=== PATIENT | female | born 1960 | race African-American/Black ===

== ENCOUNTER 2017-12-22 15:30 | Inpatient (IN) | payer BC ==
[~2017-12-22] VITALS: Ht 165.1 cm; Wt 87.1 kg
[2017-12-22] VITALS (8 sets, daily range): BP systolic 104–117; BP diastolic 41–66
--- NOTE | 2017-12-22 16:30 | Emergency Room Report ---
History of Present Illness General Chief Complaint: Generalized Weakness Source: Patient, EMS Present Illness HPI 57-year-old female presents ED for evaluation. Patient was found down in bathroom today. 911 called. Patient appeared lethargic. Accu-Chek critically high. History of diabetes. Patient is unable to provide any additional history at this time. No reported chest pain or shortness of breath. No fevers or chills. No other aggravating relieving factors. Denies any other associated symptoms Allergies: Coded Allergies: UNABLE TO ASSESS (Unverified , 12/22/17) Patient History Past Medical History: DM Past Surgical History: none Pertinent Family History: none Social History: Denies: smoking, alcohol use, drug use Now: No Immunizations: UTD Reviewed Nursing Documentation: PMH: Agreed; PSxH: Agreed Nursing Documentation-PMH Past Medical History: No History, Except For Hx Diabetes: Yes Review of Systems All Other Systems: limited Physical Exam Vital Signs Date Time Temp Pulse Resp B/P (MAP) Pulse Ox O2 Delivery O2 Flow Rate FiO2 12/22/17 15:27 105 16 119/69 95 Room Air Sp02 EP Interpretation: reviewed, normal General Appearance: lethargic Head: normocephalic Eyes: bilateral eye normal inspection, bilateral eye PERRL ENT: normal ENT inspection Neck: normal inspection Respiratory: chest non-tender, lungs clear, normal breath sounds, speaking full sentences Cardiovascular #1: regular rate, rhythm, no edema Gastrointestinal: normal bowel sounds, non tender, soft, non-distended, no guarding, no rebound Rectal: deferred Genitourinary: no CVA tenderness Musculoskeletal: normal inspection Neurologic: other - lethargic Psychiatric: other - lethargic Skin: other - area of induration/erythema/fluctuance to R buttock Lymphatic: normal inspection Procedures Critical Care Time Critical Care Time i. I feel this is a highly complex case requiring extensive working including EKG/Rhythm strip, Xray/CT/US, Blood/urine lab work, repeat exams while in ED, and administration of strong opiates/narcotics for pain control, admission to hospital or close patient follow up. Total time: 30 min bedside evaluation and treatment excludes procedures (EKG). Reason for critical care: AMS, sepsis, DKA, abscess Possible complications: hypotension, hypertension, VT, shock, arrhythmias, metabolic acidosis, end organ damage, respiratory failure. Interventions: labs, ekg, CT, IVFs. ABG. insulin drip/bolus. consultation with surgery Course: Patient presenting found down in bathroom at home. Accu-Chek critically high. CT negative. Glucose > 1000 with DKA. ABG shows acidosis. There is a large abscess to the right buttock. Drained by Dr. Osorio at bedside. insulin bolus and insulin drip started Consultations: nursing staff, EMS, family Performed by: Dr Deras Tolerated well condition = critical j. because of unstable vital signs this patient had a condition that could potentially threaten life or limb. I feel this is a critical patient who required my full attention while patient was considered critical. Total Critical Care Time excluding procedures was greater than 35 minutes Medical Decision Making Diagnostic Impression: Primary Impression: DKA (diabetic ketoacidoses) Qualified Codes: E13.11 - Other specified diabetes mellitus with ketoacidosis with coma Additional Impressions: Abscess of buttock Renal insufficiency ER Course Hospital Course 57-year-old female presenting to ED with altered mental status, glucometer critically high. found down Differential diagnoses include: ETOH/drug ingestion, sepsis, DKA Clinical course Patient placed on stretcher. On fraud examiner. After initial history and physical I ordered labs, 2 L of IV fluids, urine and CT Head Labs-glucose greater than 1000, anion gap elevated, bicarbonate 5, BUN/ creatinine elevated. WBC > 30 CT head unremarkable There is a fairly large abscess to the right buttock IV hydration continued. Started on insulin bolus and insulin drip Patient is more awake Dr. Osorio at bedside to evaluate the patient; he was able to drain the abscess. IV Antibiotics given. Case discussed with Dr. Mckay and he agreed to accept the patient to his service for further care and support i. I feel this is a highly complex case requiring extensive working including EKG/Rhythm strip, Xray/CT/US, Blood/urine lab work, repeat exams while in ED, and administration of strong opiates/narcotics for pain control, admission to hospital or close patient follow up. j. because of unstable vital signs this patient had a condition that could potentially threaten life or limb. I feel this is a critical patient who required my full attention while patient was considered critical. Total Critical Care Time excluding procedures was greater than 35 minutes diagnosis - DKA, abscess of buttock, renal insufficiency admitted to ICU in critical condition Labs Test 12/22/17 15:55 12/22/17 16:12 12/22/17 16:58 White Blood Count 33.0 K/UL (4.8-10.8) Red Blood Count 3.71 M/UL (4.20-5.40) Hemoglobin 10.9 G/DL (12.0-16.0) Hematocrit 34.3 % (37.0-47.0) Mean Corpuscular Volume 92 FL (80-99) Mean Corpuscular Hemoglobin 29.3 PG (27.0-31.0) Mean Corpuscular Hemoglobin Concent 31.7 G/DL (32.0-36.0) Red Cell Distribution Width 12.3 % (11.6-14.8) Platelet Count 425 K/UL (150-450) Mean Platelet Volume 7.6 FL (6.5-10.1) Neutrophils (%) (Auto) % (45.0-75.0) Lymphocytes (%) (Auto) % (20.0-45.0) Monocytes (%) (Auto) % (1.0-10.0) Eosinophils (%) (Auto) % (0.0-3.0) Basophils (%) (Auto) % (0.0-2.0) Differential Total Cells Counted 100 Neutrophils % (Manual) 84 % (45-75) Lymphocytes % (Manual) 6 % (20-45) Monocytes % (Manual) 9 % (1-10) Eosinophils % (Manual) 0 % (0-3) Basophils % (Manual) 0 % (0-2) Band Neutrophils 1 % (0-8) Nucleated Red Blood Cells 1 /100 WBC Platelet Estimate Adequate Platelet Morphology Normal Red Blood Cell Morphology Normal Prothrombin Time 10.8 SEC (9.30-11.50) Prothromb Time International Ratio 1.0 (0.9-1.1) Activated Partial Thromboplast Time 27 SEC (23-33) Sodium Level 126 MMOL/L (136-145) Potassium Level 5.1 MMOL/L (3.5-5.1) Chloride Level 88 MMOL/L (98-107) Carbon Dioxide Level < 5 MMOL/L (21-32) Blood Urea Nitrogen 97 mg/dL (7-18) Creatinine 2.9 MG/DL (0.55-1.30) Estimat Glomerular Filtration Rate 20.2 mL/min (>60) Glucose Level 1064 MG/DL (74-106) Lactic Acid Level 1.30 mmol/L (0.4-2.0) Calcium Level 8.9 MG/DL (8.5-10.1) Magnesium Level 2.7 MG/DL (1.8-2.4) Total Bilirubin 0.8 MG/DL (0.2-1.0) Aspartate Amino Transf (AST/SGOT) 12 U/L (15-37) Alanine Aminotransferase (ALT/SGPT) 15 U/L (12-78) Alkaline Phosphatase 201 U/L (46-116) Creatine Kinase MB 1.8 NG/ML (0.0-3.6) Total Protein 7.3 G/DL (6.4-8.2) Albumin 1.9 G/DL (3.4-5.0) Globulin 5.4 g/dL Albumin/Globulin Ratio 0.4 (1.0-2.7) Acetone Level Positive-moderate (NEGATIVE) Urine Color Pale yellow Urine Appearance Clear Urine pH 5 (4.5-8.0) Urine Specific [place] 1.015 (1.005-1.035) Urine Protein 3+ (NEGATIVE) Urine Glucose (UA) 4+ (NEGATIVE) Urine Ketones 4+ (NEGATIVE) Urine Occult Blood 4+ (NEGATIVE) Urine Nitrite Negative (NEGATIVE) Urine Bilirubin Negative (NEGATIVE) Urine Urobilinogen Normal MG/DL (0.0-1.0) Urine Leukocyte Esterase Negative (NEGATIVE) Urine RBC 2-4 /HPF (0 - 2) Urine WBC 0-2 /HPF (0 - 2) Urine Squamous Epithelial Cells Few /LPF (NONE/OCC) Urine Bacteria Few /HPF (NONE) Arterial Blood pH 7.140 (7.350-7.450) Arterial Blood Partial Pressure CO2 12.0 mmHg (35.0-45.0) Arterial Blood Partial Pressure O2 116.6 mmHg (75.0-100.0) Arterial Blood HCO3 4.0 mmol/L (22.0-26.0) Arterial Blood Oxygen Saturation 97.1 % (92.0-98.0) Arterial Blood Base Excess -22.7 Connor Test Positive EKG Diagnostic Results Rate: tachycardiac Rhythm: NSR ST Segments: no acute changes ASA given to the pt in ED: No Rhythm Strip Diag. Results EP Interpretation: yes Rhythm: NSR, no PVC's, no ectopy CT/MRI/US Diagnostic Results CT/MRI/US Diagnostic Results : Imaging Test Ordered: CT Head Impression no acute process Last Vital Signs Date Time Temp Pulse Resp B/P (MAP) Pulse Ox O2 Delivery O2 Flow Rate FiO2 12/22/17 15:27 105 16 119/69 95 Room Air Status: improved Disposition: ADMITTED INPATIENT Condition: Critical Referrals: NOT CHOSEN IPA/,REFERRING (PCP) Yared Deras MD Dec 22, 2017 16:30
[2017-12-22 16:36] LABS: HEMATOCRIT 34.3 % (37.0-47.0); HEMOGLOBIN 10.9 G/DL (12.0-16.0); MEAN CORPUSCULAR VOLUME 92 FL (80-99); PLATELET COUNT 425 K/UL (150-450); RED BLOOD COUNT 3.71 M/UL (4.20-5.40); RED CELL DISTRIBUTION WIDTH 12.3 % (11.6-14.8)
[2017-12-22 16:41] LABS: APPEARANCE,URINE CLEAR; BILIRUBIN, URINE NEGATIVE (NEGATIVE); COLOR,URINE PALE YELLOW; GLUCOSE, URINE (UA) 4+ (NEGATIVE); KETONES,URINE 4+ (NEGATIVE); LEUKOCYTE ESTERASE ,URINE NEGATIVE (NEGATIVE); NITRITE,URINE NEGATIVE (NEGATIVE); PH,URINE 5 (4.5-8.0); PROTEIN,URINE 3+ (NEGATIVE); UROBILINOGEN,URINE NORMAL MG/DL (0.0-1.0)
[2017-12-22 16:54] LABS: ALANINE AMINOTRANSFERASE 15 U/L (12-78); ALBUMIN 1.9 G/DL (3.4-5.0); ALBUMIN/GLOBULIN RATIO 0.4 (1.0-2.7); ALKALINE PHOSPHATASE 201 U/L (46-116); ASPARTATE AMINO TRANSFERASE 12 U/L (15-37); BILIRUBIN,TOTAL 0.8 MG/DL (0.2-1.0); BLOOD UREA NITROGEN 97 mg/dL (7-18); CALCIUM 8.9 MG/DL (8.5-10.1); CHLORIDE 88 MMOL/L (98-107); CREATININE 2.9 MG/DL (0.55-1.30); POTASSIUM 5.1 MMOL/L (3.5-5.1); SODIUM 126 MMOL/L (136-145)
[2017-12-22 16:56] LABS: CARBON DIOXIDE < 5 MMOL/L (21-32)
[2017-12-22] MEDS ORDERED: Insulin Human Regular 100units/ml 3ml IV ONE (17:00)
[2017-12-22] MEDS ORDERED: Piperacillin/Tazobactam 3.375 GM in NS 110 ML IVPB ONE (17:00)
[2017-12-22] MEDS ORDERED: UNOBMED (17:00)
--- NOTE | 2017-12-22 17:01 | Diagnostic Imaging Report ---
Indications: Altered mental status Technique: Spiral acquisitions obtained through the brain. Angled axial and coronal 5 x 5 mm slices were reconstructed. Total dose length product 1413.89 mGycm. CTDI vol(s) 70.38 mGy. Dose reduction achieved using automated exposure control Comparison: None. Findings: No acute intracranial hemorrhage or edema, mass effect, nor midline shift. Normal size ventricles and extra-axial CSF spaces. Normal sanabria-white differentiation. Incidental finding of empty sella. The mastoids are clear. The visualized orbits and sinuses are unremarkable. The calvarium is intact Impression: Negative. No evidence of acute intracranial bleed or mass effect The CT scanner at [facility] is accredited by the [employer] and the scans are performed using protocols designed to limit radiation exposure to as low as reasonably achievable to attain images of sufficient resolution adequate for diagnostic evaluation.
--- NOTE | 2017-12-22 17:50 | Consultation ---
History of Present Illness General Date patient seen: Dec 22, 2017 Chief Complaint: Generalized Weakness Reason for Consultation: right buttock abscess / sepsis Present Illness HPI 57 year old female was found down at home by her twin brother earlier today. Family was trying to get in contact with her earlier today and when no response her twin brother went to her house and climbed in through the window to find her down on the floor. Unsure of etiology and called 911. EMS noted lethargic female with blood sugar >1000. She was transported to [facility] [place]. she was noted to have leukocytosis 33k, severe hyperglycemia, significant acidosis, and large right buttock abscess with area of gangrene at skin level. surgery called to evaluate patient. patient seen, chart reviewed, patient examined. on exam patient can follow simple commands but is not responsive verbally yet. her daughter is at bedside and states she does not know of any past medical history. she states her mother is "holistic" and does not take pharmaceutical medications as far as she knows. she was unaware that mother was a diabetic. Allergies: Coded Allergies: UNABLE TO ASSESS (Unverified , 12/22/17) Medication History Miscellaneous Medications Unable to Obtain Medications (Unable To Obtain Meds), (Reported) Patient History Limited by: medical condition History Provided By: Family Member, Medical Record, PMD Healthcare decision maker Resuscitation status Advanced Directive on File Past Medical/Surgical History Past Medical/Surgical History: (1) Abscess of buttock (2) Sepsis (3) Hyperglycemia (4) Diabetes (5) Diabetic acidosis without coma (6) Renal insufficiency (7) Severe sepsis Review of Systems ROS Narrative cannot obtain given medical condition Physical Exam General Appearance: lethargic, confused, mild distress Lines, tubes and drains: peripheral HEENT: normocephalic, anicteric Neck: normal inspection Respiratory/Chest: lungs clear, normal breath sounds Cardiovascular/Chest: normal peripheral pulses, regular rhythm Abdomen: normal bowel sounds, non tender, soft, no organomegaly, no mass Extremities: normal inspection Skin Exam: normal pigmentation Neurologic: alert, disoriented Last 24 Hour Vital Signs Date Time Temp Pulse Resp B/P (MAP) Pulse Ox O2 Delivery O2 Flow Rate FiO2 12/22/17 15:30 95.4 104 28 117/56 100 Room Air 95.4 12/22/17 15:27 105 16 119/69 95 Room Air Laboratory Tests Test 12/22/17 15:55 12/22/17 16:12 12/22/17 16:58 White Blood Count 33.0 K/UL (4.8-10.8) *H Red Blood Count 3.71 M/UL (4.20-5.40) L Hemoglobin 10.9 G/DL (12.0-16.0) L Hematocrit 34.3 % (37.0-47.0) L Mean Corpuscular Volume 92 FL (80-99) Mean Corpuscular Hemoglobin 29.3 PG (27.0-31.0) Mean Corpuscular Hemoglobin Concent 31.7 G/DL (32.0-36.0) L Red Cell Distribution Width 12.3 % (11.6-14.8) Platelet Count 425 K/UL (150-450) Mean Platelet Volume 7.6 FL (6.5-10.1) Neutrophils (%) (Auto) % (45.0-75.0) Lymphocytes (%) (Auto) % (20.0-45.0) Monocytes (%) (Auto) % (1.0-10.0) Eosinophils (%) (Auto) % (0.0-3.0) Basophils (%) (Auto) % (0.0-2.0) Neutrophils % (Manual) Pending Lymphocytes % (Manual) Pending Platelet Estimate Pending Platelet Morphology Pending Prothrombin Time 10.8 SEC (9.30-11.50) Prothromb Time International Ratio 1.0 (0.9-1.1) Activated Partial Thromboplast Time 27 SEC (23-33) Sodium Level 126 MMOL/L (136-145) L Potassium Level 5.1 MMOL/L (3.5-5.1) Chloride Level 88 MMOL/L (98-107) L Carbon Dioxide Level < 5 MMOL/L (21-32) *L Blood Urea Nitrogen 97 mg/dL (7-18) H Creatinine 2.9 MG/DL (0.55-1.30) H Estimat Glomerular Filtration Rate 20.2 mL/min (>60) Glucose Level 1064 MG/DL (74-106) *H Lactic Acid Level 1.30 mmol/L (0.4-2.0) Calcium Level 8.9 MG/DL (8.5-10.1) Magnesium Level 2.7 MG/DL (1.8-2.4) H Total Bilirubin 0.8 MG/DL (0.2-1.0) Aspartate Amino Transf (AST/SGOT) 12 U/L (15-37) L Alanine Aminotransferase (ALT/SGPT) 15 U/L (12-78) Alkaline Phosphatase 201 U/L (46-116) H Creatine Kinase MB 1.8 NG/ML (0.0-3.6) Total Protein 7.3 G/DL (6.4-8.2) Albumin 1.9 G/DL (3.4-5.0) L Globulin 5.4 g/dL Albumin/Globulin Ratio 0.4 (1.0-2.7) L Acetone Level Positive-moderate (NEGATIVE) Urine Color Pale yellow Urine Appearance Clear Urine pH 5 (4.5-8.0) Urine Specific [place] 1.015 (1.005-1.035) Urine Protein 3+ (NEGATIVE) H Urine Glucose (UA) 4+ (NEGATIVE) H Urine Ketones 4+ (NEGATIVE) H Urine Occult Blood 4+ (NEGATIVE) H Urine Nitrite Negative (NEGATIVE) Urine Bilirubin Negative (NEGATIVE) Urine Urobilinogen Normal MG/DL (0.0-1.0) Urine Leukocyte Esterase Negative (NEGATIVE) Urine RBC 2-4 /HPF (0 - 2) H Urine WBC 0-2 /HPF (0 - 2) Urine Squamous Epithelial Cells Few /LPF (NONE/OCC) Urine Bacteria Few /HPF (NONE) Arterial Blood pH 7.140 (7.350-7.450) Arterial Blood Partial Pressure CO2 12.0 mmHg (35.0-45.0) *L Arterial Blood Partial Pressure O2 116.6 mmHg (75.0-100.0) H Arterial Blood HCO3 4.0 mmol/L (22.0-26.0) L Arterial Blood Oxygen Saturation 97.1 % (92.0-98.0) Arterial Blood Base Excess -22.7 Connor Test Positive Height (Feet): 5 Height (Inches): 7.00 Weight (Pounds): 245 Medications Current Medications Medications (Trade) Dose Ordered Sig/Eyad Route PRN Reason Start Time Stop Time Status Last Admin Dose Admin Insulin Human Regular 100 units/ Sodium Chloride 101 ml @ 15.15 mls/ hr ONCE ONCE IV 12/22/17 17:00 12/22/17 23:39 Sodium Chloride 1,000 ml @ 999 mls/hr Q1H1M ONCE IV 12/22/17 17:00 12/22/17 18:00 12/22/17 17:12 Assessment/Plan Problem List: (1) Diabetic acidosis without coma ICD Codes: E13.10 - Other specified diabetes mellitus with ketoacidosis without coma SNOMED: 08056308, 994846407 (2) Hyperglycemia ICD Codes: R73.9 - Hyperglycemia, unspecified SNOMED: 24171868 (3) Severe sepsis ICD Codes: A41.9 - Sepsis, unspecified organism; R65.20 - Severe sepsis without septic shock SNOMED: 11056993 (4) Abscess of buttock Assessment & Plan: large right buttock abscess with gangrene at skin level. given condition urgent I&D warranted as possible etiology of sepsis. see procedure report. -cultures -NPO -IV fluids -Resuscitation -Insulin gtt -ICU admission -packing and dressings to buttock TID. thank you will follow with recommendations ICD Codes: L02.31 - Cutaneous abscess of buttock SNOMED: 37254624 (5) DKA (diabetic ketoacidoses) ICD Codes: E13.10 - Other specified diabetes mellitus with ketoacidosis without coma SNOMED: 76935193, 499590473 Qualifiers: Qualified Codes: E13.11 - Other specified diabetes mellitus with ketoacidosis with coma Baljeet Osorio Dec 22, 2017 17:50
--- NOTE | 2017-12-22 17:54 | Operative Note - PDOC ---
Operative Note Operative Note Date of Operation/Procedure: Dec 22, 2017 Pre-op Diagnosis: right buttock abscess, sepsis Procedure: incision and drainage of right perirectal abscess Post-op Diagnosis: same as pre-op Surgeon: mariana Anesthesia: local Specimen: yes Complications: none Condition: stable Estimated Blood Loss: minimal Drains: none Implant(s) used?: No Indications for Procedure 57F septic, diabetic ketoacidosis, found down, large right buttock abscess with erythema, cellulitis, and necrotic skin level area 3cm x2cm. given medical condition urgent I&D indicated and recommended. daughter at bedside during procedure. Description of Procedure patient made comfortable in left lateral decubitus position. area cleaned, prepped, and draped in standard surgical fashion. #11 scalpel used to make crutiate incision in area of necrosis. immediately brown purulent fluid evacuated. no bleeding from area of necrosis. fluid evacuated, cavity explored and deep towards rectum. contents somewhat stool like in appearance. washout performed. packing and dressings applied. patient tolerated well. Baljeet Osorio Dec 22, 2017 17:54
[2017-12-22] MEDS ORDERED: Insulin Human Regular 100units/ml 3ml IV PRN ×2 (18:00)
[2017-12-22] MEDS ORDERED: Mylanta II UD 30ml ORAL PRN (18:00)
[2017-12-22] MEDS ORDERED: Acetaminophen 650 MG SUPP RECTAL PRN (18:00)
[2017-12-22] MEDS ORDERED: HYDROmorphone 1mg/ml Carpuject IVP PRN (18:00)
[2017-12-22] MEDS ORDERED: Nitroglycerin Subl 0.4mg tab SL PRN (18:00)
[2017-12-22] MEDS ORDERED: Hydromorphone 0.5mg/0.5ml inj IVP PRN (18:00)
[2017-12-22] MEDS ORDERED: Artificial Tears 1.4% Op Soln BOTH EYES SCH (18:00)
--- NOTE | 2017-12-22 18:21 | Pulmonolgy Critical Care Note ---
Critical Care - Asmt/Plan Problems: (1) Diabetic acidosis without coma (2) Diabetes (3) Hyperglycemia (4) Sepsis (5) Severe sepsis (6) Abscess of buttock (7) Renal insufficiency (8) DKA (diabetic ketoacidoses) Respiratory: monitor respiratory rate, CXR, ABG Cardiac: continue to monitor HR/BP, other - TTE Renal: F/U I&O, keep IV fluid, check electrolytes Infectious Disease: check cultures, continue antibiotics - Vanco, Zosyn, other - S/P I&D, F/U surgery recs, ? CT A/P Gastrointestinal: other - NPO until MS better Endocrine: monitor blood sugar - q1hour Accucheck, check HgA1C, start insulin drip, other - NS@200/hr, insulin gtt, when BS < 250 will add dextrose to IVF, endo eval Hematologic: monitor H/H Neurologic: other - Monitor MS, F/U final CT, F/U SAPE Prophylaxis: Protonix, Heparin Disposition: keep in ICU Time Spent (Minutes): 60 Notes Reviewed: other - Surgery, ERMD Discussed with: nurses, consultants Critical Care - Objective Last 24 Hour Vital Signs Date Time Temp Pulse Resp B/P (MAP) Pulse Ox O2 Delivery O2 Flow Rate FiO2 12/22/17 17:30 98 25 112/47 100 Room Air 12/22/17 16:30 98 25 104/41 100 Room Air 12/22/17 15:30 95.4 104 28 117/56 100 Room Air 95.4 12/22/17 15:27 105 16 119/69 95 Room Air Status: obtunded Condition: critical HEENT: atraumatic, normocephalic Neck: full ROM Lungs: clear Heart: HR/BP stable Abdomen: soft, non-tender, active bowel sounds Extremities: no C/C/E, other - buttock abscess S/P I&D, packed Critical Care - Subjective ROS Limited/Unobtainable: Yes ICU Day: 1 Interval Events: 57 F H/o IDDM FD, BIB EMS, altered in ED, HCO3 < , pCO2 12, WCt 33, BS > 1000 S/P I&D of buttock abscess by surgery in ED MS better but still lethargic On insulin gtt, IVF, Abx Condition: critical IV Access: peripheral EKG Rhythm: Sinus Rhythm Subjective: lethargic, wakes up to questions, denies specific complaints Labs: Laboratory Tests Test 12/22/17 15:55 12/22/17 16:12 12/22/17 16:58 White Blood Count 33.0 K/UL (4.8-10.8) *H Red Blood Count 3.71 M/UL (4.20-5.40) L Hemoglobin 10.9 G/DL (12.0-16.0) L Hematocrit 34.3 % (37.0-47.0) L Mean Corpuscular Volume 92 FL (80-99) Mean Corpuscular Hemoglobin 29.3 PG (27.0-31.0) Mean Corpuscular Hemoglobin Concent 31.7 G/DL (32.0-36.0) L Red Cell Distribution Width 12.3 % (11.6-14.8) Platelet Count 425 K/UL (150-450) Mean Platelet Volume 7.6 FL (6.5-10.1) Neutrophils (%) (Auto) % (45.0-75.0) Lymphocytes (%) (Auto) % (20.0-45.0) Monocytes (%) (Auto) % (1.0-10.0) Eosinophils (%) (Auto) % (0.0-3.0) Basophils (%) (Auto) % (0.0-2.0) Differential Total Cells Counted 100 Neutrophils % (Manual) 84 % (45-75) H Lymphocytes % (Manual) 6 % (20-45) L Monocytes % (Manual) 9 % (1-10) Eosinophils % (Manual) 0 % (0-3) Basophils % (Manual) 0 % (0-2) Band Neutrophils 1 % (0-8) Nucleated Red Blood Cells 1 /100 WBC Platelet Estimate Adequate Platelet Morphology Normal Red Blood Cell Morphology Normal Prothrombin Time 10.8 SEC (9.30-11.50) Prothromb Time International Ratio 1.0 (0.9-1.1) Activated Partial Thromboplast Time 27 SEC (23-33) Sodium Level 126 MMOL/L (136-145) L Potassium Level 5.1 MMOL/L (3.5-5.1) Chloride Level 88 MMOL/L (98-107) L Carbon Dioxide Level < 5 MMOL/L (21-32) *L Blood Urea Nitrogen 97 mg/dL (7-18) H Creatinine 2.9 MG/DL (0.55-1.30) H Estimat Glomerular Filtration Rate 20.2 mL/min (>60) Glucose Level 1064 MG/DL (74-106) *H Lactic Acid Level 1.30 mmol/L (0.4-2.0) Calcium Level 8.9 MG/DL (8.5-10.1) Magnesium Level 2.7 MG/DL (1.8-2.4) H Total Bilirubin 0.8 MG/DL (0.2-1.0) Aspartate Amino Transf (AST/SGOT) 12 U/L (15-37) L Alanine Aminotransferase (ALT/SGPT) 15 U/L (12-78) Alkaline Phosphatase 201 U/L (46-116) H Creatine Kinase MB 1.8 NG/ML (0.0-3.6) Total Protein 7.3 G/DL (6.4-8.2) Albumin 1.9 G/DL (3.4-5.0) L Globulin 5.4 g/dL Albumin/Globulin Ratio 0.4 (1.0-2.7) L Acetone Level Positive-moderate (NEGATIVE) Urine Color Pale yellow Urine Appearance Clear Urine pH 5 (4.5-8.0) Urine Specific [place] 1.015 (1.005-1.035) Urine Protein 3+ (NEGATIVE) H Urine Glucose (UA) 4+ (NEGATIVE) H Urine Ketones 4+ (NEGATIVE) H Urine Occult Blood 4+ (NEGATIVE) H Urine Nitrite Negative (NEGATIVE) Urine Bilirubin Negative (NEGATIVE) Urine Urobilinogen Normal MG/DL (0.0-1.0) Urine Leukocyte Esterase Negative (NEGATIVE) Urine RBC 2-4 /HPF (0 - 2) H Urine WBC 0-2 /HPF (0 - 2) Urine Squamous Epithelial Cells Few /LPF (NONE/OCC) Urine Bacteria Few /HPF (NONE) Arterial Blood pH 7.140 (7.350-7.450) Arterial Blood Partial Pressure CO2 12.0 mmHg (35.0-45.0) *L Arterial Blood Partial Pressure O2 116.6 mmHg (75.0-100.0) H Arterial Blood HCO3 4.0 mmol/L (22.0-26.0) L Arterial Blood Oxygen Saturation 97.1 % (92.0-98.0) Arterial Blood Base Excess -22.7 Connor Test Positive Omega Nance MD Dec 22, 2017 18:21
[2017-12-22] MEDS ORDERED: Heparin 5000 units/ml inj SUBQ SCH (21:00)
[2017-12-22] MEDS ORDERED: Vitamin A&D Oint 2oz Tube TOPIC SCH (21:00)
--- NOTE | 2017-12-22 21:00 | Cardiology Progress Note ---
Assessment/Plan Assessment/Plan The patient is seen and examined, full consult note will be dictated. Objective Last 24 Hour Vital Signs Date Time Temp Pulse Resp B/P (MAP) Pulse Ox O2 Delivery O2 Flow Rate FiO2 12/22/17 18:30 95 25 106/45 100 Room Air 12/22/17 17:30 98 25 112/47 100 Room Air 12/22/17 16:30 98 25 104/41 100 Room Air 12/22/17 15:30 95.4 104 28 117/56 100 Room Air 95.4 12/22/17 15:27 105 16 119/69 95 Room Air Laboratory Tests Test 12/22/17 15:55 12/22/17 16:12 12/22/17 16:58 White Blood Count 33.0 K/UL (4.8-10.8) *H Red Blood Count 3.71 M/UL (4.20-5.40) L Hemoglobin 10.9 G/DL (12.0-16.0) L Hematocrit 34.3 % (37.0-47.0) L Mean Corpuscular Volume 92 FL (80-99) Mean Corpuscular Hemoglobin 29.3 PG (27.0-31.0) Mean Corpuscular Hemoglobin Concent 31.7 G/DL (32.0-36.0) L Red Cell Distribution Width 12.3 % (11.6-14.8) Platelet Count 425 K/UL (150-450) Mean Platelet Volume 7.6 FL (6.5-10.1) Neutrophils (%) (Auto) % (45.0-75.0) Lymphocytes (%) (Auto) % (20.0-45.0) Monocytes (%) (Auto) % (1.0-10.0) Eosinophils (%) (Auto) % (0.0-3.0) Basophils (%) (Auto) % (0.0-2.0) Differential Total Cells Counted 100 Neutrophils % (Manual) 84 % (45-75) H Lymphocytes % (Manual) 6 % (20-45) L Monocytes % (Manual) 9 % (1-10) Eosinophils % (Manual) 0 % (0-3) Basophils % (Manual) 0 % (0-2) Band Neutrophils 1 % (0-8) Nucleated Red Blood Cells 1 /100 WBC Platelet Estimate Adequate Platelet Morphology Normal Red Blood Cell Morphology Normal Prothrombin Time 10.8 SEC (9.30-11.50) Prothromb Time International Ratio 1.0 (0.9-1.1) Activated Partial Thromboplast Time 27 SEC (23-33) Sodium Level 126 MMOL/L (136-145) L Potassium Level 5.1 MMOL/L (3.5-5.1) Chloride Level 88 MMOL/L (98-107) L Carbon Dioxide Level < 5 MMOL/L (21-32) *L Blood Urea Nitrogen 97 mg/dL (7-18) H Creatinine 2.9 MG/DL (0.55-1.30) H Estimat Glomerular Filtration Rate 20.2 mL/min (>60) Glucose Level 1064 MG/DL (74-106) *H Lactic Acid Level 1.30 mmol/L (0.4-2.0) Calcium Level 8.9 MG/DL (8.5-10.1) Magnesium Level 2.7 MG/DL (1.8-2.4) H Total Bilirubin 0.8 MG/DL (0.2-1.0) Aspartate Amino Transf (AST/SGOT) 12 U/L (15-37) L Alanine Aminotransferase (ALT/SGPT) 15 U/L (12-78) Alkaline Phosphatase 201 U/L (46-116) H Creatine Kinase MB 1.8 NG/ML (0.0-3.6) Total Protein 7.3 G/DL (6.4-8.2) Albumin 1.9 G/DL (3.4-5.0) L Globulin 5.4 g/dL Albumin/Globulin Ratio 0.4 (1.0-2.7) L Acetone Level Positive-moderate (NEGATIVE) Urine Color Pale yellow Urine Appearance Clear Urine pH 5 (4.5-8.0) Urine Specific [place] 1.015 (1.005-1.035) Urine Protein 3+ (NEGATIVE) H Urine Glucose (UA) 4+ (NEGATIVE) H Urine Ketones 4+ (NEGATIVE) H Urine Occult Blood 4+ (NEGATIVE) H Urine Nitrite Negative (NEGATIVE) Urine Bilirubin Negative (NEGATIVE) Urine Urobilinogen Normal MG/DL (0.0-1.0) Urine Leukocyte Esterase Negative (NEGATIVE) Urine RBC 2-4 /HPF (0 - 2) H Urine WBC 0-2 /HPF (0 - 2) Urine Squamous Epithelial Cells Few /LPF (NONE/OCC) Urine Bacteria Few /HPF (NONE) Urine Opiates Screen Pending Urine Barbiturates Screen Pending Phencyclidine (PCP) Screen Pending Urine Amphetamines Screen Pending Urine Benzodiazepines Screen Pending Urine Cocaine Screen Pending Urine Marijuana (THC) Screen Pending Arterial Blood pH 7.140 (7.350-7.450) Arterial Blood Partial Pressure CO2 12.0 mmHg (35.0-45.0) *L Arterial Blood Partial Pressure O2 116.6 mmHg (75.0-100.0) H Arterial Blood HCO3 4.0 mmol/L (22.0-26.0) L Arterial Blood Oxygen Saturation 97.1 % (92.0-98.0) Arterial Blood Base Excess -22.7 Connor Test Positive Javi Anthony MD Dec 22, 2017 21:00
[2017-12-23] VITALS (24 sets, daily range): BP systolic 114–162; BP diastolic 47–89
[2017-12-23 05:53] LABS: HEMATOCRIT 33.7 % (37.0-47.0); MEAN CORPUSCULAR VOLUME 86 FL (80-99); PLATELET COUNT 415 K/UL (150-450); RED BLOOD COUNT 3.93 M/UL (4.20-5.40); RED CELL DISTRIBUTION WIDTH 11.3 % (11.6-14.8)
[2017-12-23 06:02] LABS: ALANINE AMINOTRANSFERASE 12 U/L (12-78); ALBUMIN 1.8 G/DL (3.4-5.0); ALKALINE PHOSPHATASE 166 U/L (46-116); ANION GAP 14 mmol/L (5-15); ASPARTATE AMINO TRANSFERASE 17 U/L (15-37); BILIRUBIN,DIRECT 0.1 MG/DL (0.0-0.3); BILIRUBIN,TOTAL 0.3 MG/DL (0.2-1.0); BLOOD UREA NITROGEN 79 mg/dL (7-18); CALCIUM 8.4 MG/DL (8.5-10.1); CARBON DIOXIDE 21 MMOL/L (21-32); CHLORIDE 109 MMOL/L (98-107); CREATININE 1.9 MG/DL (0.55-1.30); POTASSIUM 3.8 MMOL/L (3.5-5.1); SODIUM 144 MMOL/L (136-145); WHITE BLOOD COUNT 23.1 K/UL (4.8-10.8)
--- NOTE | 2017-12-23 09:07 | Pulmonolgy Critical Care Note ---
Critical Care - Asmt/Plan Problems: (1) Diabetic acidosis without coma (2) Diabetes (3) Hyperglycemia (4) Sepsis (5) Severe sepsis (6) Abscess of buttock (7) Renal insufficiency (8) DKA (diabetic ketoacidoses) (9) Vagina bleeding Assessment/Plan: * Continue insulin gtt * Change IVF to [id number]@150 * Once gap closed start SQ insulin, overlap with gtt for one hour * Endocrine evaluation * STAT ABG * Continue Vancomycin/Zosyn (D2), F/U Cx's, ID eval * F/U surgery recs, wound care, consider CT A/P * TEMPLATE INSPECTOR evaluation * Monitor for further bleeding * NPO, once more alert TOOL MAKER BENCH eval and advance diet * Px: Hep SQ and PPI * FC 40 min CCT Omega Nance MD Critical Care - Objective Last 24 Hour Vital Signs Date Time Temp Pulse Resp B/P (MAP) Pulse Ox O2 Delivery O2 Flow Rate FiO2 12/23/17 08:50 Room Air 12/23/17 08:00 Room Air 12/23/17 07:44 97.0 105 20 149/80 100 Room Air 97.0 12/23/17 07:11 105 20 149/80 100 Room Air 12/23/17 05:58 107 16 133/68 98 Room Air 12/23/17 04:40 103 18 135/56 98 Room Air 12/23/17 03:30 97.0 104 18 137/67 97 Room Air 97.0 12/23/17 02:22 100 18 114/47 97 Room Air 12/23/17 01:22 106 18 116/48 99 Room Air 12/23/17 00:02 97.5 108 20 117/48 99 Room Air 97.5 12/22/17 22:40 103 19 113/66 99 Room Air 12/22/17 21:39 97.3 98 25 104/41 100 Room Air 97.3 12/22/17 20:30 97 26 110/51 100 Room Air 12/22/17 19:30 96 24 117/56 100 Room Air 12/22/17 18:30 95 25 106/45 100 Room Air 12/22/17 17:30 98 25 112/47 100 Room Air 12/22/17 16:30 98 25 104/41 100 Room Air 12/22/17 15:30 95.4 104 28 117/56 100 Room Air 95.4 12/22/17 15:27 105 16 119/69 95 Room Air Status: other - confused Condition: improving HEENT: atraumatic, normocephalic Lungs: clear Heart: HR/BP stable Abdomen: soft, non-tender, active bowel sounds Extremities: no C/C/E, other - buttock wound packed, + VB Accucheck: 237 Critical Care - Subjective ROS Limited/Unobtainable: Yes ICU Day: 1 Interval Events: Just transferred up to ICU Last accucheck 237 @ 8am On NS and insulin gtt WCt down, Cr better Wound draining, dressing changed Condition: critical IV Access: peripheral EKG Rhythm: Sinus Tachycardia Fluids: NS @ 200 Drips: Insulin gtt I&O: Intake and Output 12/22/17 12/23/17 19:00 07:00 Intake Total 3125.15 ml Output Total 2550 ml Balance 3125.15 ml -2550 ml Intake IV Total 3125.15 ml Output Urine Total 2550 ml Subjective: lethargic, wakes up to questions, denies specific complaints Labs: Laboratory Tests Test 12/22/17 15:55 12/22/17 16:12 12/22/17 16:58 12/23/17 05:20 White Blood Count 33.0 K/UL (4.8-10.8) *H 23.1 K/UL (4.8-10.8) *H Red Blood Count 3.71 M/UL (4.20-5.40) L 3.93 M/UL (4.20-5.40) L Hemoglobin 10.9 G/DL (12.0-16.0) L 11.0 G/DL (12.0-16.0) L Hematocrit 34.3 % (37.0-47.0) L 33.7 % (37.0-47.0) L Mean Corpuscular Volume 92 FL (80-99) 86 FL (80-99) Mean Corpuscular Hemoglobin 29.3 PG (27.0-31.0) 28.1 PG (27.0-31.0) Mean Corpuscular Hemoglobin Concent 31.7 G/DL (32.0-36.0) L 32.7 G/DL (32.0-36.0) Red Cell Distribution Width 12.3 % (11.6-14.8) 11.3 % (11.6-14.8) L Platelet Count 425 K/UL (150-450) 415 K/UL (150-450) Mean Platelet Volume 7.6 FL (6.5-10.1) 7.7 FL (6.5-10.1) Neutrophils (%) (Auto) % (45.0-75.0) % (45.0-75.0) Lymphocytes (%) (Auto) % (20.0-45.0) % (20.0-45.0) Monocytes (%) (Auto) % (1.0-10.0) % (1.0-10.0) Eosinophils (%) (Auto) % (0.0-3.0) % (0.0-3.0) Basophils (%) (Auto) % (0.0-2.0) % (0.0-2.0) Differential Total Cells Counted 100 100 Neutrophils % (Manual) 84 % (45-75) H 80 % (45-75) H Lymphocytes % (Manual) 6 % (20-45) L 6 % (20-45) L Monocytes % (Manual) 9 % (1-10) 5 % (1-10) Eosinophils % (Manual) 0 % (0-3) 0 % (0-3) Basophils % (Manual) 0 % (0-2) 0 % (0-2) Band Neutrophils 1 % (0-8) 8 % (0-8) Nucleated Red Blood Cells 1 /100 WBC Platelet Estimate Adequate Increased H Platelet Morphology Normal Normal Red Blood Cell Morphology Normal Normal Prothrombin Time 10.8 SEC (9.30-11.50) 10.2 SEC (9.30-11.50) Prothromb Time International Ratio 1.0 (0.9-1.1) 1.0 (0.9-1.1) Activated Partial Thromboplast Time 27 SEC (23-33) 22 SEC (23-33) L Sodium Level 126 MMOL/L (136-145) L 144 MMOL/L (136-145) # Potassium Level 5.1 MMOL/L (3.5-5.1) 3.8 MMOL/L (3.5-5.1) Chloride Level 88 MMOL/L (98-107) L 109 MMOL/L (98-107) H Carbon Dioxide Level < 5 MMOL/L (21-32) *L 21 MMOL/L (21-32) Blood Urea Nitrogen 97 mg/dL (7-18) H 79 mg/dL (7-18) H Creatinine 2.9 MG/DL (0.55-1.30) H 1.9 MG/DL (0.55-1.30) H Estimat Glomerular Filtration Rate 20.2 mL/min (>60) 33.0 mL/min (>60) Glucose Level 1064 MG/DL (74-106) *H 310 MG/DL (74-106) #H Lactic Acid Level 1.30 mmol/L (0.4-2.0) Calcium Level 8.9 MG/DL (8.5-10.1) 8.4 MG/DL (8.5-10.1) L Magnesium Level 2.7 MG/DL (1.8-2.4) H Total Bilirubin 0.8 MG/DL (0.2-1.0) 0.3 MG/DL (0.2-1.0) Aspartate Amino Transf (AST/SGOT) 12 U/L (15-37) L 17 U/L (15-37) Alanine Aminotransferase (ALT/SGPT) 15 U/L (12-78) 12 U/L (12-78) Alkaline Phosphatase 201 U/L (46-116) H 166 U/L (46-116) H Creatine Kinase MB 1.8 NG/ML (0.0-3.6) Total Protein 7.3 G/DL (6.4-8.2) 7.1 G/DL (6.4-8.2) Albumin 1.9 G/DL (3.4-5.0) L 1.8 G/DL (3.4-5.0) L Globulin 5.4 g/dL Albumin/Globulin Ratio 0.4 (1.0-2.7) L Acetone Level Positive-moderate (NEGATIVE) Urine Color Pale yellow Urine Appearance Clear Urine pH 5 (4.5-8.0) Urine Specific [place] 1.015 (1.005-1.035) Urine Protein 3+ (NEGATIVE) H Urine Glucose (UA) 4+ (NEGATIVE) H Urine Ketones 4+ (NEGATIVE) H Urine Occult Blood 4+ (NEGATIVE) H Urine Nitrite Negative (NEGATIVE) Urine Bilirubin Negative (NEGATIVE) Urine Urobilinogen Normal MG/DL (0.0-1.0) Urine Leukocyte Esterase Negative (NEGATIVE) Urine RBC 2-4 /HPF (0 - 2) H Urine WBC 0-2 /HPF (0 - 2) Urine Squamous Epithelial Cells Few /LPF (NONE/OCC) Urine Bacteria Few /HPF (NONE) Urine Opiates Screen Negative (NEGATIVE) Urine Barbiturates Screen Negative (NEGATIVE) Phencyclidine (PCP) Screen Negative (NEGATIVE) Urine Amphetamines Screen Negative (NEGATIVE) Urine Benzodiazepines Screen Negative (NEGATIVE) Urine Cocaine Screen Negative (NEGATIVE) Urine Marijuana (THC) Screen Negative (NEGATIVE) Arterial Blood pH 7.140 (7.350-7.450) Arterial Blood Partial Pressure CO2 12.0 mmHg (35.0-45.0) *L Arterial Blood Partial Pressure O2 116.6 mmHg (75.0-100.0) H Arterial Blood HCO3 4.0 mmol/L (22.0-26.0) L Arterial Blood Oxygen Saturation 97.1 % (92.0-98.0) Arterial Blood Base Excess -22.7 Connor Test Positive Metamyelocytes % 1 % (0-0) H Anion Gap 14 mmol/L (5-15) Direct Bilirubin 0.1 MG/DL (0.0-0.3) Omega Nance MD Dec 23, 2017 09:07
[2017-12-23] MEDS ORDERED: Insulin Human Regular 100units/ml 3ml IV PRN ×2 (09:15)
[2017-12-23] MEDS: Heparin 5000 units/ml inj SUBQ SCH ×2 (09:31→17:24)
[2017-12-23] MEDS: D5 1/2NS w/KCl 20mEq 1,000 ML IV SCH ×4 (10:00→20:00)
[2017-12-23] MEDS ORDERED: Vancomycin 2gm/D5W 550ml IVPB ONE ×2 (10:30)
--- NOTE | 2017-12-23 11:00 | Diagnostic Imaging Report ---
Indication: Shortness of breath Technique: One view of the chest Comparison: none Findings: Lungs and pleural spaces are clear. Heart size is normal Impression: No acute process
[2017-12-23 11:17] LABS: ALANINE AMINOTRANSFERASE 17 U/L (12-78); ALBUMIN 1.9 G/DL (3.4-5.0); ALBUMIN/GLOBULIN RATIO 0.4 (1.0-2.7); ALKALINE PHOSPHATASE 170 U/L (46-116); ANION GAP 13 mmol/L (5-15); ASPARTATE AMINO TRANSFERASE 21 U/L (15-37); BILIRUBIN,TOTAL 0.4 MG/DL (0.2-1.0); BLOOD UREA NITROGEN 80 mg/dL (7-18); CALCIUM 8.9 MG/DL (8.5-10.1); CARBON DIOXIDE 20 MMOL/L (21-32); CHLORIDE 109 MMOL/L (98-107); CREATININE 1.8 MG/DL (0.55-1.30); POTASSIUM 4.2 MMOL/L (3.5-5.1); SODIUM 142 MMOL/L (136-145)
[2017-12-23] MEDS: Insulin Rate Change 1 Each MISC PRN ×5 (11:57→18:35)
[2017-12-23] MEDS: Artificial Tears 1.4% Op Soln BOTH EYES SCH ×2 (13:00→17:25)
--- NOTE | 2017-12-23 13:29 | Consultation ---
Consult Note Consult Note GYNECOLOGY CONSULT NOTE CC: Vaginal bleeding, unsure if postmenopausal HPI: Patient is a 57yo P1 who was admitted with sepsis and DKA, currently in ICU. Gynecology was consulted for vaginal bleeding noted at the time of transfer. She is currently unable to communicate, responds to stimuli, but is non-verbal at this time. Daughter at bedside for support, with limited knowledge of her medical history. She did not know she was diabetic, and was not present when she was found down in her bathroom. She reports that the patient did not show up for work, and was subsequently found by her uncle ( patient's brother), down on the ground, fully dressed, and appeared to have been throwing up. No signs of head trauma, but water on the floor at the time she was found. BG at time of admission critical. Of note, the patient was treated for a presumed spider bite on her buttock 2 months ago, but on admission this was determined to be an abscess which has been drained by Gen Surg. Patient is currently on IV ABx and insuling gtt. PMH: Per chart review - diabetes, ?recently diagnosed PSH: Unable to assess MEDS: In house" Vancomycin, Zosyn, Regular insulin gtt. At home takes herbs only , does not believe in conventional medicine. ALLERGIES: NKDA per daughter OBHX: P1, unclear if has had other pregnancies GYNHX: Last visit to CLINIC PHYSICIAN DIRECTOR many years ago, patient has not sought primary care in a very long time, uses ER and urgent care for primary care. SOCHX: Typically independent, lives alone but has supportive family FAMHX: Unable to assess VITALS: Tmax 98.3, BP 156/77, P 105-119, RR 17, O2 98% RA EXAM: Gen: Lethargic but arousable, but non-verbal at this time and minimally responsive to questions. Neuro: unable to assess HEENT: OP clear, MM dry CV: +Tachycardia Pulm: No increased work of breathing, normal chest rise bilaterally Abd: Soft, mild TTP in lower abdomen Pelvic: minimal blood, +discharge consistent with yeast Ext: FROM MSK: unable to assess strength LABS: Test 12/22/17 15:55 12/22/17 16:12 12/22/17 16:58 12/23/17 05:20 White Blood Count 33.0 K/UL (4.8-10.8) *H 23.1 K/UL (4.8-10.8) *H Red Blood Count 3.71 M/UL (4.20-5.40) L 3.93 M/UL (4.20-5.40) L Hemoglobin 10.9 G/DL (12.0-16.0) L 11.0 G/DL (12.0-16.0) L Hematocrit 34.3 % (37.0-47.0) L 33.7 % (37.0-47.0) L Mean Corpuscular Volume 92 FL (80-99) 86 FL (80-99) Mean Corpuscular Hemoglobin 29.3 PG (27.0-31.0) 28.1 PG (27.0-31.0) Mean Corpuscular Hemoglobin Concent 31.7 G/DL (32.0-36.0) L 32.7 G/DL (32.0-36.0) Red Cell Distribution Width 12.3 % (11.6-14.8) 11.3 % (11.6-14.8) L Platelet Count 425 K/UL (150-450) 415 K/UL (150-450) Mean Platelet Volume 7.6 FL (6.5-10.1) 7.7 FL (6.5-10.1) Neutrophils (%) (Auto) % (45.0-75.0) % (45.0-75.0) Lymphocytes (%) (Auto) % (20.0-45.0) % (20.0-45.0) Monocytes (%) (Auto) % (1.0-10.0) % (1.0-10.0) Eosinophils (%) (Auto) % (0.0-3.0) % (0.0-3.0) Basophils (%) (Auto) % (0.0-2.0) % (0.0-2.0) Differential Total Cells Counted 100 100 Neutrophils % (Manual) 84 % (45-75) H 80 % (45-75) H Lymphocytes % (Manual) 6 % (20-45) L 6 % (20-45) L Monocytes % (Manual) 9 % (1-10) 5 % (1-10) Eosinophils % (Manual) 0 % (0-3) 0 % (0-3) Basophils % (Manual) 0 % (0-2) 0 % (0-2) Band Neutrophils 1 % (0-8) 8 % (0-8) Nucleated Red Blood Cells 1 /100 WBC Platelet Estimate Adequate Increased H Platelet Morphology Normal Normal Red Blood Cell Morphology Normal Normal Prothrombin Time 10.8 SEC (9.30-11.50) 10.2 SEC (9.30-11.50) Prothromb Time International Ratio 1.0 (0.9-1.1) 1.0 (0.9-1.1) Activated Partial Thromboplast Time 27 SEC (23-33) 22 SEC (23-33) L Sodium Level 126 MMOL/L (136-145) L 142 MMOL/L (136-145) Potassium Level 5.1 MMOL/L (3.5-5.1) 4.2 MMOL/L (3.5-5.1) Chloride Level 88 MMOL/L (98-107) L 109 MMOL/L (98-107) H Carbon Dioxide Level < 5 MMOL/L (21-32) *L 20 MMOL/L (21-32) L Blood Urea Nitrogen 97 mg/dL (7-18) H 80 mg/dL (7-18) H Creatinine 2.9 MG/DL (0.55-1.30) H 1.8 MG/DL (0.55-1.30) H Estimat Glomerular Filtration Rate 20.2 mL/min (>60) 35.0 mL/min (>60) Glucose Level 1064 MG/DL (74-106) *H 308 MG/DL (74-106) H Lactic Acid Level 1.30 mmol/L (0.4-2.0) Calcium Level 8.9 MG/DL (8.5-10.1) 8.9 MG/DL (8.5-10.1) Magnesium Level 2.7 MG/DL (1.8-2.4) H Total Bilirubin 0.8 MG/DL (0.2-1.0) 0.4 MG/DL (0.2-1.0) Aspartate Amino Transf (AST/SGOT) 12 U/L (15-37) L 21 U/L (15-37) Alanine Aminotransferase (ALT/SGPT) 15 U/L (12-78) 17 U/L (12-78) Alkaline Phosphatase 201 U/L (46-116) H 170 U/L (46-116) H Creatine Kinase MB 1.8 NG/ML (0.0-3.6) Total Protein 7.3 G/DL (6.4-8.2) 7.3 G/DL (6.4-8.2) Albumin 1.9 G/DL (3.4-5.0) L 1.9 G/DL (3.4-5.0) L Globulin 5.4 g/dL 5.4 g/dL Albumin/Globulin Ratio 0.4 (1.0-2.7) L 0.4 (1.0-2.7) L Acetone Level Positive-moderate (NEGATIVE) Urine Color Pale yellow Urine Appearance Clear Urine pH 5 (4.5-8.0) Urine Specific [place] 1.015 (1.005-1.035) Urine Protein 3+ (NEGATIVE) H Urine Glucose (UA) 4+ (NEGATIVE) H Urine Ketones 4+ (NEGATIVE) H Urine Occult Blood 4+ (NEGATIVE) H Urine Nitrite Negative (NEGATIVE) Urine Bilirubin Negative (NEGATIVE) Urine Urobilinogen Normal MG/DL (0.0-1.0) Urine Leukocyte Esterase Negative (NEGATIVE) Urine RBC 2-4 /HPF (0 - 2) H Urine WBC 0-2 /HPF (0 - 2) Urine Squamous Epithelial Cells Few /LPF (NONE/OCC) Urine Bacteria Few /HPF (NONE) Urine Opiates Screen Negative (NEGATIVE) Urine Barbiturates Screen Negative (NEGATIVE) Phencyclidine (PCP) Screen Negative (NEGATIVE) Urine Amphetamines Screen Negative (NEGATIVE) Urine Benzodiazepines Screen Negative (NEGATIVE) Urine Cocaine Screen Negative (NEGATIVE) Urine Marijuana (THC) Screen Negative (NEGATIVE) Arterial Blood pH 7.140 (7.350-7.450) Arterial Blood Partial Pressure CO2 12.0 mmHg (35.0-45.0) *L Arterial Blood Partial Pressure O2 116.6 mmHg (75.0-100.0) H Arterial Blood HCO3 4.0 mmol/L (22.0-26.0) L Arterial Blood Oxygen Saturation 97.1 % (92.0-98.0) Arterial Blood Base Excess -22.7 Connor Test Positive Metamyelocytes % 1 % (0-0) H Anion Gap 13 mmol/L (5-15) Direct Bilirubin 0.1 MG/DL (0.0-0.3) Test 12/23/17 08:57 Arterial Blood pH 7.360 (7.350-7.450) Arterial Blood Partial Pressure CO2 34.3 mmHg (35.0-45.0) L Arterial Blood Partial Pressure O2 83.7 mmHg (75.0-100.0) Arterial Blood HCO3 19.1 mmol/L (22.0-26.0) L Arterial Blood Oxygen Saturation 95.7 % (92.0-98.0) Arterial Blood Base Excess -5.5 Connor Test Positive IMAGING: Pelvic US just completed, will await read. Assessment/Plan 57yo P1 admitted with sepsis and DKA, also found to have vaginal bleeding - Unclear if postmenopausal bleeding or perimenopausal bleeding, given that patient is unable to answer my questions at this time - No indication for emergent surgical intervention at this time - Per daughter, patient gave away all of her pads in 2016, but its unclear if she has had any bleeding since that time - Currently with mild to moderate bleeding, no evolving anemia - Pelvic US report pending, will follow up - Recommend outpatient endometrial sampling once patient has recovered from her more acute issues - Patient can follow up with me outpatient, my contact info was provided to the nursing staff - Patient cleared from CLINIC PHYSICIAN DIRECTOR standpoint, barring any evidence of hemorrhage while in house - If bleeding worsens acutely, and patient is soaking more than 1 pad per hour, please contact me at [phone] Thank you for this interesting consult. Signed: MD Cece Guaman Carla M.D. Dec 23, 2017 13:29
[2017-12-23] MEDS: Piperacillin/Tazobactam 3.375 GM in NS 110 ML IVPB SCH ×2 (13:55→21:57)
--- NOTE | 2017-12-23 14:33 | Consultation ---
Consult Note Consult Note asked to eval for renal failure Patient is a 57yo P1 who was admitted with sepsis and DKA, currently in ICU. Gynecology was consulted for vaginal bleeding noted at the time of transfer. She is currently unable to communicate, responds to stimuli, but is non-verbal at this time. Daughter at bedside for support, with limited knowledge of her medical history. She did not know she was diabetic, and was not present when she was found down in her bathroom. She reports that the patient did not show up for work, and was subsequently found by her uncle (patient's brother), down on the ground, fully dressed, and appeared to have been throwing up. No signs of head trauma, but water on the floor at the time she was found. BG at time of admission critical. Of note, the patient was treated for a presumed spider bite on her buttock 2 months ago, but on admission this was determined to be an abscess which has been drained by Gen Surg. Patient is currently on IV ABx and insuling gtt. patient seen in ICU examined data reviewed Assessment/Plan Diabetic acidosis without coma Renal failure and electrolyte imbalance Diabetic Nephropathy and Proteinuria and HypoAlbuminemia Severe sepsis Abscess of buttock Anemia Hydrate- Antibiotics Monitor renal parameters correct electrolytes avoid Nephrotoxics Joni Cleaning MD Dec 23, 2017 14:33
--- NOTE | 2017-12-23 14:37 | Diagnostic Imaging Report ---
Indication: Vaginal bleeding Technique: Transabdominal and transvaginal images Comparison: none Findings: Somewhat limited transabdominal imaging; the bladder is decompressed by a Bernard catheter. Exam is also limited by suboptimal ability the patient to tolerate endovaginal imaging for long. Uterus is anteverted and slightly retroflexed, measures 6.5 cm length by 3.2 cm AP. The endometrium is 2 mm thick. In the uterine fundus, there is some calcification which creates significant shadowing. Neither ovary could be visualized Impression: Uterine fundal calcifications, likely represent old degenerated fibroids Nonvisualized ovaries. Grossly negative for adnexal mass Normal endometrial thickness
--- NOTE | 2017-12-23 15:24 | Cardiology Report ---
APPROVED REPORT EXAM: Two-dimensional and M-mode echocardiogram with Doppler and color Doppler. INDICATION Congestive Heart Failure M-Mode DIMENSIONS IVSd1.5 (0.7-1.1cm)Left Atrium (MM)2.8 (1.6-4.0cm) LVDd3.3 (3.5-5.6cm)Aortic Root2.4 (2.0-3.7cm) PWd1.3 (0.7-1.1cm)Aortic Cusp Exc.1.9 (1.5-2.0cm) LVDs1.3 (2.5-4.0cm) PWs1.4 cm Normal left ventricular chamber size, systolic function and wall motion. Left ventricular ejection fraction estimated to be 60 %. Mild left ventricular hypertrophy. No evidence of pericardial effusion. All other cardiac chamber sizes are within normal limits. Focal aortic valve sclerosis with adequate cusp excursion. Mildly thickened mitral valve leaflets with normal excursion. Mild mitral annulus and aortic root calcification. Pulmonic valve not well visualized. Normal tricuspid valve structure. IVC is normal in size with physiological collapse. A color flow and spectral Doppler study was performed and revealed: No aortic insufficiency. No mitral regurgitation. Normal left ventricular diastolic function. Trace tricuspid regurgitation. Tricuspid systolic velocities suggests peak right ventricular systolic pressure of 12 mmHg. No pulmonic regurgitation present.
--- NOTE | 2017-12-23 16:00 | Cardiology Report ---
APPROVED REPORT EKG Measurement Heart [id number] Sinus tachycardia Otherwise normal ECG
[2017-12-23 16:10] LABS: ALANINE AMINOTRANSFERASE 15 U/L (12-78); ALBUMIN 1.8 G/DL (3.4-5.0); ALBUMIN/GLOBULIN RATIO 0.3 (1.0-2.7); ALKALINE PHOSPHATASE 150 U/L (46-116); ANION GAP 10 mmol/L (5-15); ASPARTATE AMINO TRANSFERASE 19 U/L (15-37); BILIRUBIN,TOTAL 0.4 MG/DL (0.2-1.0); BLOOD UREA NITROGEN 59 mg/dL (7-18); CALCIUM 8.8 MG/DL (8.5-10.1); CARBON DIOXIDE 24 MMOL/L (21-32); CHLORIDE 115 MMOL/L (98-107); CREATININE 1.2 MG/DL (0.55-1.30); POTASSIUM 3.5 MMOL/L (3.5-5.1); SODIUM 149 MMOL/L (136-145)
--- NOTE | 2017-12-23 16:45 | Consultation ---
DATE OF CONSULTATION: 12/23/2017 ENDOCRINOLOGY CONSULTATION CONSULTING PHYSICIAN: Riky Olivas M.D. REFERRING PHYSICIAN: Nissa Mckay M.D. REASON FOR CONSULTATION: Diabetic ketoacidosis. HISTORY OF PRESENT ILLNESS: The patient is a 57-year-old female, found down at home by her brother yesterday, the paramedics were called. The patient noted to be lethargic. Blood sugar was 1000, transferred to [facility] for evaluation. She was found to be aseptic with leukocytosis 33,000 and buttock abscess, severe hyperglycemia, and diabetic ketoacidosis. She was assisted with IV fluids, started on IV insulin and IV antibiotic and the abscess was drained in the emergency room by general surgeon. According to the family, the patient did not have any past medical history. According to the family, the patient is holistic and does not take any pharmaceutical medication as far as they know and they were not aware that the mother was a diabetic. REVIEW OF SYSTEMS: Unobtainable. PAST MEDICAL HISTORY: None. PAST SURGICAL HISTORY: None. FAMILY HISTORY: Noncontributory. SOCIAL HISTORY: No smoking, alcohol, or drug use. LABORATORY VALUES: WBC 33,000, hemoglobin 10, hematocrit 34, and platelets of 425,00. Sodium 126, potassium 5.1, chloride 88, bicarb undetectable, BUN 97, creatinine 2.7, and glucose of 1064. PHYSICAL EXAMINATION: GENERAL: The patient is lethargic. VITAL SIGNS: Blood pressure is 133/68, pulse of 107, temperature of 97 degrees, and respiratory rate of 18. HEENT: Pupils are equal and reactive to light. Oral mucosa is dry. NECK: No JVD. HEART: Tachy. LUNGS: Clear. ABDOMEN: Positive bowel sounds. EXTREMITIES: Buttock abscess. Positive for edema. DIAGNOSES: 1. Severe sepsis. 2. Buttock abscess. 3. Acute kidney injury. 4. Severe diabetic ketoacidosis. 5. Underlying diabetes, newly diagnosed, undetected before. 6. Severe metabolic derangement. PLAN: 1. Continue IV fluids and continue IV insulin. 2. The patient to be admitted to the ICU. 3. Continue blood glucose monitoring every hour, insulin being adjusted according to blood glucose values. 4. Follow the electrolytes closely and replete as indicated. 5. I will follow the patient during hospital stay. Thank you, Dr. Mckay, for the courtesy of this consultation. Riky Olivas M.D. DR: ANN JOB#: [id number] CC: [place]
--- NOTE | 2017-12-23 20:00 | Consultation ---
DATE OF CONSULTATION: 12/23/2017 INFECTIOUS DISEASE CONSULTATION CONSULTING PHYSICIAN: Wade Peña M.D. PRIMARY ATTENDING PHYSICIAN: Nissa Mckay M.D. REASON FOR CONSULT: Sepsis and right perirectal abscess. HISTORY OF PRESENT ILLNESS: This is a 57-year-old, female admitted yesterday. She was fine at home in the bathroom, unconscious with a critically high blood sugar at the scene. In hospital, blood sugar was 1064, carbon dioxide was 5. The patient was tachycardic, has leukocytosis of 33,000 at the time of admission. It was found that the patient have a right buttock abscess. She went to operating room last night and has incision and drainage of the abscess. Currently, she is in ICU on insulin drip. The patient is noncommunicative, cannot provide any history. According to family, the patient was not diabetic before admission. ALLERGIES: No known drug allergies. MEDICATIONS: Getting vancomycin, famotidine, Zosyn, insulin, artificial tears, sodium chloride, and hydromorphone. SOCIAL HISTORY: , have children. No other history obtainable by the patient. PHYSICAL EXAMINATION: VITAL SIGNS: Temperature 98.3 degrees, pulse 105, and blood pressure 156/77. GENERAL APPEARANCE: Well developed, drowsy, noncommunicative. HEAD AND NECK: [place] conjunctivae. HEART: Tachycardic. LUNGS: Clear. ABDOMEN: Soft and nontender. EXTREMITIES: She has no edema. She has peripheral line. NEUROLOGIC: Moves all extremities LABORATORY AND DIAGNOSTIC DATA: WBC 22.1, hemoglobin 11, hematocrit 33.7, and platelet is 415. Sodium 142, potassium 4.2, chloride 109, bicarbonate 20 and creatinine 1.8, creatinine at the time of admission was 2.9. Glucose is 308. IMPRESSION: Sepsis with leukocytosis and tachycardia. The patient has tried perirectal and right hepatic abscess. She has acute renal failure, diabetic ketoacidosis, newly diagnosed diabetes mellitus. RECOMMENDATION: We will continue with vancomycin and Zosyn. We will follow up the cultures. At the end of my exam, I thank Dr. Mckay for involving me in the care of this patient. Wade Peña M.D. DR: MATTEO JOB#: [id number] CC: [place]
[2017-12-23] MEDS: Vitamin A&D Oint 2oz Tube TOPIC SCH (21:25)
[2017-12-23] MEDS: Levemir Flexpen SUBQ SCH (22:49)
--- NOTE | 2017-12-23 23:35 | Diagnostic Imaging Report ---
APPROVED REPORT CPT Code: 48080 Present Symptoms Comments: BILATERAL LEGS PAIN. BILATERAL: Imaging reveals a patent deep venous system bilaterally. There is no evidence of thrombus within the femoral, popliteal or tibial segments. The greater saphenous veins are also within normal limits. Doppler indicates normal spontaneous flow within these segments.
[2017-12-24] VITALS (20 sets, daily range): BP systolic 113–186; BP diastolic 62–117
--- NOTE | 2017-12-24 00:26 | General Surgery Progress Note ---
General Surgery-Progress Note Subjective Procedure Performed incision and drainage of right perirectal abscess Additional Comments patient seen and examined at bedside. improved today. verbal but with slowed mentation. states known abscess for few days on buttock area. Objective Last 24 Hour Vital Signs Date Time Temp Pulse Resp B/P (MAP) Pulse Ox O2 Delivery O2 Flow Rate FiO2 12/23/17 19:00 103 18 161/78 (105) 98 12/23/17 18:00 102 18 162/89 (113) 98 12/23/17 17:00 101 18 145/84 (104) 98 12/23/17 16:00 Room Air 12/23/17 16:00 98.7 108 18 120/69 (86) 98 98.7 12/23/17 16:00 107 12/23/17 15:00 109 18 162/84 (110) 98 12/23/17 14:00 104 18 152/84 (106) 98 12/23/17 13:00 103 18 154/76 (102) 98 12/23/17 12:00 98.3 105 17 156/77 (103) 98 98.3 12/23/17 12:00 Room Air 12/23/17 12:00 119 12/23/17 11:00 104 18 155/84 (107) 98 12/23/17 10:00 105 21 127/77 (94) 98 12/23/17 09:00 103 20 145/76 (99) 98 12/23/17 08:50 Room Air 12/23/17 08:00 Room Air 12/23/17 08:00 Room Air 12/23/17 08:00 103 12/23/17 08:00 101 18 138/81 (100) 98 12/23/17 07:44 97.0 105 20 149/80 100 Room Air 97.0 12/23/17 07:30 97.6 105 18 156/77 (103) 98 97.6 12/23/17 07:11 105 20 149/80 100 Room Air 12/23/17 05:58 107 16 133/68 98 Room Air 12/23/17 04:40 103 18 135/56 98 Room Air 12/23/17 03:30 97.0 104 18 137/67 97 Room Air 97.0 12/23/17 02:22 100 18 114/47 97 Room Air 12/23/17 01:22 106 18 116/48 99 Room Air I&O Intake and Output 12/23/17 12/24/17 19:00 07:00 Intake Total 919.8 ml Output Total 1400 ml Balance -480.2 ml Intake IV Total 919.8 ml Output Urine Total 1400 ml Dressing: saturated Wound: other - concerning drainage as it looks stool in nature Drains: none Cardiovascular: RSR Respiratory: clear Abdomen: soft, non-tender, present bowel sounds Extremities: no cyanosis Laboratory Tests Test 12/23/17 05:20 12/23/17 08:57 12/23/17 15:40 White Blood Count 23.1 K/UL (4.8-10.8) *H Red Blood Count 3.93 M/UL (4.20-5.40) L Hemoglobin 11.0 G/DL (12.0-16.0) L Hematocrit 33.7 % (37.0-47.0) L Mean Corpuscular Volume 86 FL (80-99) Mean Corpuscular Hemoglobin 28.1 PG (27.0-31.0) Mean Corpuscular Hemoglobin Concent 32.7 G/DL (32.0-36.0) Red Cell Distribution Width 11.3 % (11.6-14.8) L Platelet Count 415 K/UL (150-450) Mean Platelet Volume 7.7 FL (6.5-10.1) Neutrophils (%) (Auto) % (45.0-75.0) Lymphocytes (%) (Auto) % (20.0-45.0) Monocytes (%) (Auto) % (1.0-10.0) Eosinophils (%) (Auto) % (0.0-3.0) Basophils (%) (Auto) % (0.0-2.0) Differential Total Cells Counted 100 Neutrophils % (Manual) 80 % (45-75) H Lymphocytes % (Manual) 6 % (20-45) L Monocytes % (Manual) 5 % (1-10) Eosinophils % (Manual) 0 % (0-3) Basophils % (Manual) 0 % (0-2) Metamyelocytes % 1 % (0-0) H Band Neutrophils 8 % (0-8) Platelet Estimate Increased H Platelet Morphology Normal Red Blood Cell Morphology Normal Prothrombin Time 10.2 SEC (9.30-11.50) Prothromb Time International Ratio 1.0 (0.9-1.1) Activated Partial Thromboplast Time 22 SEC (23-33) L Sodium Level 142 MMOL/L (136-145) 149 MMOL/L (136-145) H Potassium Level 4.2 MMOL/L (3.5-5.1) 3.5 MMOL/L (3.5-5.1) Chloride Level 109 MMOL/L (98-107) H 115 MMOL/L (98-107) H Carbon Dioxide Level 20 MMOL/L (21-32) L 24 MMOL/L (21-32) Anion Gap 13 mmol/L (5-15) 10 mmol/L (5-15) Blood Urea Nitrogen 80 mg/dL (7-18) H 59 mg/dL (7-18) H Creatinine 1.8 MG/DL (0.55-1.30) H 1.2 MG/DL (0.55-1.30) Estimat Glomerular Filtration Rate 35.0 mL/min (>60) 56.0 mL/min (>60) Glucose Level 308 MG/DL (74-106) H 176 MG/DL (74-106) #H Calcium Level 8.9 MG/DL (8.5-10.1) 8.8 MG/DL (8.5-10.1) Total Bilirubin 0.4 MG/DL (0.2-1.0) 0.4 MG/DL (0.2-1.0) Direct Bilirubin 0.1 MG/DL (0.0-0.3) Aspartate Amino Transf (AST/SGOT) 21 U/L (15-37) 19 U/L (15-37) Alanine Aminotransferase (ALT/SGPT) 17 U/L (12-78) 15 U/L (12-78) Alkaline Phosphatase 170 U/L (46-116) H 150 U/L (46-116) H Total Protein 7.3 G/DL (6.4-8.2) 7.0 G/DL (6.4-8.2) Albumin 1.9 G/DL (3.4-5.0) L 1.8 G/DL (3.4-5.0) L Globulin 5.4 g/dL 5.2 g/dL Albumin/Globulin Ratio 0.4 (1.0-2.7) L 0.3 (1.0-2.7) L Arterial Blood pH 7.360 (7.350-7.450) Arterial Blood Partial Pressure CO2 34.3 mmHg (35.0-45.0) L Arterial Blood Partial Pressure O2 83.7 mmHg (75.0-100.0) Arterial Blood HCO3 19.1 mmol/L (22.0-26.0) L Arterial Blood Oxygen Saturation 95.7 % (92.0-98.0) Arterial Blood Base Excess -5.5 Connor Test Positive C-Reactive Protein, Quantitative 17.5 mg/dL (0.00-0.90) H Plan Problems: (1) Diabetic acidosis without coma (2) Hyperglycemia (3) Severe sepsis (4) Abscess of buttock Assessment & Plan: large right buttock abscess with gangrene at skin level. given condition urgent I&D warranted as possible etiology of sepsis. see procedure report. improving today. leukocytosis improving. more alert and responsive. packing and dressings changed. drainage still looks almost as if stool. -cultures pending -NPO -IV fluids -Resuscitation -Insulin gtt -packing and dressings to buttock TID -may need more formal wound washout and care in OR once stable. will monitor for now. drainage improved but still somewhat like stool thank you will follow with recommendations (5) DKA (diabetic ketoacidoses) Baljeet Osorio Dec 24, 2017 00:25
--- NOTE | 2017-12-24 01:30 | History and Physical Report ---
DATE OF ADMISSION: 12/22/2017 HISTORY OF PRESENT ILLNESS: The patient is admitted to ICU for DKA, sepsis, large abscess in the buttocks, which was drained by Dr. Osorio in the ER. Also has some vaginal bleeding. The patient is very lethargic. I cannot obtain any reliable history at this point. The patient is lethargic, nonverbal, but opens eyes to noxious stimuli. Cannot get any history at this point. PAST MEDICAL HISTORY: Significant for diabetic ketoacidosis, NIDDM, cannot get any more history from her. She is very poor historian. PAST SURGICAL HISTORY: Unable to obtain. ALLERGIES: Unable to obtain. MEDICATIONS: Unable to obtain. FAMILY HISTORY: Unable to obtain. REVIEW OF SYSTEMS: Unable to obtain. The patient is a poor historian. PHYSICAL EXAMINATION: VITAL SIGNS: Temperature 98.3 degrees, pulse is 105, and blood pressure 156/77. HEENT: PERRLA. NECK: Supple. No lymphadenopathy. CHEST: Clear to auscultation. GASTROINTESTINAL: Soft, nontender, and nondistended. No organomegaly. EXTREMITIES: There is 1+ edema. Reflexes equal on both sides. NEUROLOGIC: Does not follow neurological exam, only opens eyes to noxious stimuli. LABORATORY AND DIAGNOSTIC DATA: Initially WBC of 33, hemoglobin 10.9, and platelets of 425. Sodium 123, potassium 5.1, chloride 88, BUN 97, creatinine 2.9, and glucose 164. ASSESSMENT AND PLAN: 1. Diabetic ketoacidosis. 2. Vaginal bleeding. 3. Rule out sepsis. 4. A large abscess in the buttocks that was drained. I have asked Dr. Villanueva, Dr. Osorio, Dr. Olivas, Dr. Nance, , Dr. Wade Peña, Dr. Iqbal, and Dr. Anthony to see the patient for the management of the above-mentioned diagnoses and treatment. Nissa Mckay M.D. DR: HELADIO JOB#: [id number] CC:
[2017-12-24] MEDS: Piperacillin/Tazobactam 3.375 GM in NS 110 ML IVPB SCH ×3 (05:33→21:55)
[2017-12-24] MEDS: D5 1/2NS w/KCl 20mEq 1,000 ML IV SCH ×2 (05:36→15:28)
[2017-12-24] MEDS: NovoLOG Insulin Flexpen SUBQ SCH ×5 (06:01→21:00)
[2017-12-24 06:25] LABS: HEMATOCRIT 32.3 % (37.0-47.0); HEMOGLOBIN 10.8 G/DL (12.0-16.0); MEAN CORPUSCULAR VOLUME 88 FL (80-99); PLATELET COUNT 405 K/UL (150-450); RED BLOOD COUNT 3.69 M/UL (4.20-5.40); RED CELL DISTRIBUTION WIDTH 11.9 % (11.6-14.8)
[2017-12-24 07:25] LABS: ALANINE AMINOTRANSFERASE 18 U/L (12-78); ALBUMIN 1.9 G/DL (3.4-5.0); ALBUMIN/GLOBULIN RATIO 0.4 (1.0-2.7); ALKALINE PHOSPHATASE 182 U/L (46-116); ANION GAP 15 mmol/L (5-15); ASPARTATE AMINO TRANSFERASE 24 U/L (15-37); BILIRUBIN,TOTAL 0.6 MG/DL (0.2-1.0); BLOOD UREA NITROGEN 47 mg/dL (7-18); CALCIUM 8.6 MG/DL (8.5-10.1); CARBON DIOXIDE 20 MMOL/L (21-32); CHLORIDE 108 MMOL/L (98-107); CREATINE KINASE 163 U/L (26-308); CREATININE 1.1 MG/DL (0.55-1.30); FERRITIN 1310 NG/ML (8-388); GAMMA GLUTAMYL TRANSPEPTIDASE 79 U/L (5-85); HDL CHOLESTEROL 23 MG/DL (40-60); PHOSPHORUS 2.2 MG/DL (2.5-4.9); POTASSIUM 3.6 MMOL/L (3.5-5.1); SODIUM 143 MMOL/L (136-145); TRIGLYCERIDES 325 MG/DL (30-150)
[2017-12-24 07:58] LABS: CHOLESTEROL 213 MG/DL (< 200)
[2017-12-24 08:03] LABS: % IRON SATURATION 93 % (15-50); IRON 165 ug/dL (50-175); TOTAL IRON BINDING CAPACITY 178 ug/dL (250-450)
[2017-12-24] MEDS: Artificial Tears 1.4% Op Soln BOTH EYES SCH ×3 (08:19→17:13)
[2017-12-24] MEDS: Vitamin A&D Oint 2oz Tube TOPIC SCH ×2 (08:20→20:49)
[2017-12-24] MEDS: Heparin 5000 units/ml inj SUBQ SCH ×2 (08:21→20:48)
[2017-12-24] MEDS ORDERED: Vancomycin 1250mg/D5W 250ml IVPB SCH ×2 (09:00)
[2017-12-24] MEDS: Levemir Flexpen SUBQ SCH ×2 (09:01→21:26)
--- NOTE | 2017-12-24 09:38 | Infectious Diseases Prog Note ---
Assessment/Plan Assessment/Plan A; Sepsis R buttock abscess DKA Newly diagnosed DM Acute renal failure resolving P; Continue Vancomycin & Zosyn Will f/u cultures Subjective ROS Limited/Unobtainable: No Constitutional: Reports: no symptoms, other - doing better Respiratory: Reports: no symptoms Cardiovascular: Reports: no symptoms Gastrointestinal/Abdominal: Reports: no symptoms Genitourinary: Reports: no symptoms Neurologic: Reports: other - doing better,alert & verbal today Endocrine: Reports: other - off of insulin drip Allergies: Coded Allergies: UNABLE TO ASSESS (Unverified , 12/22/17) Objective Vital Signs Last 24 Hour Vital Signs Date Time Temp Pulse Resp B/P (MAP) Pulse Ox O2 Delivery O2 Flow Rate FiO2 12/24/17 09:00 105 19 174/97 (122) 98 12/24/17 08:34 171/117 12/24/17 08:27 110 16 186/93 (124) 98 12/24/17 08:00 98.1 119 16 171/117 (135) 98.1 12/24/17 08:00 Room Air 12/24/17 08:00 112 12/24/17 07:00 97 14 118/100 (106) 99 12/24/17 07:00 97 14 118/100 (106) 99 12/24/17 06:00 99 16 120/104 (109) 98 12/24/17 05:00 101 16 120/85 (97) 98 12/24/17 04:00 98.8 87 16 115/62 (79) 98 98.8 12/24/17 04:00 Room Air 12/24/17 04:00 80 12/24/17 03:00 91 16 158/73 (101) 98 12/24/17 02:00 91 15 152/73 (99) 98 12/24/17 01:23 166/81 12/24/17 01:00 95 16 166/81 (109) 98 12/24/17 00:38 99 178/71 12/24/17 00:00 98 12/24/17 00:00 Room Air 12/24/17 00:00 98.6 98 16 178/71 (106) 98 98.6 12/23/17 23:00 103 20 160/85 (110) 98 12/23/17 22:00 108 20 158/68 (98) 98 12/23/17 21:00 103 18 148/85 (106) 98 12/23/17 20:00 Room Air 12/23/17 20:00 98.4 103 18 155/78 (103) 98 98.4 12/23/17 19:00 103 18 161/78 (105) 98 12/23/17 18:00 102 18 162/89 (113) 98 12/23/17 17:00 101 18 145/84 (104) 98 12/23/17 16:00 Room Air 12/23/17 16:00 98.7 108 18 120/69 (86) 98 98.7 12/23/17 16:00 107 12/23/17 15:00 109 18 162/84 (110) 98 12/23/17 14:00 104 18 152/84 (106) 98 12/23/17 13:00 103 18 154/76 (102) 98 12/23/17 12:00 98.3 105 17 156/77 (103) 98 98.3 12/23/17 12:00 Room Air 12/23/17 12:00 119 12/23/17 11:00 104 18 155/84 (107) 98 12/23/17 10:00 105 21 127/77 (94) 98 Height (Feet): 5 Height (Inches): 5.00 Weight (Pounds): 184 General Appearance: no acute distress HEENT: mucous membranes moist Respiratory/Chest: lungs clear Cardiovascular: tachycardia Abdomen: soft, non tender Extremities: no edema Skin: ulcers, other - R buttock dressing Neurologic/Psychiatric: alert, responsive Microbiology Date/Time Source Procedure Growth Status 12/22/17 16:12 Blood Blood Culture - Preliminary NO GROWTH AFTER 24 HOURS Resulted 12/22/17 15:55 Blood Blood Culture - Preliminary NO GROWTH AFTER 24 HOURS Resulted 12/22/17 16:55 Nasal Nares MRSA Culture - Final NO METHICILLIN RESISTANT STAPH AUREUS... Complete 12/22/17 16:55 Rectum VRE Culture - Final NO VANCOMYCIN RESISTANT ENTEROCOCCUS ... Complete 12/22/17 16:55 Rectum - Final NO CARBAPENEM-RESISTANT ENTEROBACTERI... Complete Laboratory Tests Test 12/23/17 15:40 12/24/17 05:15 Sodium Level 149 MMOL/L (136-145) H 143 MMOL/L (136-145) Potassium Level 3.5 MMOL/L (3.5-5.1) 3.6 MMOL/L (3.5-5.1) Chloride Level 115 MMOL/L (98-107) H 108 MMOL/L (98-107) H Carbon Dioxide Level 24 MMOL/L (21-32) 20 MMOL/L (21-32) L Anion Gap 10 mmol/L (5-15) 15 mmol/L (5-15) Blood Urea Nitrogen 59 mg/dL (7-18) H 47 mg/dL (7-18) H Creatinine 1.2 MG/DL (0.55-1.30) 1.1 MG/DL (0.55-1.30) Estimat Glomerular Filtration Rate 56.0 mL/min (>60) > 60 mL/min (>60) Glucose Level 176 MG/DL (74-106) #H 469 MG/DL (74-106) #H Calcium Level 8.8 MG/DL (8.5-10.1) 8.6 MG/DL (8.5-10.1) Total Bilirubin 0.4 MG/DL (0.2-1.0) 0.6 MG/DL (0.2-1.0) Aspartate Amino Transf (AST/SGOT) 19 U/L (15-37) 24 U/L (15-37) Alanine Aminotransferase (ALT/SGPT) 15 U/L (12-78) 18 U/L (12-78) Alkaline Phosphatase 150 U/L (46-116) H 182 U/L (46-116) H C-Reactive Protein, Quantitative 17.5 mg/dL (0.00-0.90) H Total Protein 7.0 G/DL (6.4-8.2) 7.1 G/DL (6.4-8.2) Albumin 1.8 G/DL (3.4-5.0) L 1.9 G/DL (3.4-5.0) L Globulin 5.2 g/dL 5.2 g/dL Albumin/Globulin Ratio 0.3 (1.0-2.7) L 0.4 (1.0-2.7) L White Blood Count 17.0 K/UL (4.8-10.8) H Red Blood Count 3.69 M/UL (4.20-5.40) L Hemoglobin 10.8 G/DL (12.0-16.0) L Hematocrit 32.3 % (37.0-47.0) L Mean Corpuscular Volume 88 FL (80-99) Mean Corpuscular Hemoglobin 29.2 PG (27.0-31.0) Mean Corpuscular Hemoglobin Concent 33.3 G/DL (32.0-36.0) Red Cell Distribution Width 11.9 % (11.6-14.8) Platelet Count 405 K/UL (150-450) Mean Platelet Volume 8.2 FL (6.5-10.1) Neutrophils (%) (Auto) % (45.0-75.0) Lymphocytes (%) (Auto) % (20.0-45.0) Monocytes (%) (Auto) % (1.0-10.0) Eosinophils (%) (Auto) % (0.0-3.0) Basophils (%) (Auto) % (0.0-2.0) Neutrophils % (Manual) Pending Lymphocytes % (Manual) Pending Platelet Estimate Pending Platelet Morphology Pending Hemoglobin A1c 15.3 % (4.3-6.0) H Lactic Acid Level 1.10 mmol/L (0.4-2.0) Uric Acid 5.0 MG/DL (2.6-7.2) Phosphorus Level 2.2 MG/DL (2.5-4.9) L Magnesium Level 2.3 MG/DL (1.8-2.4) Iron Level 165 ug/dL (50-175) Total Iron Binding Capacity 178 ug/dL (250-450) L Percent Iron Saturation 93 % (15-50) H Unsaturated Iron Binding 13 ug/dL (112-346) L Ferritin 1310 NG/ML (8-388) H Gamma Glutamyl Transpeptidase 79 U/L (5-85) Total Creatine Kinase 163 U/L (26-308) Troponin I 0.000 ng/mL (0.000-0.056) Pro-B-Type Natriuretic Peptide 379 pg/mL (0-125) H Triglycerides Level 325 MG/DL (30-150) H Cholesterol Level 213 MG/DL (< 200) H LDL Cholesterol 135 mg/dL (<100) H HDL Cholesterol 23 MG/DL (40-60) L Cholesterol/HDL Ratio 9.3 (3.3-4.4) H Vitamin B12 Level > 2000 PG/ML (193-986) H Folate 4.8 NG/ML (8.6-58.9) L Thyroid Stimulating Hormone (TSH) 2.445 uiU/mL (0.358-3.740) Current Medications Medications (Trade) Dose Ordered Sig/Eyad Route PRN Reason Start Time Stop Time Status Last Admin Dose Admin Acetaminophen (Tylenol) 650 mg Q4H PRN RECTAL FEVER 12/22/17 18:00 01/21/18 17:59 Amlodipine Besylate (Norvasc) 5 mg DAILY ORAL 12/25/17 09:00 01/24/18 08:59 Artificial Tears (Akwa-Tears) 1 drop THREE TIMES A DAY BOTH EYES 12/23/17 13:00 01/22/18 12:59 12/24/17 08:19 Clonidine HCl (Catapres Tab) 0.1 mg EVERY 6 HOURS PRN ORAL [id number] and above 12/24/17 00:15 01/23/18 00:14 12/24/17 08:34 Dextrose (Dextrose 50%) 25 ml STAT PRN IV Hypoglycemia 12/23/17 21:45 01/22/18 21:44 Dextrose (Dextrose 50%) 50 ml STAT PRN IV Hypoglycemia 12/23/17 21:45 01/22/18 21:44 Dextrose/ Electrolytes 1,000 ml @ 100 mls/hr Q10H IV 12/23/17 10:00 01/22/18 09:59 12/24/17 05:36 Famotidine (Pepcid I.v.) 20 mg Q12HR IVP 12/23/17 21:00 01/22/18 20:59 12/24/17 08:19 Heparin Sodium (Porcine) (Heparin 5000 units/ml) 5,000 units BID SUBQ 12/23/17 09:00 01/22/18 08:59 12/24/17 08:21 Hydromorphone HCl (Dilaudid) 0.5 mg Q3H PRN IVP For mild pain 12/22/17 18:00 12/29/17 17:59 Hydromorphone HCl (Dilaudid) 1 mg Q3H PRN IVP Moderate Pain (Pain Scale 4-6) 12/22/17 18:00 12/29/17 17:59 12/23/17 23:54 Insulin Aspart (NovoLOG) BEFORE MEALS AND HS SUBQ 12/24/17 06:30 01/23/18 06:29 12/24/17 06:01 Insulin Detemir (Levemir) 20 units Q12H SUBQ 12/23/17 23:00 01/22/18 22:59 12/24/17 09:01 Nitroglycerin (Ntg) 0.4 mg Q5M PRN SL Prn Chest Pain 12/22/17 18:00 01/21/18 17:59 Ondansetron HCl (Zofran) 4 mg Q6H PRN IVP Nausea & Vomiting 12/22/17 18:00 01/21/18 17:59 Piperacillin Sod/ Tazobactam Sod 3.375 gm/Sodium Chloride 110 ml @ 27.5 mls/hr EVERY 8 HOURS IVPB 12/23/17 14:00 12/28/17 13:59 12/24/17 05:33 Vancomycin HCl (Vanco rx to dose) 1 ea DAILY PRN MISC Per rx protocol 12/23/17 09:15 01/22/18 09:14 Vancomycin HCl/ Dextrose 250 ml @ 166.667 mls/hr Q24H IVPB 12/24/17 09:00 12/29/17 08:59 12/24/17 08:20 Vitamin A/Vitamin D (A & D Oint) 1 applic EVERY 12 HOURS TOPIC 12/23/17 21:00 01/22/18 20:59 12/24/17 08:20 Wade Peña MD Dec 24, 2017 09:38
--- NOTE | 2017-12-24 11:35 | Nephrology Progress Note ---
Assessment/Plan Problem List: (1) Renal insufficiency (2) DKA (diabetic ketoacidoses) (3) Severe sepsis Assessment: buttock abcess (4) Anemia Assessment Diabetic acidosis without coma Renal failure and electrolyte imbalance Diabetic Nephropathy and Proteinuria and HypoAlbuminemia Severe sepsis Abscess of buttock Anemia Plan Hydrate- K and Phos supplement Antibiotics Monitor renal parameters correct electrolytes avoid Nephrotoxics adjust BP meds Fisg OIL Lipitor Folic Acid to tele Subjective ROS Limited/Unobtainable: No Constitutional: Reports: malaise Objective Objective Last 24 Hour Vital Signs Date Time Temp Pulse Resp B/P (MAP) Pulse Ox O2 Delivery O2 Flow Rate FiO2 12/24/17 11:05 78 25 128/72 (90) 96 12/24/17 10:00 104 20 155/74 (101) 97 12/24/17 09:00 105 19 174/97 (122) 98 12/24/17 08:34 171/117 12/24/17 08:27 110 16 186/93 (124) 98 12/24/17 08:00 98.1 119 16 171/117 (135) 98.1 12/24/17 08:00 Room Air 12/24/17 08:00 112 12/24/17 07:00 97 14 118/100 (106) 99 12/24/17 07:00 97 14 118/100 (106) 99 12/24/17 06:00 99 16 120/104 (109) 98 12/24/17 05:00 101 16 120/85 (97) 98 12/24/17 04:00 98.8 87 16 115/62 (79) 98 98.8 12/24/17 04:00 Room Air 12/24/17 04:00 80 12/24/17 03:00 91 16 158/73 (101) 98 12/24/17 02:00 91 15 152/73 (99) 98 12/24/17 01:23 166/81 12/24/17 01:00 95 16 166/81 (109) 98 12/24/17 00:38 99 178/71 12/24/17 00:00 98 12/24/17 00:00 Room Air 12/24/17 00:00 98.6 98 16 178/71 (106) 98 98.6 12/23/17 23:00 103 20 160/85 (110) 98 12/23/17 22:00 108 20 158/68 (98) 98 12/23/17 21:00 103 18 148/85 (106) 98 12/23/17 20:00 Room Air 12/23/17 20:00 98.4 103 18 155/78 (103) 98 98.4 12/23/17 19:00 103 18 161/78 (105) 98 12/23/17 18:00 102 18 162/89 (113) 98 12/23/17 17:00 101 18 145/84 (104) 98 12/23/17 16:00 Room Air 12/23/17 16:00 98.7 108 18 120/69 (86) 98 98.7 12/23/17 16:00 107 12/23/17 15:00 109 18 162/84 (110) 98 12/23/17 14:00 104 18 152/84 (106) 98 12/23/17 13:00 103 18 154/76 (102) 98 12/23/17 12:00 98.3 105 17 156/77 (103) 98 98.3 12/23/17 12:00 Room Air 12/23/17 12:00 119 Intake and Output 12/23/17 12/24/17 19:00 07:00 Intake Total 919.8 ml 1946.6 ml Output Total 1400 ml 1330 ml Balance -480.2 ml 616.6 ml Intake Oral 620 ml IV Total 919.8 ml 1326.6 ml Output Urine Total 1400 ml 1330 ml Laboratory Tests 12/23/17 15:40: Sodium Level 149H, Potassium Level 3.5, Chloride Level 115H, Carbon Dioxide Level 24, Anion Gap 10, Blood Urea Nitrogen 59H, Creatinine 1.2, Estimat Glomerular Filtration Rate 56.0, Glucose Level 176#H, Calcium Level 8.8, Total Bilirubin 0.4, Aspartate Amino Transf (AST/SGOT) 19, Alanine Aminotransferase ( ALT/SGPT) 15, Alkaline Phosphatase 150H, C-Reactive Protein, Quantitative 17.5H , Total Protein 7.0, Albumin 1.8L, Globulin 5.2, Albumin/Globulin Ratio 0.3L 12/24/17 05:15: Sodium Level 143, Potassium Level 3.6, Chloride Level 108H, Carbon Dioxide Level 20L, Anion Gap 15, Blood Urea Nitrogen 47H, Creatinine 1.1, Estimat Glomerular Filtration Rate > 60, Glucose Level 469#H, Calcium Level 8.6, Total Bilirubin 0.6, Aspartate Amino Transf (AST/SGOT) 24, Alanine Aminotransferase ( ALT/SGPT) 18, Alkaline Phosphatase 182H, Total Protein 7.1, Albumin 1.9L, Globulin 5.2, Albumin/Globulin Ratio 0.4L, White Blood Count 17.0H, Red Blood Count 3.69L, Hemoglobin 10.8L, Hematocrit 32.3L, Mean Corpuscular Volume 88, Mean Corpuscular Hemoglobin 29.2, Mean Corpuscular Hemoglobin Concent 33.3, Red Cell Distribution Width 11.9, Platelet Count 405, Mean Platelet Volume 8.2, Neutrophils (%) (Auto) , Lymphocytes (%) (Auto) , Monocytes (%) (Auto) , Eosinophils (%) (Auto) , Basophils (%) (Auto) , Differential Total Cells Counted 100, Neutrophils % (Manual) 89H, Lymphocytes % (Manual) 9L, Monocytes % (Manual) 2, Eosinophils % (Manual) 0, Basophils % (Manual) 0, Band Neutrophils 0 , Platelet Estimate Adequate, Platelet Morphology Normal, Hypochromasia 1+, Anisocytosis 1+, Hemoglobin A1c 15.3H, Lactic Acid Level 1.10, Uric Acid 5.0, Phosphorus Level 2.2L, Magnesium Level 2.3, Iron Level 165, Total Iron Binding Capacity 178L, Percent Iron Saturation 93H, Unsaturated Iron Binding 13L, Ferritin 1310H, Gamma Glutamyl Transpeptidase 79, Total Creatine Kinase 163, Troponin I 0.000, Pro-B-Type Natriuretic Peptide 379H, Triglycerides Level 325H , Cholesterol Level 213H, LDL Cholesterol 135H, HDL Cholesterol 23L, Cholesterol /HDL Ratio 9.3H, Vitamin B12 Level > 2000H, Folate 4.8L, Thyroid Stimulating Hormone (TSH) 2.445 Height (Feet): 5 Height (Inches): 5.00 Weight (Pounds): 184 General Appearance: no apparent distress Cardiovascular: tachycardia Respiratory/Chest: decreased breath sounds Abdomen: soft Joni Cleaning MD Dec 24, 2017 11:35
[2017-12-24] MEDS ORDERED: Metoprolol Tartrate 12.5mg TAB ORAL SCH ×2 (12:00→21:00)
[2017-12-24] MEDS ORDERED: Potassium Phosphate 20 MM in NS 275 ML IV SCH (12:00)
--- NOTE | 2017-12-24 13:58 | General Progress Note ---
Progress Note Progress Note GYNECOLOGY PROGRESS NOTE Came by to see if mental status improved, to illicit better history. Patient alert and oriented. Did not know she had diabetes. Has not had a period for over a year. Still slow to respond, but overall clinical picture improved. Bleeding improved, spotting only. Some nausea currently, but declining antiemetics. VS reviewed, tachycardia to low 100s, otherwise wnl. Exam: Gen: Alert and oriented, slow to respond but significant improvement from yesterday Perineum: dry Ext: no calf TTP Imaging: Pelvic US 12/23: Findings: Somewhat limited transabdominal imaging; the bladder is decompressed by a Bernard catheter. Exam is also limited by suboptimal ability the patient to tolerate endovaginal imaging for long. Uterus is anteverted and slightly retroflexed, measures 6.5 cm length by 3.2 cm AP. The endometrium is 2 mm thick. In the uterine fundus, there is some calcification which creates significant shadowing. Neither ovary could be visualized Impression: - Uterine fundal calcifications, likely represent old degenerated fibroids - Nonvisualized ovaries. Grossly negative for adnexal mass - Normal endometrial thickness Assessment/Plan: 57yo with postmenopausal bleeding, new dx of diabetes presenting with DKA and sepsis, no longer bleeding vaginally - Discussed my recommendation for endometrial sampling, can be done in my office if desired - My information will be provided to the patient and her family for follow up - No longer bleeding, in indication for acute intervention at this time - Still recommend Diflucan for yeast infection, when clinically appropriate - Cleared for outpatient follow up from a [employer] standpoint, once the rest of her medical issues have been resolved Signed: MD Cece Guaman Carla M.D. Dec 24, 2017 13:58
[2017-12-24] MEDS ORDERED: D5 1/2NS w/KCl 20mEq 1,000 ML IV SCH (14:00)
[2017-12-24] MEDS ORDERED: Tubing IV Secondary IV ONE (15:01)
--- NOTE | 2017-12-24 15:08 | General Surgery Progress Note ---
General Surgery-Progress Note Subjective Procedure Performed incision and drainage of right perirectal abscess Symptoms: improved Additional Comments much better today. talking in full sentences. unaware of what has been going on. no pain. no n/v/f/c. discussed wound and states buttock pain for weeks Objective Last 24 Hour Vital Signs Date Time Temp Pulse Resp B/P (MAP) Pulse Ox O2 Delivery O2 Flow Rate FiO2 12/24/17 14:00 98 21 140/86 (104) 98 12/24/17 13:37 100 15 113/74 (87) 98 12/24/17 13:30 100 113/74 12/24/17 13:00 110 19 170/97 (121) 98 12/24/17 13:00 100 15 113/74 (87) 98 12/24/17 12:00 97.9 103 16 150/89 (109) 98 97.9 12/24/17 12:00 118 12/24/17 12:00 Room Air 12/24/17 11:05 78 25 128/72 (90) 96 12/24/17 10:00 104 20 155/74 (101) 97 12/24/17 09:00 105 19 174/97 (122) 98 12/24/17 08:34 171/117 12/24/17 08:27 110 16 186/93 (124) 98 12/24/17 08:00 98.1 119 16 171/117 (135) 98.1 12/24/17 08:00 Room Air 12/24/17 08:00 112 12/24/17 07:00 97 14 118/100 (106) 99 12/24/17 07:00 97 14 118/100 (106) 99 12/24/17 06:00 99 16 120/104 (109) 98 12/24/17 05:00 101 16 120/85 (97) 98 12/24/17 04:00 98.8 87 16 115/62 (79) 98 98.8 12/24/17 04:00 Room Air 12/24/17 04:00 80 12/24/17 03:00 91 16 158/73 (101) 98 12/24/17 02:00 91 15 152/73 (99) 98 12/24/17 01:23 166/81 12/24/17 01:00 95 16 166/81 (109) 98 12/24/17 00:38 99 178/71 12/24/17 00:00 98 12/24/17 00:00 Room Air 12/24/17 00:00 98.6 98 16 178/71 (106) 98 98.6 12/23/17 23:00 103 20 160/85 (110) 98 12/23/17 22:00 108 20 158/68 (98) 98 12/23/17 21:00 103 18 148/85 (106) 98 12/23/17 20:00 Room Air 12/23/17 20:00 98.4 103 18 155/78 (103) 98 98.4 12/23/17 19:00 103 18 161/78 (105) 98 12/23/17 18:00 102 18 162/89 (113) 98 12/23/17 17:00 101 18 145/84 (104) 98 12/23/17 16:00 Room Air 12/23/17 16:00 98.7 108 18 120/69 (86) 98 98.7 12/23/17 16:00 107 I&O Intake and Output 12/23/17 12/24/17 19:00 07:00 Intake Total 919.8 ml 1946.6 ml Output Total 1400 ml 1330 ml Balance -480.2 ml 616.6 ml Intake Oral 620 ml IV Total 919.8 ml 1326.6 ml Output Urine Total 1400 ml 1330 ml Dressing: saturated Wound: other Drains: none Cardiovascular: RSR Respiratory: clear Abdomen: soft, flat, non-tender, present bowel sounds Extremities: no edema, no tenderness, no cyanosis Laboratory Tests Test 12/23/17 15:40 12/24/17 05:15 Sodium Level 149 MMOL/L (136-145) H 143 MMOL/L (136-145) Potassium Level 3.5 MMOL/L (3.5-5.1) 3.6 MMOL/L (3.5-5.1) Chloride Level 115 MMOL/L (98-107) H 108 MMOL/L (98-107) H Carbon Dioxide Level 24 MMOL/L (21-32) 20 MMOL/L (21-32) L Anion Gap 10 mmol/L (5-15) 15 mmol/L (5-15) Blood Urea Nitrogen 59 mg/dL (7-18) H 47 mg/dL (7-18) H Creatinine 1.2 MG/DL (0.55-1.30) 1.1 MG/DL (0.55-1.30) Estimat Glomerular Filtration Rate 56.0 mL/min (>60) > 60 mL/min (>60) Glucose Level 176 MG/DL (74-106) #H 469 MG/DL (74-106) #H Calcium Level 8.8 MG/DL (8.5-10.1) 8.6 MG/DL (8.5-10.1) Total Bilirubin 0.4 MG/DL (0.2-1.0) 0.6 MG/DL (0.2-1.0) Aspartate Amino Transf (AST/SGOT) 19 U/L (15-37) 24 U/L (15-37) Alanine Aminotransferase (ALT/SGPT) 15 U/L (12-78) 18 U/L (12-78) Alkaline Phosphatase 150 U/L (46-116) H 182 U/L (46-116) H C-Reactive Protein, Quantitative 17.5 mg/dL (0.00-0.90) H 11.7 mg/dL (0.00-0.90) H Total Protein 7.0 G/DL (6.4-8.2) 7.1 G/DL (6.4-8.2) Albumin 1.8 G/DL (3.4-5.0) L 1.9 G/DL (3.4-5.0) L Globulin 5.2 g/dL 5.2 g/dL Albumin/Globulin Ratio 0.3 (1.0-2.7) L 0.4 (1.0-2.7) L White Blood Count 17.0 K/UL (4.8-10.8) H Red Blood Count 3.69 M/UL (4.20-5.40) L Hemoglobin 10.8 G/DL (12.0-16.0) L Hematocrit 32.3 % (37.0-47.0) L Mean Corpuscular Volume 88 FL (80-99) Mean Corpuscular Hemoglobin 29.2 PG (27.0-31.0) Mean Corpuscular Hemoglobin Concent 33.3 G/DL (32.0-36.0) Red Cell Distribution Width 11.9 % (11.6-14.8) Platelet Count 405 K/UL (150-450) Mean Platelet Volume 8.2 FL (6.5-10.1) Neutrophils (%) (Auto) % (45.0-75.0) Lymphocytes (%) (Auto) % (20.0-45.0) Monocytes (%) (Auto) % (1.0-10.0) Eosinophils (%) (Auto) % (0.0-3.0) Basophils (%) (Auto) % (0.0-2.0) Differential Total Cells Counted 100 Neutrophils % (Manual) 89 % (45-75) H Lymphocytes % (Manual) 9 % (20-45) L Monocytes % (Manual) 2 % (1-10) Eosinophils % (Manual) 0 % (0-3) Basophils % (Manual) 0 % (0-2) Band Neutrophils 0 % (0-8) Platelet Estimate Adequate Platelet Morphology Normal Hypochromasia 1+ Anisocytosis 1+ Hemoglobin A1c 15.3 % (4.3-6.0) H Lactic Acid Level 1.10 mmol/L (0.4-2.0) Uric Acid 5.0 MG/DL (2.6-7.2) Phosphorus Level 2.2 MG/DL (2.5-4.9) L Magnesium Level 2.3 MG/DL (1.8-2.4) Iron Level 165 ug/dL (50-175) Total Iron Binding Capacity 178 ug/dL (250-450) L Percent Iron Saturation 93 % (15-50) H Unsaturated Iron Binding 13 ug/dL (112-346) L Ferritin 1310 NG/ML (8-388) H Gamma Glutamyl Transpeptidase 79 U/L (5-85) Total Creatine Kinase 163 U/L (26-308) Troponin I 0.000 ng/mL (0.000-0.056) Pro-B-Type Natriuretic Peptide 379 pg/mL (0-125) H Triglycerides Level 325 MG/DL (30-150) H Cholesterol Level 213 MG/DL (< 200) H LDL Cholesterol 135 mg/dL (<100) H HDL Cholesterol 23 MG/DL (40-60) L Cholesterol/HDL Ratio 9.3 (3.3-4.4) H Vitamin B12 Level > 2000 PG/ML (193-986) H Folate 4.8 NG/ML (8.6-58.9) L Thyroid Stimulating Hormone (TSH) 2.445 uiU/mL (0.358-3.740) Plan Problems: (1) Diabetic acidosis without coma (2) Hyperglycemia (3) Severe sepsis (4) Abscess of buttock Assessment & Plan: large right buttock abscess with gangrene at skin level. given condition urgent I&D warranted as possible etiology of sepsis. see procedure report. improving today. leukocytosis improving. more alert and responsive. packing and dressings changed. drainage still looks almost as if stool. -cultures pending -okay for diet -packing and dressings to buttock TID -may need more formal wound washout and care in OR once stable. will monitor for now. drainage improved but still somewhat like stool -Consider GI consult as patient has never had colonoscopy and this could be possible rectal fistula given appearance of drainage. thank you will follow with recommendations (5) DKA (diabetic ketoacidoses) Baljeet Osorio Dec 24, 2017 15:08
--- NOTE | 2017-12-24 15:12 | Pulmonolgy Critical Care Note ---
Critical Care - Asmt/Plan Problems: (1) Diabetic acidosis without coma Assessment & Plan: RESOLVED (2) Diabetes Assessment & Plan: POORLY CONTROLLED (3) Hyperglycemia Assessment & Plan: 2/2 ABOVE (4) Sepsis (5) Abscess of buttock Assessment & Plan: S/P I&D 12/22/17 (6) Renal insufficiency Assessment & Plan: ZACHARY, RESOLVED (7) DKA (diabetic ketoacidoses) Assessment & Plan: RESOLVED (8) Vagina bleeding Assessment & Plan: Likely 2/2 fibroids US noted GRANULATOR eval noted Needs OP EMBx Assessment/Plan: * Off insulin gtt, SQ + SSI per ENDO * [id number]/[id number]@75cc/hr * Continue Vancomycin/Zosyn (D3) per ID * F/U surgery recs, wound care, consider CT A/P * F/U GRANULATOR recs, outpatient EMBx * Monitor for further bleeding * Aspiration precautions * Px: Hep SQ and PPI * FC * TTF 35min CCT Omega Nance MD Critical Care - Objective Last 24 Hour Vital Signs Date Time Temp Pulse Resp B/P (MAP) Pulse Ox O2 Delivery O2 Flow Rate FiO2 12/24/17 14:00 98 21 140/86 (104) 98 12/24/17 13:37 100 15 113/74 (87) 98 12/24/17 13:30 100 113/74 12/24/17 13:00 110 19 170/97 (121) 98 12/24/17 13:00 100 15 113/74 (87) 98 12/24/17 12:00 97.9 103 16 150/89 (109) 98 97.9 12/24/17 12:00 118 12/24/17 12:00 Room Air 12/24/17 11:05 78 25 128/72 (90) 96 12/24/17 10:00 104 20 155/74 (101) 97 12/24/17 09:00 105 19 174/97 (122) 98 12/24/17 08:34 171/117 12/24/17 08:27 110 16 186/93 (124) 98 12/24/17 08:00 98.1 119 16 171/117 (135) 98.1 12/24/17 08:00 Room Air 12/24/17 08:00 112 12/24/17 07:00 97 14 118/100 (106) 99 8/16/18 07:00 97 14 118/100 (106) 99 12/24/17 06:00 99 16 120/104 (109) 98 12/24/17 05:00 101 16 120/85 (97) 98 12/24/17 04:00 98.8 87 16 115/62 (79) 98 98.8 12/24/17 04:00 Room Air 12/24/17 04:00 80 12/24/17 03:00 91 16 158/73 (101) 98 12/24/17 02:00 91 15 152/73 (99) 98 12/24/17 01:23 166/81 12/24/17 01:00 95 16 166/81 (109) 98 12/24/17 00:38 99 178/71 12/24/17 00:00 98 12/24/17 00:00 Room Air 12/24/17 00:00 98.6 98 16 178/71 (106) 98 98.6 12/23/17 23:00 103 20 160/85 (110) 98 12/23/17 22:00 108 20 158/68 (98) 98 12/23/17 21:00 103 18 148/85 (106) 98 12/23/17 20:00 Room Air 12/23/17 20:00 98.4 103 18 155/78 (103) 98 98.4 12/23/17 19:00 103 18 161/78 (105) 98 12/23/17 18:00 102 18 162/89 (113) 98 12/23/17 17:00 101 18 145/84 (104) 98 12/23/17 16:00 Room Air 12/23/17 16:00 98.7 108 18 120/69 (86) 98 98.7 12/23/17 16:00 107 Status: awake Condition: improving HEENT: atraumatic, normocephalic Neck: full ROM Lungs: clear Heart: HR/BP stable Abdomen: soft, non-tender, active bowel sounds Extremities: no C/C/E, other - buttock wound dressed Micro: Microbiology Date/Time Source Procedure Growth Status 12/22/17 16:12 Blood Blood Culture - Preliminary NO GROWTH AFTER 24 HOURS Resulted 12/22/17 15:55 Blood Blood Culture - Preliminary NO GROWTH AFTER 24 HOURS Resulted 12/23/17 17:00 Other Gram Stain - Final Resulted 12/23/17 17:00 Wound Culture - Preliminary Gram Negative Bacillus 1 Resulted 12/22/17 16:55 Nasal Nares MRSA Culture - Final NO METHICILLIN RESISTANT STAPH AUREUS... Complete 12/22/17 16:55 Rectum VRE Culture - Final NO VANCOMYCIN RESISTANT ENTEROCOCCUS ... Complete 12/22/17 16:55 Rectum - Final NO CARBAPENEM-RESISTANT ENTEROBACTERI... Complete Accucheck: 440 Blood Sugars: BS not controlled Critical Care - Subjective ROS Limited/Unobtainable: Yes ICU Day: 3 Interval Events: Off gtt, gap closed, BS still elevated No complaints GRANULATOR eval noted Condition: improving IV Access: peripheral EKG Rhythm: Sinus Rhythm Fluids: [id number]@ 75 I&O: Intake and Output 12/23/17 12/24/17 19:00 07:00 Intake Total 919.8 ml 1946.6 ml Output Total 1400 ml 1330 ml Balance -480.2 ml 616.6 ml Intake Oral 620 ml IV Total 919.8 ml 1326.6 ml Output Urine Total 1400 ml 1330 ml Subjective: lethargic, wakes up to questions, denies specific complaints CXR: NAD Labs: Laboratory Tests Test 12/23/17 15:40 12/24/17 05:15 Sodium Level 149 MMOL/L (136-145) H 143 MMOL/L (136-145) Potassium Level 3.5 MMOL/L (3.5-5.1) 3.6 MMOL/L (3.5-5.1) Chloride Level 115 MMOL/L (98-107) H 108 MMOL/L (98-107) H Carbon Dioxide Level 24 MMOL/L (21-32) 20 MMOL/L (21-32) L Anion Gap 10 mmol/L (5-15) 15 mmol/L (5-15) Blood Urea Nitrogen 59 mg/dL (7-18) H 47 mg/dL (7-18) H Creatinine 1.2 MG/DL (0.55-1.30) 1.1 MG/DL (0.55-1.30) Estimat Glomerular Filtration Rate 56.0 mL/min (>60) > 60 mL/min (>60) Glucose Level 176 MG/DL (74-106) #H 469 MG/DL (74-106) #H Calcium Level 8.8 MG/DL (8.5-10.1) 8.6 MG/DL (8.5-10.1) Total Bilirubin 0.4 MG/DL (0.2-1.0) 0.6 MG/DL (0.2-1.0) Aspartate Amino Transf (AST/SGOT) 19 U/L (15-37) 24 U/L (15-37) Alanine Aminotransferase (ALT/SGPT) 15 U/L (12-78) 18 U/L (12-78) Alkaline Phosphatase 150 U/L (46-116) H 182 U/L (46-116) H C-Reactive Protein, Quantitative 17.5 mg/dL (0.00-0.90) H 11.7 mg/dL (0.00-0.90) H Total Protein 7.0 G/DL (6.4-8.2) 7.1 G/DL (6.4-8.2) Albumin 1.8 G/DL (3.4-5.0) L 1.9 G/DL (3.4-5.0) L Globulin 5.2 g/dL 5.2 g/dL Albumin/Globulin Ratio 0.3 (1.0-2.7) L 0.4 (1.0-2.7) L White Blood Count 17.0 K/UL (4.8-10.8) H Red Blood Count 3.69 M/UL (4.20-5.40) L Hemoglobin 10.8 G/DL (12.0-16.0) L Hematocrit 32.3 % (37.0-47.0) L Mean Corpuscular Volume 88 FL (80-99) Mean Corpuscular Hemoglobin 29.2 PG (27.0-31.0) Mean Corpuscular Hemoglobin Concent 33.3 G/DL (32.0-36.0) Red Cell Distribution Width 11.9 % (11.6-14.8) Platelet Count 405 K/UL (150-450) Mean Platelet Volume 8.2 FL (6.5-10.1) Neutrophils (%) (Auto) % (45.0-75.0) Lymphocytes (%) (Auto) % (20.0-45.0) Monocytes (%) (Auto) % (1.0-10.0) Eosinophils (%) (Auto) % (0.0-3.0) Basophils (%) (Auto) % (0.0-2.0) Differential Total Cells Counted 100 Neutrophils % (Manual) 89 % (45-75) H Lymphocytes % (Manual) 9 % (20-45) L Monocytes % (Manual) 2 % (1-10) Eosinophils % (Manual) 0 % (0-3) Basophils % (Manual) 0 % (0-2) Band Neutrophils 0 % (0-8) Platelet Estimate Adequate Platelet Morphology Normal Hypochromasia 1+ Anisocytosis 1+ Hemoglobin A1c 15.3 % (4.3-6.0) H Lactic Acid Level 1.10 mmol/L (0.4-2.0) Uric Acid 5.0 MG/DL (2.6-7.2) Phosphorus Level 2.2 MG/DL (2.5-4.9) L Magnesium Level 2.3 MG/DL (1.8-2.4) Iron Level 165 ug/dL (50-175) Total Iron Binding Capacity 178 ug/dL (250-450) L Percent Iron Saturation 93 % (15-50) H Unsaturated Iron Binding 13 ug/dL (112-346) L Ferritin 1310 NG/ML (8-388) H Gamma Glutamyl Transpeptidase 79 U/L (5-85) Total Creatine Kinase 163 U/L (26-308) Troponin I 0.000 ng/mL (0.000-0.056) Pro-B-Type Natriuretic Peptide 379 pg/mL (0-125) H Triglycerides Level 325 MG/DL (30-150) H Cholesterol Level 213 MG/DL (< 200) H LDL Cholesterol 135 mg/dL (<100) H HDL Cholesterol 23 MG/DL (40-60) L Cholesterol/HDL Ratio 9.3 (3.3-4.4) H Vitamin B12 Level > 2000 PG/ML (193-986) H Folate 4.8 NG/ML (8.6-58.9) L Thyroid Stimulating Hormone (TSH) 2.445 uiU/mL (0.358-3.740) Omega Nance MD Dec 24, 2017 15:12
[2017-12-24] MEDS ORDERED: Nitroglycerin Subl 0.4mg tab SL PRN (15:15)
[2017-12-24] MEDS ORDERED: Acetaminophen 650 MG SUPP RECTAL PRN (15:17)
[2017-12-24] MEDS ORDERED: Hydromorphone 0.5mg/0.5ml inj IVP PRN (15:19)
[2017-12-24] MEDS: HYDROmorphone 1mg/ml Carpuject IVP PRN ×2 (15:55→21:28)
[2017-12-24] MEDS ORDERED: Nulytely 4L ORAL ONE (16:00)
--- NOTE | 2017-12-24 16:29 | General Progress Note ---
Assessment/Plan Problem List: (1) Diabetes ICD Codes: E11.9 - Type 2 diabetes mellitus without complications SNOMED: 81916941 (2) Hyperglycemia ICD Codes: R73.9 - Hyperglycemia, unspecified SNOMED: 69764783 (3) Sepsis ICD Codes: A41.9 - Sepsis, unspecified organism SNOMED: 73168533 (4) Abscess of buttock ICD Codes: L02.31 - Cutaneous abscess of buttock SNOMED: 22478736 (5) DKA (diabetic ketoacidoses) ICD Codes: E13.10 - Other specified diabetes mellitus with ketoacidosis without coma SNOMED: 11532775, 199408916 Qualifiers: Qualified Codes: E13.11 - Other specified diabetes mellitus with ketoacidosis with coma (6) Renal insufficiency ICD Codes: N28.9 - Disorder of kidney and ureter, unspecified SNOMED: 798055769, 732089654 (7) Vagina bleeding ICD Codes: N93.9 - Abnormal uterine and vaginal bleeding, unspecified SNOMED: 736566183, 925663790 (8) Anemia ICD Codes: D64.9 - Anemia, unspecified SNOMED: 848012460 Status: progressing Assessment/Plan s/p dka s/p i&d of rectal abscess sugar is improving sepsis azotemia and dehyration improving Subjective ROS Limited/Unobtainable: Yes Allergies: Coded Allergies: UNABLE TO ASSESS (Unverified , 12/22/17) Objective Last 24 Hour Vital Signs Date Time Temp Pulse Resp B/P (MAP) Pulse Ox O2 Delivery O2 Flow Rate FiO2 12/24/17 16:25 98.4 12/24/17 15:55 98.4 12/24/17 15:31 Room Air 12/24/17 15:28 98.4 93 20 140/73 (95) 98 98.4 12/24/17 14:00 98 21 140/86 (104) 98 12/24/17 13:37 100 15 113/74 (87) 98 12/24/17 13:30 100 113/74 12/24/17 13:00 110 19 170/97 (121) 98 12/24/17 13:00 100 15 113/74 (87) 98 12/24/17 12:00 97.9 103 16 150/89 (109) 98 97.9 12/24/17 12:00 118 12/24/17 12:00 Room Air 12/24/17 11:05 78 25 128/72 (90) 96 12/24/17 10:00 104 20 155/74 (101) 97 12/24/17 09:00 105 19 174/97 (122) 98 12/24/17 08:34 171/117 12/24/17 08:27 110 16 186/93 (124) 98 12/24/17 08:00 98.1 119 16 171/117 (135) 98.1 12/24/17 08:00 Room Air 12/24/17 08:00 112 12/24/17 07:00 97 14 118/100 (106) 99 12/24/17 07:00 97 14 118/100 (106) 99 12/24/17 06:00 99 16 120/104 (109) 98 12/24/17 05:00 101 16 120/85 (97) 98 12/24/17 04:00 98.8 87 16 115/62 (79) 98 98.8 12/24/17 04:00 Room Air 12/24/17 04:00 80 12/24/17 03:00 91 16 158/73 (101) 98 12/24/17 02:00 91 15 152/73 (99) 98 12/24/17 01:23 166/81 12/24/17 01:00 95 16 166/81 (109) 98 12/24/17 00:38 99 178/71 12/24/17 00:00 98 12/24/17 00:00 Room Air 12/24/17 00:00 98.6 98 16 178/71 (106) 98 98.6 12/23/17 23:00 103 20 160/85 (110) 98 12/23/17 22:00 108 20 158/68 (98) 98 12/23/17 21:00 103 18 148/85 (106) 98 12/23/17 20:00 Room Air 12/23/17 20:00 98.4 103 18 155/78 (103) 98 98.4 12/23/17 19:00 103 18 161/78 (105) 98 12/23/17 18:00 102 18 162/89 (113) 98 12/23/17 17:00 101 18 145/84 (104) 98 Intake and Output 12/23/17 12/24/17 19:00 07:00 Intake Total 919.8 ml 1946.6 ml Output Total 1400 ml 1330 ml Balance -480.2 ml 616.6 ml Intake Oral 620 ml IV Total 919.8 ml 1326.6 ml Output Urine Total 1400 ml 1330 ml Laboratory Tests 12/24/17 05:15: White Blood Count 17.0H, Red Blood Count 3.69L, Hemoglobin 10.8L, Hematocrit 32.3L, Mean Corpuscular Volume 88, Mean Corpuscular Hemoglobin 29.2, Mean Corpuscular Hemoglobin Concent 33.3, Red Cell Distribution Width 11.9, Platelet Count 405, Mean Platelet Volume 8.2, Neutrophils (%) (Auto) , Lymphocytes (%) ( Auto) , Monocytes (%) (Auto) , Eosinophils (%) (Auto) , Basophils (%) (Auto) , Differential Total Cells Counted 100, Neutrophils % (Manual) 89H, Lymphocytes % (Manual) 9L, Monocytes % (Manual) 2, Eosinophils % (Manual) 0, Basophils % ( Manual) 0, Band Neutrophils 0, Platelet Estimate Adequate, Platelet Morphology Normal, Hypochromasia 1+, Anisocytosis 1+, Sodium Level 143, Potassium Level 3.6 , Chloride Level 108H, Carbon Dioxide Level 20L, Anion Gap 15, Blood Urea Nitrogen 47H, Creatinine 1.1, Estimat Glomerular Filtration Rate > 60, Glucose Level 469#H, Hemoglobin A1c 15.3H, Lactic Acid Level 1.10, Uric Acid 5.0, Calcium Level 8.6, Phosphorus Level 2.2L, Magnesium Level 2.3, Iron Level 165, Total Iron Binding Capacity 178L, Percent Iron Saturation 93H, Unsaturated Iron Binding 13L, Ferritin 1310H, Total Bilirubin 0.6, Gamma Glutamyl Transpeptidase 79, Aspartate Amino Transf (AST/SGOT) 24, Alanine Aminotransferase (ALT/SGPT) 18 , Alkaline Phosphatase 182H, Total Creatine Kinase 163, Troponin I 0.000, C- Reactive Protein, Quantitative 11.7H, Pro-B-Type Natriuretic Peptide 379H, Total Protein 7.1, Albumin 1.9L, Globulin 5.2, Albumin/Globulin Ratio 0.4L, Triglycerides Level 325H, Cholesterol Level 213H, LDL Cholesterol 135H, HDL Cholesterol 23L, Cholesterol/HDL Ratio 9.3H, Vitamin B12 Level > 2000H, Folate 4.8L, Thyroid Stimulating Hormone (TSH) 2.445 Height (Feet): 5 Height (Inches): 5.00 Weight (Pounds): 184 General Appearance: confused Cardiovascular: normal rate Respiratory/Chest: lungs clear Abdomen: soft Nissa Mckay MD Dec 24, 2017 16:29
[2017-12-24] MEDS: Bisacodyl EC 5mg tab ORAL SCH ×3 (17:56→18:09)
[2017-12-24] MEDS ORDERED: HYDROmorphone 1mg/ml Carpuject IVP PRN (18:00)
[2017-12-24] MEDS ORDERED: Nulytely 4L ORAL SCH (18:00)
[2017-12-24] MEDS: Metoprolol Tartrate 12.5mg TAB ORAL SCH (20:47)
[2017-12-24] MEDS ORDERED: Levemir Flexpen SUBQ SCH ×2 (21:00)
[2017-12-24] MEDS ORDERED: Fleet's Enema 133ml RECTAL SCH (23:00)
--- NOTE | 2017-12-24 23:59 | Cardiology Progress Note ---
Assessment/Plan Assessment/Plan The patient is seen and examined, full consult note will be dictated. Objective Last 24 Hour Vital Signs Date Time Temp Pulse Resp B/P (MAP) Pulse Ox O2 Delivery O2 Flow Rate FiO2 12/24/17 21:00 Room Air 12/24/17 20:47 83 146/85 12/24/17 20:00 83 12/24/17 20:00 97.5 83 20 146/85 (105) 94 97.5 12/24/17 18:45 97.7 92 16 164/91 (115) 95 97.7 12/24/17 17:13 89 140/73 12/24/17 16:25 98.4 12/24/17 16:00 89 12/24/17 15:55 98.4 12/24/17 15:31 Room Air 12/24/17 15:28 98.4 93 20 140/73 (95) 98 98.4 12/24/17 14:00 98 21 140/86 (104) 98 12/24/17 13:37 100 15 113/74 (87) 98 12/24/17 13:30 100 113/74 12/24/17 13:00 110 19 170/97 (121) 98 12/24/17 13:00 100 15 113/74 (87) 98 12/24/17 12:00 97.9 103 16 150/89 (109) 98 97.9 12/24/17 12:00 118 12/24/17 12:00 Room Air 12/24/17 11:05 78 25 128/72 (90) 96 12/24/17 10:00 104 20 155/74 (101) 97 12/24/17 09:00 105 19 174/97 (122) 98 12/24/17 08:34 171/117 12/24/17 08:27 110 16 186/93 (124) 98 12/24/17 08:00 98.1 119 16 171/117 (135) 98.1 12/24/17 08:00 Room Air 12/24/17 08:00 112 12/24/17 07:00 97 14 118/100 (106) 99 12/24/17 07:00 97 14 118/100 (106) 99 12/24/17 06:00 99 16 120/104 (109) 98 12/24/17 05:00 101 16 120/85 (97) 98 8/16/18 04:00 98.8 87 16 115/62 (79) 98 98.8 12/24/17 04:00 Room Air 12/24/17 04:00 80 12/24/17 03:00 91 16 158/73 (101) 98 12/24/17 02:00 91 15 152/73 (99) 98 12/24/17 01:23 166/81 12/24/17 01:00 95 16 166/81 (109) 98 12/24/17 00:38 99 178/71 12/24/17 00:00 98 12/24/17 00:00 Room Air 12/24/17 00:00 98.6 98 16 178/71 (106) 98 98.6 Intake and Output 12/23/17 12/24/17 19:00 07:00 Intake Total 919.8 ml 1946.6 ml Output Total 1400 ml 1330 ml Balance -480.2 ml 616.6 ml Intake Oral 620 ml IV Total 919.8 ml 1326.6 ml Output Urine Total 1400 ml 1330 ml Laboratory Tests Test 12/24/17 05:15 White Blood Count 17.0 K/UL (4.8-10.8) H Red Blood Count 3.69 M/UL (4.20-5.40) L Hemoglobin 10.8 G/DL (12.0-16.0) L Hematocrit 32.3 % (37.0-47.0) L Mean Corpuscular Volume 88 FL (80-99) Mean Corpuscular Hemoglobin 29.2 PG (27.0-31.0) Mean Corpuscular Hemoglobin Concent 33.3 G/DL (32.0-36.0) Red Cell Distribution Width 11.9 % (11.6-14.8) Platelet Count 405 K/UL (150-450) Mean Platelet Volume 8.2 FL (6.5-10.1) Neutrophils (%) (Auto) % (45.0-75.0) Lymphocytes (%) (Auto) % (20.0-45.0) Monocytes (%) (Auto) % (1.0-10.0) Eosinophils (%) (Auto) % (0.0-3.0) Basophils (%) (Auto) % (0.0-2.0) Differential Total Cells Counted 100 Neutrophils % (Manual) 89 % (45-75) H Lymphocytes % (Manual) 9 % (20-45) L Monocytes % (Manual) 2 % (1-10) Eosinophils % (Manual) 0 % (0-3) Basophils % (Manual) 0 % (0-2) Band Neutrophils 0 % (0-8) Platelet Estimate Adequate Platelet Morphology Normal Hypochromasia 1+ Anisocytosis 1+ Sodium Level 143 MMOL/L (136-145) Potassium Level 3.6 MMOL/L (3.5-5.1) Chloride Level 108 MMOL/L (98-107) H Carbon Dioxide Level 20 MMOL/L (21-32) L Anion Gap 15 mmol/L (5-15) Blood Urea Nitrogen 47 mg/dL (7-18) H Creatinine 1.1 MG/DL (0.55-1.30) Estimat Glomerular Filtration Rate > 60 mL/min (>60) Glucose Level 469 MG/DL (74-106) #H Hemoglobin A1c 15.3 % (4.3-6.0) H Lactic Acid Level 1.10 mmol/L (0.4-2.0) Uric Acid 5.0 MG/DL (2.6-7.2) Calcium Level 8.6 MG/DL (8.5-10.1) Phosphorus Level 2.2 MG/DL (2.5-4.9) L Magnesium Level 2.3 MG/DL (1.8-2.4) Iron Level 165 ug/dL (50-175) Total Iron Binding Capacity 178 ug/dL (250-450) L Percent Iron Saturation 93 % (15-50) H Unsaturated Iron Binding 13 ug/dL (112-346) L Ferritin 1310 NG/ML (8-388) H Total Bilirubin 0.6 MG/DL (0.2-1.0) Gamma Glutamyl Transpeptidase 79 U/L (5-85) Aspartate Amino Transf (AST/SGOT) 24 U/L (15-37) Alanine Aminotransferase (ALT/SGPT) 18 U/L (12-78) Alkaline Phosphatase 182 U/L (46-116) H Total Creatine Kinase 163 U/L (26-308) Troponin I 0.000 ng/mL (0.000-0.056) C-Reactive Protein, Quantitative 11.7 mg/dL (0.00-0.90) H Pro-B-Type Natriuretic Peptide 379 pg/mL (0-125) H Total Protein 7.1 G/DL (6.4-8.2) Albumin 1.9 G/DL (3.4-5.0) L Globulin 5.2 g/dL Albumin/Globulin Ratio 0.4 (1.0-2.7) L Triglycerides Level 325 MG/DL (30-150) H Cholesterol Level 213 MG/DL (< 200) H LDL Cholesterol 135 mg/dL (<100) H HDL Cholesterol 23 MG/DL (40-60) L Cholesterol/HDL Ratio 9.3 (3.3-4.4) H Vitamin B12 Level > 2000 PG/ML (193-986) H Folate 4.8 NG/ML (8.6-58.9) L Thyroid Stimulating Hormone (TSH) 2.445 uiU/mL (0.358-3.740) Microbiology Date/Time Source Procedure Growth Status 12/22/17 16:12 Blood Blood Culture - Preliminary NO GROWTH AFTER 24 HOURS Resulted 12/22/17 15:55 Blood Blood Culture - Preliminary NO GROWTH AFTER 24 HOURS Resulted 12/23/17 17:00 Other Gram Stain - Final Resulted 12/23/17 17:00 Wound Culture - Preliminary Gram Negative Bacillus 1 Resulted 12/22/17 16:55 Nasal Nares MRSA Culture - Final NO METHICILLIN RESISTANT STAPH AUREUS... Complete 12/22/17 16:55 Rectum VRE Culture - Final NO VANCOMYCIN RESISTANT ENTEROCOCCUS ... Complete 12/22/17 16:55 Rectum - Final NO CARBAPENEM-RESISTANT ENTEROBACTERI... Complete Javi Anthony MD Dec 24, 2017 23:59
[2017-12-25] VITALS (9 sets, daily range): BP systolic 110–168; BP diastolic 59–89
--- NOTE | 2017-12-25 02:01 | Consultation ---
DATE OF CONSULTATION: 12/24/2017 CARDIOLOGY CONSULTATION CONSULTING PHYSICIAN: Javi Anthony M.D. REFERRING PHYSICIAN: Nissa Mckay M.D. REASON FOR CONSULTATION: Management of tachycardia. The patient was seen in the emergency department of [facility], currently residing at the trauma bed. HISTORY OF PRESENT ILLNESS: The patient is a very unfortunate 57-year-old lady who was found down in the bathroom on 12/22/2017. A 911 was called. The patient was brought in to the [facility] emergency department. She appeared to be lethargic. She was given insulin drip, which helped her mental status. The patient is awake and alert, however, she is declining to speak to me at this time. Initial vital signs revealed blood pressure 119/69 mmHg and pulse of 105. Cardiology consultation was made at the request of Dr. Mckay for management of tachycardia. The patient's coronary artery disease risk factors including diabetes mellitus. PAST MEDICAL HISTORY: Diabetes mellitus. PAST SURGICAL HISTORY: None. MEDICATIONS: List of medications at home, none or unable to provide. ALLERGIES: No known drug allergies. SOCIAL HISTORY: Denies any tobacco, alcohol, or illicit drug use. REVIEW OF SYSTEMS: HEENT: Denies any headache, diplopia, or blurred vision. CONSTITUTIONAL: Denies any fever, chills, night sweats, or weight loss. CARDIOVASCULAR: Denies any chest pain, shortness breath, PND, orthopnea, or leg swelling. PULMONARY: Denies any cough, hemoptysis, or wheezing. GASTROINTESTINAL: Denies any nausea, vomiting, diarrhea, constipation, abdominal pain, or GI bleed. GENITOURINARY: Denies any hematuria, dysuria, or incontinence. NEUROLOGY: Denies any motor dysfunction, sensory deficit, or altered speech. She was lethargic at the time of arrival to the hospital. PHYSICAL EXAMINATION: GENERAL: The patient is a very unfortunate 57-year-old female, in no apparent respiratory distress, not communicating verbally at this time, making eye contact. VITAL SIGNS: Her blood pressure was 119/69, pulse of 105, respirations 16, and O2 saturation 95% on room air. HEENT: Atraumatic and normocephalic. ENT, pupils are equal, round, and reactive to light and accommodation. Extraocular muscles intact. Dry mucosal membranes. NECK: JVP less than 5 cm. No carotid bruit. Carotid upstrokes 2+ bilaterally. CARDIOVASCULAR: Normal S1 and S2. Regular rhythm. Tachycardic. No murmurs, gallops, or rubs. PMI is at fourth intercostal space at the midclavicular line. LUNGS: Clear to auscultation bilaterally. ABDOMEN: Soft, nontender, and nondistended. No hepatosplenomegaly. Positive bowel sounds. EXTREMITIES: No evidence of edema, clubbing, or cyanosis. There is induration, erythema, and fluctuance in the right buttock, status post incision and drainage by Dr. Osorio with dressing at this time. LABORATORY AND DIAGNOSTIC DATA: CT of head showed no acute intracranial bleed or mass effect. A chest x-ray showed no acute cardiopulmonary disease. Laboratory findings, WBC is 33.0, hemoglobin of 10.9, hematocrit 34.3, and platelet count is 425. Chemistry, sodium is 136, potassium is 5.1, chloride 88, bicarbonate was less than 5, BUN of 97, creatinine 2.9, and glucose is 1064. Calcium was 8.9, magnesium 2.7. Lactic acid was 1.3. CK-MB was 1.8. INR was 1.0. Urine toxicology was negative. A 12-lead electrocardiogram showed sinus tachycardia at a rate of 108 with QT prolongation, but no acute ST and T-wave abnormalities. ASSESSMENT AND PLAN: The patient is a very unfortunate 57-year-old lady who is seen in Cardiology consultation at the request of Dr. Mckay. 1. Sinus tachycardia, most likely due to severe hypovolemia due to osmosis diuresis. The patient was severely hyperglycemic and glycosuric. 2. The treatment of this condition is aggressive hydration to increase intravascular volume. 3. We will continue to monitor the patient's hemodynamics. The patient has shown some improvement in the serum blood sugar following the initiation of insulin drip and IV hydration in the emergency department. 4. A 2D echocardiography will be done to assess LV systolic and diastolic function in case of diabetes mellitus and possibility of underlying coronary artery disease. 5. Diabetes mellitus, uncontrolled, noncompliant. It is not clear whether the patient was taking any medication for this condition. The patient will benefit from fasting lipid panel as well. She requires to be on combination of aspirin and statins. I would like to thank, Dr. Mckay, for allowing me to participate in the care of this patient. Javi Anthony M.D. DR: ABDIAS JOB#: [id number] CC:
[2017-12-25] MEDS: D5 1/2NS w/KCl 20mEq 1,000 ML IV SCH ×2 (02:13→15:18)
[2017-12-25] MEDS: Piperacillin/Tazobactam 3.375 GM in NS 110 ML IVPB SCH ×3 (05:39→23:32)
[2017-12-25] MEDS: NovoLOG Insulin Flexpen SUBQ SCH ×7 (06:30→21:02)
--- NOTE | 2017-12-25 06:45 | Geriatric Medicine Prog Note ---
DATE: 12/24/2017 NOTE: POOR AUDIO SUBJECTIVE: The patient is hypoglycemic and outside. . OBJECTIVE: respirations . reported hemoglobin A1c . Rex Michael M.D. DR: DARLIN JOB#: [id number] CC:
--- NOTE | 2017-12-25 06:45 | Geriatric Medicine Prog Note ---
DATE: 12/24/2017 NOTE: POOR AUDIO SUBJECTIVE: Rex Michael M.D. DR: DARLIN JOB#: [id number] CC:
[2017-12-25] MEDS ORDERED: Midazolam 2mg/2ml Inj ONE (07:58)
[2017-12-25] MEDS ORDERED: Succinylcholine 20mg/ml 10ml vial ONE (07:59)
[2017-12-25] MEDS ORDERED: fentaNYL 100 mcg/2 mL IV ONE (07:59)
[2017-12-25 08:18] LABS: BASOPHILS % (AUTO) 1.2 % (0.0-2.0); EOSINOPHILS % (AUTO) 0.1 % (0.0-3.0); HEMATOCRIT 32.5 % (37.0-47.0); HEMOGLOBIN 10.6 G/DL (12.0-16.0); LYMPHOCYTES % (AUTO) 12.7 % (20.0-45.0); MEAN CORPUSCULAR VOLUME 87 FL (80-99); MONOCYTES % (AUTO) 3.8 % (1.0-10.0); NEUTROPHILS % (AUTO) 82.1 % (45.0-75.0); PLATELET COUNT 404 K/UL (150-450); RED BLOOD COUNT 3.75 M/UL (4.20-5.40); RED CELL DISTRIBUTION WIDTH 11.7 % (11.6-14.8); WHITE BLOOD COUNT 16.8 K/UL (4.8-10.8)
--- NOTE | 2017-12-25 08:24 | Anethesia Preoperative Eval ---
Anesthesia Pre-op PMH/ROS General Date of Evaluation: Dec 25, 2017 Time of Evaluation: 08:16 ASA Score: ASA 3 Mallampati Score Class I : Soft palate, uvula, fauces, pillars visible Class II: Soft palate, uvula, fauces visible Class III: Soft palate, base of uvula visible Class IV: Only hard plate visible Mallampati Classification: Class II Surgeon: Meek Diagnosis: Diabetes, buttock abscess with sepsis, DKA, renal insufficiency, AMS Surgical Procedure: Colonoscopy Anesthesia History: none Family History: no anesthesia problems Allergies: Coded Allergies: SULFA (SULFONAMIDE ANTIBIOTICS) (Verified Allergy, Unknown, 12/25/17) Medications: see eMAR Past Medical History Cardiovascular: Reports: HTN Gastrointestinal/Genitourinary: Reports: CRI Neurologic/Psychiatric: Reports: other - Altered mental status Endocrine: Reports: DM - DKA Hematology/Immune: Reports: anemia, other - vaginal bleeding, buttock abscess Other: obesity, other - Sepsis Anesthesia Pre-op Phys. Exam Physician Exam Last Vital Signs Date Time Temp Pulse Resp B/P (MAP) Pulse Ox O2 Delivery O2 Flow Rate FiO2 12/25/17 08:00 98.1 105 18 159/79 (105) 93 98.1 12/24/17 21:00 Room Air Constitutional: NAD Neurologic: CN 2-12 intact Cardiovascular: RRR Respiratory: CTA Gastrointestinal: S/NT/ND Airway Exam Mallampati Score: Class II MO: full TMD: > 3 FB ROM: full Dentures: no upper, no lower Anesthesia Pre-op A/P Labs Hematology Test 12/25/17 08:00 White Blood Count Pending Red Blood Count Pending Hemoglobin Pending Hematocrit Pending Mean Corpuscular Volume Pending Mean Corpuscular Hemoglobin Pending Mean Corpuscular Hemoglobin Concent Pending Red Cell Distribution Width Pending Platelet Count Pending Mean Platelet Volume Pending Neutrophils (%) (Auto) Pending Lymphocytes (%) (Auto) Pending Monocytes (%) (Auto) Pending Eosinophils (%) (Auto) Pending Basophils (%) (Auto) Pending Coagulation Test 12/25/17 08:00 Prothrombin Time Pending Prothromb Time International Ratio Pending Activated Partial Thromboplast Time Pending Chemistry Test 12/25/17 08:00 Sodium Level Pending Potassium Level Pending Chloride Level Pending Carbon Dioxide Level Pending Blood Urea Nitrogen Pending Creatinine Pending Estimat Glomerular Filtration Rate Pending Glucose Level Pending Uric Acid Pending Calcium Level Pending Phosphorus Level Pending Magnesium Level Pending Total Bilirubin Pending Gamma Glutamyl Transpeptidase Pending Aspartate Amino Transf (AST/SGOT) Pending Alanine Aminotransferase (ALT/SGPT) Pending Alkaline Phosphatase Pending Total Protein Pending Albumin Pending Globulin Pending Studies Pre-op Studies: EKG - NSR, echo - EF 60; NL LVDF, mild LVH Risk Assessment & Plan Status Change Before Surgery: Lucia Clifton CRNA Dec 25, 2017 08:24
--- NOTE | 2017-12-25 08:47 | Pulmonology Progress Note ---
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 recs, outpatient EMBx * Monitor for further bleeding * Aspiration precautions * Px: Hep SQ and PPI * FC Subjective Allergies: Coded Allergies: SULFA (SULFONAMIDE ANTIBIOTICS) (Verified Allergy, Unknown, 12/25/17) Subjective TFF, AFVSS x elevated BP, stable on RA OCTO GI lab for colo No F/C/CP/SOB/N/V/D/C AML pending, wound draining Objective Last 24 Hour Vital Signs Date Time Temp Pulse Resp B/P (MAP) Pulse Ox O2 Delivery O2 Flow Rate FiO2 12/25/17 08:00 98.1 105 18 159/79 (105) 93 98.1 12/25/17 04:00 87 12/25/17 04:00 98.4 84 20 133/69 (90) 93 98.4 12/25/17 00:00 89 12/25/17 00:00 99.0 91 20 123/70 (87) 94 99.0 12/24/17 21:00 Room Air 12/24/17 20:47 83 146/85 12/24/17 20:00 83 12/24/17 20:00 97.5 83 20 146/85 (105) 94 97.5 12/24/17 18:45 97.7 92 16 164/91 (115) 95 97.7 12/24/17 17:13 89 140/73 12/24/17 16:25 98.4 12/24/17 16:00 89 12/24/17 15:55 98.4 12/24/17 15:31 Room Air 12/24/17 15:28 98.4 93 20 140/73 (95) 98 98.4 12/24/17 14:00 98 21 140/86 (104) 98 12/24/17 13:37 100 15 113/74 (87) 98 12/24/17 13:30 100 113/74 12/24/17 13:00 110 19 170/97 (121) 98 12/24/17 13:00 100 15 113/74 (87) 98 12/24/17 12:00 97.9 103 16 150/89 (109) 98 97.9 12/24/17 12:00 118 12/24/17 12:00 Room Air 12/24/17 11:05 78 25 128/72 (90) 96 12/24/17 10:00 104 20 155/74 (101) 97 12/24/17 09:00 105 19 174/97 (122) 98 Intake and Output 12/24/17 12/25/17 19:00 07:00 Intake Total 1715.388 ml 1045 ml Output Total 1500 ml 1500 ml Balance 215.388 ml -455 ml Intake Oral 720 ml IV Total 995.388 ml 1045 ml Output Urine Total 1500 ml 1500 ml General Appearance: WD/WN, no acute distress HEENT: normocephalic, atraumatic, anicteric, mucous membranes moist Respiratory/Chest: chest wall non-tender, lungs clear, normal breath sounds, no respiratory distress, no accessory muscle use Cardiovascular: normal peripheral pulses, normal rate, regular rhythm Abdomen: normal bowel sounds, soft, non tender, no organomegaly, non distended , no mass Extremities: no cyanosis, no clubbing, no edema Skin: other - draining rectal wound Microbiology Date/Time Source Procedure Growth Status 12/22/17 16:12 Blood Blood Culture - Preliminary NO GROWTH AFTER 48 HOURS Resulted 12/22/17 15:55 Blood Blood Culture - Preliminary NO GROWTH AFTER 48 HOURS Resulted 12/23/17 17:00 Other Gram Stain - Final Resulted 12/23/17 17:00 Wound Culture - Preliminary Gram Negative Bacillus 1 Resulted 12/22/17 16:55 Nasal Nares MRSA Culture - Final NO METHICILLIN RESISTANT STAPH AUREUS... Complete 12/22/17 16:55 Rectum VRE Culture - Final NO VANCOMYCIN RESISTANT ENTEROCOCCUS ... Complete 12/22/17 16:55 Rectum - Final NO CARBAPENEM-RESISTANT ENTEROBACTERI... Complete Laboratory Tests 12/25/17 08:00: White Blood Count 16.8H, Red Blood Count 3.75L, Hemoglobin 10.6L, Hematocrit 32.5L, Mean Corpuscular Volume 87, Mean Corpuscular Hemoglobin 28.2, Mean Corpuscular Hemoglobin Concent 32.5, Red Cell Distribution Width 11.7, Platelet Count 404, Mean Platelet Volume 7.7, Neutrophils (%) (Auto) 82.1H, Lymphocytes ( %) (Auto) 12.7L, Monocytes (%) (Auto) 3.8, Eosinophils (%) (Auto) 0.1, Basophils (%) (Auto) 1.2, Prothrombin Time 10.6, Prothromb Time International Ratio 1.0, Activated Partial Thromboplast Time 24, Sodium Level [Pending], Potassium Level [Pending], Chloride Level [Pending], Carbon Dioxide Level [ Pending], Blood Urea Nitrogen [Pending], Creatinine [Pending], Estimat Glomerular Filtration Rate [Pending], Glucose Level [Pending], Uric Acid [ Pending], Calcium Level [Pending], Phosphorus Level [Pending], Magnesium Level [ Pending], Total Bilirubin [Pending], Gamma Glutamyl Transpeptidase [Pending], Aspartate Amino Transf (AST/SGOT) [Pending], Alanine Aminotransferase (ALT/SGPT ) [Pending], Alkaline Phosphatase [Pending], Total Protein [Pending], Albumin [ Pending], Globulin [Pending], Vancomycin Level Trough [Pending] Current Medications Medications (Trade) Dose Ordered Sig/Eyad Route PRN Reason Start Time Stop Time Status Last Admin Dose Admin Acetaminophen (Tylenol) 650 mg Q4H PRN RECTAL FEVER 12/24/17 15:17 01/21/18 15:16 Amlodipine Besylate (Norvasc) 5 mg BID ORAL 12/24/17 18:00 01/24/18 08:59 12/24/17 17:13 Artificial Tears (Akwa-Tears) 1 drop THREE TIMES A DAY BOTH EYES 12/24/17 18:00 01/22/18 12:59 12/24/17 17:13 Atorvastatin Calcium (Lipitor) 10 mg BEDTIME ORAL 12/24/17 21:00 01/23/18 20:59 12/24/17 20:47 Clonidine HCl (Catapres Tab) 0.1 mg Q6H PRN ORAL [id number] and above 12/24/17 15:17 01/23/18 15:16 Dextrose (Dextrose 50%) 25 ml STAT PRN IV Hypoglycemia 12/24/17 21:45 01/22/18 21:44 Dextrose (Dextrose 50%) 50 ml STAT PRN IV Hypoglycemia 12/24/17 21:45 01/22/18 21:44 Dextrose/ Electrolytes 1,000 ml @ 75 mls/hr [id number] IV 12/24/17 15:15 01/22/18 13:59 12/25/17 02:13 Famotidine (Pepcid) 20 mg BID ORAL 12/24/17 18:00 01/23/18 17:59 12/24/17 17:13 Fish Oil (Fish Oil) 1,000 mg BID ORAL 12/24/17 18:00 01/23/18 11:59 12/24/17 17:13 Folic Acid (Folate) 5 mg DAILY ORAL 12/25/17 09:00 01/23/18 11:59 Heparin Sodium (Porcine) (Heparin 5000 units/ml) 5,000 units Q12HR SUBQ 12/24/17 21:00 01/23/18 20:59 Hydromorphone HCl (Dilaudid) 0.5 mg Q3H PRN IVP For mild pain 12/24/17 15:19 12/29/17 15:18 Hydromorphone HCl (Dilaudid) 1 mg Q3H PRN IVP Moderate Pain (Pain Scale 4-6) 12/24/17 15:44 12/31/17 15:43 12/24/17 21:28 Insulin Aspart (NovoLOG) BEFORE MEALS AND HS SUBQ 12/24/17 16:30 01/23/18 06:29 12/24/17 16:24 Insulin Aspart (NovoLOG) 10 units TIAC SUBQ 12/24/17 16:30 01/23/18 16:29 12/24/17 16:24 Insulin Detemir (Levemir) 25 units 0900,2100 SUBQ 12/24/17 21:00 01/22/18 22:59 12/24/17 21:26 Metoprolol Tartrate (Lopressor) 12.5 mg Q12HR ORAL 12/24/17 21:00 01/23/18 20:59 12/24/17 20:47 Nitroglycerin (Ntg) 0.4 mg Q5M PRN SL Prn Chest Pain 12/24/17 15:15 01/21/18 17:59 Ondansetron HCl (Zofran) 4 mg Q6H PRN IVP Nausea & Vomiting 12/24/17 15:19 01/21/18 15:18 12/24/17 18:08 Piperacillin Sod/ Tazobactam Sod 3.375 gm/Sodium Chloride 110 ml @ 27.5 mls/hr EVERY 8 HOURS IVPB 12/24/17 22:00 12/29/17 21:59 12/25/17 05:39 Vancomycin HCl (Vanco rx to dose) 1 ea DAILY PRN MISC Per rx protocol 12/25/17 09:00 01/22/18 09:14 Vancomycin HCl/ Dextrose 250 ml @ 166.667 mls/hr Q24H IVPB 12/25/17 09:00 12/29/17 08:59 Vitamin A/Vitamin D (A & D Oint) 1 applic EVERY 12 HOURS TOPIC 12/24/17 21:00 01/22/18 20:59 12/24/17 20:49 Omega Nance MD Dec 25, 2017 08:47
[2017-12-25] MEDS: Artificial Tears 1.4% Op Soln BOTH EYES SCH ×3 (08:59→17:22)
[2017-12-25] MEDS: Heparin 5000 units/ml inj SUBQ SCH ×2 (09:00→21:03)
[2017-12-25] MEDS: Levemir Flexpen SUBQ SCH ×2 (09:00→21:02)
[2017-12-25] MEDS ORDERED: Vancomycin 1250mg/D5W 250ml 250 ML IVPB SCH (09:00)
[2017-12-25] MEDS: Metoprolol Tartrate 12.5mg TAB ORAL SCH ×2 (09:00→21:03)
[2017-12-25] MEDS: Vitamin A&D Oint 2oz Tube TOPIC SCH ×2 (09:11→22:09)
[2017-12-25 09:40] LABS: ALANINE AMINOTRANSFERASE 18 U/L (12-78); ALBUMIN 1.8 G/DL (3.4-5.0); ALBUMIN/GLOBULIN RATIO 0.4 (1.0-2.7); ALKALINE PHOSPHATASE 190 U/L (46-116); ANION GAP 10 mmol/L (5-15); ASPARTATE AMINO TRANSFERASE 17 U/L (15-37); BILIRUBIN,TOTAL 0.5 MG/DL (0.2-1.0); BLOOD UREA NITROGEN 21 mg/dL (7-18); CALCIUM 8.6 MG/DL (8.5-10.1); CARBON DIOXIDE 26 MMOL/L (21-32); CHLORIDE 109 MMOL/L (98-107); CREATININE 0.7 MG/DL (0.55-1.30); GAMMA GLUTAMYL TRANSPEPTIDASE 124 U/L (5-85); PHOSPHORUS 1.7 MG/DL (2.5-4.9); POTASSIUM 3.3 MMOL/L (3.5-5.1); SODIUM 145 MMOL/L (136-145)
--- NOTE | 2017-12-25 10:32 | Pre-Procedure Note/Attestation ---
Pre-Procedure Note/Attestation Complete Prior to Procedure Planned Procedure: not applicable Procedure Narrative: colonoscopy Indications for Procedure Pre-Operative Diagnosis: anemia Attestation I attest that I discussed the nature of the procedure; its benefits; risks and complications; and alternatives (and the risks and benefits of such alternatives ), prior to the procedure, with the patient (or the patient's legal veterans contact representative). I attest that, if there was a reasonable possibility of needing a blood transfusion, the patient (or the patient's legal veterans contact representative) was given the [facility] standardized written summary, pursuant to the Jay Benjamin Blood Safety Act ([place] Health and Safety Code # 1645, as amended). I attest that I re-evaluated the patient just prior to the surgery and that there has been no change in the patient's H&P, except as documented below: Garret Eden MD Dec 25, 2017 10:32
--- NOTE | 2017-12-25 10:49 | General Surgery Progress Note ---
General Surgery-Progress Note Subjective Procedure Performed incision and drainage of right perirectal abscess Additional Comments doing better. mentation improved but still sluggish. comfortable. buttock pain. still with drainage Objective Last 24 Hour Vital Signs Date Time Temp Pulse Resp B/P (MAP) Pulse Ox O2 Delivery O2 Flow Rate FiO2 12/25/17 08:00 98.1 105 18 159/79 (105) 93 98.1 12/25/17 08:00 99 12/25/17 04:00 87 12/25/17 04:00 98.4 84 20 133/69 (90) 93 98.4 12/25/17 00:00 89 12/25/17 00:00 99.0 91 20 123/70 (87) 94 99.0 12/24/17 21:00 Room Air 12/24/17 20:47 83 146/85 12/24/17 20:00 83 12/24/17 20:00 97.5 83 20 146/85 (105) 94 97.5 12/24/17 18:45 97.7 92 16 164/91 (115) 95 97.7 12/24/17 17:13 89 140/73 12/24/17 16:25 98.4 12/24/17 16:00 89 12/24/17 15:55 98.4 12/24/17 15:31 Room Air 12/24/17 15:28 98.4 93 20 140/73 (95) 98 98.4 12/24/17 14:00 98 21 140/86 (104) 98 12/24/17 13:37 100 15 113/74 (87) 98 12/24/17 13:30 100 113/74 12/24/17 13:00 110 19 170/97 (121) 98 12/24/17 13:00 100 15 113/74 (87) 98 12/24/17 12:00 97.9 103 16 150/89 (109) 98 97.9 12/24/17 12:00 118 12/24/17 12:00 Room Air 12/24/17 11:05 78 25 128/72 (90) 96 I&O Intake and Output 12/24/17 12/25/17 19:00 07:00 Intake Total 1715.388 ml 1045 ml Output Total 1500 ml 1500 ml Balance 215.388 ml -455 ml Intake Oral 720 ml IV Total 995.388 ml 1045 ml Output Urine Total 1500 ml 1500 ml Dressing: saturated Wound: other Drains: other Cardiovascular: RSR Respiratory: clear Abdomen: soft, flat, non-tender, present bowel sounds Extremities: no cyanosis Laboratory Tests Test 12/25/17 08:00 White Blood Count 16.8 K/UL (4.8-10.8) H Red Blood Count 3.75 M/UL (4.20-5.40) L Hemoglobin 10.6 G/DL (12.0-16.0) L Hematocrit 32.5 % (37.0-47.0) L Mean Corpuscular Volume 87 FL (80-99) Mean Corpuscular Hemoglobin 28.2 PG (27.0-31.0) Mean Corpuscular Hemoglobin Concent 32.5 G/DL (32.0-36.0) Red Cell Distribution Width 11.7 % (11.6-14.8) Platelet Count 404 K/UL (150-450) Mean Platelet Volume 7.7 FL (6.5-10.1) Neutrophils (%) (Auto) 82.1 % (45.0-75.0) H Lymphocytes (%) (Auto) 12.7 % (20.0-45.0) L Monocytes (%) (Auto) 3.8 % (1.0-10.0) Eosinophils (%) (Auto) 0.1 % (0.0-3.0) Basophils (%) (Auto) 1.2 % (0.0-2.0) Prothrombin Time 10.6 SEC (9.30-11.50) Prothromb Time International Ratio 1.0 (0.9-1.1) Activated Partial Thromboplast Time 24 SEC (23-33) Sodium Level 145 MMOL/L (136-145) Potassium Level 3.3 MMOL/L (3.5-5.1) L Chloride Level 109 MMOL/L (98-107) H Carbon Dioxide Level 26 MMOL/L (21-32) Anion Gap 10 mmol/L (5-15) Blood Urea Nitrogen 21 mg/dL (7-18) H Creatinine 0.7 MG/DL (0.55-1.30) Estimat Glomerular Filtration Rate > 60 mL/min (>60) Glucose Level 267 MG/DL (74-106) #H Uric Acid 2.3 MG/DL (2.6-7.2) L Calcium Level 8.6 MG/DL (8.5-10.1) Phosphorus Level 1.7 MG/DL (2.5-4.9) L Magnesium Level 1.8 MG/DL (1.8-2.4) Total Bilirubin 0.5 MG/DL (0.2-1.0) Gamma Glutamyl Transpeptidase 124 U/L (5-85) H Aspartate Amino Transf (AST/SGOT) 17 U/L (15-37) Alanine Aminotransferase (ALT/SGPT) 18 U/L (12-78) Alkaline Phosphatase 190 U/L (46-116) H Total Protein 6.5 G/DL (6.4-8.2) Albumin 1.8 G/DL (3.4-5.0) L Globulin 4.7 g/dL Albumin/Globulin Ratio 0.4 (1.0-2.7) L Vancomycin Level Trough 9.4 ug/mL (5.0-12.0) Plan Problems: (1) Diabetic acidosis without coma (2) Hyperglycemia (3) Severe sepsis (4) Abscess of buttock Assessment & Plan: large right buttock abscess with gangrene at skin level. given condition urgent I&D warranted as possible etiology of sepsis. see procedure report. improving. leukocytosis improving. more alert and responsive. packing and dressings changed. drainage still looks almost as if stool. -cultures pending -okay for diet -packing and dressings to buttock TID -may need more formal wound washout and care in OR once stable. will monitor for now. drainage improved but still somewhat like stool -GI consult as patient has never had colonoscopy and this could be possible rectal fistula given appearance of drainage. thank you will follow with recommendations (5) DKA (diabetic ketoacidoses) Baljeet Osorio Dec 25, 2017 10:49
[2017-12-25] MEDS ORDERED: Propofol 200mg/20ml IV ONE (11:45)
[2017-12-25] MEDS ORDERED: Lidocaine 1% MPF 10mg/ml 5ml ONE (11:45)
[2017-12-25] MEDS ORDERED: NS 500ML IVPB ONE (11:55)
[2017-12-25] MEDS ORDERED: D5 1/2NS w/KCl 20mEq 1,000 ML IV SCH (12:00)
--- NOTE | 2017-12-25 12:03 | General Progress Note ---
Assessment/Plan Problem List: (1) Diabetes ICD Codes: E11.9 - Type 2 diabetes mellitus without complications SNOMED: 90221726 (2) Hyperglycemia ICD Codes: R73.9 - Hyperglycemia, unspecified SNOMED: 47875985 (3) Sepsis ICD Codes: A41.9 - Sepsis, unspecified organism SNOMED: 88042335 (4) Abscess of buttock ICD Codes: L02.31 - Cutaneous abscess of buttock SNOMED: 70467021 (5) DKA (diabetic ketoacidoses) ICD Codes: E13.10 - Other specified diabetes mellitus with ketoacidosis without coma SNOMED: 03744591, 903736031 Qualifiers: Qualified Codes: E13.11 - Other specified diabetes mellitus with ketoacidosis with coma (6) Renal insufficiency ICD Codes: N28.9 - Disorder of kidney and ureter, unspecified SNOMED: 371248934, 105537969 (7) Vagina bleeding ICD Codes: N93.9 - Abnormal uterine and vaginal bleeding, unspecified SNOMED: 523486854, 832015022 (8) Anemia ICD Codes: D64.9 - Anemia, unspecified SNOMED: 337276609 Status: progressing Assessment/Plan s/p dka s/p i&d of rectal abscess sugar is improving sepsis ot times 3 consulted gi to f/u w rectal involvment of abscess abx per id more alert anmeia stable vagina bleeding stable Subjective Gastrointestinal/Abdominal: Reports: nausea Allergies: Coded Allergies: SULFA (SULFONAMIDE ANTIBIOTICS) (Verified Allergy, Unknown, 12/25/17) Objective Last 24 Hour Vital Signs Date Time Temp Pulse Resp B/P (MAP) Pulse Ox O2 Delivery O2 Flow Rate FiO2 12/25/17 09:00 99 159/79 12/25/17 09:00 99 159/79 12/25/17 08:00 98.1 105 18 159/79 (105) 93 98.1 12/25/17 08:00 99 12/25/17 04:00 87 12/25/17 04:00 98.4 84 20 133/69 (90) 93 98.4 12/25/17 00:00 89 12/25/17 00:00 99.0 91 20 123/70 (87) 94 99.0 12/24/17 21:00 Room Air 12/24/17 20:47 83 146/85 12/24/17 20:00 83 12/24/17 20:00 97.5 83 20 146/85 (105) 94 97.5 12/24/17 18:45 97.7 92 16 164/91 (115) 95 97.7 12/24/17 17:13 89 140/73 12/24/17 16:25 98.4 12/24/17 16:00 89 12/24/17 15:55 98.4 12/24/17 15:31 Room Air 12/24/17 15:28 98.4 93 20 140/73 (95) 98 98.4 12/24/17 14:00 98 21 140/86 (104) 98 12/24/17 13:37 100 15 113/74 (87) 98 12/24/17 13:30 100 113/74 12/24/17 13:00 110 19 170/97 (121) 98 12/24/17 13:00 100 15 113/74 (87) 98 Intake and Output 12/24/17 12/25/17 19:00 07:00 Intake Total 1715.388 ml 1045 ml Output Total 1500 ml 1500 ml Balance 215.388 ml -455 ml Intake Oral 720 ml IV Total 995.388 ml 1045 ml Output Urine Total 1500 ml 1500 ml Laboratory Tests 12/25/17 08:00: White Blood Count 16.8H, Red Blood Count 3.75L, Hemoglobin 10.6L, Hematocrit 32.5L, Mean Corpuscular Volume 87, Mean Corpuscular Hemoglobin 28.2, Mean Corpuscular Hemoglobin Concent 32.5, Red Cell Distribution Width 11.7, Platelet Count 404, Mean Platelet Volume 7.7, Neutrophils (%) (Auto) 82.1H, Lymphocytes ( %) (Auto) 12.7L, Monocytes (%) (Auto) 3.8, Eosinophils (%) (Auto) 0.1, Basophils (%) (Auto) 1.2, Prothrombin Time 10.6, Prothromb Time International Ratio 1.0, Activated Partial Thromboplast Time 24, Sodium Level 145, Potassium Level 3.3L, Chloride Level 109H, Carbon Dioxide Level 26, Anion Gap 10, Blood Urea Nitrogen 21H, Creatinine 0.7, Estimat Glomerular Filtration Rate > 60, Glucose Level 267#H, Uric Acid 2.3L, Calcium Level 8.6, Phosphorus Level 1.7L, Magnesium Level 1.8, Total Bilirubin 0.5, Gamma Glutamyl Transpeptidase 124H, Aspartate Amino Transf (AST/SGOT) 17, Alanine Aminotransferase (ALT/SGPT) 18, Alkaline Phosphatase 190H, Total Protein 6.5, Albumin 1.8L, Globulin 4.7, Albumin/Globulin Ratio 0.4L, Vancomycin Level Trough 9.4 Height (Feet): 5 Height (Inches): 5.00 Weight (Pounds): 194 Neck: supple Cardiovascular: normal rate Respiratory/Chest: lungs clear Abdomen: soft Nissa Mckay MD Dec 25, 2017 12:02
--- NOTE | 2017-12-25 12:11 | Endoscopy Procedure Note ---
Endoscopy Procedure Note General Indication for Procedure: anemia Procedures Performed: flexible sigmoidoscopy Operative Findings/Diagnosis: hemorrhoids Specimen: none Pt Tolerated Procedure Well: Yes Estimated Blood Loss: none Anesthesia Anesthesiologist: see chart Anesthesia: MAC Inserted Devices Implant(s) used?: No Quality Quality of Bowel Preparation: Poor Did scope reach the cecum?: No GI Core Measures 50 yrs or older w/o bx or poly: Not Applicable 10yrs. F/U not recommended: Not Applicable Garret Eden MD Dec 25, 2017 12:11
--- NOTE | 2017-12-25 12:33 | Immediate Post-Op Evaluation ---
Immediate Post-Op Evalulation Immediate Post-Op Evalulation Procedure: Colonoscopy Date of Evaluation: Dec 25, 2017 Time of Evaluation: 12:19 IV Fluids: 0.9 NS 200 ML Blood Pressure Systolic: 159 Blood Pressure Diastolic: 78 Pulse Rate: 100 Respiratory Rate: 20 O2 Sat by Pulse Oximetry: 99 Temperature (Fahrenheit): 97.6 Pain Score (1-10): 0 Nausea: No Vomiting: No Complications none Patient Status: awake, reacts, patent Hydration Status: adequate Lucia Ronquillo CRNA Dec 25, 2017 12:33
--- NOTE | 2017-12-25 12:53 | Nephrology Progress Note ---
Assessment/Plan Problem List: (1) Renal insufficiency (2) DKA (diabetic ketoacidoses) (3) Severe sepsis Assessment: buttock abcess (4) Anemia Assessment Diabetic acidosis without coma Renal failure and electrolyte imbalance Diabetic Nephropathy and Proteinuria and HypoAlbuminemia Severe sepsis Abscess of buttock Anemia Plan Hydrate- K and Phos supplement Antibiotics Monitor renal parameters correct electrolytes avoid Nephrotoxics adjust BP meds Fisg OIL Lipitor Folic Acid to tele Subjective ROS Limited/Unobtainable: No Constitutional: Reports: malaise Objective Objective Last 24 Hour Vital Signs Date Time Temp Pulse Resp B/P (MAP) Pulse Ox O2 Delivery O2 Flow Rate FiO2 12/25/17 12:40 97.4 97 22 155/89 98 Room Air 97.4 97 12/25/17 12:33 207.7 100 20 99 12/25/17 12:30 94 15 158/87 95 Room Air 94 12/25/17 12:25 96 13 167/86 98 Room Air 96 12/25/17 12:18 97.6 99 15 159/78 97 Room Air 97.6 99 12/25/17 09:00 99 159/79 12/25/17 09:00 99 159/79 12/25/17 09:00 Room Air 12/25/17 08:00 98.1 105 18 159/79 (105) 93 98.1 12/25/17 08:00 99 12/25/17 04:00 87 12/25/17 04:00 98.4 84 20 133/69 (90) 93 98.4 12/25/17 00:00 89 12/25/17 00:00 99.0 91 20 123/70 (87) 94 99.0 12/24/17 21:00 Room Air 12/24/17 20:47 83 146/85 12/24/17 20:00 83 12/24/17 20:00 97.5 83 20 146/85 (105) 94 97.5 12/24/17 18:45 97.7 92 16 164/91 (115) 95 97.7 12/24/17 17:13 89 140/73 12/24/17 16:25 98.4 12/24/17 16:00 89 12/24/17 15:55 98.4 12/24/17 15:31 Room Air 12/24/17 15:28 98.4 93 20 140/73 (95) 98 98.4 12/24/17 14:00 98 21 140/86 (104) 98 12/24/17 13:37 100 15 113/74 (87) 98 12/24/17 13:30 100 113/74 12/24/17 13:00 110 19 170/97 (121) 98 12/24/17 13:00 100 15 113/74 (87) 98 Intake and Output 12/24/17 12/25/17 19:00 07:00 Intake Total 1715.388 ml 1045 ml Output Total 1500 ml 1500 ml Balance 215.388 ml -455 ml Intake Oral 720 ml IV Total 995.388 ml 1045 ml Output Urine Total 1500 ml 1500 ml Laboratory Tests 12/25/17 08:00: White Blood Count 16.8H, Red Blood Count 3.75L, Hemoglobin 10.6L, Hematocrit 32.5L, Mean Corpuscular Volume 87, Mean Corpuscular Hemoglobin 28.2, Mean Corpuscular Hemoglobin Concent 32.5, Red Cell Distribution Width 11.7, Platelet Count 404, Mean Platelet Volume 7.7, Neutrophils (%) (Auto) 82.1H, Lymphocytes ( %) (Auto) 12.7L, Monocytes (%) (Auto) 3.8, Eosinophils (%) (Auto) 0.1, Basophils (%) (Auto) 1.2, Prothrombin Time 10.6, Prothromb Time International Ratio 1.0, Activated Partial Thromboplast Time 24, Sodium Level 145, Potassium Level 3.3L, Chloride Level 109H, Carbon Dioxide Level 26, Anion Gap 10, Blood Urea Nitrogen 21H, Creatinine 0.7, Estimat Glomerular Filtration Rate > 60, Glucose Level 267#H, Uric Acid 2.3L, Calcium Level 8.6, Phosphorus Level 1.7L, Magnesium Level 1.8, Total Bilirubin 0.5, Gamma Glutamyl Transpeptidase 124H, Aspartate Amino Transf (AST/SGOT) 17, Alanine Aminotransferase (ALT/SGPT) 18, Alkaline Phosphatase 190H, Total Protein 6.5, Albumin 1.8L, Globulin 4.7, Albumin/Globulin Ratio 0.4L, Vancomycin Level Trough 9.4 Height (Feet): 5 Height (Inches): 5.00 Weight (Pounds): 194 General Appearance: no apparent distress, lethargic Cardiovascular: tachycardia Respiratory/Chest: decreased breath sounds Abdomen: soft Joni Cleaning MD Dec 25, 2017 12:53
--- NOTE | 2017-12-25 13:24 | Infectious Diseases Prog Note ---
Assessment/Plan Assessment/Plan A; Sepsis improving R buttock abscess DKA Newly diagnosed DM Acute renal failure resolving P; Continue Vancomycin & Zosyn Add Fluconazole Case was D/W GI specialist Will have MRI of pelvis to rule out fistula Will f/u cultures Subjective ROS Limited/Unobtainable: No Constitutional: Reports: anorexia Gastrointestinal/Abdominal: Reports: nausea Genitourinary: Reports: no symptoms Musculoskeletal: Reports: no symptoms Allergies: Coded Allergies: SULFA (SULFONAMIDE ANTIBIOTICS) (Verified Allergy, Unknown, 12/25/17) Objective Vital Signs Last 24 Hour Vital Signs Date Time Temp Pulse Resp B/P (MAP) Pulse Ox O2 Delivery O2 Flow Rate FiO2 12/25/17 12:40 97.4 97 22 155/89 98 Room Air 97.4 97 12/25/17 12:33 207.7 100 20 99 12/25/17 12:30 94 15 158/87 95 Room Air 94 12/25/17 12:25 96 13 167/86 98 Room Air 96 12/25/17 12:18 97.6 99 15 159/78 97 Room Air 97.6 99 12/25/17 09:00 99 159/79 12/25/17 09:00 99 159/79 12/25/17 09:00 Room Air 12/25/17 08:00 98.1 105 18 159/79 (105) 93 98.1 12/25/17 08:00 99 12/25/17 04:00 87 12/25/17 04:00 98.4 84 20 133/69 (90) 93 98.4 12/25/17 00:00 89 12/25/17 00:00 99.0 91 20 123/70 (87) 94 99.0 12/24/17 21:00 Room Air 12/24/17 20:47 83 146/85 12/24/17 20:00 83 12/24/17 20:00 97.5 83 20 146/85 (105) 94 97.5 12/24/17 18:45 97.7 92 16 164/91 (115) 95 97.7 12/24/17 17:13 89 140/73 12/24/17 16:25 98.4 12/24/17 16:00 89 12/24/17 15:55 98.4 12/24/17 15:31 Room Air 12/24/17 15:28 98.4 93 20 140/73 (95) 98 98.4 12/24/17 14:00 98 21 140/86 (104) 98 12/24/17 13:37 100 15 113/74 (87) 98 12/24/17 13:30 100 113/74 Height (Feet): 5 Height (Inches): 5.00 Weight (Pounds): 194 General Appearance: no acute distress HEENT: mucous membranes moist Respiratory/Chest: lungs clear Cardiovascular: normal rate Abdomen: soft, non tender Extremities: no edema Neurologic/Psychiatric: alert, responsive Microbiology Date/Time Source Procedure Growth Status 12/22/17 16:12 Blood Blood Culture - Preliminary NO GROWTH AFTER 48 HOURS Resulted 12/22/17 15:55 Blood Blood Culture - Preliminary NO GROWTH AFTER 48 HOURS Resulted 12/23/17 17:00 Other Gram Stain - Final Resulted 12/23/17 17:00 Wound Culture - Preliminary Klebsiella Pneumoniae Gram Negative Bacillus 2 Gram Positive Cocci Nora Albicans Resulted 12/22/17 16:55 Nasal Nares MRSA Culture - Final NO METHICILLIN RESISTANT STAPH AUREUS... Complete 12/24/17 00:00 Buttock Right Gram Stain Pending Resulted 12/24/17 00:00 Wound Culture - Preliminary Gram Negative Bacillus 1 Gram Negative Bacillus 2 Resulted 12/22/17 16:55 Rectum VRE Culture - Final NO VANCOMYCIN RESISTANT ENTEROCOCCUS ... Complete 12/22/17 16:55 Rectum - Final NO CARBAPENEM-RESISTANT ENTEROBACTERI... Complete Laboratory Tests Test 12/25/17 08:00 White Blood Count 16.8 K/UL (4.8-10.8) H Red Blood Count 3.75 M/UL (4.20-5.40) L Hemoglobin 10.6 G/DL (12.0-16.0) L Hematocrit 32.5 % (37.0-47.0) L Mean Corpuscular Volume 87 FL (80-99) Mean Corpuscular Hemoglobin 28.2 PG (27.0-31.0) Mean Corpuscular Hemoglobin Concent 32.5 G/DL (32.0-36.0) Red Cell Distribution Width 11.7 % (11.6-14.8) Platelet Count 404 K/UL (150-450) Mean Platelet Volume 7.7 FL (6.5-10.1) Neutrophils (%) (Auto) 82.1 % (45.0-75.0) H Lymphocytes (%) (Auto) 12.7 % (20.0-45.0) L Monocytes (%) (Auto) 3.8 % (1.0-10.0) Eosinophils (%) (Auto) 0.1 % (0.0-3.0) Basophils (%) (Auto) 1.2 % (0.0-2.0) Prothrombin Time 10.6 SEC (9.30-11.50) Prothromb Time International Ratio 1.0 (0.9-1.1) Activated Partial Thromboplast Time 24 SEC (23-33) Sodium Level 145 MMOL/L (136-145) Potassium Level 3.3 MMOL/L (3.5-5.1) L Chloride Level 109 MMOL/L (98-107) H Carbon Dioxide Level 26 MMOL/L (21-32) Anion Gap 10 mmol/L (5-15) Blood Urea Nitrogen 21 mg/dL (7-18) H Creatinine 0.7 MG/DL (0.55-1.30) Estimat Glomerular Filtration Rate > 60 mL/min (>60) Glucose Level 267 MG/DL (74-106) #H Uric Acid 2.3 MG/DL (2.6-7.2) L Calcium Level 8.6 MG/DL (8.5-10.1) Phosphorus Level 1.7 MG/DL (2.5-4.9) L Magnesium Level 1.8 MG/DL (1.8-2.4) Total Bilirubin 0.5 MG/DL (0.2-1.0) Gamma Glutamyl Transpeptidase 124 U/L (5-85) H Aspartate Amino Transf (AST/SGOT) 17 U/L (15-37) Alanine Aminotransferase (ALT/SGPT) 18 U/L (12-78) Alkaline Phosphatase 190 U/L (46-116) H Total Protein 6.5 G/DL (6.4-8.2) Albumin 1.8 G/DL (3.4-5.0) L Globulin 4.7 g/dL Albumin/Globulin Ratio 0.4 (1.0-2.7) L Vancomycin Level Trough 9.4 ug/mL (5.0-12.0) Current Medications Medications (Trade) Dose Ordered Sig/Eyad Route PRN Reason Start Time Stop Time Status Last Admin Dose Admin Acetaminophen (Tylenol) 650 mg Q4H PRN ORAL Mild Pain (Pain Scale 1-3) 12/25/17 09:45 12/25/17 17:00 Acetaminophen (Tylenol) 650 mg Q4H PRN ORAL Mild Pain (Pain Scale 1-3) 12/25/17 12:15 UNV Acetaminophen (Tylenol) 650 mg Q4H PRN RECTAL FEVER 12/24/17 15:17 01/21/18 15:16 Amlodipine Besylate (Norvasc) 5 mg BID ORAL 12/24/17 18:00 01/24/18 08:59 12/24/17 17:13 Artificial Tears (Akwa-Tears) 1 drop THREE TIMES A DAY BOTH EYES 12/24/17 18:00 01/22/18 12:59 12/25/17 08:59 Atorvastatin Calcium (Lipitor) 10 mg BEDTIME ORAL 12/24/17 21:00 01/23/18 20:59 12/24/17 20:47 Clonidine HCl (Catapres Tab) 0.1 mg Q6H PRN ORAL [id number] and above 12/24/17 15:17 01/23/18 15:16 Dextrose (Dextrose 50%) 25 ml STAT PRN IV Hypoglycemia 12/24/17 21:45 01/22/18 21:44 Dextrose (Dextrose 50%) 50 ml STAT PRN IV Hypoglycemia 12/24/17 21:45 01/22/18 21:44 Dextrose/ Electrolytes 1,000 ml @ 50 mls/hr Q20H IV 12/25/17 15:15 01/22/18 13:59 UNV Famotidine (Pepcid) 20 mg BID ORAL 12/24/17 18:00 01/23/18 17:59 12/24/17 17:13 Fish Oil (Fish Oil) 1,000 mg BID ORAL 12/24/17 18:00 01/23/18 11:59 12/24/17 17:13 Folic Acid (Folate) 5 mg DAILY ORAL 12/25/17 09:00 01/23/18 11:59 Heparin Sodium (Porcine) (Heparin 5000 units/ml) 5,000 units Q12HR SUBQ 12/24/17 21:00 01/23/18 20:59 Hydromorphone HCl (Dilaudid) 0.5 mg Q3H PRN IVP For mild pain 12/24/17 15:19 12/29/17 15:18 Hydromorphone HCl (Dilaudid) 1 mg Q3H PRN IVP Moderate Pain (Pain Scale 4-6) 12/24/17 15:44 12/31/17 15:43 12/24/17 21:28 Insulin Aspart (NovoLOG) BEFORE MEALS AND HS SUBQ 12/24/17 16:30 01/23/18 06:29 12/24/17 16:24 Insulin Aspart (NovoLOG) 10 units TIAC SUBQ 12/24/17 16:30 01/23/18 16:29 12/24/17 16:24 Insulin Detemir (Levemir) 25 units 0900,2100 SUBQ 12/24/17 21:00 01/22/18 22:59 12/24/17 21:26 Metoprolol Tartrate (Lopressor) 12.5 mg Q12HR ORAL 12/24/17 21:00 01/23/18 20:59 12/24/17 20:47 Nitroglycerin (Ntg) 0.4 mg Q5M PRN SL Prn Chest Pain 12/24/17 15:15 01/21/18 17:59 Ondansetron HCl (Zofran) 4 mg Q6H PRN IVP Nausea & Vomiting 12/24/17 15:19 01/21/18 15:18 12/25/17 08:59 Piperacillin Sod/ Tazobactam Sod 3.375 gm/Sodium Chloride 110 ml @ 27.5 mls/hr EVERY 8 HOURS IVPB 12/24/17 22:00 12/29/17 21:59 12/25/17 05:39 Potassium Phosphate 30 mm/ Sodium Chloride 285 ml @ 47.5 mls/hr ONCE ONCE IVPB 12/25/17 13:00 12/25/17 18:59 UNV Vancomycin HCl (Vanco rx to dose) 1 ea DAILY PRN MISC Per rx protocol 12/25/17 09:00 01/22/18 09:14 Vancomycin/Sodium Chloride 250 ml @ 166.667 mls/hr Q12H IVPB 12/25/17 22:00 12/30/17 21:59 Vitamin A/Vitamin D (A & D Oint) 1 applic EVERY 12 HOURS TOPIC 12/24/17 21:00 01/22/18 20:59 12/25/17 09:11 Wade Peña MD Dec 25, 2017 13:24
[2017-12-25] MEDS ORDERED: Fluconazole 100mg tab ORAL SCH (14:30)
[2017-12-25] MEDS ORDERED: Potassium Phosphate 30 MM in NS 275 ML IV ONE (15:00)
[2017-12-25] MEDS ORDERED: D5NS 1000ml IV ONE (15:25)
[2017-12-25] MEDS ORDERED: NS 275ml ONE (15:25)
--- NOTE | 2017-12-25 16:05 | Diagnostic Imaging Report ---
Indication: History of anal fistula Technique: Coronal, sagittal, and axial T2 FRFSE fat-saturated, axial T2 FRFSE, axial STIR FSE, axial T1 FSE, pre and post contrast axial T1 FSE fat saturated images were obtained. Comparison: none Findings: In the right perineal fat, at and below the level of the anus, there is a complex network of reticulated increased T2 signal. Although the margins are somewhat ill-defined, this area measures roughly 15 cm transverse by 9.5 cm AP by 8.7 cm craniocaudad. This also extends into the inferior right buttock. A crescentic rim of fluid is seen surrounding the distal anal sphincter, on its rightward aspect, and appears to connect to the rest of the fluid anteriorly. There is also a separate thin rim of fluid surrounding the posterior aspect of the upper sphincter. There is only minimal if any enhancement of the surrounding soft tissues on the postcontrast images. No discrete individual loculated collection to suggest drainable abscess is evident. No definite abnormal fluid is seen within the pelvis. A 15 mm cyst is seen in the left labium majus. An ill-defined area of increased T2 signal is seen in the right lateral months pubis. There is a Bernard catheter within the bladder. The uterine endometrium demonstrates high T2 signal, measures 5 mm thick. Adjacent to the endometrium to the left of midline is a 15 mm myometrial mass which is low signal on all sequences, but it does enhance slightly on the postcontrast images. In the left ovary, there is a 2.3 cm mass that contains fat signal. The pelvic viscera are otherwise unremarkable. The bones are unremarkable Impression: Complex area of reticular increased T2 signal measuring 15 x 9.5 x 8.7 cm, in the right perineum as detailed above, consistent with complex perianal fistula, given stated clinical history. No discrete drainable abscess collection. No evidence of deep pelvic involvement Uterine fibroid noted, also described on recent pelvic ultrasound report Evidence of small left ovarian dermoid 13 mm cyst in the left labium majus. This appears to be somewhat remote from the vagina, so is probably a cutaneous lesion rather than a Bartholin's duct cyst Bernard catheter within the bladder
--- NOTE | 2017-12-25 17:00 | Procedure Note ---
DATE OF PROCEDURE: 12/25/2017 SURGEON: Garret Eden M.D. REFERRING PHYSICIAN: Nissa Mckay M.D. PROCEDURE: Attempted colonoscopy, only flexible was performed given the poor prep. INSTRUMENT: Olympus adult flexible colonoscope. INDICATION: Anemia, rectal pain, GI bleeding. The procedure, risks, benefits, and possible consequences, including hemorrhage, aspiration, perforation and infection, and alternative treatments, were explained to the patient/legal guardian by Dr. Garret Eden and the patient/legal guardian understood and accepted these risks. DESCRIPTION OF PROCEDURE: After informed consent was obtained and the patient was adequately sedated, first rectal exam was performed which was positive for internal hemorrhoids. Then the scope was advanced from the rectum into the sigmoid. Given poor prep, we could not advance the scope beyond this point. At this time, we slowly removed the scope back. We did retroflexion of rectum which showed evidence of internal hemorrhoids and the procedure was terminated. SUMMARY OF FINDINGS: 1. Incomplete colonoscopy examination, only flexible was performed, even that was limited given the poor prep. 2. Internal hemorrhoids. RECOMMENDATIONS: At this time, this is Thursday and the patient's hemoglobin has been relatively stable, so we recommend the patient to follow as an outpatient for repeat colonoscopy. I want to thank, Dr. Nissa Mckay, for this kind referral. Garret Eden M.D. DR: Whit JOB#: [id number] CC: Nissa Mckay M.D.; Fax#: [phone]
[2017-12-25] MEDS: Vancomycin 750mg/NS 250ml 250 ML IVPB SCH (21:05)
[2017-12-26] VITALS: BP 119/69
[2017-12-26 04:00] VITALS: BP 125/71
[2017-12-26] MEDS: Piperacillin/Tazobactam 3.375 GM in NS 110 ML IVPB SCH ×3 (06:00→21:26)
[2017-12-26] MEDS: NovoLOG Insulin Flexpen SUBQ SCH ×7 (06:30→20:55)
[2017-12-26 08:18] VITALS: BP 140/69
[2017-12-26] MEDS: Heparin 5000 units/ml inj SUBQ SCH ×2 (08:26→20:52)
[2017-12-26] MEDS: Artificial Tears 1.4% Op Soln BOTH EYES SCH ×3 (08:27→17:35)
[2017-12-26] MEDS: Metoprolol Tartrate 12.5mg TAB ORAL SCH (08:27)
[2017-12-26] MEDS: Vitamin A&D Oint 2oz Tube TOPIC SCH ×2 (08:27→20:56)
--- NOTE | 2017-12-26 08:55 | Pulmonology Progress Note ---
Assessment/Plan Problems: (1) Abscess of buttock (2) Perianal fistula (3) DKA (diabetic ketoacidoses) (4) Sepsis (5) Diabetes (6) Hyperglycemia (7) Renal insufficiency (8) Vagina bleeding (9) Anemia Assessment/Plan * Off insulin gtt, SQ + SSI per ENDO, needs DM education as this is a new Dx * mIVF * Continue Vancomycin/Zosyn (D5) + Flucon per ID * F/U surgery recs, wound care, ? 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 * Monitor for further bleeding * Aspiration precautions * Px: Hep SQ and PPI * FC Subjective Allergies: Coded Allergies: SULFA (SULFONAMIDE ANTIBIOTICS) (Verified Allergy, Unknown, 12/25/17) Subjective AFVSS, stable on RA MRI pelvis with complex perianal fistula Colonoscopy aborted 2/ poor prep + drainage, no F/C/CP/SOB Objective Last 24 Hour Vital Signs Date Time Temp Pulse Resp B/P (MAP) Pulse Ox O2 Delivery O2 Flow Rate FiO2 12/26/17 08:27 107 140/69 12/26/17 08:25 107 140/69 12/26/17 08:18 97.9 107 20 140/69 (92) 97 97.9 12/26/17 04:00 98.1 80 20 125/71 (89) 97 98.1 12/26/17 04:00 75 12/26/17 00:00 99.0 92 20 119/69 (86) 98 99.0 12/26/17 00:00 82 12/25/17 21:03 80 163/85 12/25/17 21:00 Room Air 12/25/17 20:00 86 12/25/17 20:00 98.9 89 20 110/59 (76) 95 98.9 12/25/17 17:31 98 163/94 12/25/17 16:00 98.8 98 18 168/86 (113) 95 98.8 12/25/17 16:00 94 12/25/17 15:54 97.4 12/25/17 15:47 168/86 12/25/17 12:40 97.4 97 22 155/89 98 Room Air 97.4 97 12/25/17 12:33 207.7 100 20 99 12/25/17 12:30 94 15 158/87 95 Room Air 94 12/25/17 12:25 96 13 167/86 98 Room Air 96 12/25/17 12:18 97.6 99 15 159/78 97 Room Air 97.6 99 12/25/17 09:00 99 159/79 12/25/17 09:00 99 159/79 12/25/17 09:00 Room Air Intake and Output 12/25/17 12/26/17 19:00 07:00 Intake Total 732.0 ml 480 ml Output Total 805 ml 550 ml Balance -73.0 ml -70 ml Intake Oral 150 ml 480 ml IV Total 582.0 ml Output Urine Total 800 ml 550 ml Estimated Blood Loss 5 ml # Bowel Movements 1 General Appearance: WD/WN, no acute distress HEENT: normocephalic, atraumatic, anicteric, mucous membranes moist Respiratory/Chest: chest wall non-tender, lungs clear, normal breath sounds, no respiratory distress Cardiovascular: normal peripheral pulses, normal rate, regular rhythm Abdomen: normal bowel sounds, soft, non tender, no organomegaly, non distended , no mass, other - Wound dressed and packed Extremities: no cyanosis, no clubbing, no edema Microbiology Date/Time Source Procedure Growth Status 12/23/17 17:00 Other Gram Stain - Final Complete 12/23/17 17:00 Wound Culture - Final Klebsiella Pneumoniae Proteus Mirabilis Strep Agalactiae Group B Nora Albicans Complete 12/24/17 00:00 Buttock Right Gram Stain Pending Resulted 12/24/17 00:00 Wound Culture - Preliminary Gram Negative Bacillus 1 Klebsiella Oxytoca Gram Negative Bacillus 3 Nora Albicans Resulted Current Medications Medications (Trade) Dose Ordered Sig/Eyad Route PRN Reason Start Time Stop Time Status Last Admin Dose Admin Acetaminophen (Tylenol) 650 mg Q4H PRN ORAL Mild Pain/Temp > 100.5 12/26/17 02:45 01/25/18 02:44 12/26/17 02:51 Amlodipine Besylate (Norvasc) 5 mg BID ORAL 12/24/17 18:00 01/24/18 08:59 12/26/17 08:25 Artificial Tears (Akwa-Tears) 1 drop THREE TIMES A DAY BOTH EYES 12/24/17 18:00 01/22/18 12:59 12/26/17 08:27 Atorvastatin Calcium (Lipitor) 10 mg BEDTIME ORAL 12/24/17 21:00 01/23/18 20:59 12/25/17 21:04 Clonidine HCl (Catapres Tab) 0.1 mg Q6H PRN ORAL [id number] and above 12/24/17 15:17 01/23/18 15:16 12/25/17 15:47 Dextrose (Dextrose 50%) 25 ml STAT PRN IV Hypoglycemia 12/24/17 21:45 01/22/18 21:44 Dextrose (Dextrose 50%) 50 ml STAT PRN IV Hypoglycemia 12/24/17 21:45 01/22/18 21:44 Dextrose/ Electrolytes 1,000 ml @ 50 mls/hr Q20H IV 12/25/17 13:40 01/22/18 13:39 12/25/17 15:18 Famotidine (Pepcid) 20 mg BID ORAL 12/24/17 18:00 01/23/18 17:59 12/26/17 08:25 Fish Oil (Fish Oil) 1,000 mg BID ORAL 12/24/17 18:00 01/23/18 11:59 12/26/17 08:27 Fluconazole (Diflucan) 200 mg DAILY ORAL 12/26/17 09:00 01/02/18 08:59 12/26/17 08:27 Folic Acid (Folate) 5 mg DAILY ORAL 12/25/17 09:00 01/23/18 11:59 12/26/17 08:25 Heparin Sodium (Porcine) (Heparin 5000 units/ml) 5,000 units Q12HR SUBQ 12/24/17 21:00 01/23/18 20:59 12/26/17 08:26 Hydromorphone HCl (Dilaudid) 0.5 mg Q3H PRN IVP For mild pain 12/24/17 15:19 12/29/17 15:18 Hydromorphone HCl (Dilaudid) 1 mg Q3H PRN IVP Moderate Pain (Pain Scale 4-6) 12/24/17 15:44 12/31/17 15:43 12/24/17 21:28 Insulin Aspart (NovoLOG) BEFORE MEALS AND HS SUBQ 12/24/17 16:30 01/23/18 06:29 12/25/17 21:02 Insulin Aspart (NovoLOG) 10 units TIAC SUBQ 12/24/17 16:30 01/23/18 16:29 12/25/17 17:25 Insulin Detemir (Levemir) 25 units 0900,2100 SUBQ 12/24/17 21:00 01/22/18 22:59 12/25/17 21:02 Metoprolol Tartrate (Lopressor) 12.5 mg Q12HR ORAL 12/24/17 21:00 01/23/18 20:59 12/26/17 08:27 Nitroglycerin (Ntg) 0.4 mg Q5M PRN SL Prn Chest Pain 12/24/17 15:15 01/21/18 17:59 Ondansetron HCl (Zofran) 4 mg Q6H PRN IVP Nausea & Vomiting 12/24/17 15:19 01/21/18 15:18 12/25/17 08:59 Phosphorus (Phospha 250 Neutral) 250 mg THREE TIMES A DAY ORAL 12/26/17 09:00 01/25/18 08:59 Piperacillin Sod/ Tazobactam Sod 3.375 gm/Sodium Chloride 110 ml @ 27.5 mls/hr EVERY 8 HOURS IVPB 12/24/17 22:00 12/29/17 21:59 12/26/17 06:00 Potassium Chloride (K-Dur) 40 meq DAILY ORAL 12/26/17 09:00 01/25/18 08:59 Vancomycin HCl (Vanco rx to dose) 1 ea DAILY PRN MISC Per rx protocol 12/25/17 09:00 01/22/18 09:14 Vancomycin/Sodium Chloride 250 ml @ 166.667 mls/hr Q12H IVPB 12/25/17 22:00 12/30/17 21:59 12/25/17 21:05 Vitamin A/Vitamin D (A & D Oint) 1 applic EVERY 12 HOURS TOPIC 12/24/17 21:00 01/22/18 20:59 12/26/17 08:27 Omega Nance MD Dec 26, 2017 08:55
[2017-12-26] MEDS ORDERED: Fluconazole 100mg tab ORAL SCH (09:00)
[2017-12-26] MEDS: Phospha 250 Neutral tab ORAL SCH ×3 (09:02→17:40)
[2017-12-26] MEDS: Levemir Flexpen SUBQ SCH ×2 (09:15→20:54)
[2017-12-26] MEDS: D5 1/2NS w/KCl 20mEq 1,000 ML IV SCH ×2 (09:44→17:35)
[2017-12-26] MEDS: Vancomycin 750mg/NS 250ml 250 ML IVPB SCH ×2 (10:36→19:57)
--- NOTE | 2017-12-26 10:57 | Nephrology Progress Note ---
Assessment/Plan Problem List: (1) Renal insufficiency (2) DKA (diabetic ketoacidoses) (3) Severe sepsis Assessment: buttock abcess (4) Anemia Assessment Diabetic acidosis without coma Renal failure and electrolyte imbalance Diabetic Nephropathy and Proteinuria and HypoAlbuminemia Severe sepsis Abscess of buttock Anemia Plan Hydrate- K and Phos supplement Antibiotics Monitor renal parameters correct electrolytes avoid Nephrotoxics adjust BP meds Fish OIL Lipitor Folic Acid tele Subjective ROS Limited/Unobtainable: No Constitutional: Reports: malaise Objective Objective Last 24 Hour Vital Signs Date Time Temp Pulse Resp B/P (MAP) Pulse Ox O2 Delivery O2 Flow Rate FiO2 12/26/17 09:00 Room Air 12/26/17 08:27 107 140/69 12/26/17 08:25 107 140/69 12/26/17 08:18 97.9 107 20 140/69 (92) 97 97.9 12/26/17 07:57 107 12/26/17 04:00 98.1 80 20 125/71 (89) 97 98.1 12/26/17 04:00 75 12/26/17 00:00 99.0 92 20 119/69 (86) 98 99.0 12/26/17 00:00 82 12/25/17 21:03 80 163/85 12/25/17 21:00 Room Air 12/25/17 20:00 86 12/25/17 20:00 98.9 89 20 110/59 (76) 95 98.9 12/25/17 17:31 98 163/94 12/25/17 16:00 98.8 98 18 168/86 (113) 95 98.8 12/25/17 16:00 94 12/25/17 15:54 97.4 12/25/17 15:47 168/86 12/25/17 12:40 97.4 97 22 155/89 98 Room Air 97.4 97 12/25/17 12:33 207.7 100 20 99 12/25/17 12:30 94 15 158/87 95 Room Air 94 12/25/17 12:25 96 13 167/86 98 Room Air 96 12/25/17 12:18 97.6 99 15 159/78 97 Room Air 97.6 99 Intake and Output 12/25/17 12/26/17 19:00 07:00 Intake Total 732.0 ml 480 ml Output Total 805 ml 550 ml Balance -73.0 ml -70 ml Intake Oral 150 ml 480 ml IV Total 582.0 ml Output Urine Total 800 ml 550 ml Estimated Blood Loss 5 ml # Bowel Movements 1 Height (Feet): 5 Height (Inches): 5.00 Weight (Pounds): 194 General Appearance: no apparent distress Cardiovascular: tachycardia Respiratory/Chest: decreased breath sounds Abdomen: soft Joni Cleaning MD Dec 26, 2017 10:57
[2017-12-26] MEDS ORDERED: Metoprolol Tartrate 12.5mg TAB ORAL SCH (11:00)
--- NOTE | 2017-12-26 11:14 | Infectious Diseases Prog Note ---
"Assessment/Plan Assessment/Plan antibiotics : vancomycin iv, zosyn, fluconazole A 1. right buttock abscess s/p drainage with klebsiella | proteus | nora albicans | streptococcus 2. leucocytosis improving 3. renal failure improving 4. DKA 5. perianal fistula P 1. continue vancomycin iv, zosyn, fluconazole 2. will follow up cultures Subjective Constitutional: Denies: fever, chills Respiratory: Reports: other - + sore throat; Denies: shortness of breath, dry cough Gastrointestinal/Abdominal: Denies: nausea, vomiting, diarrhea Allergies: Coded Allergies: SULFA (SULFONAMIDE ANTIBIOTICS) (Verified Allergy, Unknown, 12/25/17) Objective Vital Signs Last 24 Hour Vital Signs Date Time Temp Pulse Resp B/P (MAP) Pulse Ox O2 Delivery O2 Flow Rate FiO2 12/26/17 09:00 Room Air 12/26/17 08:27 107 140/69 12/26/17 08:25 107 140/69 12/26/17 08:18 97.9 107 20 140/69 (92) 97 97.9 12/26/17 07:57 107 12/26/17 04:00 98.1 80 20 125/71 (89) 97 98.1 12/26/17 04:00 75 12/26/17 00:00 99.0 92 20 119/69 (86) 98 99.0 12/26/17 00:00 82 12/25/17 21:03 80 163/85 12/25/17 21:00 Room Air 12/25/17 20:00 86 12/25/17 20:00 98.9 89 20 110/59 (76) 95 98.9 12/25/17 17:31 98 163/94 12/25/17 16:00 98.8 98 18 168/86 (113) 95 98.8 12/25/17 16:00 94 12/25/17 15:54 97.4 12/25/17 15:47 168/86 12/25/17 12:40 97.4 97 22 155/89 98 Room Air 97.4 97 12/25/17 12:33 207.7 100 20 99 12/25/17 12:30 94 15 158/87 95 Room Air 94 12/25/17 12:25 96 13 167/86 98 Room Air 96 12/25/17 12:18 97.6 99 15 159/78 97 Room Air 97.6 99 Height (Feet): 5 Height (Inches): 5.00 Weight (Pounds): 194 Respiratory/Chest: lungs clear Cardiovascular: normal rate, regular rhythm, no gallop/murmur Abdomen: soft, non tender Extremities: no edema Microbiology Date/Time Source Procedure Growth Status 12/23/17 17:00 Other Gram Stain - Final Complete 12/23/17 17:00 Wound Culture - Final Klebsiella Pneumoniae Proteus Mirabilis Strep Agalactiae Group B Nora Albicans Complete 12/24/17 00:00 Buttock Right Gram Stain Pending Resulted 12/24/17 00:00 Wound Culture - Preliminary Gram Negative Bacillus 1 Klebsiella Oxytoca Gram Negative Bacillus 3 Nora Albicans Resulted Current Medications Medications (Trade) Dose Ordered Sig/Eyad Route PRN Reason Start Time Stop Time Status Last Admin Dose Admin Acetaminophen (Tylenol) 650 mg Q4H PRN ORAL Mild Pain/Temp > 100.5 12/26/17 02:45 01/25/18 02:44 12/26/17 02:51 Amlodipine Besylate (Norvasc) 5 mg BID ORAL 12/24/17 18:00 01/24/18 08:59 12/26/17 08:25 Artificial Tears (Akwa-Tears) 1 drop THREE TIMES A DAY BOTH EYES 12/24/17 18:00 01/22/18 12:59 12/26/17 08:27 Atorvastatin Calcium (Lipitor) 10 mg BEDTIME ORAL 12/24/17 21:00 01/23/18 20:59 12/25/17 21:04 Clonidine HCl (Catapres Tab) 0.1 mg Q6H PRN ORAL [id number] and above 12/24/17 15:17 01/23/18 15:16 12/25/17 15:47 Dextrose (Dextrose 50%) 25 ml STAT PRN IV Hypoglycemia 12/24/17 21:45 01/22/18 21:44 Dextrose (Dextrose 50%) 50 ml STAT PRN IV Hypoglycemia 12/24/17 21:45 01/22/18 21:44 Dextrose/ Electrolytes 1,000 ml @ 50 mls/hr Q20H IV 12/25/17 13:40 01/22/18 13:39 12/26/17 09:44 Famotidine (Pepcid) 20 mg BID ORAL 12/24/17 18:00 9/15/18 17:59 12/26/17 08:25 Fish Oil (Fish Oil) 1,000 mg BID ORAL 12/24/17 18:00 01/23/18 11:59 12/26/17 08:27 Fluconazole (Diflucan) 200 mg DAILY ORAL 12/26/17 09:00 01/02/18 08:59 12/26/17 08:27 Folic Acid (Folate) 5 mg DAILY ORAL 12/25/17 09:00 01/23/18 11:59 12/26/17 08:25 Heparin Sodium (Porcine) (Heparin 5000 units/ml) 5,000 units Q12HR SUBQ 12/24/17 21:00 01/23/18 20:59 12/26/17 08:26 Hydromorphone HCl (Dilaudid) 0.5 mg Q3H PRN IVP For mild pain 12/24/17 15:19 12/29/17 15:18 Hydromorphone HCl (Dilaudid) 1 mg Q3H PRN IVP Moderate Pain (Pain Scale 4-6) 12/24/17 15:44 12/31/17 15:43 12/24/17 21:28 Insulin Aspart (NovoLOG) BEFORE MEALS AND HS SUBQ 12/24/17 16:30 01/23/18 06:29 12/25/17 21:02 Insulin Aspart (NovoLOG) 10 units TIAC SUBQ 12/24/17 16:30 01/23/18 16:29 12/25/17 17:25 Insulin Detemir (Levemir) 25 units 0900,2100 SUBQ 12/24/17 21:00 01/22/18 22:59 12/26/17 09:15 Metoprolol Tartrate (Lopressor) 12.5 mg ONCE ORAL 12/26/17 11:00 12/26/17 12:00 Metoprolol Tartrate (Lopressor) 25 mg Q12HR ORAL 12/26/17 21:00 01/23/18 20:59 Nitroglycerin (Ntg) 0.4 mg Q5M PRN SL Prn Chest Pain 12/24/17 15:15 01/21/18 17:59 Ondansetron HCl (Zofran) 4 mg Q6H PRN IVP Nausea & Vomiting 12/24/17 15:19 01/21/18 15:18 12/25/17 08:59 Phosphorus (Phospha 250 Neutral) 250 mg THREE TIMES A DAY ORAL 12/26/17 09:00 01/25/18 08:59 12/26/17 09:02 Piperacillin Sod/ Tazobactam Sod 3.375 gm/Sodium Chloride 110 ml @ 27.5 mls/hr EVERY 8 HOURS IVPB 12/24/17 22:00 12/29/17 21:59 12/26/17 06:00 Potassium Chloride (K-Dur) 40 meq DAILY ORAL 12/26/17 09:00 01/25/18 08:59 12/26/17 09:02 Vancomycin HCl (Vanco rx to dose) 1 ea DAILY PRN MISC Per rx protocol 12/25/17 09:00 01/22/18 09:14 Vancomycin/Sodium Chloride 250 ml @ 166.667 mls/hr Q12H IVPB 12/25/17 22:00 12/30/17 21:59 12/26/17 10:36 Vitamin A/Vitamin D (A & D Oint) 1 applic EVERY 12 HOURS TOPIC 12/24/17 21:00 01/22/18 20:59 12/26/17 08:27 RAYA BOB Dec 26, 2017 11:14"
--- NOTE | 2017-12-26 12:13 | General Progress Note ---
Assessment/Plan Problem List: (1) Diabetes ICD Codes: E11.9 - Type 2 diabetes mellitus without complications SNOMED: 07877049 (2) Diabetic acidosis without coma ICD Codes: E13.10 - Other specified diabetes mellitus with ketoacidosis without coma SNOMED: 35930314, 147422168 (3) Anemia ICD Codes: D64.9 - Anemia, unspecified SNOMED: 399865277 (4) Perianal fistula ICD Codes: K60.3 - Anal fistula SNOMED: 94253879 Assessment/Plan abx per ID fu surg recs fu pelvic MRI hold repeat colonoscopy for now Subjective ROS Limited/Unobtainable: Yes Allergies: Coded Allergies: SULFA (SULFONAMIDE ANTIBIOTICS) (Verified Allergy, Unknown, 12/25/17) Subjective no gib Objective Last 24 Hour Vital Signs Date Time Temp Pulse Resp B/P (MAP) Pulse Ox O2 Delivery O2 Flow Rate FiO2 12/26/17 11:30 107 140/69 12/26/17 09:00 Room Air 12/26/17 08:27 107 140/69 12/26/17 08:25 107 140/69 12/26/17 08:18 97.9 107 20 140/69 (92) 97 97.9 12/26/17 07:57 107 12/26/17 04:00 98.1 80 20 125/71 (89) 97 98.1 12/26/17 04:00 75 12/26/17 00:00 99.0 92 20 119/69 (86) 98 99.0 12/26/17 00:00 82 12/25/17 21:03 80 163/85 12/25/17 21:00 Room Air 12/25/17 20:00 86 12/25/17 20:00 98.9 89 20 110/59 (76) 95 98.9 12/25/17 17:31 98 163/94 12/25/17 16:00 98.8 98 18 168/86 (113) 95 98.8 12/25/17 16:00 94 12/25/17 15:54 97.4 12/25/17 15:47 168/86 12/25/17 12:40 97.4 97 22 155/89 98 Room Air 97.4 97 12/25/17 12:33 207.7 100 20 99 12/25/17 12:30 94 15 158/87 95 Room Air 94 8/17/18 12:25 96 13 167/86 98 Room Air 96 12/25/17 12:18 97.6 99 15 159/78 97 Room Air 97.6 99 Intake and Output 12/25/17 12/26/17 19:00 07:00 Intake Total 732.0 ml 480 ml Output Total 805 ml 550 ml Balance -73.0 ml -70 ml Intake Oral 150 ml 480 ml IV Total 582.0 ml Output Urine Total 800 ml 550 ml Estimated Blood Loss 5 ml # Bowel Movements 1 Height (Feet): 5 Height (Inches): 5.00 Weight (Pounds): 194 General Appearance: alert EENT: normal ENT inspection Neck: supple Cardiovascular: normal rate Respiratory/Chest: decreased breath sounds Abdomen: normal bowel sounds, non tender, soft Extremities: non-tender Garret Eden MD Dec 26, 2017 12:13
[2017-12-26 12:43] VITALS: BP 136/69
--- NOTE | 2017-12-26 13:45 | General Surgery Progress Note ---
General Surgery-Progress Note Subjective Procedure Performed incision and drainage of right perirectal abscess Symptoms: improved, pain absent, tolerating diet, passing flatus Additional Comments feels much better today. much more alert and cognisant Objective Last 24 Hour Vital Signs Date Time Temp Pulse Resp B/P (MAP) Pulse Ox O2 Delivery O2 Flow Rate FiO2 12/26/17 12:52 97.9 12/26/17 12:43 97.9 92 20 136/69 (91) 97 97.9 12/26/17 11:56 81 12/26/17 11:30 107 140/69 12/26/17 09:00 Room Air 12/26/17 08:27 107 140/69 12/26/17 08:25 107 140/69 12/26/17 08:18 97.9 107 20 140/69 (92) 97 97.9 12/26/17 07:57 107 12/26/17 04:00 98.1 80 20 125/71 (89) 97 98.1 12/26/17 04:00 75 12/26/17 00:00 99.0 92 20 119/69 (86) 98 99.0 12/26/17 00:00 82 12/25/17 21:03 80 163/85 12/25/17 21:00 Room Air 12/25/17 20:00 86 12/25/17 20:00 98.9 89 20 110/59 (76) 95 98.9 12/25/17 17:31 98 163/94 12/25/17 16:00 98.8 98 18 168/86 (113) 95 98.8 12/25/17 16:00 94 12/25/17 15:54 97.4 12/25/17 15:47 168/86 I&O Intake and Output 12/25/17 12/26/17 19:00 07:00 Intake Total 732.0 ml 480 ml Output Total 805 ml 550 ml Balance -73.0 ml -70 ml Intake Oral 150 ml 480 ml IV Total 582.0 ml Output Urine Total 800 ml 550 ml Estimated Blood Loss 5 ml # Bowel Movements 1 Dressing: saturated Wound: other Drains: none Cardiovascular: RSR Respiratory: clear Abdomen: soft, flat, non-tender, present bowel sounds Extremities: no edema, no tenderness, no cyanosis Plan Problems: (1) Diabetic acidosis without coma (2) Hyperglycemia (3) Severe sepsis (4) Abscess of buttock Assessment & Plan: large right buttock abscess with gangrene at skin level. given condition urgent I&D warranted as possible etiology of sepsis. see procedure report. improving. leukocytosis improving. more alert and responsive. drainage still looks almost as if stool. cultures poly organism : WOUND CULTURE Preliminary Organism 1 GRAM NEGATIVE BACILLUS 1 GROWTH: 3+ Organism 2 KLEBSIELLA OXYTOCA GROWTH: 3+ Organism 3 GRAM NEGATIVE BACILLUS 3 GROWTH: 1+ Organism 4 SHAE ALBICANS GROWTH: 4+ WOUND CULTURE Final Organism 1 KLEBSIELLA PNEUMONIAE GROWTH: 4+ Organism 2 PROTEUS MIRABILIS GROWTH: 4+ Organism 3 STREP AGALACTIAE GROUP B GROWTH: 4+ Organism 4 SHAE ALBICANS GROWTH: 4+ -okay for diet -packing and dressings to buttock TID -may need more formal wound washout and care in OR once stable. will monitor for now. drainage improved but still somewhat like stool -appreciate GI input. -g/u MRI pelvis thank you will follow with recommendations (5) DKA (diabetic ketoacidoses) Baljeet Osorio Dec 26, 2017 13:45
[2017-12-26 16:14] VITALS: BP 134/67
[2017-12-26] MEDS ORDERED: Hydromorphone 0.5mg/0.5ml inj IVP PRN (17:00)
[2017-12-26] MEDS ORDERED: Nitroglycerin Subl 0.4mg tab SL PRN (17:00)
[2017-12-26] MEDS ORDERED: Tubing IV Secondary IV ONE (17:17)
[2017-12-26] MEDS ORDERED: NS 500ML ONE (17:17)
--- NOTE | 2017-12-26 17:38 | General Progress Note ---
Assessment/Plan Problem List: (1) Diabetes ICD Codes: E11.9 - Type 2 diabetes mellitus without complications SNOMED: 37610484 (2) Hyperglycemia ICD Codes: R73.9 - Hyperglycemia, unspecified SNOMED: 94123848 (3) Sepsis ICD Codes: A41.9 - Sepsis, unspecified organism SNOMED: 86163701 (4) Abscess of buttock ICD Codes: L02.31 - Cutaneous abscess of buttock SNOMED: 90004788 (5) DKA (diabetic ketoacidoses) ICD Codes: E13.10 - Other specified diabetes mellitus with ketoacidosis without coma SNOMED: 79031993, 595080796 Qualifiers: Qualified Codes: E13.11 - Other specified diabetes mellitus with ketoacidosis with coma (6) Renal insufficiency ICD Codes: N28.9 - Disorder of kidney and ureter, unspecified SNOMED: 027938316, 641795674 (7) Vagina bleeding ICD Codes: N93.9 - Abnormal uterine and vaginal bleeding, unspecified SNOMED: 547877853, 755821329 (8) Anemia ICD Codes: D64.9 - Anemia, unspecified SNOMED: 771499577 Status: progressing Assessment/Plan s/p dka s/p i&d of rectal abscess sugar is improving sepsis ot times 3 consulted gi to f/u w rectal involvment of abscess abx per id more alert anmeia stabl afebrile Subjective ROS Limited/Unobtainable: Yes Constitutional: Reports: no symptoms Allergies: Coded Allergies: SULFA (SULFONAMIDE ANTIBIOTICS) (Verified Allergy, Unknown, 12/25/17) Objective Last 24 Hour Vital Signs Date Time Temp Pulse Resp B/P (MAP) Pulse Ox O2 Delivery O2 Flow Rate FiO2 12/26/17 16:14 97.9 91 20 134/67 (89) 97 97.9 12/26/17 13:51 97.9 12/26/17 12:52 97.9 12/26/17 12:43 97.9 92 20 136/69 (91) 97 97.9 12/26/17 11:56 81 12/26/17 11:30 107 140/69 12/26/17 09:00 Room Air 12/26/17 08:27 107 140/69 12/26/17 08:25 107 140/69 12/26/17 08:18 97.9 107 20 140/69 (92) 97 97.9 12/26/17 07:57 107 12/26/17 04:00 98.1 80 20 125/71 (89) 97 98.1 12/26/17 04:00 75 12/26/17 00:00 99.0 92 20 119/69 (86) 98 99.0 12/26/17 00:00 82 12/25/17 21:03 80 163/85 12/25/17 21:00 Room Air 12/25/17 20:00 86 12/25/17 20:00 98.9 89 20 110/59 (76) 95 98.9 Intake and Output 12/25/17 12/26/17 19:00 07:00 Intake Total 732.0 ml 507.5 ml Output Total 805 ml 550 ml Balance -73.0 ml -42.5 ml Intake Oral 150 ml 480 ml IV Total 582.0 ml 27.5 ml Output Urine Total 800 ml 550 ml Estimated Blood Loss 5 ml # Bowel Movements 1 Height (Feet): 5 Height (Inches): 5.00 Weight (Pounds): 194 General Appearance: alert Neck: supple Cardiovascular: normal rate Respiratory/Chest: lungs clear Abdomen: soft Nissa Mckay MD Dec 26, 2017 17:38
[2017-12-26 20:00] VITALS: BP 117/83
[2017-12-26] MEDS: Metoprolol 25mg tab ORAL SCH (20:51)
[2017-12-26] MEDS ORDERED: Metoprolol 25mg tab ORAL SCH (21:00)
[2017-12-27] VITALS: BP 140/73
[2017-12-27 04:00] VITALS: BP 127/57
[2017-12-27] MEDS: Piperacillin/Tazobactam 3.375 GM in NS 110 ML IVPB SCH (05:32)
[2017-12-27] MEDS: NovoLOG Insulin Flexpen SUBQ SCH ×7 (05:52→20:46)
[2017-12-27 06:01] LABS: BASOPHILS % (AUTO) 0.6 % (0.0-2.0); EOSINOPHILS % (AUTO) 1.4 % (0.0-3.0); HEMATOCRIT 24.9 % (37.0-47.0); HEMOGLOBIN 8.5 G/DL (12.0-16.0); LYMPHOCYTES % (AUTO) 19.3 % (20.0-45.0); MEAN CORPUSCULAR VOLUME 87 FL (80-99); MONOCYTES % (AUTO) 3.6 % (1.0-10.0); NEUTROPHILS % (AUTO) 75.1 % (45.0-75.0); PLATELET COUNT 284 K/UL (150-450); RED BLOOD COUNT 2.87 M/UL (4.20-5.40); RED CELL DISTRIBUTION WIDTH 11.5 % (11.6-14.8); WHITE BLOOD COUNT 17.6 K/UL (4.8-10.8)
[2017-12-27 06:09] LABS: ALANINE AMINOTRANSFERASE 14 U/L (12-78); ALBUMIN 1.5 G/DL (3.4-5.0); ALBUMIN/GLOBULIN RATIO 0.4 (1.0-2.7); ALKALINE PHOSPHATASE 174 U/L (46-116); ANION GAP 4 mmol/L (5-15); ASPARTATE AMINO TRANSFERASE 11 U/L (15-37); BILIRUBIN,TOTAL 0.3 MG/DL (0.2-1.0); BLOOD UREA NITROGEN 6 mg/dL (7-18); CARBON DIOXIDE 33 MMOL/L (21-32); CHLORIDE 104 MMOL/L (98-107); CREATININE 0.7 MG/DL (0.55-1.30); PHOSPHORUS 3.1 MG/DL (2.5-4.9); SODIUM 141 MMOL/L (136-145)
--- NOTE | 2017-12-27 07:51 | General Progress Note ---
Assessment/Plan Problem List: (1) Diabetes ICD Codes: E11.9 - Type 2 diabetes mellitus without complications SNOMED: 52178363 (2) Diabetic acidosis without coma ICD Codes: E13.10 - Other specified diabetes mellitus with ketoacidosis without coma SNOMED: 71711383, 272506595 (3) Anemia ICD Codes: D64.9 - Anemia, unspecified SNOMED: 088935132 (4) Perianal fistula ICD Codes: K60.3 - Anal fistula SNOMED: 64516581 Assessment/Plan abx per ID fu surg recs fu pelvic MRI>>>large bhargav anal fistula plan colonoscopy for tomorrow r/o Crohn's disease Subjective ROS Limited/Unobtainable: Yes Allergies: Coded Allergies: SULFA (SULFONAMIDE ANTIBIOTICS) (Verified Allergy, Unknown, 12/25/17) Subjective no gib Objective Last 24 Hour Vital Signs Date Time Temp Pulse Resp B/P (MAP) Pulse Ox O2 Delivery O2 Flow Rate FiO2 12/27/17 04:00 98.6 91 20 127/57 (80) 96 98.6 12/27/17 00:00 99.3 95 20 140/73 (95) 91 99.3 12/26/17 22:34 98.2 12/26/17 21:26 98.2 12/26/17 21:00 Room Air 12/26/17 20:51 101 117/83 12/26/17 20:00 98.2 101 18 117/83 (94) 94 98.2 12/26/17 17:40 91 134/67 12/26/17 16:14 97.9 91 20 134/67 (89) 97 97.9 12/26/17 13:51 97.9 12/26/17 12:52 97.9 12/26/17 12:43 97.9 92 20 136/69 (91) 97 97.9 12/26/17 11:56 81 12/26/17 11:30 107 140/69 12/26/17 09:00 Room Air 12/26/17 08:27 107 140/69 12/26/17 08:25 107 140/69 12/26/17 08:18 97.9 107 20 140/69 (92) 97 97.9 12/26/17 07:57 107 Intake and Output 12/26/17 12/27/17 19:00 07:00 Intake Total 922.5 ml 637.500 ml Output Total 1000 ml 2700 ml Balance -77.5 ml -2062.500 ml Intake Oral 690 ml IV Total 232.5 ml 637.500 ml Output Urine Total 1000 ml 2700 ml # Bowel Movements 1 Laboratory Tests 12/27/17 05:15: White Blood Count 17.6H, Red Blood Count 2.87L, Hemoglobin 8.5L, Hematocrit 24.9L, Mean Corpuscular Volume 87, Mean Corpuscular Hemoglobin 29.7, Mean Corpuscular Hemoglobin Concent 34.2, Red Cell Distribution Width 11.5L, Platelet Count 284, Mean Platelet Volume 7.9, Neutrophils (%) (Auto) 75.1H, Lymphocytes (%) (Auto) 19.3L, Monocytes (%) (Auto) 3.6, Eosinophils (%) (Auto) 1.4, Basophils (%) (Auto) 0.6, Sodium Level 141, Potassium Level 3.0L, Chloride Level 104, Carbon Dioxide Level 33H, Anion Gap 4L, Blood Urea Nitrogen 6L, Creatinine 0.7, Estimat Glomerular Filtration Rate > 60, Glucose Level 178H, Calcium Level 8.0L, Phosphorus Level 3.1, Magnesium Level 1.4L, Total Bilirubin 0.3, Aspartate Amino Transf (AST/SGOT) 11L, Alanine Aminotransferase (ALT/SGPT) 14, Alkaline Phosphatase 174H, C-Reactive Protein, Quantitative 6.4H, Total Protein 5.7L, Albumin 1.5L, Globulin 4.2, Albumin/Globulin Ratio 0.4L Height (Feet): 5 Height (Inches): 5.00 Weight (Pounds): 187 General Appearance: alert EENT: normal ENT inspection Neck: supple Cardiovascular: normal rate Respiratory/Chest: decreased breath sounds Abdomen: non tender, soft Extremities: non-tender Garret Eden MD Dec 27, 2017 07:51
[2017-12-27 08:00] VITALS: BP 124/62
[2017-12-27] MEDS: Phospha 250 Neutral tab ORAL SCH ×3 (08:21→17:04)
[2017-12-27] MEDS: Fluconazole 100mg tab ORAL SCH (08:21)
[2017-12-27] MEDS: Metoprolol 25mg tab ORAL SCH ×2 (08:23→20:43)
[2017-12-27] MEDS: Artificial Tears 1.4% Op Soln BOTH EYES SCH ×3 (08:24→17:04)
[2017-12-27] MEDS: Vitamin A&D Oint 2oz Tube TOPIC SCH ×2 (08:25→20:47)
[2017-12-27] MEDS: Heparin 5000 units/ml inj SUBQ SCH ×2 (08:32→20:46)
[2017-12-27] MEDS: Vancomycin 750mg/NS 250ml 250 ML IVPB SCH (09:25)
[2017-12-27] MEDS: Levemir Flexpen SUBQ SCH ×2 (09:30→20:46)
--- NOTE | 2017-12-27 10:28 | Nephrology Progress Note ---
Assessment/Plan Problem List: (1) Renal insufficiency (2) DKA (diabetic ketoacidoses) (3) Severe sepsis Assessment: buttock abcess (4) Anemia Assessment Diabetic acidosis without coma resolved Renal failure and electrolyte imbalance mainly resolved Diabetic Nephropathy and Proteinuria and HypoAlbuminemia Severe sepsis Abscess of buttock Anemia Plan Hydrate- K and Phos supplement Mag as needed Antibiotics Monitor renal parameters correct electrolytes avoid Nephrotoxics adjust BP meds Fish OIL Lipitor Folic Acid tele Subjective ROS Limited/Unobtainable: No Constitutional: Reports: malaise, weakness Objective Objective Last 24 Hour Vital Signs Date Time Temp Pulse Resp B/P (MAP) Pulse Ox O2 Delivery O2 Flow Rate FiO2 12/27/17 09:00 Room Air 12/27/17 08:23 100 124/62 12/27/17 08:23 100 124/62 12/27/17 04:00 98.6 91 20 127/57 (80) 96 98.6 12/27/17 00:00 99.3 95 20 140/73 (95) 91 99.3 12/26/17 22:34 98.2 12/26/17 21:26 98.2 12/26/17 21:00 Room Air 12/26/17 20:51 101 117/83 12/26/17 20:00 98.2 101 18 117/83 (94) 94 98.2 12/26/17 17:40 91 134/67 12/26/17 16:14 97.9 91 20 134/67 (89) 97 97.9 12/26/17 13:51 97.9 12/26/17 12:52 97.9 12/26/17 12:43 97.9 92 20 136/69 (91) 97 97.9 12/26/17 11:56 81 12/26/17 11:30 107 140/69 Intake and Output 12/26/17 12/27/17 19:00 07:00 Intake Total 922.5 ml 637.500 ml Output Total 1000 ml 2700 ml Balance -77.5 ml -2062.500 ml Intake Oral 690 ml IV Total 232.5 ml 637.500 ml Output Urine Total 1000 ml 2700 ml # Bowel Movements 1 Laboratory Tests 12/27/17 05:15: White Blood Count 17.6H, Red Blood Count 2.87L, Hemoglobin 8.5L, Hematocrit 24.9L, Mean Corpuscular Volume 87, Mean Corpuscular Hemoglobin 29.7, Mean Corpuscular Hemoglobin Concent 34.2, Red Cell Distribution Width 11.5L, Platelet Count 284, Mean Platelet Volume 7.9, Neutrophils (%) (Auto) 75.1H, Lymphocytes (%) (Auto) 19.3L, Monocytes (%) (Auto) 3.6, Eosinophils (%) (Auto) 1.4, Basophils (%) (Auto) 0.6, Sodium Level 141, Potassium Level 3.0L, Chloride Level 104, Carbon Dioxide Level 33H, Anion Gap 4L, Blood Urea Nitrogen 6L, Creatinine 0.7, Estimat Glomerular Filtration Rate > 60, Glucose Level 178H, Calcium Level 8.0L, Phosphorus Level 3.1, Magnesium Level 1.4L, Total Bilirubin 0.3, Aspartate Amino Transf (AST/SGOT) 11L, Alanine Aminotransferase (ALT/SGPT) 14, Alkaline Phosphatase 174H, C-Reactive Protein, Quantitative 6.4H, Total Protein 5.7L, Albumin 1.5L, Globulin 4.2, Albumin/Globulin Ratio 0.4L 12/27/17 09:10: Vancomycin Level Trough [Pending] Height (Feet): 5 Height (Inches): 5.00 Weight (Pounds): 187 General Appearance: no apparent distress Cardiovascular: tachycardia Respiratory/Chest: decreased breath sounds Abdomen: soft Objective no change Joni Cleaning MD Dec 27, 2017 10:28
--- NOTE | 2017-12-27 11:30 | Infectious Diseases Prog Note ---
Assessment/Plan Assessment/Plan A; Sepsis improving R buttock abscess DKA Newly diagnosed DM Acute renal failure resolving Perianal fistula P; discontinue Vancomycin & Zosyn Add Ceftriaxone, continue Fluconazole Surgical reevaluation for fistula Subjective ROS Limited/Unobtainable: No Constitutional: Reports: no symptoms Respiratory: Reports: no symptoms Cardiovascular: Reports: no symptoms Gastrointestinal/Abdominal: Reports: no symptoms Musculoskeletal: Reports: pain, other - in surgical area Allergies: Coded Allergies: SULFA (SULFONAMIDE ANTIBIOTICS) (Verified Allergy, Unknown, 12/25/17) Objective Vital Signs Last 24 Hour Vital Signs Date Time Temp Pulse Resp B/P (MAP) Pulse Ox O2 Delivery O2 Flow Rate FiO2 12/27/17 09:00 Room Air 12/27/17 08:23 100 124/62 12/27/17 08:23 100 124/62 12/27/17 04:00 98.6 91 20 127/57 (80) 96 98.6 12/27/17 00:00 99.3 95 20 140/73 (95) 91 99.3 12/26/17 22:34 98.2 12/26/17 21:26 98.2 12/26/17 21:00 Room Air 12/26/17 20:51 101 117/83 12/26/17 20:00 98.2 101 18 117/83 (94) 94 98.2 12/26/17 17:40 91 134/67 12/26/17 16:14 97.9 91 20 134/67 (89) 97 97.9 12/26/17 13:51 97.9 12/26/17 12:52 97.9 12/26/17 12:43 97.9 92 20 136/69 (91) 97 97.9 12/26/17 11:56 81 12/26/17 11:30 107 140/69 Height (Feet): 5 Height (Inches): 5.00 Weight (Pounds): 187 General Appearance: no acute distress HEENT: mucous membranes moist Respiratory/Chest: lungs clear Cardiovascular: normal rate Abdomen: soft, non tender Extremities: no edema Skin: ulcers, other - buttock Neurologic/Psychiatric: alert, oriented x 3, responsive Laboratory Tests Test 12/27/17 05:15 12/27/17 09:10 White Blood Count 17.6 K/UL (4.8-10.8) H Red Blood Count 2.87 M/UL (4.20-5.40) L Hemoglobin 8.5 G/DL (12.0-16.0) L Hematocrit 24.9 % (37.0-47.0) L Mean Corpuscular Volume 87 FL (80-99) Mean Corpuscular Hemoglobin 29.7 PG (27.0-31.0) Mean Corpuscular Hemoglobin Concent 34.2 G/DL (32.0-36.0) Red Cell Distribution Width 11.5 % (11.6-14.8) L Platelet Count 284 K/UL (150-450) Mean Platelet Volume 7.9 FL (6.5-10.1) Neutrophils (%) (Auto) 75.1 % (45.0-75.0) H Lymphocytes (%) (Auto) 19.3 % (20.0-45.0) L Monocytes (%) (Auto) 3.6 % (1.0-10.0) Eosinophils (%) (Auto) 1.4 % (0.0-3.0) Basophils (%) (Auto) 0.6 % (0.0-2.0) Sodium Level 141 MMOL/L (136-145) Potassium Level 3.0 MMOL/L (3.5-5.1) L Chloride Level 104 MMOL/L (98-107) Carbon Dioxide Level 33 MMOL/L (21-32) H Anion Gap 4 mmol/L (5-15) L Blood Urea Nitrogen 6 mg/dL (7-18) L Creatinine 0.7 MG/DL (0.55-1.30) Estimat Glomerular Filtration Rate > 60 mL/min (>60) Glucose Level 178 MG/DL (74-106) H Calcium Level 8.0 MG/DL (8.5-10.1) L Phosphorus Level 3.1 MG/DL (2.5-4.9) Magnesium Level 1.4 MG/DL (1.8-2.4) L Total Bilirubin 0.3 MG/DL (0.2-1.0) Aspartate Amino Transf (AST/SGOT) 11 U/L (15-37) L Alanine Aminotransferase (ALT/SGPT) 14 U/L (12-78) Alkaline Phosphatase 174 U/L (46-116) H C-Reactive Protein, Quantitative 6.4 mg/dL (0.00-0.90) H Total Protein 5.7 G/DL (6.4-8.2) L Albumin 1.5 G/DL (3.4-5.0) L Globulin 4.2 g/dL Albumin/Globulin Ratio 0.4 (1.0-2.7) L Vancomycin Level Trough 10.2 ug/mL (5.0-12.0) Current Medications Medications (Trade) Dose Ordered Sig/Eyad Route PRN Reason Start Time Stop Time Status Last Admin Dose Admin Acetaminophen (Tylenol) 650 mg Q4H PRN ORAL Mild Pain/Temp > 100.5 12/26/17 17:00 01/25/18 16:59 12/26/17 21:26 Amlodipine Besylate (Norvasc) 5 mg BID ORAL 12/26/17 18:00 01/24/18 08:59 12/27/17 08:23 Artificial Tears (Akwa-Tears) 1 drop THREE TIMES A DAY BOTH EYES 12/26/17 18:00 01/22/18 12:59 12/27/17 08:24 Atorvastatin Calcium (Lipitor) 10 mg BEDTIME ORAL 12/26/17 21:00 01/23/18 20:59 12/26/17 20:51 Clonidine HCl (Catapres Tab) 0.1 mg Q6H PRN ORAL [id number] and above 12/26/17 17:00 01/23/18 16:59 Dextrose (Dextrose 50%) 25 ml STAT PRN IV Hypoglycemia 12/26/17 17:00 01/22/18 16:59 Dextrose (Dextrose 50%) 50 ml STAT PRN IV Hypoglycemia 12/26/17 17:00 01/22/18 16:59 Dextrose/ Electrolytes 1,000 ml @ 50 mls/hr Q20H IV 12/26/17 18:00 01/22/18 17:59 12/26/17 17:35 Famotidine (Pepcid) 20 mg BID ORAL 12/26/17 18:00 01/23/18 17:59 12/27/17 08:23 Fish Oil (Fish Oil) 1,000 mg BID ORAL 12/26/17 18:00 01/23/18 11:59 12/27/17 08:23 Fluconazole (Diflucan) 200 mg DAILY ORAL 12/27/17 09:00 01/02/18 08:59 12/27/17 08:21 Folic Acid (Folate) 5 mg DAILY ORAL 12/27/17 09:00 01/23/18 11:59 12/27/17 08:22 Heparin Sodium (Porcine) (Heparin 5000 units/ml) 5,000 units Q12HR SUBQ 12/26/17 21:00 01/23/18 20:59 12/27/17 08:32 Hydromorphone HCl (Dilaudid) 0.5 mg Q3H PRN IVP For mild pain 12/26/17 17:00 12/29/17 16:59 Hydromorphone HCl (Dilaudid) 1 mg Q3H PRN IVP Moderate Pain (Pain Scale 4-6) 12/26/17 17:00 12/31/17 16:59 Insulin Aspart (NovoLOG) BEFORE MEALS AND HS SUBQ 12/26/17 21:00 01/23/18 06:29 12/27/17 05:52 Insulin Aspart (NovoLOG) 10 units TIAC SUBQ 12/27/17 06:30 01/23/18 16:29 12/27/17 05:52 Insulin Detemir (Levemir) 25 units 0900,2100 SUBQ 12/26/17 21:00 01/22/18 22:59 12/27/17 09:30 Magnesium Sulfate 100 ml @ 100 mls/hr Q1H IVPB 12/27/17 10:00 12/27/17 13:59 12/27/17 10:27 Metoprolol Tartrate (Lopressor) 25 mg Q12HR ORAL 12/26/17 21:00 01/23/18 20:59 12/27/17 08:23 Nitroglycerin (Ntg) 0.4 mg Q5M PRN SL Prn Chest Pain 12/26/17 17:00 01/21/18 17:59 Ondansetron HCl (Zofran) 4 mg Q6H PRN IVP Nausea & Vomiting 12/26/17 17:00 01/21/18 16:59 Phosphorus (Phospha 250 Neutral) 250 mg THREE TIMES A DAY ORAL 12/26/17 18:00 01/25/18 08:59 12/27/17 08:21 Piperacillin Sod/ Tazobactam Sod 3.375 gm/Sodium Chloride 110 ml @ 27.5 mls/hr EVERY 8 HOURS IVPB 12/26/17 22:00 12/31/17 21:59 12/27/17 05:32 Polyethylene Glycol/ Electrolytes (Nulytely) 4,000 ml ONCE ONCE ORAL 12/27/17 14:00 12/27/17 14:01 Potassium Chloride (K-Dur) 40 meq BID ORAL 12/27/17 18:00 01/25/18 08:59 Vancomycin HCl (Vanco rx to dose) 1 ea DAILY PRN MISC Per rx protocol 12/27/17 09:00 01/22/18 09:14 Vancomycin/Sodium Chloride 250 ml @ 166.667 mls/hr Q12H IVPB 12/26/17 22:00 12/30/17 21:59 12/27/17 09:25 Vitamin A/Vitamin D (A & D Oint) 1 applic EVERY 12 HOURS TOPIC 12/26/17 21:00 01/22/18 20:59 12/27/17 08:25 Wade Peña MD Dec 27, 2017 11:30
[2017-12-27 12:00] VITALS: BP 132/65
--- NOTE | 2017-12-27 13:15 | General Surgery Progress Note ---
General Surgery-Progress Note Subjective Procedure Performed incision and drainage of right perirectal abscess Additional Comments cognitively improved. worsening leukocytosis. MRI results noted and discussed with patient Objective Last 24 Hour Vital Signs Date Time Temp Pulse Resp B/P (MAP) Pulse Ox O2 Delivery O2 Flow Rate FiO2 12/27/17 09:00 Room Air 12/27/17 08:23 100 124/62 12/27/17 08:23 100 124/62 12/27/17 04:00 98.6 91 20 127/57 (80) 96 98.6 12/27/17 00:00 99.3 95 20 140/73 (95) 91 99.3 12/26/17 22:34 98.2 12/26/17 21:26 98.2 12/26/17 21:00 Room Air 12/26/17 20:51 101 117/83 12/26/17 20:00 98.2 101 18 117/83 (94) 94 98.2 12/26/17 17:40 91 134/67 12/26/17 16:14 97.9 91 20 134/67 (89) 97 97.9 12/26/17 13:51 97.9 I&O Intake and Output 12/26/17 12/27/17 19:00 07:00 Intake Total 922.5 ml 637.500 ml Output Total 1000 ml 2700 ml Balance -77.5 ml -2062.500 ml Intake Oral 690 ml IV Total 232.5 ml 637.500 ml Output Urine Total 1000 ml 2700 ml # Bowel Movements 1 Dressing: saturated Wound: other Drains: none Cardiovascular: RSR Respiratory: clear Abdomen: soft, flat, non-tender, present bowel sounds Extremities: no cyanosis Laboratory Tests Test 12/27/17 05:15 12/27/17 09:10 White Blood Count 17.6 K/UL (4.8-10.8) H Red Blood Count 2.87 M/UL (4.20-5.40) L Hemoglobin 8.5 G/DL (12.0-16.0) L Hematocrit 24.9 % (37.0-47.0) L Mean Corpuscular Volume 87 FL (80-99) Mean Corpuscular Hemoglobin 29.7 PG (27.0-31.0) Mean Corpuscular Hemoglobin Concent 34.2 G/DL (32.0-36.0) Red Cell Distribution Width 11.5 % (11.6-14.8) L Platelet Count 284 K/UL (150-450) Mean Platelet Volume 7.9 FL (6.5-10.1) Neutrophils (%) (Auto) 75.1 % (45.0-75.0) H Lymphocytes (%) (Auto) 19.3 % (20.0-45.0) L Monocytes (%) (Auto) 3.6 % (1.0-10.0) Eosinophils (%) (Auto) 1.4 % (0.0-3.0) Basophils (%) (Auto) 0.6 % (0.0-2.0) Sodium Level 141 MMOL/L (136-145) Potassium Level 3.0 MMOL/L (3.5-5.1) L Chloride Level 104 MMOL/L (98-107) Carbon Dioxide Level 33 MMOL/L (21-32) H Anion Gap 4 mmol/L (5-15) L Blood Urea Nitrogen 6 mg/dL (7-18) L Creatinine 0.7 MG/DL (0.55-1.30) Estimat Glomerular Filtration Rate > 60 mL/min (>60) Glucose Level 178 MG/DL (74-106) H Calcium Level 8.0 MG/DL (8.5-10.1) L Phosphorus Level 3.1 MG/DL (2.5-4.9) Magnesium Level 1.4 MG/DL (1.8-2.4) L Total Bilirubin 0.3 MG/DL (0.2-1.0) Aspartate Amino Transf (AST/SGOT) 11 U/L (15-37) L Alanine Aminotransferase (ALT/SGPT) 14 U/L (12-78) Alkaline Phosphatase 174 U/L (46-116) H C-Reactive Protein, Quantitative 6.4 mg/dL (0.00-0.90) H Total Protein 5.7 G/DL (6.4-8.2) L Albumin 1.5 G/DL (3.4-5.0) L Globulin 4.2 g/dL Albumin/Globulin Ratio 0.4 (1.0-2.7) L Vancomycin Level Trough 10.2 ug/mL (5.0-12.0) Plan Problems: (1) Diabetic acidosis without coma (2) Hyperglycemia (3) Severe sepsis (4) Abscess of buttock Assessment & Plan: large right buttock abscess with gangrene at skin level. given condition urgent I&D warranted as possible etiology of sepsis. see procedure report. improving. leukocytosis improving. more alert and responsive. drainage still looks almost as if stool. cultures poly organism : WOUND CULTURE Preliminary Organism 1 GRAM NEGATIVE BACILLUS 1 GROWTH: 3+ Organism 2 KLEBSIELLA OXYTOCA GROWTH: 3+ Organism 3 GRAM NEGATIVE BACILLUS 3 GROWTH: 1+ Organism 4 SHAE ALBICANS GROWTH: 4+ WOUND CULTURE Final Organism 1 KLEBSIELLA PNEUMONIAE GROWTH: 4+ Organism 2 PROTEUS MIRABILIS GROWTH: 4+ Organism 3 STREP AGALACTIAE GROUP B GROWTH: 4+ Organism 4 SHAE ALBICANS GROWTH: 4+ -okay for diet -packing and dressings to buttock TID -appreciate GI input. - plans for scope tomorrow -given worsening leukocytosis and extent of wound noted on MRI will need more formal I&D with washout. will schedule for Thursday or Thursday thank you will follow with recommendations (5) DKA (diabetic ketoacidoses) Baljeet Osorio Dec 27, 2017 13:15
[2017-12-27] MEDS ORDERED: Nulytely 4L ORAL ONE (14:00)
[2017-12-27] MEDS: cefTRIAXone 2 GM in D5W 55 ML IVPB SCH (14:08)
--- NOTE | 2017-12-27 14:57 | General Progress Note ---
Assessment/Plan Problem List: (1) Diabetes ICD Codes: E11.9 - Type 2 diabetes mellitus without complications SNOMED: 65114125 (2) Hyperglycemia ICD Codes: R73.9 - Hyperglycemia, unspecified SNOMED: 99338099 (3) Sepsis ICD Codes: A41.9 - Sepsis, unspecified organism SNOMED: 60760590 (4) Abscess of buttock ICD Codes: L02.31 - Cutaneous abscess of buttock SNOMED: 40690092 (5) DKA (diabetic ketoacidoses) ICD Codes: E13.10 - Other specified diabetes mellitus with ketoacidosis without coma SNOMED: 38382237, 999693291 Qualifiers: Qualified Codes: E13.11 - Other specified diabetes mellitus with ketoacidosis with coma (6) Renal insufficiency ICD Codes: N28.9 - Disorder of kidney and ureter, unspecified SNOMED: 887193447, 401048091 (7) Vagina bleeding ICD Codes: N93.9 - Abnormal uterine and vaginal bleeding, unspecified SNOMED: 645933686, 841685263 (8) Anemia ICD Codes: D64.9 - Anemia, unspecified SNOMED: 013815745 Status: progressing Assessment/Plan s/p dka s/p i&d of rectal abscess sugar is improving sepsis MORE ALERT SUGAR IMPROVED Subjective ROS Limited/Unobtainable: Yes Allergies: Coded Allergies: SULFA (SULFONAMIDE ANTIBIOTICS) (Verified Allergy, Unknown, 12/25/17) Objective Last 24 Hour Vital Signs Date Time Temp Pulse Resp B/P (MAP) Pulse Ox O2 Delivery O2 Flow Rate FiO2 12/27/17 12:00 98.6 89 19 132/65 (87) 96 98.6 12/27/17 09:00 Room Air 12/27/17 08:23 100 124/62 12/27/17 08:23 100 124/62 12/27/17 08:00 98.9 104 18 124/62 (82) 94 98.9 12/27/17 04:00 98.6 91 20 127/57 (80) 96 98.6 12/27/17 00:00 99.3 95 20 140/73 (95) 91 99.3 12/26/17 22:34 98.2 12/26/17 21:26 98.2 12/26/17 21:00 Room Air 12/26/17 20:51 101 117/83 8/18/18 20:00 98.2 101 18 117/83 (94) 94 98.2 12/26/17 17:40 91 134/67 12/26/17 16:14 97.9 91 20 134/67 (89) 97 97.9 Intake and Output 12/26/17 12/27/17 19:00 07:00 Intake Total 922.5 ml 637.500 ml Output Total 1000 ml 2700 ml Balance -77.5 ml -2062.500 ml Intake Oral 690 ml IV Total 232.5 ml 637.500 ml Output Urine Total 1000 ml 2700 ml # Bowel Movements 1 Laboratory Tests 12/27/17 05:15: White Blood Count 17.6H, Red Blood Count 2.87L, Hemoglobin 8.5L, Hematocrit 24.9L, Mean Corpuscular Volume 87, Mean Corpuscular Hemoglobin 29.7, Mean Corpuscular Hemoglobin Concent 34.2, Red Cell Distribution Width 11.5L, Platelet Count 284, Mean Platelet Volume 7.9, Neutrophils (%) (Auto) 75.1H, Lymphocytes (%) (Auto) 19.3L, Monocytes (%) (Auto) 3.6, Eosinophils (%) (Auto) 1.4, Basophils (%) (Auto) 0.6, Sodium Level 141, Potassium Level 3.0L, Chloride Level 104, Carbon Dioxide Level 33H, Anion Gap 4L, Blood Urea Nitrogen 6L, Creatinine 0.7, Estimat Glomerular Filtration Rate > 60, Glucose Level 178H, Calcium Level 8.0L, Phosphorus Level 3.1, Magnesium Level 1.4L, Total Bilirubin 0.3, Aspartate Amino Transf (AST/SGOT) 11L, Alanine Aminotransferase (ALT/SGPT) 14, Alkaline Phosphatase 174H, C-Reactive Protein, Quantitative 6.4H, Total Protein 5.7L, Albumin 1.5L, Globulin 4.2, Albumin/Globulin Ratio 0.4L 12/27/17 09:10: Vancomycin Level Trough 10.2 Height (Feet): 5 Height (Inches): 5.00 Weight (Pounds): 187 Neck: supple Cardiovascular: normal rate Respiratory/Chest: lungs clear Abdomen: soft Nissa Mckay MD Dec 27, 2017 14:57
[2017-12-27 16:00] VITALS: BP 133/67
[2017-12-27] MEDS: D5 1/2NS w/KCl 20mEq 1,000 ML IV SCH (17:04)
[2017-12-27 20:00] VITALS: BP 165/90
--- NOTE | 2017-12-27 23:48 | Cardiology Progress Note ---
Assessment/Plan Assessment/Plan 1. Sinus tachycardia, continue metoprolol, keep hydrated. 2D echo reveals normal LV systolic function. 2. Diabetes mellitus, uncontrolled, noncompliant, continue statins, consider baby ASA daily. Subjective Subjective Not on the telemetry unit. No cardiac events. Objective Last 24 Hour Vital Signs Date Time Temp Pulse Resp B/P (MAP) Pulse Ox O2 Delivery O2 Flow Rate FiO2 12/27/17 21:39 160/90 12/27/17 21:17 Room Air 12/27/17 20:43 89 132/65 12/27/17 20:00 98.6 107 19 165/90 (115) 93 98.6 12/27/17 17:04 89 132/65 12/27/17 16:00 98.4 97 20 133/67 (89) 96 98.4 12/27/17 12:00 98.6 89 19 132/65 (87) 96 98.6 12/27/17 09:00 Room Air 12/27/17 08:23 100 124/62 12/27/17 08:23 100 124/62 12/27/17 08:00 98.9 104 18 124/62 (82) 94 98.9 12/27/17 04:00 98.6 91 20 127/57 (80) 96 98.6 12/27/17 00:00 99.3 95 20 140/73 (95) 91 99.3 Intake and Output 12/26/17 12/27/17 19:00 07:00 Intake Total 922.5 ml 637.500 ml Output Total 1000 ml 2700 ml Balance -77.5 ml -2062.500 ml Intake Oral 690 ml IV Total 232.5 ml 637.500 ml Output Urine Total 1000 ml 2700 ml # Bowel Movements 1 2D Echo: LVEF 60%, Mild LVH, RVSP 12 mmHg Laboratory Tests Test 12/27/17 05:15 12/27/17 09:10 White Blood Count 17.6 K/UL (4.8-10.8) H Red Blood Count 2.87 M/UL (4.20-5.40) L Hemoglobin 8.5 G/DL (12.0-16.0) L Hematocrit 24.9 % (37.0-47.0) L Mean Corpuscular Volume 87 FL (80-99) Mean Corpuscular Hemoglobin 29.7 PG (27.0-31.0) Mean Corpuscular Hemoglobin Concent 34.2 G/DL (32.0-36.0) Red Cell Distribution Width 11.5 % (11.6-14.8) L Platelet Count 284 K/UL (150-450) Mean Platelet Volume 7.9 FL (6.5-10.1) Neutrophils (%) (Auto) 75.1 % (45.0-75.0) H Lymphocytes (%) (Auto) 19.3 % (20.0-45.0) L Monocytes (%) (Auto) 3.6 % (1.0-10.0) Eosinophils (%) (Auto) 1.4 % (0.0-3.0) Basophils (%) (Auto) 0.6 % (0.0-2.0) Sodium Level 141 MMOL/L (136-145) Potassium Level 3.0 MMOL/L (3.5-5.1) L Chloride Level 104 MMOL/L (98-107) Carbon Dioxide Level 33 MMOL/L (21-32) H Anion Gap 4 mmol/L (5-15) L Blood Urea Nitrogen 6 mg/dL (7-18) L Creatinine 0.7 MG/DL (0.55-1.30) Estimat Glomerular Filtration Rate > 60 mL/min (>60) Glucose Level 178 MG/DL (74-106) H Calcium Level 8.0 MG/DL (8.5-10.1) L Phosphorus Level 3.1 MG/DL (2.5-4.9) Magnesium Level 1.4 MG/DL (1.8-2.4) L Total Bilirubin 0.3 MG/DL (0.2-1.0) Aspartate Amino Transf (AST/SGOT) 11 U/L (15-37) L Alanine Aminotransferase (ALT/SGPT) 14 U/L (12-78) Alkaline Phosphatase 174 U/L (46-116) H C-Reactive Protein, Quantitative 6.4 mg/dL (0.00-0.90) H Total Protein 5.7 G/DL (6.4-8.2) L Albumin 1.5 G/DL (3.4-5.0) L Globulin 4.2 g/dL Albumin/Globulin Ratio 0.4 (1.0-2.7) L Vancomycin Level Trough 10.2 ug/mL (5.0-12.0) Objective HEENT: Atraumatic and normocephalic. ENT, pupils are equal, round, and reactive to light and accommodation. Extraocular muscles intact. Dry mucosal membranes. NECK: JVP less than 5 cm. No carotid bruit. Carotid upstrokes 2+ bilaterally. CARDIOVASCULAR: Normal S1 and S2. Regular rhythm. No murmurs, gallops, or rubs. PMI is at fourth intercostal space at the midclavicular line. LUNGS: Clear to auscultation bilaterally. ABDOMEN: Soft, nontender, and nondistended. No hepatosplenomegaly. Positive bowel sounds. EXTREMITIES: No evidence of edema, clubbing, or cyanosis. Javi Anthony MD Dec 27, 2017 23:48
[2017-12-28] VITALS (11 sets, daily range): BP systolic 102–149; BP diastolic 49–86
[2017-12-28] MEDS: NovoLOG Insulin Flexpen SUBQ SCH ×7 (06:07→20:28)
[2017-12-28 07:39] LABS: BASOPHILS % (AUTO) 0.6 % (0.0-2.0); EOSINOPHILS % (AUTO) 2.3 % (0.0-3.0); HEMATOCRIT 26.6 % (37.0-47.0); HEMOGLOBIN 8.9 G/DL (12.0-16.0); LYMPHOCYTES % (AUTO) 20.6 % (20.0-45.0); MEAN CORPUSCULAR VOLUME 87 FL (80-99); MONOCYTES % (AUTO) 5.2 % (1.0-10.0); NEUTROPHILS % (AUTO) 71.3 % (45.0-75.0); PLATELET COUNT 331 K/UL (150-450); RED BLOOD COUNT 3.04 M/UL (4.20-5.40); RED CELL DISTRIBUTION WIDTH 11.8 % (11.6-14.8); WHITE BLOOD COUNT 11.2 K/UL (4.8-10.8)
--- NOTE | 2017-12-28 07:57 | Anethesia Preoperative Eval ---
Anesthesia Pre-op PMH/ROS General Date of Evaluation: Dec 28, 2017 Time of Evaluation: 07:56 Anesthesiologist: carlos a ASA Score: ASA 3 Mallampati Score Class I : Soft palate, uvula, fauces, pillars visible Class II: Soft palate, uvula, fauces visible Class III: Soft palate, base of uvula visible Class IV: Only hard plate visible Mallampati Classification: Class II Surgeon: bindu Diagnosis: anemia Surgical Procedure: colonoscopy Anesthesia History: none Social History: smoking Family History: no anesthesia problems Allergies: Coded Allergies: SULFA (SULFONAMIDE ANTIBIOTICS) (Verified Allergy, Unknown, 12/25/17) Medications: see eMAR - nonsmoker Past Medical History Cardiovascular: Reports: HTN 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 Exam Physician Exam Last Vital Signs Date Time Temp Pulse Resp B/P (MAP) Pulse Ox O2 Delivery O2 Flow Rate FiO2 12/28/17 04:00 98.6 91 19 112/74 (87) 92 98.6 12/27/17 21:17 Room Air Constitutional: NAD Neurologic: CN 2-12 intact Cardiovascular: RRR Gastrointestinal: S/NT/ND Airway Exam Mallampati Score: Class II MO: limited Neck: flexible TMD: 2fb ROM: limited Teeth: missing Anesthesia Pre-op A/P Labs Hematology Test 12/28/17 07:15 White Blood Count 11.2 K/UL (4.8-10.8) H Red Blood Count 3.04 M/UL (4.20-5.40) L Hemoglobin 8.9 G/DL (12.0-16.0) L Hematocrit 26.6 % (37.0-47.0) L Mean Corpuscular Volume 87 FL (80-99) Mean Corpuscular Hemoglobin 29.3 PG (27.0-31.0) Mean Corpuscular Hemoglobin Concent 33.6 G/DL (32.0-36.0) Red Cell Distribution Width 11.8 % (11.6-14.8) Platelet Count 331 K/UL (150-450) Mean Platelet Volume 7.7 FL (6.5-10.1) Neutrophils (%) (Auto) 71.3 % (45.0-75.0) Lymphocytes (%) (Auto) 20.6 % (20.0-45.0) Monocytes (%) (Auto) 5.2 % (1.0-10.0) Eosinophils (%) (Auto) 2.3 % (0.0-3.0) Basophils (%) (Auto) 0.6 % (0.0-2.0) Chemistry Test 12/28/17 07:15 Sodium Level Pending Potassium Level Pending Chloride Level Pending Carbon Dioxide Level Pending Blood Urea Nitrogen Pending Creatinine Pending Estimat Glomerular Filtration Rate Pending Glucose Level Pending Calcium Level Pending Risk Assessment & Plan Assessment: asa3 Plan: mac Status Change Before Surgery: No Pre-Antibiotics Drug: Natasha Su MD Dec 28, 2017 07:57
[2017-12-28 08:00] LABS: ANION GAP 8 mmol/L (5-15); BLOOD UREA NITROGEN 4 mg/dL (7-18); CALCIUM 8.5 MG/DL (8.5-10.1); CARBON DIOXIDE 31 MMOL/L (21-32); CHLORIDE 107 MMOL/L (98-107); CREATININE 0.7 MG/DL (0.55-1.30); POTASSIUM 3.6 MMOL/L (3.5-5.1); SODIUM 146 MMOL/L (136-145)
[2017-12-28] MEDS ORDERED: DiphenhydrAMINE 50mg/ml Inj IVP PRN (08:00)
[2017-12-28] MEDS ORDERED: Atropine Inj 1mg/10ml Syr IV PRN (08:00)
[2017-12-28] MEDS ORDERED: Midazolam 2mg/2ml Inj IVP PRN (08:00)
[2017-12-28] MEDS: Artificial Tears 1.4% Op Soln BOTH EYES SCH ×3 (09:00→17:52)
[2017-12-28] MEDS ORDERED: Propofol 200mg/20ml IV ONE (09:00)
[2017-12-28] MEDS: Heparin 5000 units/ml inj SUBQ SCH ×2 (09:00→20:25)
[2017-12-28] MEDS: Phospha 250 Neutral tab ORAL SCH ×3 (09:00→17:51)
[2017-12-28] MEDS: Levemir Flexpen SUBQ SCH ×2 (09:00→20:26)
[2017-12-28] MEDS: Vitamin A&D Oint 2oz Tube TOPIC SCH ×2 (09:00→20:24)
[2017-12-28] MEDS ORDERED: Lidocaine 1% MPF 10mg/ml 5ml ONE (09:00)
[2017-12-28] MEDS: Fluconazole 100mg tab ORAL SCH (09:00)
[2017-12-28] MEDS: Metoprolol 25mg tab ORAL SCH ×2 (09:01→20:23)
--- NOTE | 2017-12-28 09:11 | Pre-Procedure Note/Attestation ---
Pre-Procedure Note/Attestation Complete Prior to Procedure Planned Procedure: not applicable Procedure Narrative: colonoscopy Indications for Procedure Pre-Operative Diagnosis: anemia Attestation I attest that I discussed the nature of the procedure; its benefits; risks and complications; and alternatives (and the risks and benefits of such alternatives ), prior to the procedure, with the patient (or the patient's legal welding equipment sales representative). I attest that, if there was a reasonable possibility of needing a blood transfusion, the patient (or the patient's legal welding equipment sales representative) was given the [facility] standardized written summary, pursuant to the Jay Benjamin Blood Safety Act ([place] Health and Safety Code # 1645, as amended). I attest that I re-evaluated the patient just prior to the surgery and that there has been no change in the patient's H&P, except as documented below: Garret Eden MD Dec 28, 2017 09:11
[2017-12-28] MEDS ORDERED: NS 500ML IVPB ONE (09:20)
--- NOTE | 2017-12-28 09:47 | Endoscopy Procedure Note ---
Endoscopy Procedure Note General Indication for Procedure: anemia Procedures Performed: colonoscopy Operative Findings/Diagnosis: 2 colon polyps Specimen: yes Pt Tolerated Procedure Well: Yes Estimated Blood Loss: none Anesthesia Anesthesiologist: sondra Anesthesia: MAC Inserted Devices Implant(s) used?: No Quality Quality of Bowel Preparation: Fair Did scope reach the cecum?: Yes Was there any complications?: No GI Core Measures 50 yrs or older w/o bx or poly: Not Applicable 10yrs. F/U not recommended: Not Applicable Garret Eden MD Dec 28, 2017 09:47
--- NOTE | 2017-12-28 10:00 | Geriatric Medicine Prog Note ---
DATE: 12/28/2017 NOTE: POOR AUDIO. SUBJECTIVE: The patient OBJECTIVE: VITAL SIGNS: BP 160/90, pulse 102, respirations 18, temperature 98.6 degrees. LABORATORY DATA: Glucose 130 . Rex Michael M.D. DR: DARLIN JOB#: [id number] CC:
--- NOTE | 2017-12-28 10:22 | General Surgery Progress Note ---
General Surgery-Progress Note Subjective Procedure Performed incision and drainage of right perirectal abscess Additional Comments leukocytosis improving Objective Last 24 Hour Vital Signs Date Time Temp Pulse Resp B/P (MAP) Pulse Ox O2 Delivery O2 Flow Rate FiO2 12/28/17 09:50 98 89 18 102/57 98 Room Air 98.0 12/28/17 09:01 101 148/86 12/28/17 09:01 101 148/86 12/28/17 08:00 97.2 101 19 148/86 (106) 95 97.2 12/28/17 04:00 98.6 91 19 112/74 (87) 92 98.6 12/28/17 00:00 98.6 90 18 143/81 (101) 93 98.6 12/27/17 21:39 160/90 12/27/17 21:17 Room Air 12/27/17 20:43 89 132/65 12/27/17 20:00 98.6 107 19 165/90 (115) 93 98.6 12/27/17 17:04 89 132/65 12/27/17 16:00 98.4 97 20 133/67 (89) 96 98.4 12/27/17 12:00 98.6 89 19 132/65 (87) 96 98.6 I&O Intake and Output 12/27/17 12/28/17 19:00 07:00 Intake Total 1837.500 ml 600 ml Output Total 4000 ml 1450 ml Balance -2162.500 ml -850 ml Intake Oral 1000 ml IV Total 837.500 ml 600 ml Output Urine Total 4000 ml 1450 ml Dressing: saturated Wound: other Drains: none Cardiovascular: RSR Respiratory: clear Abdomen: soft, flat, non-tender, present bowel sounds Extremities: no cyanosis Laboratory Tests Test 12/28/17 07:15 White Blood Count 11.2 K/UL (4.8-10.8) H Red Blood Count 3.04 M/UL (4.20-5.40) L Hemoglobin 8.9 G/DL (12.0-16.0) L Hematocrit 26.6 % (37.0-47.0) L Mean Corpuscular Volume 87 FL (80-99) Mean Corpuscular Hemoglobin 29.3 PG (27.0-31.0) Mean Corpuscular Hemoglobin Concent 33.6 G/DL (32.0-36.0) Red Cell Distribution Width 11.8 % (11.6-14.8) Platelet Count 331 K/UL (150-450) Mean Platelet Volume 7.7 FL (6.5-10.1) Neutrophils (%) (Auto) 71.3 % (45.0-75.0) Lymphocytes (%) (Auto) 20.6 % (20.0-45.0) Monocytes (%) (Auto) 5.2 % (1.0-10.0) Eosinophils (%) (Auto) 2.3 % (0.0-3.0) Basophils (%) (Auto) 0.6 % (0.0-2.0) Sodium Level 146 MMOL/L (136-145) H Potassium Level 3.6 MMOL/L (3.5-5.1) Chloride Level 107 MMOL/L (98-107) Carbon Dioxide Level 31 MMOL/L (21-32) Anion Gap 8 mmol/L (5-15) Blood Urea Nitrogen 4 mg/dL (7-18) L Creatinine 0.7 MG/DL (0.55-1.30) Estimat Glomerular Filtration Rate > 60 mL/min (>60) Glucose Level 113 MG/DL (74-106) H Calcium Level 8.5 MG/DL (8.5-10.1) Plan Problems: (1) Diabetic acidosis without coma (2) Hyperglycemia (3) Severe sepsis (4) Abscess of buttock Assessment & Plan: large right buttock abscess with gangrene at skin level. given condition urgent I&D warranted as possible etiology of sepsis. see procedure report. improving. leukocytosis improving. more alert and responsive. drainage still looks almost as if stool. cultures poly organism : WOUND CULTURE Preliminary Organism 1 GRAM NEGATIVE BACILLUS 1 GROWTH: 3+ Organism 2 KLEBSIELLA OXYTOCA GROWTH: 3+ Organism 3 GRAM NEGATIVE BACILLUS 3 GROWTH: 1+ Organism 4 SHAE ALBICANS GROWTH: 4+ WOUND CULTURE Final Organism 1 KLEBSIELLA PNEUMONIAE GROWTH: 4+ Organism 2 PROTEUS MIRABILIS GROWTH: 4+ Organism 3 STREP AGALACTIAE GROUP B GROWTH: 4+ Organism 4 SHAE ALBICANS GROWTH: 4+ -okay for diet -packing and dressings to buttock TID -appreciate GI input. - plans for scope tomorrow -given worsening leukocytosis and extent of wound noted on MRI will need more formal I&D with washout. will schedule for Thursday or Thursday thank you will follow with recommendations (5) DKA (diabetic ketoacidoses) Baljeet Osorio Dec 28, 2017 10:22
--- NOTE | 2017-12-28 10:45 | Infectious Diseases Prog Note ---
Assessment/Plan Assessment/Plan A; Sepsis improving R buttock abscess DKA Newly diagnosed DM Acute renal failure resolving Perianal fistula P; continue Fluconazole & Ceftriaxone, Subjective ROS Limited/Unobtainable: No Respiratory: Reports: no symptoms Cardiovascular: Reports: no symptoms Gastrointestinal/Abdominal: Reports: no symptoms Genitourinary: Reports: no symptoms Allergies: Coded Allergies: SULFA (SULFONAMIDE ANTIBIOTICS) (Verified Allergy, Unknown, 12/25/17) Objective Vital Signs Last 24 Hour Vital Signs Date Time Temp Pulse Resp B/P (MAP) Pulse Ox O2 Delivery O2 Flow Rate FiO2 12/28/17 09:50 98 89 18 102/57 98 Room Air 98.0 12/28/17 09:01 101 148/86 12/28/17 09:01 101 148/86 12/28/17 08:00 97.2 101 19 148/86 (106) 95 97.2 12/28/17 04:00 98.6 91 19 112/74 (87) 92 98.6 12/28/17 00:00 98.6 90 18 143/81 (101) 93 98.6 12/27/17 21:39 160/90 12/27/17 21:17 Room Air 12/27/17 20:43 89 132/65 12/27/17 20:00 98.6 107 19 165/90 (115) 93 98.6 12/27/17 17:04 89 132/65 12/27/17 16:00 98.4 97 20 133/67 (89) 96 98.4 12/27/17 12:00 98.6 89 19 132/65 (87) 96 98.6 Height (Feet): 5 Height (Inches): 5.00 Weight (Pounds): 189 General Appearance: no acute distress HEENT: mucous membranes moist Respiratory/Chest: lungs clear Cardiovascular: normal rate Abdomen: soft, non tender Extremities: no edema Neurologic/Psychiatric: alert, oriented x 3, responsive Laboratory Tests Test 12/28/17 07:15 White Blood Count 11.2 K/UL (4.8-10.8) H Red Blood Count 3.04 M/UL (4.20-5.40) L Hemoglobin 8.9 G/DL (12.0-16.0) L Hematocrit 26.6 % (37.0-47.0) L Mean Corpuscular Volume 87 FL (80-99) Mean Corpuscular Hemoglobin 29.3 PG (27.0-31.0) Mean Corpuscular Hemoglobin Concent 33.6 G/DL (32.0-36.0) Red Cell Distribution Width 11.8 % (11.6-14.8) Platelet Count 331 K/UL (150-450) Mean Platelet Volume 7.7 FL (6.5-10.1) Neutrophils (%) (Auto) 71.3 % (45.0-75.0) Lymphocytes (%) (Auto) 20.6 % (20.0-45.0) Monocytes (%) (Auto) 5.2 % (1.0-10.0) Eosinophils (%) (Auto) 2.3 % (0.0-3.0) Basophils (%) (Auto) 0.6 % (0.0-2.0) Sodium Level 146 MMOL/L (136-145) H Potassium Level 3.6 MMOL/L (3.5-5.1) Chloride Level 107 MMOL/L (98-107) Carbon Dioxide Level 31 MMOL/L (21-32) Anion Gap 8 mmol/L (5-15) Blood Urea Nitrogen 4 mg/dL (7-18) L Creatinine 0.7 MG/DL (0.55-1.30) Estimat Glomerular Filtration Rate > 60 mL/min (>60) Glucose Level 113 MG/DL (74-106) H Calcium Level 8.5 MG/DL (8.5-10.1) Current Medications Medications (Trade) Dose Ordered Sig/Eyad Route PRN Reason Start Time Stop Time Status Last Admin Dose Admin Acetaminophen (Tylenol) 650 mg Q4H PRN ORAL Mild Pain/Temp > 100.5 12/26/17 17:00 01/25/18 16:59 12/26/17 21:26 Amlodipine Besylate (Norvasc) 5 mg BID ORAL 12/26/17 18:00 01/24/18 08:59 12/28/17 09:01 Artificial Tears (Akwa-Tears) 1 drop THREE TIMES A DAY BOTH EYES 12/26/17 18:00 01/22/18 12:59 12/27/17 17:04 Atorvastatin Calcium (Lipitor) 10 mg BEDTIME ORAL 12/26/17 21:00 01/23/18 20:59 12/27/17 20:43 Atropine Sulfate (Atropine) 0.5 mg Q5M PRN IV HR less than 45 BPM 12/28/17 08:00 12/28/17 16:00 Ceftriaxone Sodium 2 gm/ Dextrose 55 ml @ 110 mls/hr Q24H IVPB 12/27/17 14:00 01/03/18 13:59 12/27/17 14:08 Clonidine HCl (Catapres Tab) 0.1 mg Q6H PRN ORAL [id number] and above 12/26/17 17:00 01/23/18 16:59 12/27/17 21:39 Dextrose (Dextrose 50%) 25 ml STAT PRN IV Hypoglycemia 12/26/17 17:00 01/22/18 16:59 Dextrose (Dextrose 50%) 50 ml STAT PRN IV Hypoglycemia 12/26/17 17:00 01/22/18 16:59 Dextrose/ Electrolytes 1,000 ml @ 50 mls/hr Q20H IV 12/26/17 18:00 01/22/18 17:59 12/27/17 17:04 Diphenhydramine HCl (Benadryl) 25 mg Q15M PRN IVP Itching 12/28/17 08:00 12/28/17 16:00 Famotidine (Pepcid) 20 mg BID ORAL 12/26/17 18:00 01/23/18 17:59 12/27/17 17:04 Fish Oil (Fish Oil) 1,000 mg BID ORAL 12/26/17 18:00 01/23/18 11:59 12/27/17 17:04 Fluconazole (Diflucan) 200 mg DAILY ORAL 12/27/17 09:00 01/02/18 08:59 12/27/17 08:21 Folic Acid (Folate) 5 mg DAILY ORAL 12/27/17 09:00 01/23/18 11:59 12/27/17 08:22 Heparin Sodium (Porcine) (Heparin 5000 units/ml) 5,000 units Q12HR SUBQ 12/26/17 21:00 01/23/18 20:59 12/27/17 08:32 Hydromorphone HCl (Dilaudid) 0.5 mg Q3H PRN IVP For mild pain 12/26/17 17:00 12/29/17 16:59 Hydromorphone HCl (Dilaudid) 1 mg Q3H PRN IVP Moderate Pain (Pain Scale 4-6) 12/26/17 17:00 12/31/17 16:59 Insulin Aspart (NovoLOG) BEFORE MEALS AND HS SUBQ 12/26/17 21:00 01/23/18 06:29 12/27/17 16:37 Insulin Aspart (NovoLOG) 10 units TIAC SUBQ 12/27/17 06:30 01/23/18 16:29 12/27/17 16:38 Insulin Detemir (Levemir) 25 units 0900,2100 SUBQ 12/26/17 21:00 01/22/18 22:59 12/27/17 09:30 Metoprolol Tartrate (Lopressor) 25 mg Q12HR ORAL 12/26/17 21:00 01/23/18 20:59 12/28/17 09:01 Midazolam HCl (Versed 2mg/2ml vial) 1 mg Q15M PRN IVP For Anxiety 12/28/17 08:00 12/28/17 16:00 Nitroglycerin (Ntg) 0.4 mg Q5M PRN SL Prn Chest Pain 12/26/17 17:00 01/21/18 17:59 Ondansetron HCl (Zofran) 4 mg Q1H PRN IVP Nausea & Vomiting 12/28/17 08:00 12/28/17 16:00 Ondansetron HCl (Zofran) 4 mg Q6H PRN IVP Nausea & Vomiting 12/26/17 17:00 01/21/18 16:59 Phosphorus (Phospha 250 Neutral) 250 mg THREE TIMES A DAY ORAL 12/26/17 18:00 01/25/18 08:59 12/27/17 17:04 Potassium Chloride (K-Dur) 40 meq BID ORAL 12/27/17 18:00 01/25/18 08:59 12/27/17 18:30 Vitamin A/Vitamin D (A & D Oint) 1 applic EVERY 12 HOURS TOPIC 12/26/17 21:00 01/22/18 20:59 12/27/17 20:47 Wade Peña MD Dec 28, 2017 10:45
--- NOTE | 2017-12-28 10:48 | Immediate Post-Op Evaluation ---
Immediate Post-Op Evalulation Immediate Post-Op Evalulation Procedure: Colonoscopy Date of Evaluation: Dec 28, 2017 Time of Evaluation: 09:54 IV Fluids: 225ml 0.9ns Blood Products: none Estimated Blood Loss: negligible Blood Pressure Systolic: 112 Blood Pressure Diastolic: 57 Pulse Rate: 89 Respiratory Rate: 18 O2 Sat by Pulse Oximetry: 98 Temperature (Fahrenheit): 98.0 Pain Score (1-10): 0 Nausea: No Vomiting: No Complications none Patient Status: awake, reacts, patent Hydration Status: adequate Drug: na Given Within 1 Hr of Incision: Natasha Cohen MD Dec 28, 2017 10:48
--- NOTE | 2017-12-28 10:50 | 48 Hour Post Anesthesia Eval ---
Post Anesthesia Evaluation Procedure: Colonoscopy Date of Evaluation: Dec 28, 2017 Time of Evaluation: 09:56 Blood Pressure Systolic: 112 0: 57 Pulse Rate: 88 Respiratory Rate: 18 Temperature (Fahrenheit): 98.0 O2 Sat by Pulse Oximetry: 98 Airway: patent Nausea: No Vomiting: No Pain Intensity: 0 Hydration Status: adequate Cardiopulmonary Status: stable Mental Status/LOC: patient returned to baseline Post-Anesthesia Complications: none Follow-up care needed: N/A Natasha Powell MD Dec 28, 2017 10:50
--- NOTE | 2017-12-28 11:56 | Nephrology Progress Note ---
Assessment/Plan Problem List: (1) Renal insufficiency (2) DKA (diabetic ketoacidoses) (3) Severe sepsis Assessment: buttock abcess (4) Anemia Assessment Diabetic acidosis without coma resolved Renal failure and electrolyte imbalance mainly resolved Diabetic Nephropathy and Proteinuria and HypoAlbuminemia Severe sepsis Abscess of buttock Anemia Plan Hydrate- K and Phos supplement Mag as needed Antibiotics Monitor renal parameters correct electrolytes avoid Nephrotoxics adjust BP meds Fish OIL Lipitor Folic Acid tele Subjective ROS Limited/Unobtainable: No Constitutional: Reports: malaise Objective Objective Last 24 Hour Vital Signs Date Time Temp Pulse Resp B/P (MAP) Pulse Ox O2 Delivery O2 Flow Rate FiO2 12/28/17 10:50 208.4 88 18 98 12/28/17 10:48 208.4 89 18 98 12/28/17 10:30 84 15 122/57 97 Room Air 12/28/17 10:20 98.1 80 16 112/61 96 Room Air 98.1 12/28/17 10:10 85 17 119/63 97 Room Air 12/28/17 10:00 87 14 109/49 96 Room Air 12/28/17 09:50 98 89 18 102/57 98 Room Air 98.0 12/28/17 09:01 101 148/86 12/28/17 09:01 101 148/86 12/28/17 08:00 97.2 101 19 148/86 (106) 95 97.2 12/28/17 04:00 98.6 91 19 112/74 (87) 92 98.6 12/28/17 00:00 98.6 90 18 143/81 (101) 93 98.6 12/27/17 21:39 160/90 12/27/17 21:17 Room Air 12/27/17 20:43 89 132/65 12/27/17 20:00 98.6 107 19 165/90 (115) 93 98.6 12/27/17 17:04 89 132/65 12/27/17 16:00 98.4 97 20 133/67 (89) 96 98.4 12/27/17 12:00 98.6 89 19 132/65 (87) 96 98.6 Intake and Output 12/27/17 12/28/17 18:59 06:59 Intake Total 1787.500 ml 600 ml Output Total 4000 ml 1450 ml Balance -2212.500 ml -850 ml Intake Oral 1000 ml IV Total 787.500 ml 600 ml Output Urine Total 4000 ml 1450 ml Laboratory Tests 12/28/17 07:15: White Blood Count 11.2H, Red Blood Count 3.04L, Hemoglobin 8.9L, Hematocrit 26.6L, Mean Corpuscular Volume 87, Mean Corpuscular Hemoglobin 29.3, Mean Corpuscular Hemoglobin Concent 33.6, Red Cell Distribution Width 11.8, Platelet Count 331, Mean Platelet Volume 7.7, Neutrophils (%) (Auto) 71.3, Lymphocytes (% ) (Auto) 20.6, Monocytes (%) (Auto) 5.2, Eosinophils (%) (Auto) 2.3, Basophils ( %) (Auto) 0.6, Sodium Level 146H, Potassium Level 3.6, Chloride Level 107, Carbon Dioxide Level 31, Anion Gap 8, Blood Urea Nitrogen 4L, Creatinine 0.7, Estimat Glomerular Filtration Rate > 60, Glucose Level 113H, Calcium Level 8.5 Height (Feet): 5 Height (Inches): 5.00 Weight (Pounds): 189 General Appearance: no apparent distress Cardiovascular: normal rate Abdomen: non tender Objective no change Joni Cleaning MD Dec 28, 2017 11:56
[2017-12-28] MEDS: D5 1/2NS w/KCl 20mEq 1,000 ML IV SCH (14:17)
[2017-12-28] MEDS: cefTRIAXone 2 GM in D5W 55 ML IVPB SCH (14:17)
--- NOTE | 2017-12-28 17:00 | Procedure Note ---
DATE OF PROCEDURE: 12/28/2017 SURGEON: Garret Eden M.D. PROCEDURE: Colonoscopy with biopsy. ANESTHESIA: Per Dr. Musa. INSTRUMENT: Olympus adult flexible colonoscope. INDICATION: Anemia, perianal fistula, rule out Crohn's disease. REASON FOR PROCEDURE: The procedure, risks, benefits, and possible consequences, including hemorrhage, aspiration, perforation and infection, and alternative treatments, were explained to the patient/legal guardian by Dr. Garret Eden and the patient/legal guardian understood and accepted these risks. PROCEDURE: After informed consent was obtained and the patient was adequately sedated, first rectal exam was performed, which was normal. Then, the scope was advanced in the rectum, into the cecum and subsequently into the terminal ileum. The patient had normal terminal ileum. No obvious ulcerations terminal ileum. Quality prep was fair. No obvious mass was seen in this colonoscopy examination. There was multiple hyperplastic looking polyp in the rectosigmoid area, 2 of them were biopsied for diagnosis. Retroflexion of rectum showed evidence of internal hemorrhoids. SUMMARY FINDINGS: 1. Fair prep. 2. Two colonic polyp removed, see above for details. 3. No evidence of any obvious Crohn's disease in this colonoscopy examination. RECOMMENDATIONS: Follow up biopsies and treat accordingly. I want to thank, Dr. Nissa Mckay, for this kind referral. Garret Eden M.D. DR: ONIEL JOB#: [id number] CC: Nissa Mckay M.D.; Fax#: [phone]
--- NOTE | 2017-12-28 19:17 | General Progress Note ---
Assessment/Plan Problem List: (1) Diabetic acidosis without coma ICD Codes: E13.10 - Other specified diabetes mellitus with ketoacidosis without coma SNOMED: 71290224, 150819672 (2) Severe sepsis ICD Codes: A41.9 - Sepsis, unspecified organism; R65.20 - Severe sepsis without septic shock SNOMED: 11854920 (3) DKA (diabetic ketoacidoses) ICD Codes: E13.10 - Other specified diabetes mellitus with ketoacidosis without coma SNOMED: 41741093, 160850657 Qualifiers: Qualified Codes: E13.11 - Other specified diabetes mellitus with ketoacidosis with coma (4) Vagina bleeding ICD Codes: N93.9 - Abnormal uterine and vaginal bleeding, unspecified SNOMED: 384138199, 790291838 Assessment/Plan continue Levemir 25 units bid continue Novolog 10 units ac tid + NISS Subjective Allergies: Coded Allergies: SULFA (SULFONAMIDE ANTIBIOTICS) (Verified Allergy, Unknown, 12/25/17) All Systems: reviewed and negative except above Subjective events noted Objective Last 24 Hour Vital Signs Date Time Temp Pulse Resp B/P (MAP) Pulse Ox O2 Delivery O2 Flow Rate FiO2 12/28/17 17:53 97 130/61 12/28/17 16:00 98.6 97 19 131/68 (89) 94 98.6 12/28/17 12:00 98.8 91 19 131/61 (84) 94 98.8 12/28/17 10:50 208.4 88 18 98 12/28/17 10:48 208.4 89 18 98 12/28/17 10:30 84 15 122/57 97 Room Air 12/28/17 10:20 98.1 80 16 112/61 96 Room Air 98.1 12/28/17 10:10 85 17 119/63 97 Room Air 12/28/17 10:00 87 14 109/49 96 Room Air 12/28/17 09:50 98 89 18 102/57 98 Room Air 98.0 12/28/17 09:01 101 148/86 12/28/17 09:01 101 148/86 12/28/17 09:00 Room Air 12/28/17 08:00 97.2 101 19 148/86 (106) 95 97.2 12/28/17 04:00 98.6 91 19 112/74 (87) 92 98.6 12/28/17 00:00 98.6 90 18 143/81 (101) 93 98.6 12/27/17 21:39 160/90 12/27/17 21:17 Room Air 12/27/17 20:43 89 132/65 12/27/17 20:00 98.6 107 19 165/90 (115) 93 98.6 Intake and Output 12/27/17 12/28/17 19:00 07:00 Intake Total 1837.500 ml 600 ml Output Total 4000 ml 1450 ml Balance -2162.500 ml -850 ml Intake Oral 1000 ml IV Total 837.500 ml 600 ml Output Urine Total 4000 ml 1450 ml Laboratory Tests 12/28/17 07:15: White Blood Count 11.2H, Red Blood Count 3.04L, Hemoglobin 8.9L, Hematocrit 26.6L, Mean Corpuscular Volume 87, Mean Corpuscular Hemoglobin 29.3, Mean Corpuscular Hemoglobin Concent 33.6, Red Cell Distribution Width 11.8, Platelet Count 331, Mean Platelet Volume 7.7, Neutrophils (%) (Auto) 71.3, Lymphocytes (% ) (Auto) 20.6, Monocytes (%) (Auto) 5.2, Eosinophils (%) (Auto) 2.3, Basophils ( %) (Auto) 0.6, Sodium Level 146H, Potassium Level 3.6, Chloride Level 107, Carbon Dioxide Level 31, Anion Gap 8, Blood Urea Nitrogen 4L, Creatinine 0.7, Estimat Glomerular Filtration Rate > 60, Glucose Level 113H, Calcium Level 8.5 Height (Feet): 5 Height (Inches): 5.00 Weight (Pounds): 189 General Appearance: no apparent distress Neck: normal alignment Cardiovascular: normal rate Respiratory/Chest: lungs clear Abdomen: normal bowel sounds Objective Current Medications Medications (Trade) Dose Ordered Sig/Eyad Route PRN Reason Start Time Stop Time Status Last Admin Dose Admin Acetaminophen (Tylenol) 650 mg Q4H PRN ORAL Mild Pain/Temp > 100.5 12/26/17 17:00 01/25/18 16:59 12/28/17 14:28 Amlodipine Besylate (Norvasc) 5 mg BID ORAL 12/26/17 18:00 01/24/18 08:59 12/28/17 17:53 Artificial Tears (Akwa-Tears) 1 drop THREE TIMES A DAY BOTH EYES 12/26/17 18:00 01/22/18 12:59 12/28/17 17:52 Atorvastatin Calcium (Lipitor) 10 mg BEDTIME ORAL 12/26/17 21:00 01/23/18 20:59 12/27/17 20:43 Ceftriaxone Sodium 2 gm/ Dextrose 55 ml @ 110 mls/hr Q24H IVPB 12/27/17 14:00 01/03/18 13:59 12/28/17 14:17 Clonidine HCl (Catapres Tab) 0.1 mg Q6H PRN ORAL [id number] and above 12/26/17 17:00 01/23/18 16:59 12/27/17 21:39 Dextrose (Dextrose 50%) 25 ml STAT PRN IV Hypoglycemia 12/26/17 17:00 01/22/18 16:59 Dextrose (Dextrose 50%) 50 ml STAT PRN IV Hypoglycemia 12/26/17 17:00 01/22/18 16:59 Dextrose/ Electrolytes 1,000 ml @ 50 mls/hr Q20H IV 12/26/17 18:00 01/22/18 17:59 12/28/17 14:17 Famotidine (Pepcid) 20 mg BID ORAL 12/26/17 18:00 01/23/18 17:59 12/28/17 17:52 Fish Oil (Fish Oil) 1,000 mg BID ORAL 12/26/17 18:00 01/23/18 11:59 12/28/17 17:51 Fluconazole (Diflucan) 200 mg DAILY ORAL 12/27/17 09:00 01/02/18 08:59 12/27/17 08:21 Folic Acid (Folate) 5 mg DAILY ORAL 12/27/17 09:00 01/23/18 11:59 12/27/17 08:22 Heparin Sodium (Porcine) (Heparin 5000 units/ml) 5,000 units Q12HR SUBQ 12/26/17 21:00 01/23/18 20:59 12/27/17 08:32 Hydromorphone HCl (Dilaudid) 0.5 mg Q3H PRN IVP For mild pain 12/26/17 17:00 12/29/17 16:59 Hydromorphone HCl (Dilaudid) 1 mg Q3H PRN IVP Moderate Pain (Pain Scale 4-6) 12/26/17 17:00 12/31/17 16:59 Insulin Aspart (NovoLOG) BEFORE MEALS AND HS SUBQ 12/26/17 21:00 01/23/18 06:29 12/28/17 18:01 Insulin Aspart (NovoLOG) 10 units TIAC SUBQ 12/27/17 06:30 01/23/18 16:29 12/28/17 18:01 Insulin Detemir (Levemir) 25 units 0900,2100 SUBQ 12/26/17 21:00 01/22/18 22:59 12/27/17 09:30 Metoprolol Tartrate (Lopressor) 25 mg Q12HR ORAL 12/26/17 21:00 01/23/18 20:59 12/28/17 09:01 Nitroglycerin (Ntg) 0.4 mg Q5M PRN SL Prn Chest Pain 12/26/17 17:00 01/21/18 17:59 Ondansetron HCl (Zofran) 4 mg Q6H PRN IVP Nausea & Vomiting 12/26/17 17:00 01/21/18 16:59 Phosphorus (Phospha 250 Neutral) 250 mg THREE TIMES A DAY ORAL 12/26/17 18:00 01/25/18 08:59 12/28/17 17:51 Potassium Chloride (K-Dur) 40 meq BID ORAL 12/27/17 18:00 01/25/18 08:59 12/28/17 17:52 Vitamin A/Vitamin D (A & D Oint) 1 applic EVERY 12 HOURS TOPIC 12/26/17 21:00 01/22/18 20:59 12/27/17 20:47 Item Value Date Time Bedside Blood Glucose 156 mg/dl H 12/28/17 1801 Bedside Blood Glucose 315 mg/dl H 12/28/17 1423 Bedside Blood Glucose 106 mg/dl 12/28/17 0612 Bedside Blood Glucose 130 mg/dl H 12/27/179 Riky Olivas MD Dec 28, 2017 19:17
--- NOTE | 2017-12-28 22:26 | General Progress Note ---
Assessment/Plan Problem List: (1) Diabetes ICD Codes: E11.9 - Type 2 diabetes mellitus without complications SNOMED: 97461836 (2) Hyperglycemia ICD Codes: R73.9 - Hyperglycemia, unspecified SNOMED: 64148621 (3) Sepsis ICD Codes: A41.9 - Sepsis, unspecified organism SNOMED: 41315178 (4) Abscess of buttock ICD Codes: L02.31 - Cutaneous abscess of buttock SNOMED: 18474859 (5) DKA (diabetic ketoacidoses) ICD Codes: E13.10 - Other specified diabetes mellitus with ketoacidosis without coma SNOMED: 88836963, 709785146 Qualifiers: Qualified Codes: E13.11 - Other specified diabetes mellitus with ketoacidosis with coma (6) Renal insufficiency ICD Codes: N28.9 - Disorder of kidney and ureter, unspecified SNOMED: 254223588, 238258686 (7) Vagina bleeding ICD Codes: N93.9 - Abnormal uterine and vaginal bleeding, unspecified SNOMED: 696379000, 704908321 (8) Anemia ICD Codes: D64.9 - Anemia, unspecified SNOMED: 468989908 Status: progressing Assessment/Plan s/p dka s/p i&d of rectal abscess endoscopy sepsis sugar are improving no fever Subjective ROS Limited/Unobtainable: Yes Allergies: Coded Allergies: SULFA (SULFONAMIDE ANTIBIOTICS) (Verified Allergy, Unknown, 12/25/17) Objective Last 24 Hour Vital Signs Date Time Temp Pulse Resp B/P (MAP) Pulse Ox O2 Delivery O2 Flow Rate FiO2 12/28/17 21:22 100.6 12/28/17 21:00 Room Air 12/28/17 20:23 106 149/68 12/28/17 20:23 100.8 12/28/17 20:00 100.8 106 19 149/68 (95) 95 100.8 12/28/17 17:53 97 130/61 12/28/17 16:00 98.6 97 19 131/68 (89) 94 98.6 12/28/17 12:00 98.8 91 19 131/61 (84) 94 98.8 12/28/17 10:50 208.4 88 18 98 12/28/17 10:48 208.4 89 18 98 12/28/17 10:30 84 15 122/57 97 Room Air 12/28/17 10:20 98.1 80 16 112/61 96 Room Air 98.1 12/28/17 10:10 85 17 119/63 97 Room Air 12/28/17 10:00 87 14 109/49 96 Room Air 12/28/17 09:50 98 89 18 102/57 98 Room Air 98.0 12/28/17 09:01 101 148/86 12/28/17 09:01 101 148/86 12/28/17 09:00 Room Air 12/28/17 08:00 97.2 101 19 148/86 (106) 95 97.2 12/28/17 04:00 98.6 91 19 112/74 (87) 92 98.6 12/28/17 00:00 98.6 90 18 143/81 (101) 93 98.6 Intake and Output 12/27/17 12/28/17 19:00 07:00 Intake Total 1837.500 ml 600 ml Output Total 4000 ml 1450 ml Balance -2162.500 ml -850 ml Intake Oral 1000 ml IV Total 837.500 ml 600 ml Output Urine Total 4000 ml 1450 ml Laboratory Tests 12/28/17 07:15: White Blood Count 11.2H, Red Blood Count 3.04L, Hemoglobin 8.9L, Hematocrit 26.6L, Mean Corpuscular Volume 87, Mean Corpuscular Hemoglobin 29.3, Mean Corpuscular Hemoglobin Concent 33.6, Red Cell Distribution Width 11.8, Platelet Count 331, Mean Platelet Volume 7.7, Neutrophils (%) (Auto) 71.3, Lymphocytes (% ) (Auto) 20.6, Monocytes (%) (Auto) 5.2, Eosinophils (%) (Auto) 2.3, Basophils ( %) (Auto) 0.6, Sodium Level 146H, Potassium Level 3.6, Chloride Level 107, Carbon Dioxide Level 31, Anion Gap 8, Blood Urea Nitrogen 4L, Creatinine 0.7, Estimat Glomerular Filtration Rate > 60, Glucose Level 113H, Calcium Level 8.5 Height (Feet): 5 Height (Inches): 5.00 Weight (Pounds): 189 Nissa Mckay MD Dec 28, 2017 22:26
--- NOTE | 2017-12-28 23:52 | Cardiology Progress Note ---
Assessment/Plan Assessment/Plan 1. Sinus tachycardia, continue metoprolol, keep hydrated. 2D echo reveals normal LV systolic function. 2. Diabetes mellitus, uncontrolled, noncompliant, continue statins, consider baby ASA daily. Subjective Subjective Not on the telemetry unit. No cardiac events. Objective Last 24 Hour Vital Signs Date Time Temp Pulse Resp B/P (MAP) Pulse Ox O2 Delivery O2 Flow Rate FiO2 12/28/17 21:22 100.6 12/28/17 21:00 Room Air 12/28/17 20:23 106 149/68 12/28/17 20:23 100.8 12/28/17 20:00 100.8 106 19 149/68 (95) 95 100.8 12/28/17 17:53 97 130/61 12/28/17 16:00 98.6 97 19 131/68 (89) 94 98.6 12/28/17 12:00 98.8 91 19 131/61 (84) 94 98.8 12/28/17 10:50 208.4 88 18 98 12/28/17 10:48 208.4 89 18 98 12/28/17 10:30 84 15 122/57 97 Room Air 12/28/17 10:20 98.1 80 16 112/61 96 Room Air 98.1 12/28/17 10:10 85 17 119/63 97 Room Air 12/28/17 10:00 87 14 109/49 96 Room Air 12/28/17 09:50 98 89 18 102/57 98 Room Air 98.0 12/28/17 09:01 101 148/86 12/28/17 09:01 101 148/86 12/28/17 09:00 Room Air 12/28/17 08:00 97.2 101 19 148/86 (106) 95 97.2 12/28/17 04:00 98.6 91 19 112/74 (87) 92 98.6 12/28/17 00:00 98.6 90 18 143/81 (101) 93 98.6 Intake and Output 12/27/17 12/28/17 19:00 07:00 Intake Total 1837.500 ml 600 ml Output Total 4000 ml 1450 ml Balance -2162.500 ml -850 ml Intake Oral 1000 ml IV Total 837.500 ml 600 ml Output Urine Total 4000 ml 1450 ml Laboratory Tests Test 12/28/17 07:15 White Blood Count 11.2 K/UL (4.8-10.8) H Red Blood Count 3.04 M/UL (4.20-5.40) L Hemoglobin 8.9 G/DL (12.0-16.0) L Hematocrit 26.6 % (37.0-47.0) L Mean Corpuscular Volume 87 FL (80-99) Mean Corpuscular Hemoglobin 29.3 PG (27.0-31.0) Mean Corpuscular Hemoglobin Concent 33.6 G/DL (32.0-36.0) Red Cell Distribution Width 11.8 % (11.6-14.8) Platelet Count 331 K/UL (150-450) Mean Platelet Volume 7.7 FL (6.5-10.1) Neutrophils (%) (Auto) 71.3 % (45.0-75.0) Lymphocytes (%) (Auto) 20.6 % (20.0-45.0) Monocytes (%) (Auto) 5.2 % (1.0-10.0) Eosinophils (%) (Auto) 2.3 % (0.0-3.0) Basophils (%) (Auto) 0.6 % (0.0-2.0) Sodium Level 146 MMOL/L (136-145) H Potassium Level 3.6 MMOL/L (3.5-5.1) Chloride Level 107 MMOL/L (98-107) Carbon Dioxide Level 31 MMOL/L (21-32) Anion Gap 8 mmol/L (5-15) Blood Urea Nitrogen 4 mg/dL (7-18) L Creatinine 0.7 MG/DL (0.55-1.30) Estimat Glomerular Filtration Rate > 60 mL/min (>60) Glucose Level 113 MG/DL (74-106) H Calcium Level 8.5 MG/DL (8.5-10.1) Objective HEENT: Atraumatic and normocephalic. ENT, pupils are equal, round, and reactive to light and accommodation. Extraocular muscles intact. Dry mucosal membranes. NECK: JVP less than 5 cm. No carotid bruit. Carotid upstrokes 2+ bilaterally. CARDIOVASCULAR: Normal S1 and S2. Regular rhythm. No murmurs, gallops, or rubs. PMI is at fourth intercostal space at the midclavicular line. LUNGS: Clear to auscultation bilaterally. ABDOMEN: Soft, nontender, and nondistended. No hepatosplenomegaly. Positive bowel sounds. EXTREMITIES: No evidence of edema, clubbing, or cyanosis. Javi Anthony MD Dec 28, 2017 23:52
[2017-12-29] VITALS: BP 123/62
[2017-12-29 04:00] VITALS: BP 144/55
[2017-12-29] MEDS: D5 1/2NS w/KCl 20mEq 1,000 ML IV SCH (06:00)
[2017-12-29] MEDS: NovoLOG Insulin Flexpen SUBQ SCH ×7 (06:30→20:42)
--- NOTE | 2017-12-29 06:33 | General Progress Note ---
Assessment/Plan Problem List: (1) Diabetic acidosis without coma ICD Codes: E13.10 - Other specified diabetes mellitus with ketoacidosis without coma SNOMED: 19277984, 932790843 (2) Severe sepsis ICD Codes: A41.9 - Sepsis, unspecified organism; R65.20 - Severe sepsis without septic shock SNOMED: 08505557 (3) DKA (diabetic ketoacidoses) ICD Codes: E13.10 - Other specified diabetes mellitus with ketoacidosis without coma SNOMED: 08255511, [id number] Qualifiers: Qualified Codes: E13.11 - Other specified diabetes mellitus with ketoacidosis with coma (4) Vagina bleeding ICD Codes: N93.9 - Abnormal uterine and vaginal bleeding, unspecified SNOMED: 519859332, 060238316 Assessment/Plan reduce Levemir to 25 units qhs reduce Novolog to 8 units ac tid + NISS Subjective Allergies: Coded Allergies: SULFA (SULFONAMIDE ANTIBIOTICS) (Verified Allergy, Unknown, 12/25/17) All Systems: reviewed and negative except above Subjective events noted Objective Last 24 Hour Vital Signs Date Time Temp Pulse Resp B/P (MAP) Pulse Ox O2 Delivery O2 Flow Rate FiO2 12/29/17 04:00 98.6 97 19 144/55 (84) 96 98.6 12/29/17 00:00 99.7 91 19 123/62 (82) 94 99.7 12/28/17 21:22 100.6 12/28/17 21:00 Room Air 12/28/17 20:23 106 149/68 12/28/17 20:23 100.8 12/28/17 20:00 100.8 106 19 149/68 (95) 95 100.8 12/28/17 17:53 97 130/61 12/28/17 16:00 98.6 97 19 131/68 (89) 94 98.6 12/28/17 12:00 98.8 91 19 131/61 (84) 94 98.8 12/28/17 10:50 208.4 88 18 98 12/28/17 10:48 208.4 89 18 98 12/28/17 10:30 84 15 122/57 97 Room Air 12/28/17 10:20 98.1 80 16 112/61 96 Room Air 98.1 12/28/17 10:10 85 17 119/63 97 Room Air 12/28/17 10:00 87 14 109/49 96 Room Air 12/28/17 09:50 98 89 18 102/57 98 Room Air 98.0 12/28/17 09:01 101 148/86 12/28/17 09:01 101 148/86 12/28/17 09:00 Room Air 12/28/17 08:00 97.2 101 19 148/86 (106) 95 97.2 Intake and Output 12/28/17 12/29/17 19:00 07:00 Intake Total 1240 ml 500 ml Output Total 1800 ml 1100 ml Balance -560 ml -600 ml Intake Oral 480 ml IV Total 760 ml 500 ml Output Urine Total 1800 ml 1100 ml Laboratory Tests 12/28/17 07:15: White Blood Count 11.2H, Red Blood Count 3.04L, Hemoglobin 8.9L, Hematocrit 26.6L, Mean Corpuscular Volume 87, Mean Corpuscular Hemoglobin 29.3, Mean Corpuscular Hemoglobin Concent 33.6, Red Cell Distribution Width 11.8, Platelet Count 331, Mean Platelet Volume 7.7, Neutrophils (%) (Auto) 71.3, Lymphocytes (% ) (Auto) 20.6, Monocytes (%) (Auto) 5.2, Eosinophils (%) (Auto) 2.3, Basophils ( %) (Auto) 0.6, Sodium Level 146H, Potassium Level 3.6, Chloride Level 107, Carbon Dioxide Level 31, Anion Gap 8, Blood Urea Nitrogen 4L, Creatinine 0.7, Estimat Glomerular Filtration Rate > 60, Glucose Level 113H, Calcium Level 8.5 12/29/17 05:15: White Blood Count [Pending], Red Blood Count [Pending], Hemoglobin [Pending], Hematocrit [Pending], Mean Corpuscular Volume [Pending], Mean Corpuscular Hemoglobin [Pending], Mean Corpuscular Hemoglobin Concent [Pending], Red Cell Distribution Width [Pending], Platelet Count [Pending], Mean Platelet Volume [ Pending], Neutrophils (%) (Auto) [Pending], Lymphocytes (%) (Auto) [Pending], Monocytes (%) (Auto) [Pending], Eosinophils (%) (Auto) [Pending], Basophils (%) (Auto) [Pending], Sodium Level [Pending], Potassium Level [Pending], Chloride Level [Pending], Carbon Dioxide Level [Pending], Blood Urea Nitrogen [Pending], Creatinine [Pending], Estimat Glomerular Filtration Rate [Pending], Glucose Level [Pending], Calcium Level [Pending], Phosphorus Level [Pending], Magnesium Level [Pending], Total Bilirubin [Pending], Aspartate Amino Transf (AST/SGOT) [ Pending], Alanine Aminotransferase (ALT/SGPT) [Pending], Alkaline Phosphatase [ Pending], Total Protein [Pending], Albumin [Pending], Globulin [Pending] Height (Feet): 5 Height (Inches): 5.00 Weight (Pounds): 190 General Appearance: no apparent distress Neck: normal alignment Cardiovascular: normal rate Respiratory/Chest: normal breath sounds Abdomen: normal bowel sounds Pelvis: normal external exam Objective Current Medications Medications (Trade) Dose Ordered Sig/Eyad Route PRN Reason Start Time Stop Time Status Last Admin Dose Admin Acetaminophen (Tylenol) 650 mg Q4H PRN ORAL Mild Pain/Temp > 100.5 12/26/17 17:00 01/25/18 16:59 12/28/17 20:23 Amlodipine Besylate (Norvasc) 5 mg BID ORAL 12/26/17 18:00 01/24/18 08:59 12/28/17 17:53 Artificial Tears (Akwa-Tears) 1 drop THREE TIMES A DAY BOTH EYES 12/26/17 18:00 01/22/18 12:59 12/28/17 17:52 Atorvastatin Calcium (Lipitor) 10 mg BEDTIME ORAL 12/26/17 21:00 01/23/18 20:59 12/28/17 20:24 Ceftriaxone Sodium 2 gm/ Dextrose 55 ml @ 110 mls/hr Q24H IVPB 12/27/17 14:00 01/03/18 13:59 12/28/17 14:17 Clonidine HCl (Catapres Tab) 0.1 mg Q6H PRN ORAL [id number] and above 12/26/17 17:00 01/23/18 16:59 12/27/17 21:39 Dextrose (Dextrose 50%) 25 ml STAT PRN IV Hypoglycemia 12/26/17 17:00 01/22/18 16:59 Dextrose (Dextrose 50%) 50 ml STAT PRN IV Hypoglycemia 12/26/17 17:00 01/22/18 16:59 Dextrose/ Electrolytes 1,000 ml @ 50 mls/hr Q20H IV 12/26/17 18:00 01/22/18 17:59 12/28/17 14:17 Famotidine (Pepcid) 20 mg BID ORAL 12/26/17 18:00 01/23/18 17:59 12/28/17 17:52 Fish Oil (Fish Oil) 1,000 mg BID ORAL 12/26/17 18:00 01/23/18 11:59 12/28/17 17:51 Fluconazole (Diflucan) 200 mg DAILY ORAL 12/27/17 09:00 01/02/18 08:59 12/27/17 08:21 Folic Acid (Folate) 5 mg DAILY ORAL 12/27/17 09:00 01/23/18 11:59 12/27/17 08:22 Heparin Sodium (Porcine) (Heparin 5000 units/ml) 5,000 units Q12HR SUBQ 12/26/17 21:00 01/23/18 20:59 12/28/17 20:25 Hydromorphone HCl (Dilaudid) 0.5 mg Q3H PRN IVP For mild pain 12/26/17 17:00 12/29/17 16:59 Hydromorphone HCl (Dilaudid) 1 mg Q3H PRN IVP Moderate Pain (Pain Scale 4-6) 12/26/17 17:00 12/31/17 16:59 Insulin Aspart (NovoLOG) BEFORE MEALS AND HS SUBQ 12/26/17 21:00 01/23/18 06:29 12/28/17 20:28 Insulin Aspart (NovoLOG) 10 units TIAC SUBQ 12/27/17 06:30 01/23/18 16:29 12/28/17 18:01 Insulin Detemir (Levemir) 25 units 0900,2100 SUBQ 12/26/17 21:00 01/22/18 22:59 12/28/17 20:26 Metoprolol Tartrate (Lopressor) 25 mg Q12HR ORAL 12/26/17 21:00 01/23/18 20:59 12/28/17 20:23 Nitroglycerin (Ntg) 0.4 mg Q5M PRN SL Prn Chest Pain 12/26/17 17:00 01/21/18 17:59 Ondansetron HCl (Zofran) 4 mg Q6H PRN IVP Nausea & Vomiting 12/26/17 17:00 01/21/18 16:59 Phosphorus (Phospha 250 Neutral) 250 mg THREE TIMES A DAY ORAL 12/26/17 18:00 01/25/18 08:59 12/28/17 17:51 Potassium Chloride (K-Dur) 40 meq BID ORAL 12/27/17 18:00 01/25/18 08:59 12/28/17 17:52 Vitamin A/Vitamin D (A & D Oint) 1 applic EVERY 12 HOURS TOPIC 12/26/17 21:00 01/22/18 20:59 12/28/17 20:24 Item Value Date Time Bedside Blood Glucose 156 mg/dl H 12/28/17 1801 Bedside Blood Glucose 185 mg/dl H 12/28/178 Bedside Blood Glucose 315 mg/dl H 12/28/17 1423 Riky Olivas MD Dec 29, 2017 06:33
[2017-12-29 06:34] LABS: BASOPHILS % (AUTO) 0.8 % (0.0-2.0); EOSINOPHILS % (AUTO) 2.5 % (0.0-3.0); HEMATOCRIT 26.6 % (37.0-47.0); HEMOGLOBIN 8.7 G/DL (12.0-16.0); LYMPHOCYTES % (AUTO) 22.5 % (20.0-45.0); MEAN CORPUSCULAR VOLUME 88 FL (80-99); MONOCYTES % (AUTO) 5.4 % (1.0-10.0); NEUTROPHILS % (AUTO) 68.7 % (45.0-75.0); PLATELET COUNT 368 K/UL (150-450); RED BLOOD COUNT 3.03 M/UL (4.20-5.40); RED CELL DISTRIBUTION WIDTH 11.6 % (11.6-14.8); WHITE BLOOD COUNT 10.8 K/UL (4.8-10.8)
[2017-12-29 07:15] LABS: ALANINE AMINOTRANSFERASE 12 U/L (12-78); ALBUMIN 1.6 G/DL (3.4-5.0); ALBUMIN/GLOBULIN RATIO 0.3 (1.0-2.7); ALKALINE PHOSPHATASE 172 U/L (46-116); ANION GAP 6 mmol/L (5-15); ASPARTATE AMINO TRANSFERASE 13 U/L (15-37); BILIRUBIN,TOTAL 0.2 MG/DL (0.2-1.0); BLOOD UREA NITROGEN 5 mg/dL (7-18); CALCIUM 8.3 MG/DL (8.5-10.1); CARBON DIOXIDE 32 MMOL/L (21-32); CHLORIDE 104 MMOL/L (98-107); CREATININE 0.7 MG/DL (0.55-1.30); PHOSPHORUS 3.1 MG/DL (2.5-4.9); POTASSIUM 3.6 MMOL/L (3.5-5.1); SODIUM 142 MMOL/L (136-145)
[2017-12-29 08:42] VITALS: BP 133/71
[2017-12-29] MEDS: Vitamin A&D Oint 2oz Tube TOPIC SCH ×2 (09:17→20:43)
[2017-12-29] MEDS: Heparin 5000 units/ml inj SUBQ SCH ×2 (09:19→20:38)
[2017-12-29] MEDS: Phospha 250 Neutral tab ORAL SCH ×3 (09:19→18:00)
[2017-12-29] MEDS: Fluconazole 100mg tab ORAL SCH (09:20)
[2017-12-29] MEDS: Metoprolol 25mg tab ORAL SCH ×2 (09:20→20:36)
[2017-12-29] MEDS: Artificial Tears 1.4% Op Soln BOTH EYES SCH ×3 (09:20→17:59)
--- NOTE | 2017-12-29 11:37 | Nephrology Progress Note ---
Assessment/Plan Problem List: (1) Renal insufficiency (2) DKA (diabetic ketoacidoses) (3) Severe sepsis Assessment: buttock abcess (4) Anemia Assessment Diabetic acidosis without coma resolved Renal failure and electrolyte imbalance mainly resolved Diabetic Nephropathy and Proteinuria and HypoAlbuminemia Severe sepsis Abscess of buttock Anemia Plan Hydrate- K and Phos supplement Mag as needed Antibiotics Monitor renal parameters correct electrolytes avoid Nephrotoxics adjust BP meds Fish OIL Lipitor Folic Acid tele Subjective ROS Limited/Unobtainable: No Constitutional: Reports: malaise Objective Objective Last 24 Hour Vital Signs Date Time Temp Pulse Resp B/P (MAP) Pulse Ox O2 Delivery O2 Flow Rate FiO2 12/29/17 09:20 107 133/71 12/29/17 09:20 107 133/71 12/29/17 09:00 Room Air 12/29/17 08:42 98.6 107 20 133/71 (91) 93 98.6 12/29/17 04:00 98.6 97 19 144/55 (84) 96 98.6 12/29/17 00:00 99.7 91 19 123/62 (82) 94 99.7 12/28/17 21:22 100.6 12/28/17 21:00 Room Air 12/28/17 20:23 106 149/68 12/28/17 20:23 100.8 12/28/17 20:00 100.8 106 19 149/68 (95) 95 100.8 12/28/17 17:53 97 130/61 12/28/17 16:00 98.6 97 19 131/68 (89) 94 98.6 12/28/17 12:00 98.8 91 19 131/61 (84) 94 98.8 Intake and Output 12/28/17 12/29/17 19:00 07:00 Intake Total 1240 ml 500 ml Output Total 1800 ml 1100 ml Balance -560 ml -600 ml Intake Oral 480 ml IV Total 760 ml 500 ml Output Urine Total 1800 ml 1100 ml Laboratory Tests 12/29/17 05:15: White Blood Count 10.8, Red Blood Count 3.03L, Hemoglobin 8.7L, Hematocrit 26.6L , Mean Corpuscular Volume 88, Mean Corpuscular Hemoglobin 28.7, Mean Corpuscular Hemoglobin Concent 32.7, Red Cell Distribution Width 11.6, Platelet Count 368, Mean Platelet Volume 7.0, Neutrophils (%) (Auto) 68.7, Lymphocytes (% ) (Auto) 22.5, Monocytes (%) (Auto) 5.4, Eosinophils (%) (Auto) 2.5, Basophils ( %) (Auto) 0.8, Sodium Level 142, Potassium Level 3.6, Chloride Level 104, Carbon Dioxide Level 32, Anion Gap 6, Blood Urea Nitrogen 5L, Creatinine 0.7, Estimat Glomerular Filtration Rate > 60, Glucose Level 96, Calcium Level 8.3L, Phosphorus Level 3.1, Magnesium Level 1.7L, Total Bilirubin 0.2, Aspartate Amino Transf (AST/SGOT) 13L, Alanine Aminotransferase (ALT/SGPT) 12, Alkaline Phosphatase 172H, Total Protein 6.6, Albumin 1.6L, Globulin 5.0, Albumin/ Globulin Ratio 0.3L Height (Feet): 5 Height (Inches): 5.00 Weight (Pounds): 190 General Appearance: no apparent distress Cardiovascular: normal rate Respiratory/Chest: lungs clear Abdomen: soft Objective no change Joni Cleaning MD Dec 29, 2017 11:37
[2017-12-29 11:43] VITALS: BP 141/70
[2017-12-29] MEDS ORDERED: HYDROcodone/Acetamin 10/325 tab ORAL PRN (12:15)
[2017-12-29] MEDS ORDERED: Zolpidem 5mg tab ORAL PRN (12:15)
--- NOTE | 2017-12-29 12:23 | Infectious Diseases Prog Note ---
Assessment/Plan Assessment/Plan A; Sepsis improving R buttock abscess DKA Newly diagnosed DM Acute renal failure resolving Perianal fistula P; continue Fluconazole & Ceftriaxone, add Flagyl Subjective ROS Limited/Unobtainable: No Constitutional: Reports: fever, other - last night Respiratory: Reports: no symptoms Cardiovascular: Reports: no symptoms Gastrointestinal/Abdominal: Reports: no symptoms Genitourinary: Reports: no symptoms Allergies: Coded Allergies: SULFA (SULFONAMIDE ANTIBIOTICS) (Verified Allergy, Unknown, 12/25/17) Objective Vital Signs Last 24 Hour Vital Signs Date Time Temp Pulse Resp B/P (MAP) Pulse Ox O2 Delivery O2 Flow Rate FiO2 12/29/17 11:43 98.2 97 20 141/70 (93) 92 98.2 12/29/17 09:20 107 133/71 12/29/17 09:20 107 133/71 12/29/17 09:00 Room Air 12/29/17 08:42 98.6 107 20 133/71 (91) 93 98.6 12/29/17 04:00 98.6 97 19 144/55 (84) 96 98.6 12/29/17 00:00 99.7 91 19 123/62 (82) 94 99.7 12/28/17 21:22 100.6 12/28/17 21:00 Room Air 12/28/17 20:23 106 149/68 12/28/17 20:23 100.8 12/28/17 20:00 100.8 106 19 149/68 (95) 95 100.8 12/28/17 17:53 97 130/61 12/28/17 16:00 98.6 97 19 131/68 (89) 94 98.6 Height (Feet): 5 Height (Inches): 5.00 Weight (Pounds): 190 General Appearance: no acute distress HEENT: mucous membranes moist Respiratory/Chest: lungs clear Cardiovascular: normal rate Abdomen: soft, non tender Extremities: no edema Skin: other - buttock Neurologic/Psychiatric: alert, oriented x 3, responsive Laboratory Tests Test 12/29/17 05:15 White Blood Count 10.8 K/UL (4.8-10.8) Red Blood Count 3.03 M/UL (4.20-5.40) L Hemoglobin 8.7 G/DL (12.0-16.0) L Hematocrit 26.6 % (37.0-47.0) L Mean Corpuscular Volume 88 FL (80-99) Mean Corpuscular Hemoglobin 28.7 PG (27.0-31.0) Mean Corpuscular Hemoglobin Concent 32.7 G/DL (32.0-36.0) Red Cell Distribution Width 11.6 % (11.6-14.8) Platelet Count 368 K/UL (150-450) Mean Platelet Volume 7.0 FL (6.5-10.1) Neutrophils (%) (Auto) 68.7 % (45.0-75.0) Lymphocytes (%) (Auto) 22.5 % (20.0-45.0) Monocytes (%) (Auto) 5.4 % (1.0-10.0) Eosinophils (%) (Auto) 2.5 % (0.0-3.0) Basophils (%) (Auto) 0.8 % (0.0-2.0) Sodium Level 142 MMOL/L (136-145) Potassium Level 3.6 MMOL/L (3.5-5.1) Chloride Level 104 MMOL/L (98-107) Carbon Dioxide Level 32 MMOL/L (21-32) Anion Gap 6 mmol/L (5-15) Blood Urea Nitrogen 5 mg/dL (7-18) L Creatinine 0.7 MG/DL (0.55-1.30) Estimat Glomerular Filtration Rate > 60 mL/min (>60) Glucose Level 96 MG/DL (74-106) Calcium Level 8.3 MG/DL (8.5-10.1) L Phosphorus Level 3.1 MG/DL (2.5-4.9) Magnesium Level 1.7 MG/DL (1.8-2.4) L Total Bilirubin 0.2 MG/DL (0.2-1.0) Aspartate Amino Transf (AST/SGOT) 13 U/L (15-37) L Alanine Aminotransferase (ALT/SGPT) 12 U/L (12-78) Alkaline Phosphatase 172 U/L (46-116) H Total Protein 6.6 G/DL (6.4-8.2) Albumin 1.6 G/DL (3.4-5.0) L Globulin 5.0 g/dL Albumin/Globulin Ratio 0.3 (1.0-2.7) L Current Medications Medications (Trade) Dose Ordered Sig/Eyad Route PRN Reason Start Time Stop Time Status Last Admin Dose Admin Acetaminophen (Tylenol) 650 mg Q4H PRN ORAL Mild Pain/Temp > 100.5 12/26/17 17:00 01/25/18 16:59 12/28/17 20:23 Acetaminophen (Tylenol) 650 mg Q6H PRN ORAL Mild Pain/Temp > 100.5 12/29/17 12:15 01/28/18 12:14 UNV Acetaminophen/ Hydrocodone Bitart (Whitney 10/325) 1 tab Q4H PRN ORAL For Pain 12/29/17 12:15 01/05/18 12:14 UNV Amlodipine Besylate (Norvasc) 5 mg BID ORAL 12/26/17 18:00 01/24/18 08:59 12/29/17 09:20 Artificial Tears (Akwa-Tears) 1 drop THREE TIMES A DAY BOTH EYES 12/26/17 18:00 01/22/18 12:59 12/29/17 09:20 Atorvastatin Calcium (Lipitor) 10 mg BEDTIME ORAL 12/26/17 21:00 01/23/18 20:59 12/28/17 20:24 Ceftriaxone Sodium 2 gm/ Dextrose 55 ml @ 110 mls/hr Q24H IVPB 12/27/17 14:00 01/03/18 13:59 12/28/17 14:17 Clonidine HCl (Catapres Tab) 0.1 mg Q6H PRN ORAL [id number] and above 12/26/17 17:00 01/23/18 16:59 12/27/17 21:39 Dextrose (Dextrose 50%) 25 ml STAT PRN IV Hypoglycemia 12/26/17 17:00 01/22/18 16:59 Dextrose (Dextrose 50%) 50 ml STAT PRN IV Hypoglycemia 12/26/17 17:00 01/22/18 16:59 Dextrose/ Electrolytes 1,000 ml @ 50 mls/hr Q20H IV 12/26/17 18:00 01/22/18 17:59 12/28/17 14:17 Famotidine (Pepcid) 20 mg BID ORAL 12/26/17 18:00 01/23/18 17:59 12/29/17 09:19 Fish Oil (Fish Oil) 1,000 mg BID ORAL 12/26/17 18:00 01/23/18 11:59 12/29/17 09:19 Fluconazole (Diflucan) 200 mg DAILY ORAL 12/27/17 09:00 01/02/18 08:59 12/29/17 09:20 Folic Acid (Folate) 5 mg DAILY ORAL 12/27/17 09:00 01/23/18 11:59 12/29/17 09:19 Heparin Sodium (Porcine) (Heparin 5000 units/ml) 5,000 units Q12HR SUBQ 12/26/17 21:00 01/23/18 20:59 12/29/17 09:19 Hydromorphone HCl (Dilaudid) 0.5 mg Q3H PRN IVP For mild pain 12/26/17 17:00 12/29/17 16:59 Hydromorphone HCl (Dilaudid) 1 mg Q3H PRN IVP Moderate Pain (Pain Scale 4-6) 12/26/17 17:00 12/31/17 16:59 Insulin Aspart (NovoLOG) BEFORE MEALS AND HS SUBQ 12/26/17 21:00 01/23/18 06:29 12/28/17 20:28 Insulin Aspart (NovoLOG) 8 units TIAC SUBQ 12/29/17 07:30 01/23/18 07:29 Insulin Detemir (Levemir) 25 units BEDTIME SUBQ 12/29/17 21:00 01/22/18 22:59 Metoprolol Tartrate (Lopressor) 25 mg Q12HR ORAL 12/26/17 21:00 01/23/18 20:59 12/29/17 09:20 Nitroglycerin (Ntg) 0.4 mg Q5M PRN SL Prn Chest Pain 12/26/17 17:00 01/21/18 17:59 Ondansetron HCl (Zofran) 4 mg Q6H PRN IVP Nausea & Vomiting 12/26/17 17:00 01/21/18 16:59 Phosphorus (Phospha 250 Neutral) 250 mg THREE TIMES A DAY ORAL 12/26/17 18:00 01/25/18 08:59 12/29/17 09:19 Potassium Chloride (K-Dur) 40 meq BID ORAL 12/27/17 18:00 01/25/18 08:59 12/29/17 09:30 Vitamin A/Vitamin D (A & D Oint) 1 applic EVERY 12 HOURS TOPIC 12/26/17 21:00 01/22/18 20:59 12/29/17 09:17 Zolpidem Tartrate (Ambien) 10 mg HSPRN PRN ORAL Insomnia 12/29/17 12:15 01/05/18 12:14 Wade Black MD Dec 29, 2017 12:23
--- NOTE | 2017-12-29 14:08 | GI Progress Note ---
Assessment/Plan Problems: (1) Anemia ICD Codes: D64.9 - Anemia, unspecified SNOMED: 463192238 (2) Abscess of buttock ICD Codes: L02.31 - Cutaneous abscess of buttock SNOMED: 09910747 (3) Severe sepsis ICD Codes: A41.9 - Sepsis, unspecified organism; R65.20 - Severe sepsis without septic shock SNOMED: 99185052 (4) Diabetes ICD Codes: E11.9 - Type 2 diabetes mellitus without complications SNOMED: 28455959 Status: stable Status Narrative Discussed with Dr. Eden. Assessment/Plan SUMMARY FINDINGS: 1. Fair prep. 2. Two colonic polyp removed, see above for details. 3. No evidence of any obvious Crohn's disease in this colonoscopy examination. RECOMMENDATIONS: okay for DC per GI standpoint symptomatic treatment advance diet Follow up biopsies and treat accordingly. The patient was seen and examined at bedside and all new and available data was reviewed in the patients chart. I agree with the above findings, impression and plan. (Patient seen earlier today. Signature stamp does not reflect patient encounter time.). - Garret Eden MD Subjective Gastrointestinal/Abdominal: Reports: no symptoms Objective Last 24 Hour Vital Signs Date Time Temp Pulse Resp B/P (MAP) Pulse Ox O2 Delivery O2 Flow Rate FiO2 12/29/17 12:29 98.2 12/29/17 11:43 98.2 97 20 141/70 (93) 92 98.2 12/29/17 09:20 107 133/71 12/29/17 09:20 107 133/71 12/29/17 09:00 Room Air 12/29/17 08:42 98.6 107 20 133/71 (91) 93 98.6 12/29/17 04:00 98.6 97 19 144/55 (84) 96 98.6 12/29/17 00:00 99.7 91 19 123/62 (82) 94 99.7 12/28/17 21:22 100.6 12/28/17 21:00 Room Air 12/28/17 20:23 106 149/68 12/28/17 20:23 100.8 12/28/17 20:00 100.8 106 19 149/68 (95) 95 100.8 12/28/17 17:53 97 130/61 12/28/17 16:00 98.6 97 19 131/68 (89) 94 98.6 Intake and Output 12/28/17 12/29/17 19:00 07:00 Intake Total 1240 ml 500 ml Output Total 1800 ml 1100 ml Balance -560 ml -600 ml Intake Oral 480 ml IV Total 760 ml 500 ml Output Urine Total 1800 ml 1100 ml Laboratory Tests Test 12/29/17 05:15 White Blood Count 10.8 K/UL (4.8-10.8) Red Blood Count 3.03 M/UL (4.20-5.40) L Hemoglobin 8.7 G/DL (12.0-16.0) L Hematocrit 26.6 % (37.0-47.0) L Mean Corpuscular Volume 88 FL (80-99) Mean Corpuscular Hemoglobin 28.7 PG (27.0-31.0) Mean Corpuscular Hemoglobin Concent 32.7 G/DL (32.0-36.0) Red Cell Distribution Width 11.6 % (11.6-14.8) Platelet Count 368 K/UL (150-450) Mean Platelet Volume 7.0 FL (6.5-10.1) Neutrophils (%) (Auto) 68.7 % (45.0-75.0) Lymphocytes (%) (Auto) 22.5 % (20.0-45.0) Monocytes (%) (Auto) 5.4 % (1.0-10.0) Eosinophils (%) (Auto) 2.5 % (0.0-3.0) Basophils (%) (Auto) 0.8 % (0.0-2.0) Sodium Level 142 MMOL/L (136-145) Potassium Level 3.6 MMOL/L (3.5-5.1) Chloride Level 104 MMOL/L (98-107) Carbon Dioxide Level 32 MMOL/L (21-32) Anion Gap 6 mmol/L (5-15) Blood Urea Nitrogen 5 mg/dL (7-18) L Creatinine 0.7 MG/DL (0.55-1.30) Estimat Glomerular Filtration Rate > 60 mL/min (>60) Glucose Level 96 MG/DL (74-106) Calcium Level 8.3 MG/DL (8.5-10.1) L Phosphorus Level 3.1 MG/DL (2.5-4.9) Magnesium Level 1.7 MG/DL (1.8-2.4) L Total Bilirubin 0.2 MG/DL (0.2-1.0) Aspartate Amino Transf (AST/SGOT) 13 U/L (15-37) L Alanine Aminotransferase (ALT/SGPT) 12 U/L (12-78) Alkaline Phosphatase 172 U/L (46-116) H Total Protein 6.6 G/DL (6.4-8.2) Albumin 1.6 G/DL (3.4-5.0) L Globulin 5.0 g/dL Albumin/Globulin Ratio 0.3 (1.0-2.7) L Height (Feet): 5 Height (Inches): 5.00 Weight (Pounds): 190 General Appearance: WD/WN, no apparent distress, alert Cardiovascular: normal rate Respiratory/Chest: normal breath sounds, no respiratory distress Abdominal Exam: normal bowel sounds, non tender, soft Extremities: normal range of motion, non-tender Yoko Simpson NP Dec 29, 2017 14:08
[2017-12-29] MEDS: metroNIDAZOLE 500mg tab ORAL SCH ×2 (15:17→21:38)
[2017-12-29] MEDS: cefTRIAXone 2 GM in D5W 55 ML IVPB SCH (15:18)
[2017-12-29 16:08] VITALS: BP 108/65
--- NOTE | 2017-12-29 18:16 | General Surgery Progress Note ---
General Surgery-Progress Note Subjective Procedure Performed incision and drainage of right perirectal abscess Additional Comments doing okay. colonoscopy with polyp but no fistula Objective Last 24 Hour Vital Signs Date Time Temp Pulse Resp B/P (MAP) Pulse Ox O2 Delivery O2 Flow Rate FiO2 12/29/17 18:00 91 108/65 12/29/17 16:08 99.8 91 20 108/65 (79) 96 99.8 12/29/17 13:28 98.2 12/29/17 12:29 98.2 12/29/17 11:43 98.2 97 20 141/70 (93) 92 98.2 12/29/17 09:20 107 133/71 12/29/17 09:20 107 133/71 12/29/17 09:00 Room Air 12/29/17 08:42 98.6 107 20 133/71 (91) 93 98.6 12/29/17 04:00 98.6 97 19 144/55 (84) 96 98.6 12/29/17 00:00 99.7 91 19 123/62 (82) 94 99.7 12/28/17 21:00 Room Air 12/28/17 20:23 106 149/68 12/28/17 20:23 100.8 12/28/17 20:00 100.8 106 19 149/68 (95) 95 100.8 I&O Intake and Output 12/28/17 12/29/17 19:00 07:00 Intake Total 1240 ml 500 ml Output Total 1800 ml 1100 ml Balance -560 ml -600 ml Intake Oral 480 ml IV Total 760 ml 500 ml Output Urine Total 1800 ml 1100 ml Dressing: saturated Wound: other Drains: none Cardiovascular: RSR Respiratory: clear Abdomen: soft, flat, non-tender Extremities: no edema, no tenderness, no cyanosis Laboratory Tests Test 12/29/17 05:15 White Blood Count 10.8 K/UL (4.8-10.8) Red Blood Count 3.03 M/UL (4.20-5.40) L Hemoglobin 8.7 G/DL (12.0-16.0) L Hematocrit 26.6 % (37.0-47.0) L Mean Corpuscular Volume 88 FL (80-99) Mean Corpuscular Hemoglobin 28.7 PG (27.0-31.0) Mean Corpuscular Hemoglobin Concent 32.7 G/DL (32.0-36.0) Red Cell Distribution Width 11.6 % (11.6-14.8) Platelet Count 368 K/UL (150-450) Mean Platelet Volume 7.0 FL (6.5-10.1) Neutrophils (%) (Auto) 68.7 % (45.0-75.0) Lymphocytes (%) (Auto) 22.5 % (20.0-45.0) Monocytes (%) (Auto) 5.4 % (1.0-10.0) Eosinophils (%) (Auto) 2.5 % (0.0-3.0) Basophils (%) (Auto) 0.8 % (0.0-2.0) Sodium Level 142 MMOL/L (136-145) Potassium Level 3.6 MMOL/L (3.5-5.1) Chloride Level 104 MMOL/L (98-107) Carbon Dioxide Level 32 MMOL/L (21-32) Anion Gap 6 mmol/L (5-15) Blood Urea Nitrogen 5 mg/dL (7-18) L Creatinine 0.7 MG/DL (0.55-1.30) Estimat Glomerular Filtration Rate > 60 mL/min (>60) Glucose Level 96 MG/DL (74-106) Calcium Level 8.3 MG/DL (8.5-10.1) L Phosphorus Level 3.1 MG/DL (2.5-4.9) Magnesium Level 1.7 MG/DL (1.8-2.4) L Total Bilirubin 0.2 MG/DL (0.2-1.0) Aspartate Amino Transf (AST/SGOT) 13 U/L (15-37) L Alanine Aminotransferase (ALT/SGPT) 12 U/L (12-78) Alkaline Phosphatase 172 U/L (46-116) H Total Protein 6.6 G/DL (6.4-8.2) Albumin 1.6 G/DL (3.4-5.0) L Globulin 5.0 g/dL Albumin/Globulin Ratio 0.3 (1.0-2.7) L Plan Problems: (1) Diabetic acidosis without coma (2) Hyperglycemia (3) Severe sepsis (4) Abscess of buttock Assessment & Plan: large right buttock abscess with gangrene at skin level. given condition urgent I&D warranted as possible etiology of sepsis. see procedure report. improving. leukocytosis improving. more alert and responsive. drainage still looks almost as if stool. cultures poly organism : WOUND CULTURE Preliminary Organism 1 GRAM NEGATIVE BACILLUS 1 GROWTH: 3+ Organism 2 KLEBSIELLA OXYTOCA GROWTH: 3+ Organism 3 GRAM NEGATIVE BACILLUS 3 GROWTH: 1+ Organism 4 SHAE ALBICANS GROWTH: 4+ WOUND CULTURE Final Organism 1 KLEBSIELLA PNEUMONIAE GROWTH: 4+ Organism 2 PROTEUS MIRABILIS GROWTH: 4+ Organism 3 STREP AGALACTIAE GROUP B GROWTH: 4+ Organism 4 SHAE ALBICANS GROWTH: 4+ -okay for diet -packing and dressings to buttock TID -appreciate GI input. - no fistula noted. -given worsening leukocytosis and extent of wound noted on MRI will need more formal washout and debridement. will schedule for tomorrow. thank you will follow with recommendations (5) DKA (diabetic ketoacidoses) Baljeet Osorio Dec 29, 2017 18:16
[2017-12-29 19:53] VITALS: BP 138/54
[2017-12-29] MEDS ORDERED: Levemir Flexpen SUBQ SCH (21:00)
--- NOTE | 2017-12-29 22:02 | General Progress Note ---
Assessment/Plan Problem List: (1) Diabetes ICD Codes: E11.9 - Type 2 diabetes mellitus without complications SNOMED: 29003259 (2) Hyperglycemia ICD Codes: R73.9 - Hyperglycemia, unspecified SNOMED: 92229195 (3) Sepsis ICD Codes: A41.9 - Sepsis, unspecified organism SNOMED: 57529657 (4) Abscess of buttock ICD Codes: L02.31 - Cutaneous abscess of buttock SNOMED: 87448787 (5) DKA (diabetic ketoacidoses) ICD Codes: E13.10 - Other specified diabetes mellitus with ketoacidosis without coma SNOMED: 24930532, 473909640 Qualifiers: Qualified Codes: E13.11 - Other specified diabetes mellitus with ketoacidosis with coma (6) Renal insufficiency ICD Codes: N28.9 - Disorder of kidney and ureter, unspecified SNOMED: 981483205, 550987099 (7) Vagina bleeding ICD Codes: N93.9 - Abnormal uterine and vaginal bleeding, unspecified SNOMED: 783206199, 109005892 (8) Anemia ICD Codes: D64.9 - Anemia, unspecified SNOMED: 240301965 Status: progressing Assessment/Plan s/p dka s/p i&d of rectal abscess dr peña is planning to do wash out and debridement of rectal abscess and once cleared by id and heme/onc for low hb wiil be dc Subjective ROS Limited/Unobtainable: Yes Allergies: Coded Allergies: SULFA (SULFONAMIDE ANTIBIOTICS) (Verified Allergy, Unknown, 12/25/17) Objective Last 24 Hour Vital Signs Date Time Temp Pulse Resp B/P (MAP) Pulse Ox O2 Delivery O2 Flow Rate FiO2 12/29/17 21:33 98.4 12/29/17 20:36 112 138/54 12/29/17 20:34 102.4 12/29/17 19:53 102.4 112 18 138/54 (82) 94 102.4 12/29/17 18:00 91 108/65 12/29/17 16:08 99.8 91 20 108/65 (79) 96 99.8 12/29/17 12:29 98.2 12/29/17 11:43 98.2 97 20 141/70 (93) 92 98.2 12/29/17 09:20 107 133/71 12/29/17 09:20 107 133/71 12/29/17 09:00 Room Air 12/29/17 08:42 98.6 107 20 133/71 (91) 93 98.6 12/29/17 04:00 98.6 97 19 144/55 (84) 96 98.6 12/29/17 00:00 99.7 91 19 123/62 (82) 94 99.7 Intake and Output 12/28/17 12/29/17 19:00 07:00 Intake Total 1240 ml 500 ml Output Total 1800 ml 1100 ml Balance -560 ml -600 ml Intake Oral 480 ml IV Total 760 ml 500 ml Output Urine Total 1800 ml 1100 ml Laboratory Tests 12/29/17 05:15: White Blood Count 10.8, Red Blood Count 3.03L, Hemoglobin 8.7L, Hematocrit 26.6L , Mean Corpuscular Volume 88, Mean Corpuscular Hemoglobin 28.7, Mean Corpuscular Hemoglobin Concent 32.7, Red Cell Distribution Width 11.6, Platelet Count 368, Mean Platelet Volume 7.0, Neutrophils (%) (Auto) 68.7, Lymphocytes (% ) (Auto) 22.5, Monocytes (%) (Auto) 5.4, Eosinophils (%) (Auto) 2.5, Basophils ( %) (Auto) 0.8, Sodium Level 142, Potassium Level 3.6, Chloride Level 104, Carbon Dioxide Level 32, Anion Gap 6, Blood Urea Nitrogen 5L, Creatinine 0.7, Estimat Glomerular Filtration Rate > 60, Glucose Level 96, Calcium Level 8.3L, Phosphorus Level 3.1, Magnesium Level 1.7L, Total Bilirubin 0.2, Aspartate Amino Transf (AST/SGOT) 13L, Alanine Aminotransferase (ALT/SGPT) 12, Alkaline Phosphatase 172H, Total Protein 6.6, Albumin 1.6L, Globulin 5.0, Albumin/ Globulin Ratio 0.3L Height (Feet): 5 Height (Inches): 5.00 Weight (Pounds): 190 Cardiovascular: normal rate Respiratory/Chest: chest wall non-tender Abdomen: soft Nissa Mckay MD Dec 29, 2017 22:02
--- NOTE | 2017-12-29 23:55 | Cardiology Progress Note ---
Assessment/Plan Assessment/Plan 1. Sinus tachycardia, continue metoprolol, keep hydrated. 2D echo reveals normal LV systolic function. 2. Diabetes mellitus, uncontrolled, noncompliant, continue statins, consider baby ASA daily. 3. Severe sepsis. 4. Right buttock abscess Subjective Subjective Not on the telemetry unit. Clinically the same. Objective Last 24 Hour Vital Signs Date Time Temp Pulse Resp B/P (MAP) Pulse Ox O2 Delivery O2 Flow Rate FiO2 12/29/17 21:33 98.4 12/29/17 21:00 Room Air 12/29/17 20:36 112 138/54 12/29/17 20:34 102.4 12/29/17 19:53 102.4 112 18 138/54 (82) 94 102.4 12/29/17 18:00 91 108/65 12/29/17 16:08 99.8 91 20 108/65 (79) 96 99.8 12/29/17 12:29 98.2 12/29/17 11:43 98.2 97 20 141/70 (93) 92 98.2 12/29/17 09:20 107 133/71 12/29/17 09:20 107 133/71 12/29/17 09:00 Room Air 12/29/17 08:42 98.6 107 20 133/71 (91) 93 98.6 12/29/17 04:00 98.6 97 19 144/55 (84) 96 98.6 12/29/17 00:00 99.7 91 19 123/62 (82) 94 99.7 Intake and Output 12/28/17 12/29/17 19:00 07:00 Intake Total 1240 ml 500 ml Output Total 1800 ml 1100 ml Balance -560 ml -600 ml Intake Oral 480 ml IV Total 760 ml 500 ml Output Urine Total 1800 ml 1100 ml 2D Echo: LVEF 60%, Mild LVH, RVSP 12 mmHg Laboratory Tests Test 12/29/17 05:15 White Blood Count 10.8 K/UL (4.8-10.8) Red Blood Count 3.03 M/UL (4.20-5.40) L Hemoglobin 8.7 G/DL (12.0-16.0) L Hematocrit 26.6 % (37.0-47.0) L Mean Corpuscular Volume 88 FL (80-99) Mean Corpuscular Hemoglobin 28.7 PG (27.0-31.0) Mean Corpuscular Hemoglobin Concent 32.7 G/DL (32.0-36.0) Red Cell Distribution Width 11.6 % (11.6-14.8) Platelet Count 368 K/UL (150-450) Mean Platelet Volume 7.0 FL (6.5-10.1) Neutrophils (%) (Auto) 68.7 % (45.0-75.0) Lymphocytes (%) (Auto) 22.5 % (20.0-45.0) Monocytes (%) (Auto) 5.4 % (1.0-10.0) Eosinophils (%) (Auto) 2.5 % (0.0-3.0) Basophils (%) (Auto) 0.8 % (0.0-2.0) Sodium Level 142 MMOL/L (136-145) Potassium Level 3.6 MMOL/L (3.5-5.1) Chloride Level 104 MMOL/L (98-107) Carbon Dioxide Level 32 MMOL/L (21-32) Anion Gap 6 mmol/L (5-15) Blood Urea Nitrogen 5 mg/dL (7-18) L Creatinine 0.7 MG/DL (0.55-1.30) Estimat Glomerular Filtration Rate > 60 mL/min (>60) Glucose Level 96 MG/DL (74-106) Calcium Level 8.3 MG/DL (8.5-10.1) L Phosphorus Level 3.1 MG/DL (2.5-4.9) Magnesium Level 1.7 MG/DL (1.8-2.4) L Total Bilirubin 0.2 MG/DL (0.2-1.0) Aspartate Amino Transf (AST/SGOT) 13 U/L (15-37) L Alanine Aminotransferase (ALT/SGPT) 12 U/L (12-78) Alkaline Phosphatase 172 U/L (46-116) H Total Protein 6.6 G/DL (6.4-8.2) Albumin 1.6 G/DL (3.4-5.0) L Globulin 5.0 g/dL Albumin/Globulin Ratio 0.3 (1.0-2.7) L Objective HEENT: Atraumatic and normocephalic. ENT, pupils are equal, round, and reactive to light and accommodation. Extraocular muscles intact. Dry mucosal membranes. NECK: JVP less than 5 cm. No carotid bruit. Carotid upstrokes 2+ bilaterally. CARDIOVASCULAR: Normal S1 and S2. Regular rhythm. Tachycardic. No murmurs, gallops, or rubs. PMI is at fourth intercostal space at the midclavicular line. LUNGS: Clear to auscultation bilaterally. ABDOMEN: Soft, nontender, and nondistended. No hepatosplenomegaly. Positive bowel sounds. EXTREMITIES: No evidence of edema, clubbing, or cyanosis. Javi Anthony MD Dec 29, 2017 23:55
[2017-12-30] VITALS (15 sets, daily range): BP systolic 110–142; BP diastolic 60–82
[2017-12-30] MEDS: D5 1/2NS w/KCl 20mEq 1,000 ML IV SCH ×2 (01:21→16:58)
[2017-12-30] MEDS: metroNIDAZOLE 500mg tab ORAL SCH ×3 (05:50→21:31)
[2017-12-30] MEDS: NovoLOG Insulin Flexpen SUBQ SCH ×8 (05:52→21:36)
--- NOTE | 2017-12-30 06:11 | General Progress Note ---
Assessment/Plan Problem List: (1) Diabetic acidosis without coma ICD Codes: E13.10 - Other specified diabetes mellitus with ketoacidosis without coma SNOMED: 01345964, 558924446 (2) Severe sepsis ICD Codes: A41.9 - Sepsis, unspecified organism; R65.20 - Severe sepsis without septic shock SNOMED: 07631039 (3) DKA (diabetic ketoacidoses) ICD Codes: E13.10 - Other specified diabetes mellitus with ketoacidosis without coma SNOMED: 11419032, 889425988 Qualifiers: Qualified Codes: E13.11 - Other specified diabetes mellitus with ketoacidosis with coma (4) Vagina bleeding ICD Codes: N93.9 - Abnormal uterine and vaginal bleeding, unspecified SNOMED: 364438341, 649223692 Assessment/Plan reduce Levemir to 20 units qhs reduce Novolog to 6 units ac tid + NISS Subjective Allergies: Coded Allergies: SULFA (SULFONAMIDE ANTIBIOTICS) (Verified Allergy, Unknown, 12/25/17) All Systems: reviewed and negative except above Subjective events noted Objective Last 24 Hour Vital Signs Date Time Temp Pulse Resp B/P (MAP) Pulse Ox O2 Delivery O2 Flow Rate FiO2 12/30/17 04:51 99.7 90 17 118/65 (82) 93 99.7 12/30/17 00:00 99.1 67 17 116/66 (83) 95 99.1 12/29/17 21:33 98.4 12/29/17 21:00 Room Air 12/29/17 20:36 112 138/54 12/29/17 20:34 102.4 12/29/17 19:53 102.4 112 18 138/54 (82) 94 102.4 12/29/17 18:00 91 108/65 12/29/17 16:08 99.8 91 20 108/65 (79) 96 99.8 12/29/17 12:29 98.2 12/29/17 11:43 98.2 97 20 141/70 (93) 92 98.2 12/29/17 09:20 107 133/71 12/29/17 09:20 107 133/71 12/29/17 09:00 Room Air 12/29/17 08:42 98.6 107 20 133/71 (91) 93 98.6 Intake and Output 12/29/17 12/30/17 19:00 07:00 Intake Total 720 ml 525 ml Output Total 1450 ml Balance -730 ml 525 ml Intake Oral 720 ml IV Total 525 ml Output Urine Total 1450 ml Height (Feet): 5 Height (Inches): 5.00 Weight (Pounds): 190 General Appearance: no apparent distress Neck: normal alignment Cardiovascular: normal peripheral pulses Respiratory/Chest: lungs clear Abdomen: normal bowel sounds Pelvis: normal external exam Objective Current Medications Medications (Trade) Dose Ordered Sig/Eyad Route PRN Reason Start Time Stop Time Status Last Admin Dose Admin Acetaminophen (Tylenol) 650 mg Q4H PRN ORAL Mild Pain/Temp > 100.5 12/26/17 17:00 01/25/18 16:59 12/29/17 20:34 Amlodipine Besylate (Norvasc) 5 mg BID ORAL 12/26/17 18:00 01/24/18 08:59 12/29/17 18:00 Artificial Tears (Akwa-Tears) 1 drop THREE TIMES A DAY BOTH EYES 12/26/17 18:00 01/22/18 12:59 12/29/17 15:17 Atorvastatin Calcium (Lipitor) 10 mg BEDTIME ORAL 12/26/17 21:00 01/23/18 20:59 12/29/17 20:36 Ceftriaxone Sodium 2 gm/ Dextrose 55 ml @ 110 mls/hr Q24H IVPB 12/27/17 14:00 01/03/18 13:59 12/29/17 15:18 Clonidine HCl (Catapres Tab) 0.1 mg Q6H PRN ORAL [id number] and above 12/26/17 17:00 01/23/18 16:59 12/27/17 21:39 Dextrose (Dextrose 50%) 25 ml STAT PRN IV Hypoglycemia 12/26/17 17:00 01/22/18 16:59 Dextrose (Dextrose 50%) 50 ml STAT PRN IV Hypoglycemia 12/26/17 17:00 01/22/18 16:59 Dextrose/ Electrolytes 1,000 ml @ 50 mls/hr Q20H IV 12/26/17 18:00 01/22/18 17:59 12/28/17 14:17 Famotidine (Pepcid) 20 mg BID ORAL 12/26/17 18:00 01/23/18 17:59 12/29/17 18:00 Fish Oil (Fish Oil) 1,000 mg BID ORAL 12/26/17 18:00 01/23/18 11:59 12/29/17 18:00 Fluconazole (Diflucan) 200 mg DAILY ORAL 12/27/17 09:00 01/02/18 08:59 12/29/17 09:20 Folic Acid (Folate) 5 mg DAILY ORAL 12/27/17 09:00 01/23/18 11:59 12/29/17 09:19 Heparin Sodium (Porcine) (Heparin 5000 units/ml) 5,000 units Q12HR SUBQ 12/26/17 21:00 01/23/18 20:59 12/29/17 20:38 Hydromorphone HCl (Dilaudid) 1 mg Q3H PRN IVP Moderate Pain (Pain Scale 4-6) 12/26/17 17:00 12/31/17 16:59 Insulin Aspart (NovoLOG) BEFORE MEALS AND HS SUBQ 12/26/17 21:00 01/23/18 06:29 12/29/17 20:42 Insulin Aspart (NovoLOG) 8 units TIAC SUBQ 12/29/17 07:30 01/23/18 07:29 12/29/17 12:30 Insulin Detemir (Levemir) 25 units BEDTIME SUBQ 12/29/17 21:00 01/22/18 22:59 12/29/17 20:42 Metoprolol Tartrate (Lopressor) 25 mg Q12HR ORAL 12/26/17 21:00 01/23/18 20:59 12/29/17 20:36 Metronidazole (Flagyl) 500 mg Q8HR ORAL 12/29/17 14:00 01/05/18 13:59 12/30/17 05:50 Nitroglycerin (Ntg) 0.4 mg Q5M PRN SL Prn Chest Pain 12/26/17 17:00 01/21/18 17:59 Ondansetron HCl (Zofran) 4 mg Q6H PRN IVP Nausea & Vomiting 12/26/17 17:00 01/21/18 16:59 Phosphorus (Phospha 250 Neutral) 250 mg THREE TIMES A DAY ORAL 12/26/17 18:00 01/25/18 08:59 12/29/17 18:00 Potassium Chloride (K-Dur) 40 meq BID ORAL 12/27/17 18:00 01/25/18 08:59 12/29/17 18:00 Sodium Chloride 1,000 ml @ 75 mls/hr [id number] 12/29/17 18:13 01/28/18 18:12 12/29/17 18:32 Vitamin A/Vitamin D (A & D Oint) 1 applic EVERY 12 HOURS TOPIC 12/26/17 21:00 01/22/18 20:59 12/29/17 20:43 Item Value Date Time Bedside Blood Glucose 71 mg/dl 12/30/17 0553 Bedside Blood Glucose 212 mg/dl H 12/29/17 2042 Bedside Blood Glucose 128 mg/dl H 12/29/17 1635 Bedside Blood Glucose 260 mg/dl H 12/29/17 1231 Bedside Blood Glucose 98 mg/dl 12/29/17 0730 Riky Olivas MD Dec 30, 2017 06:11
--- NOTE | 2017-12-30 07:40 | Anethesia Preoperative Eval ---
Anesthesia Pre-op PMH/ROS General Date of Evaluation: Dec 30, 2017 Anesthesiologist: Meño ASA Score: ASA 3 Mallampati Score Class I : Soft palate, uvula, fauces, pillars visible Class II: Soft palate, uvula, fauces visible Class III: Soft palate, base of uvula visible Class IV: Only hard plate visible Mallampati Classification: Class II Surgeon: Jo Diagnosis: Perirectal abscess Surgical Procedure: I&D perirectal abscess Anesthesia History: none Family History: no anesthesia problems Allergies: Coded Allergies: SULFA (SULFONAMIDE ANTIBIOTICS) (Verified Allergy, Unknown, 12/25/17) Medications: see eMAR Past Medical History Cardiovascular: Reports: HTN; Denies: CAD, [place], valve dz, arrhythmia, other Pulmonary: Denies: asthma, COPD, MIRIAN, other Gastrointestinal/Genitourinary: 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 Exam Physician Exam Last Vital Signs Date Time Temp Pulse Resp B/P (MAP) Pulse Ox O2 Delivery O2 Flow Rate FiO2 12/30/17 04:51 99.7 90 17 118/65 (82) 93 99.7 12/29/17 21:00 Room Air Constitutional: NAD Cardiovascular: RRR Respiratory: CTA Airway Exam Mallampati Score: Class II MO: limited ROM: limited Teeth: missing, intact Anesthesia Pre-op A/P Labs see chart Studies Pre-op Studies: EKG - sr Risk Assessment & Plan Assessment: ASA III Plan: GA Status Change Before Surgery: No Pre-Antibiotics Drug: TBD Given Within 1 Hr of Incision: Yes Adali Velarde MD Dec 30, 2017 07:40
[2017-12-30 08:18] LABS: BASOPHILS % (AUTO) 0.6 % (0.0-2.0); EOSINOPHILS % (AUTO) 1.7 % (0.0-3.0); HEMATOCRIT 29.8 % (37.0-47.0); LYMPHOCYTES % (AUTO) 21.1 % (20.0-45.0); MEAN CORPUSCULAR VOLUME 86 FL (80-99); MONOCYTES % (AUTO) 11.1 % (1.0-10.0); NEUTROPHILS % (AUTO) 65.5 % (45.0-75.0); PLATELET COUNT 412 K/UL (150-450); RED BLOOD COUNT 3.46 M/UL (4.20-5.40); RED CELL DISTRIBUTION WIDTH 12.1 % (11.6-14.8); WHITE BLOOD COUNT 11.8 K/UL (4.8-10.8)
[2017-12-30] MEDS: Heparin 5000 units/ml inj SUBQ SCH ×2 (09:00→20:45)
[2017-12-30] MEDS: Vitamin A&D Oint 2oz Tube TOPIC SCH ×2 (09:00→21:33)
[2017-12-30] MEDS: Phospha 250 Neutral tab ORAL SCH ×3 (09:00→19:15)
[2017-12-30] MEDS: Artificial Tears 1.4% Op Soln BOTH EYES SCH ×3 (09:00→18:10)
[2017-12-30] MEDS: Metoprolol 25mg tab ORAL SCH ×2 (09:00→20:43)
[2017-12-30 09:20] LABS: ALANINE AMINOTRANSFERASE 15 U/L (12-78); ALBUMIN 1.7 G/DL (3.4-5.0); ALBUMIN/GLOBULIN RATIO 0.3 (1.0-2.7); ALKALINE PHOSPHATASE 175 U/L (46-116); ANION GAP 9 mmol/L (5-15); ASPARTATE AMINO TRANSFERASE 12 U/L (15-37); BILIRUBIN,TOTAL 0.2 MG/DL (0.2-1.0); BLOOD UREA NITROGEN 7 mg/dL (7-18); CALCIUM 8.7 MG/DL (8.5-10.1); CARBON DIOXIDE 31 MMOL/L (21-32); CHLORIDE 103 MMOL/L (98-107); CREATININE 0.7 MG/DL (0.55-1.30); POTASSIUM 3.5 MMOL/L (3.5-5.1); SODIUM 143 MMOL/L (136-145)
[2017-12-30] MEDS ORDERED: Bacitracin 50000 Units Vial ONE (09:46)
[2017-12-30] MEDS ORDERED: Bupivacaine 0.5% Inj 30 ml vial INJ ONE (09:46)
[2017-12-30] MEDS ORDERED: EPINEPHrine 1mg/1ml Amp ONE (09:46)
[2017-12-30] MEDS ORDERED: NeoSporin Gu Irrig 1ml Amp IRRIG ONE (09:46)
[2017-12-30] MEDS ORDERED: Lidocaine 1% MPF 10mg/ml 5ml ONE (09:49)
[2017-12-30] MEDS ORDERED: Midazolam 2mg/2ml Inj ONE (09:49)
[2017-12-30] MEDS ORDERED: fentaNYL 100 mcg/2 mL IV ONE (09:49)
[2017-12-30] MEDS ORDERED: Propofol 200mg/20ml IV ONE (09:49)
[2017-12-30] MEDS ORDERED: Zemuron 50mg/5ml Inj IV ONE (09:52)
[2017-12-30] MEDS ORDERED: LR 1000ml ONE (10:00)
[2017-12-30] MEDS ORDERED: Sterile Water Irrig 1000ml IRRIG ONE (10:00)
[2017-12-30] MEDS ORDERED: NS Irrig 1000ml ONE (10:00)
--- NOTE | 2017-12-30 11:12 | Immediate Post-Op Evaluation ---
Immediate Post-Op Evalulation Immediate Post-Op Evalulation Procedure: I&D perirectal abscess Date of Evaluation: Dec 30, 2017 Time of Evaluation: 11:13 IV Fluids: 300 Blood Products: 0 Estimated Blood Loss: min Urinary Output: 550 Blood Pressure Systolic: 110 Blood Pressure Diastolic: 79 Pulse Rate: 95 Respiratory Rate: 17 O2 Sat by Pulse Oximetry: 100 Temperature (Fahrenheit): 98 Pain Score (1-10): 0 Nausea: No Vomiting: No Complications 0 Patient Status: awake, reacts, patent, none Hydration Status: adequate Drug: On floor Adali Velarde MD Dec 30, 2017 11:12
--- NOTE | 2017-12-30 11:57 | Brief Operative Note ---
Immediate Post Operative Note Operative Note Pre-op Diagnosis: right buttock abscess, sepsis Procedure: incision and drainage of right perirectal abscess with excisional debridement of infected necrotic tissue Post-op Diagnosis: right buttock wound with extensive devitalized tissue down to ischial tuberosity Surgeon: mariana Anesthesiologist: pillo Anesthesia: general Specimen: yes Complications: none Condition: stable Fluids: see records Estimated Blood Loss: minimal Drains: none Implant(s) used?: No Baljeet Osorio Dec 30, 2017 11:57
--- NOTE | 2017-12-30 12:21 | Nephrology Progress Note ---
Assessment/Plan Problem List: (1) Renal insufficiency (2) DKA (diabetic ketoacidoses) (3) Severe sepsis Assessment: buttock abcess (4) Anemia Assessment Diabetic acidosis without coma resolved Renal failure and electrolyte imbalance mainly resolved Diabetic Nephropathy and Proteinuria and HypoAlbuminemia Severe sepsis Abscess of buttock Anemia Plan Hydrate- K and Phos supplement Mag as needed Antibiotics Monitor renal parameters correct electrolytes avoid Nephrotoxics adjust BP meds Fish OIL Lipitor Folic Acid tele Subjective ROS Limited/Unobtainable: No Constitutional: Reports: malaise Objective Objective Last 24 Hour Vital Signs Date Time Temp Pulse Resp B/P (MAP) Pulse Ox O2 Delivery O2 Flow Rate FiO2 12/30/17 11:45 64 16 130/72 97 Room Air 12/30/17 11:30 64 17 125/75 99 Room Air 12/30/17 11:25 64 20 126/75 96 Room Air 12/30/17 11:15 64 19 122/74 98 Room Air 12/30/17 11:12 208.4 95 17 100 12/30/17 11:08 98.0 64 17 110/79 100 98.0 12/30/17 09:03 103 125/60 (81) 12/30/17 09:00 Room Air 12/30/17 09:00 103 125/60 12/30/17 09:00 103 125/60 12/30/17 08:00 98.1 105 19 139/64 (89) 96 98.1 12/30/17 04:51 99.7 90 17 118/65 (82) 93 99.7 12/30/17 00:00 99.1 67 17 116/66 (83) 95 99.1 12/29/17 21:33 98.4 12/29/17 21:00 Room Air 12/29/17 20:36 112 138/54 12/29/17 20:34 102.4 12/29/17 19:53 102.4 112 18 138/54 (82) 94 102.4 12/29/17 18:00 91 108/65 12/29/17 16:08 99.8 91 20 108/65 (79) 96 99.8 12/29/17 12:29 98.2 Intake and Output 12/29/17 12/30/17 19:00 07:00 Intake Total 720 ml 600 ml Output Total 1450 ml Balance -730 ml 600 ml Intake Oral 720 ml IV Total 600 ml Output Urine Total 1450 ml # Voids 3 # Bowel Movements 2 Laboratory Tests 12/30/17 07:40: White Blood Count 11.8H, Red Blood Count 3.46L, Hemoglobin 10.0L, Hematocrit 29.8L, Mean Corpuscular Volume 86, Mean Corpuscular Hemoglobin 28.9, Mean Corpuscular Hemoglobin Concent 33.6, Red Cell Distribution Width 12.1, Platelet Count 412, Mean Platelet Volume 6.8, Neutrophils (%) (Auto) 65.5, Lymphocytes (% ) (Auto) 21.1, Monocytes (%) (Auto) 11.1H, Eosinophils (%) (Auto) 1.7, Basophils (%) (Auto) 0.6, Sodium Level 143, Potassium Level 3.5, Chloride Level 103, Carbon Dioxide Level 31, Anion Gap 9, Blood Urea Nitrogen 7, Creatinine 0.7 , Estimat Glomerular Filtration Rate > 60, Glucose Level 65L, Calcium Level 8.7 , Total Bilirubin 0.2, Aspartate Amino Transf (AST/SGOT) 12L, Alanine Aminotransferase (ALT/SGPT) 15, Alkaline Phosphatase 175H, Total Protein 7.0, Albumin 1.7L, Globulin 5.3, Albumin/Globulin Ratio 0.3L Height (Feet): 5 Height (Inches): 5.00 Weight (Pounds): 188 General Appearance: no apparent distress Objective no change Joni Cleaning MD Dec 30, 2017 12:21
--- NOTE | 2017-12-30 12:44 | GI Progress Note ---
Assessment/Plan Problems: (1) Anemia ICD Codes: D64.9 - Anemia, unspecified SNOMED: 702447767 (2) Abscess of buttock ICD Codes: L02.31 - Cutaneous abscess of buttock SNOMED: 59582616 (3) Severe sepsis ICD Codes: A41.9 - Sepsis, unspecified organism; R65.20 - Severe sepsis without septic shock SNOMED: 20870596 (4) Diabetes ICD Codes: E11.9 - Type 2 diabetes mellitus without complications SNOMED: 03010904 Status: stable Status Narrative Discussed with Dr. Eden. Assessment/Plan SUMMARY FINDINGS: 1. Fair prep. 2. Two colonic polyp removed, see above for details. 3. No evidence of any obvious Crohn's disease in this colonoscopy examination. RECOMMENDATIONS: okay for DC per GI standpoint symptomatic treatment advance diet Follow up biopsies and treat accordingly. The patient was seen and examined at bedside and all new and available data was reviewed in the patients chart. I agree with the above findings, impression and plan. (Patient seen earlier today. Signature stamp does not reflect patient encounter time.). - Garret Eden MD Subjective Gastrointestinal/Abdominal: Reports: no symptoms Objective Last 24 Hour Vital Signs Date Time Temp Pulse Resp B/P (MAP) Pulse Ox O2 Delivery O2 Flow Rate FiO2 12/30/17 12:20 64 16 130/72 97 Room Air 12/30/17 12:00 98.2 78 18 133/77 98 Room Air 98.2 12/30/17 11:45 64 16 130/72 97 Room Air 12/30/17 11:35 82 20 142/82 96 Room Air 12/30/17 11:30 64 17 125/75 99 Room Air 12/30/17 11:25 64 20 126/75 96 Room Air 12/30/17 11:20 89 18 131/71 99 Room Air 12/30/17 11:15 64 19 122/74 98 Room Air 12/30/17 11:12 208.4 95 17 100 12/30/17 11:08 98.0 64 17 110/79 100 98.0 12/30/17 09:03 103 125/60 (81) 12/30/17 09:00 Room Air 12/30/17 09:00 103 125/60 12/30/17 09:00 103 125/60 12/30/17 08:00 98.1 105 19 139/64 (89) 96 98.1 12/30/17 04:51 99.7 90 17 118/65 (82) 93 99.7 12/30/17 00:00 99.1 67 17 116/66 (83) 95 99.1 12/29/17 21:33 98.4 12/29/17 21:00 Room Air 12/29/17 20:36 112 138/54 12/29/17 20:34 102.4 12/29/17 19:53 102.4 112 18 138/54 (82) 94 102.4 12/29/17 18:00 91 108/65 12/29/17 16:08 99.8 91 20 108/65 (79) 96 99.8 Intake and Output 12/29/17 12/30/17 19:00 07:00 Intake Total 720 ml 600 ml Output Total 1450 ml Balance -730 ml 600 ml Intake Oral 720 ml IV Total 600 ml Output Urine Total 1450 ml # Voids 3 # Bowel Movements 2 Laboratory Tests Test 12/30/17 07:40 White Blood Count 11.8 K/UL (4.8-10.8) H Red Blood Count 3.46 M/UL (4.20-5.40) L Hemoglobin 10.0 G/DL (12.0-16.0) L Hematocrit 29.8 % (37.0-47.0) L Mean Corpuscular Volume 86 FL (80-99) Mean Corpuscular Hemoglobin 28.9 PG (27.0-31.0) Mean Corpuscular Hemoglobin Concent 33.6 G/DL (32.0-36.0) Red Cell Distribution Width 12.1 % (11.6-14.8) Platelet Count 412 K/UL (150-450) Mean Platelet Volume 6.8 FL (6.5-10.1) Neutrophils (%) (Auto) 65.5 % (45.0-75.0) Lymphocytes (%) (Auto) 21.1 % (20.0-45.0) Monocytes (%) (Auto) 11.1 % (1.0-10.0) H Eosinophils (%) (Auto) 1.7 % (0.0-3.0) Basophils (%) (Auto) 0.6 % (0.0-2.0) Sodium Level 143 MMOL/L (136-145) Potassium Level 3.5 MMOL/L (3.5-5.1) Chloride Level 103 MMOL/L (98-107) Carbon Dioxide Level 31 MMOL/L (21-32) Anion Gap 9 mmol/L (5-15) Blood Urea Nitrogen 7 mg/dL (7-18) Creatinine 0.7 MG/DL (0.55-1.30) Estimat Glomerular Filtration Rate > 60 mL/min (>60) Glucose Level 65 MG/DL (74-106) L Calcium Level 8.7 MG/DL (8.5-10.1) Total Bilirubin 0.2 MG/DL (0.2-1.0) Aspartate Amino Transf (AST/SGOT) 12 U/L (15-37) L Alanine Aminotransferase (ALT/SGPT) 15 U/L (12-78) Alkaline Phosphatase 175 U/L (46-116) H Total Protein 7.0 G/DL (6.4-8.2) Albumin 1.7 G/DL (3.4-5.0) L Globulin 5.3 g/dL Albumin/Globulin Ratio 0.3 (1.0-2.7) L Height (Feet): 5 Height (Inches): 5.00 Weight (Pounds): 188 General Appearance: WD/WN, no apparent distress, alert Cardiovascular: normal rate Respiratory/Chest: normal breath sounds, no respiratory distress Abdominal Exam: normal bowel sounds, non tender, soft Extremities: normal range of motion, non-tender Yoko Simpson NP Dec 30, 2017 12:44
--- NOTE | 2017-12-30 14:13 | Infectious Diseases Prog Note ---
Assessment/Plan Assessment/Plan A; Sepsis improving R buttock abscess DKA Newly diagnosed DM Acute renal failure resolving Perianal fistula P; continue Fluconazole & Ceftriaxone & Flagyl UA, Urine culture & CXR Subjective ROS Limited/Unobtainable: No Constitutional: Reports: fever, other - last night Respiratory: Reports: no symptoms Gastrointestinal/Abdominal: Reports: no symptoms Genitourinary: Reports: no symptoms Skin: Reports: other - had another debridement today Musculoskeletal: Reports: pain Allergies: Coded Allergies: SULFA (SULFONAMIDE ANTIBIOTICS) (Verified Allergy, Unknown, 12/25/17) Objective Vital Signs Last 24 Hour Vital Signs Date Time Temp Pulse Resp B/P (MAP) Pulse Ox O2 Delivery O2 Flow Rate FiO2 12/30/17 12:20 64 16 130/72 97 Room Air 12/30/17 12:00 98.2 78 18 133/77 98 Room Air 98.2 12/30/17 11:45 64 16 130/72 97 Room Air 12/30/17 11:35 82 20 142/82 96 Room Air 12/30/17 11:30 64 17 125/75 99 Room Air 12/30/17 11:25 64 20 126/75 96 Room Air 12/30/17 11:20 89 18 131/71 99 Room Air 12/30/17 11:15 64 19 122/74 98 Room Air 12/30/17 11:12 208.4 95 17 100 12/30/17 11:08 98.0 64 17 110/79 100 98.0 12/30/17 09:03 103 125/60 (81) 12/30/17 09:00 Room Air 12/30/17 09:00 103 125/60 12/30/17 09:00 103 125/60 12/30/17 08:00 98.1 105 19 139/64 (89) 96 98.1 12/30/17 04:51 99.7 90 17 118/65 (82) 93 99.7 12/30/17 00:00 99.1 67 17 116/66 (83) 95 99.1 12/29/17 21:33 98.4 12/29/17 21:00 Room Air 12/29/17 20:36 112 138/54 12/29/17 20:34 102.4 12/29/17 19:53 102.4 112 18 138/54 (82) 94 102.4 12/29/17 18:00 91 108/65 12/29/17 16:08 99.8 91 20 108/65 (79) 96 99.8 Height (Feet): 5 Height (Inches): 5.00 Weight (Pounds): 188 General Appearance: no acute distress HEENT: mucous membranes moist Respiratory/Chest: lungs clear Cardiovascular: normal rate Abdomen: soft, non tender Extremities: no edema Skin: ulcers Neurologic/Psychiatric: alert, oriented x 3, responsive Microbiology Date/Time Source Procedure Growth Status 12/30/17 10:56 Buttock Right Received Laboratory Tests Test 12/30/17 07:40 White Blood Count 11.8 K/UL (4.8-10.8) H Red Blood Count 3.46 M/UL (4.20-5.40) L Hemoglobin 10.0 G/DL (12.0-16.0) L Hematocrit 29.8 % (37.0-47.0) L Mean Corpuscular Volume 86 FL (80-99) Mean Corpuscular Hemoglobin 28.9 PG (27.0-31.0) Mean Corpuscular Hemoglobin Concent 33.6 G/DL (32.0-36.0) Red Cell Distribution Width 12.1 % (11.6-14.8) Platelet Count 412 K/UL (150-450) Mean Platelet Volume 6.8 FL (6.5-10.1) Neutrophils (%) (Auto) 65.5 % (45.0-75.0) Lymphocytes (%) (Auto) 21.1 % (20.0-45.0) Monocytes (%) (Auto) 11.1 % (1.0-10.0) H Eosinophils (%) (Auto) 1.7 % (0.0-3.0) Basophils (%) (Auto) 0.6 % (0.0-2.0) Sodium Level 143 MMOL/L (136-145) Potassium Level 3.5 MMOL/L (3.5-5.1) Chloride Level 103 MMOL/L (98-107) Carbon Dioxide Level 31 MMOL/L (21-32) Anion Gap 9 mmol/L (5-15) Blood Urea Nitrogen 7 mg/dL (7-18) Creatinine 0.7 MG/DL (0.55-1.30) Estimat Glomerular Filtration Rate > 60 mL/min (>60) Glucose Level 65 MG/DL (74-106) L Calcium Level 8.7 MG/DL (8.5-10.1) Total Bilirubin 0.2 MG/DL (0.2-1.0) Aspartate Amino Transf (AST/SGOT) 12 U/L (15-37) L Alanine Aminotransferase (ALT/SGPT) 15 U/L (12-78) Alkaline Phosphatase 175 U/L (46-116) H Total Protein 7.0 G/DL (6.4-8.2) Albumin 1.7 G/DL (3.4-5.0) L Globulin 5.3 g/dL Albumin/Globulin Ratio 0.3 (1.0-2.7) L Current Medications Medications (Trade) Dose Ordered Sig/Eyad Route PRN Reason Start Time Stop Time Status Last Admin Dose Admin Acetaminophen (Tylenol) 650 mg Q4H PRN ORAL Mild Pain/Temp > 100.5 12/26/17 17:00 01/25/18 16:59 12/30/17 14:01 Amlodipine Besylate (Norvasc) 5 mg BID ORAL 12/26/17 18:00 01/24/18 08:59 12/29/17 18:00 Artificial Tears (Akwa-Tears) 1 drop THREE TIMES A DAY BOTH EYES 12/26/17 18:00 01/22/18 12:59 12/29/17 15:17 Atorvastatin Calcium (Lipitor) 10 mg BEDTIME ORAL 12/26/17 21:00 01/23/18 20:59 12/29/17 20:36 Ceftriaxone Sodium 2 gm/ Dextrose 55 ml @ 110 mls/hr Q24H IVPB 12/27/17 14:00 01/03/18 13:59 12/29/17 15:18 Clonidine HCl (Catapres Tab) 0.1 mg Q6H PRN ORAL [id number] and above 12/26/17 17:00 01/23/18 16:59 12/27/17 21:39 Dextrose (Dextrose 50%) 25 ml STAT PRN IV Hypoglycemia 12/26/17 17:00 01/22/18 16:59 Dextrose (Dextrose 50%) 50 ml STAT PRN IV Hypoglycemia 12/26/17 17:00 01/22/18 16:59 Dextrose/ Electrolytes 1,000 ml @ 50 mls/hr Q20H IV 12/26/17 18:00 01/22/18 17:59 12/28/17 14:17 Famotidine (Pepcid) 20 mg BID ORAL 12/26/17 18:00 01/23/18 17:59 12/29/17 18:00 Fish Oil (Fish Oil) 1,000 mg BID ORAL 12/26/17 18:00 01/23/18 11:59 12/29/17 18:00 Fluconazole (Diflucan) 200 mg DAILY ORAL 12/27/17 09:00 01/02/18 08:59 12/29/17 09:20 Folic Acid (Folate) 5 mg DAILY ORAL 12/27/17 09:00 01/23/18 11:59 12/29/17 09:19 Heparin Sodium (Porcine) (Heparin 5000 units/ml) 5,000 units Q12HR SUBQ 12/26/17 21:00 01/23/18 20:59 12/29/17 20:38 Hydromorphone HCl (Dilaudid) 1 mg Q3H PRN IVP Moderate Pain (Pain Scale 4-6) 12/26/17 17:00 12/31/17 16:59 Insulin Aspart (NovoLOG) BEFORE MEALS AND HS SUBQ 12/26/17 21:00 01/23/18 06:29 12/29/17 20:42 Insulin Aspart (NovoLOG) 6 units TIAC SUBQ 12/30/17 06:30 01/23/18 06:29 Insulin Detemir (Levemir) 20 units BEDTIME SUBQ 12/30/17 21:00 01/22/18 22:59 Metoprolol Tartrate (Lopressor) 25 mg Q12HR ORAL 12/26/17 21:00 01/23/18 20:59 12/29/17 20:36 Metronidazole (Flagyl) 500 mg Q8HR ORAL 12/29/17 14:00 01/05/18 13:59 12/30/17 05:50 Nitroglycerin (Ntg) 0.4 mg Q5M PRN SL Prn Chest Pain 12/26/17 17:00 01/21/18 17:59 Ondansetron HCl (Zofran) 4 mg Q6H PRN IVP Nausea & Vomiting 12/26/17 17:00 01/21/18 16:59 Phosphorus (Phospha 250 Neutral) 250 mg THREE TIMES A DAY ORAL 12/26/17 18:00 01/25/18 08:59 12/29/17 18:00 Potassium Chloride (K-Dur) 40 meq BID ORAL 12/27/17 18:00 01/25/18 08:59 12/29/17 18:00 Vitamin A/Vitamin D (A & D Oint) 1 applic EVERY 12 HOURS TOPIC 12/26/17 21:00 01/22/18 20:59 12/29/17 20:43 Wade Peña MD Dec 30, 2017 14:13
[2017-12-30] MEDS: cefTRIAXone 2 GM in D5W 55 ML IVPB SCH (15:17)
--- NOTE | 2017-12-30 15:56 | General Progress Note ---
Assessment/Plan Problem List: (1) Diabetes ICD Codes: E11.9 - Type 2 diabetes mellitus without complications SNOMED: 62098300 (2) Hyperglycemia ICD Codes: R73.9 - Hyperglycemia, unspecified SNOMED: 08971522 (3) Sepsis ICD Codes: A41.9 - Sepsis, unspecified organism SNOMED: 72207779 (4) Abscess of buttock ICD Codes: L02.31 - Cutaneous abscess of buttock SNOMED: 20382531 (5) DKA (diabetic ketoacidoses) ICD Codes: E13.10 - Other specified diabetes mellitus with ketoacidosis without coma SNOMED: 79237456, 164948173 Qualifiers: Qualified Codes: E13.11 - Other specified diabetes mellitus with ketoacidosis with coma (6) Renal insufficiency ICD Codes: N28.9 - Disorder of kidney and ureter, unspecified SNOMED: 281200997, 895795568 (7) Vagina bleeding ICD Codes: N93.9 - Abnormal uterine and vaginal bleeding, unspecified SNOMED: 561531655, 549601051 (8) Anemia ICD Codes: D64.9 - Anemia, unspecified SNOMED: 449827718 Status: progressing Assessment/Plan s/p dka s/p i&d of rectal abscess dr peña did wash out and debridement of rectal absces transfer to [facility] for continuation of wound care needs high level of care had large wound Subjective ROS Limited/Unobtainable: Yes Allergies: Coded Allergies: SULFA (SULFONAMIDE ANTIBIOTICS) (Verified Allergy, Unknown, 12/25/17) Objective Last 24 Hour Vital Signs Date Time Temp Pulse Resp B/P (MAP) Pulse Ox O2 Delivery O2 Flow Rate FiO2 12/30/17 12:20 64 16 130/72 97 Room Air 12/30/17 12:00 98.2 78 18 133/77 98 Room Air 98.2 12/30/17 11:45 64 16 130/72 97 Room Air 12/30/17 11:35 82 20 142/82 96 Room Air 12/30/17 11:30 64 17 125/75 99 Room Air 12/30/17 11:25 64 20 126/75 96 Room Air 12/30/17 11:20 89 18 131/71 99 Room Air 12/30/17 11:15 64 19 122/74 98 Room Air 12/30/17 11:12 208.4 95 17 100 12/30/17 11:08 98.0 64 17 110/79 100 98.0 12/30/17 09:03 103 125/60 (81) 12/30/17 09:00 Room Air 12/30/17 09:00 103 125/60 12/30/17 09:00 103 125/60 12/30/17 08:00 98.1 105 19 139/64 (89) 96 98.1 12/30/17 04:51 99.7 90 17 118/65 (82) 93 99.7 12/30/17 00:00 99.1 67 17 116/66 (83) 95 99.1 12/29/17 21:33 98.4 12/29/17 21:00 Room Air 12/29/17 20:36 112 138/54 12/29/17 20:34 102.4 12/29/17 19:53 102.4 112 18 138/54 (82) 94 102.4 12/29/17 18:00 91 108/65 12/29/17 16:08 99.8 91 20 108/65 (79) 96 99.8 Intake and Output 12/29/17 12/30/17 19:00 07:00 Intake Total 720 ml 600 ml Output Total 1450 ml Balance -730 ml 600 ml Intake Oral 720 ml IV Total 600 ml Output Urine Total 1450 ml # Voids 3 # Bowel Movements 2 Laboratory Tests 12/30/17 07:40: White Blood Count 11.8H, Red Blood Count 3.46L, Hemoglobin 10.0L, Hematocrit 29.8L, Mean Corpuscular Volume 86, Mean Corpuscular Hemoglobin 28.9, Mean Corpuscular Hemoglobin Concent 33.6, Red Cell Distribution Width 12.1, Platelet Count 412, Mean Platelet Volume 6.8, Neutrophils (%) (Auto) 65.5, Lymphocytes (% ) (Auto) 21.1, Monocytes (%) (Auto) 11.1H, Eosinophils (%) (Auto) 1.7, Basophils (%) (Auto) 0.6, Sodium Level 143, Potassium Level 3.5, Chloride Level 103, Carbon Dioxide Level 31, Anion Gap 9, Blood Urea Nitrogen 7, Creatinine 0.7 , Estimat Glomerular Filtration Rate > 60, Glucose Level 65L, Calcium Level 8.7 , Total Bilirubin 0.2, Aspartate Amino Transf (AST/SGOT) 12L, Alanine Aminotransferase (ALT/SGPT) 15, Alkaline Phosphatase 175H, Total Protein 7.0, Albumin 1.7L, Globulin 5.3, Albumin/Globulin Ratio 0.3L Height (Feet): 5 Height (Inches): 5.00 Weight (Pounds): 188 Cardiovascular: normal rate Respiratory/Chest: lungs clear Abdomen: soft Nissa Mckay MD Dec 30, 2017 15:56
[2017-12-30] MEDS: Fluconazole 100mg tab ORAL SCH (17:00)
[2017-12-30] MEDS: HYDROmorphone 1mg/ml Carpuject IVP PRN (17:06)
[2017-12-30] MEDS ORDERED: Levemir Flexpen SUBQ SCH (21:00)
--- NOTE | 2017-12-30 22:30 | Operative Note - Dictated ---
DATE OF OPERATION: 12/30/2017 PREOPERATIVE DIAGNOSIS: Right buttock abscess. POSTOPERATIVE DIAGNOSIS: Right buttock wound with extensive devitalized tissue down to the ischial tuberosity and rectum to perirectal fistula/abscess. OPERATION PERFORMED: Incision and drainage of right perirectal abscess with excisional debridement of devitalized necrotic tissue, down to bone and muscle. ATTENDING SURGEON: Baljeet Osorio M.D. NUISANCE ANIMAL DAMAGE CONTROL AGENT: None. ANESTHESIOLOGIST: Adali Wilder M.D. ANESTHESIA: General STRATEGIC ALLIANCES MANAGER. ESTIMATED BLOOD LOSS: Minimal. IV FLUIDS: Please see anesthesia records. COMPLICATIONS: None. SPECIMENS: Cultures and excisional debridement tissue sent to pathology for gross only. DRAINS: None. IMPLANTS: None. INDICATIONS FOR PROCEDURE: This is a 57-year-old female who recently presented to the emergency department after being found down and was found to be acutely septic and required admission to the intensive care unit. Upon admission, was noted to have a large very concerning right buttock wound, which was initially I and D'ed in the emergency department. Please refer to my I and D note from 12/22/2017. During that time, a significant amount of purulent/stool appearing fluid was evacuated, and packing and dressings were initiated. The patient was subsequently resuscitated and slowly began to recover and was fortunate enough to make out of the intensive care unit. Once she was medically optimized and stabilized, further evaluation of etiology of wound was initiated. Wound cultures in the meantime grown out Klebsiella oxytoca, #2 Klebsiella oxytoca, Proteus mirabilis and Nora albicans, all consistent with stated etiology above. An MRI of the pelvis was performed and identified a complex area of 15 cm x 9.5 cm x 8.5 cm in the right perineum consistent with complex perianal fistula. During recovery, the patient was noted to have intermittent leukocytosis and persistent drainage from the wound and GI was consulted and colonoscopy was performed and fortunately, no active perianal fistula was noted. Likely, prior perianal fistula, in which the fistula tract had either obliterated with large acutely worsening abscess. Given the above findings and worsening condition of the wound, re-exploration with debridement once the patient was medically optimized, was indicated and recommended. Risks, benefits, and alternatives were discussed with patient in detail, consented to surgery. OPERATIVE NOTE: The patient was taken to the operating room on 12/30/2017. The patient was on scheduled IV antibiotics prior to entering the operation. The patient had a Bernard catheter placed prior to entering the operating room. Preoperative time-out was taken identifying the patient, procedure, operative staff, and surgical staff. SCDs were placed. General anesthesia was induced. The patient was intubated. Following this, the patient was placed onto the operating table in the prone position. All bony prominences well padded. The buttock was prepped and draped in standard surgical fashion. The prior hernia site was noted to have a fair amount of devitalized tissue in the surrounding area. An elliptical incision was made overlying the prior I and D site with devitalized tissue down to healthy viable tissue. Following this, the large complex abscess was identified and noted to have multiple areas of tracking, both deep into the peritoneum and towards the ischial tuberosity. All areas of tunneling within the subcutaneous fat were identified and washed out. All devitalized tissue was excisionally debrided. The wound was noted to go down the ischial tuberosity deep perirectal medially and to the muscle laterally. Once all devitalized tissue was evacuated and the wound was completely exposed, it was irrigated with copious amounts of antibiotic sterile solution. Following this, hemostasis was obtained with electrocautery. At this time, we began the conclusion of our procedure by inserting current antibiotic soaked Kerlix packing followed by dressings. The patient tolerated the procedure well, was turned back to the supine position, extubated, and taken to postanesthetic care in stable condition. Baljeet Osorio M.D. DR: CLEMENTE JOB#: [id number] CC: CHAPINCITO
--- NOTE | 2017-12-30 23:50 | Cardiology Progress Note ---
Assessment/Plan Assessment/Plan 1. Sinus tachycardia, continue metoprolol, keep hydrated. 2D echo reveals normal LV systolic function. 2. Diabetes mellitus, uncontrolled, noncompliant, continue statins, consider baby ASA daily. 3. Severe sepsis. 4. Right buttock abscess Subjective Subjective No cardiac events. Clinically the same. Objective Last 24 Hour Vital Signs Date Time Temp Pulse Resp B/P (MAP) Pulse Ox O2 Delivery O2 Flow Rate FiO2 12/30/17 22:03 Room Air 12/30/17 21:00 92 12/30/17 20:43 88 119/65 12/30/17 20:04 98.1 88 15 119/65 (83) 91 98.1 12/30/17 18:05 99 115/73 12/30/17 16:00 97.9 106 19 119/65 (83) 93 97.9 12/30/17 12:20 64 16 130/72 97 Room Air 12/30/17 12:00 98.2 78 18 133/77 98 Room Air 98.2 12/30/17 11:45 64 16 130/72 97 Room Air 12/30/17 11:35 82 20 142/82 96 Room Air 12/30/17 11:30 64 17 125/75 99 Room Air 12/30/17 11:25 64 20 126/75 96 Room Air 12/30/17 11:20 89 18 131/71 99 Room Air 12/30/17 11:15 64 19 122/74 98 Room Air 12/30/17 11:12 208.4 95 17 100 12/30/17 11:08 98.0 64 17 110/79 100 98.0 12/30/17 09:03 103 125/60 (81) 12/30/17 09:00 Room Air 12/30/17 09:00 103 125/60 12/30/17 09:00 103 125/60 12/30/17 08:00 98.1 105 19 139/64 (89) 96 98.1 12/30/17 04:51 99.7 90 17 118/65 (82) 93 99.7 12/30/17 00:00 99.1 67 17 116/66 (83) 95 99.1 Intake and Output 12/29/17 12/30/17 19:00 07:00 Intake Total 720 ml 600 ml Output Total 1450 ml Balance -730 ml 600 ml Intake Oral 720 ml IV Total 600 ml Output Urine Total 1450 ml # Voids 3 # Bowel Movements 2 2D Echo: LVEF 60%, Mild LVH, RVSP 12 mmHg Laboratory Tests Test 12/30/17 07:40 White Blood Count 11.8 K/UL (4.8-10.8) H Red Blood Count 3.46 M/UL (4.20-5.40) L Hemoglobin 10.0 G/DL (12.0-16.0) L Hematocrit 29.8 % (37.0-47.0) L Mean Corpuscular Volume 86 FL (80-99) Mean Corpuscular Hemoglobin 28.9 PG (27.0-31.0) Mean Corpuscular Hemoglobin Concent 33.6 G/DL (32.0-36.0) Red Cell Distribution Width 12.1 % (11.6-14.8) Platelet Count 412 K/UL (150-450) Mean Platelet Volume 6.8 FL (6.5-10.1) Neutrophils (%) (Auto) 65.5 % (45.0-75.0) Lymphocytes (%) (Auto) 21.1 % (20.0-45.0) Monocytes (%) (Auto) 11.1 % (1.0-10.0) H Eosinophils (%) (Auto) 1.7 % (0.0-3.0) Basophils (%) (Auto) 0.6 % (0.0-2.0) Sodium Level 143 MMOL/L (136-145) Potassium Level 3.5 MMOL/L (3.5-5.1) Chloride Level 103 MMOL/L (98-107) Carbon Dioxide Level 31 MMOL/L (21-32) Anion Gap 9 mmol/L (5-15) Blood Urea Nitrogen 7 mg/dL (7-18) Creatinine 0.7 MG/DL (0.55-1.30) Estimat Glomerular Filtration Rate > 60 mL/min (>60) Glucose Level 65 MG/DL (74-106) L Calcium Level 8.7 MG/DL (8.5-10.1) Total Bilirubin 0.2 MG/DL (0.2-1.0) Aspartate Amino Transf (AST/SGOT) 12 U/L (15-37) L Alanine Aminotransferase (ALT/SGPT) 15 U/L (12-78) Alkaline Phosphatase 175 U/L (46-116) H Total Protein 7.0 G/DL (6.4-8.2) Albumin 1.7 G/DL (3.4-5.0) L Globulin 5.3 g/dL Albumin/Globulin Ratio 0.3 (1.0-2.7) L Microbiology Date/Time Source Procedure Growth Status 12/30/17 10:56 Buttock Right Received Objective HEENT: Atraumatic and normocephalic. ENT, pupils are equal, round, and reactive to light and accommodation. Extraocular muscles intact. Dry mucosal membranes. NECK: JVP less than 5 cm. No carotid bruit. Carotid upstrokes 2+ bilaterally. CARDIOVASCULAR: Normal S1 and S2. Regular rhythm. Tachycardic. No murmurs, gallops, or rubs. PMI is at fourth intercostal space at the midclavicular line. LUNGS: Clear to auscultation bilaterally. ABDOMEN: Soft, nontender, and nondistended. No hepatosplenomegaly. Positive bowel sounds. EXTREMITIES: No evidence of edema, clubbing, or cyanosis. Javi Anthony MD Dec 30, 2017 23:50
[2017-12-31 00:45] VITALS: BP 144/76
[2017-12-31 03:06] LABS: APPEARANCE,URINE CLEAR; BILIRUBIN, URINE NEGATIVE (NEGATIVE); COLOR,URINE PALE YELLOW; GLUCOSE, URINE (UA) 3+ (NEGATIVE); KETONES,URINE NEGATIVE (NEGATIVE); LEUKOCYTE ESTERASE ,URINE 1+ (NEGATIVE); NITRITE,URINE NEGATIVE (NEGATIVE); PH,URINE 6.5 (4.5-8.0); PROTEIN,URINE 2+ (NEGATIVE); UROBILINOGEN,URINE NORMAL MG/DL (0.0-1.0)
[2017-12-31 04:18] VITALS: BP 127/58
[2017-12-31] MEDS: metroNIDAZOLE 500mg tab ORAL SCH ×3 (06:10→21:00)
[2017-12-31] MEDS: NovoLOG Insulin Flexpen SUBQ SCH ×5 (06:11→21:03)
[2017-12-31 07:27] LABS: BASOPHILS % (AUTO) 0.7 % (0.0-2.0); EOSINOPHILS % (AUTO) 1.4 % (0.0-3.0); HEMATOCRIT 28.5 % (37.0-47.0); HEMOGLOBIN 9.2 G/DL (12.0-16.0); LYMPHOCYTES % (AUTO) 21.4 % (20.0-45.0); MEAN CORPUSCULAR VOLUME 87 FL (80-99); MONOCYTES % (AUTO) 7.7 % (1.0-10.0); NEUTROPHILS % (AUTO) 68.9 % (45.0-75.0); PLATELET COUNT 421 K/UL (150-450); RED BLOOD COUNT 3.27 M/UL (4.20-5.40); RED CELL DISTRIBUTION WIDTH 12.5 % (11.6-14.8); WHITE BLOOD COUNT 12.3 K/UL (4.8-10.8)
[2017-12-31 07:28] VITALS: BP 122/72
[2017-12-31 07:37] LABS: ANION GAP 7 mmol/L (5-15); BLOOD UREA NITROGEN 5 mg/dL (7-18); CALCIUM 8.7 MG/DL (8.5-10.1); CARBON DIOXIDE 32 MMOL/L (21-32); CHLORIDE 102 MMOL/L (98-107); CREATININE 0.7 MG/DL (0.55-1.30); POTASSIUM 3.8 MMOL/L (3.5-5.1); SODIUM 140 MMOL/L (136-145)
[2017-12-31] MEDS: HYDROmorphone 1mg/ml Carpuject IVP PRN (07:39)
[2017-12-31] MEDS: Artificial Tears 1.4% Op Soln BOTH EYES SCH ×3 (09:02→17:32)
[2017-12-31] MEDS: Vitamin A&D Oint 2oz Tube TOPIC SCH ×2 (09:02→21:01)
[2017-12-31] MEDS: Metoprolol 25mg tab ORAL SCH ×2 (09:02→21:01)
[2017-12-31] MEDS: Phospha 250 Neutral tab ORAL SCH ×3 (09:02→17:32)
[2017-12-31] MEDS: Fluconazole 100mg tab ORAL SCH (09:03)
[2017-12-31] MEDS: Heparin 5000 units/ml inj SUBQ SCH ×2 (09:07→21:02)
--- NOTE | 2017-12-31 10:29 | General Progress Note ---
Assessment/Plan Problem List: (1) Diabetic acidosis without coma ICD Codes: E13.10 - Other specified diabetes mellitus with ketoacidosis without coma SNOMED: 66818525, 699836442 (2) Severe sepsis ICD Codes: A41.9 - Sepsis, unspecified organism; R65.20 - Severe sepsis without septic shock SNOMED: 06742335 (3) DKA (diabetic ketoacidoses) ICD Codes: E13.10 - Other specified diabetes mellitus with ketoacidosis without coma SNOMED: 62569573, 728188579 Qualifiers: Qualified Codes: E13.11 - Other specified diabetes mellitus with ketoacidosis with coma (4) Vagina bleeding ICD Codes: N93.9 - Abnormal uterine and vaginal bleeding, unspecified SNOMED: 512972808, [id number] Assessment/Plan reduce Levemir to 10 units qhs DC Novolog to 6 units ac tid continue NISS Subjective Allergies: Coded Allergies: SULFA (SULFONAMIDE ANTIBIOTICS) (Verified Allergy, Unknown, 12/25/17) All Systems: reviewed and negative except above Subjective events noted hypoglycemia this morning noted Objective Last 24 Hour Vital Signs Date Time Temp Pulse Resp B/P (MAP) Pulse Ox O2 Delivery O2 Flow Rate FiO2 12/31/17 09:02 104 122/72 12/31/17 09:00 104 122/72 12/31/17 07:28 98.2 104 18 122/72 (89) 95 98.2 12/31/17 04:18 99.0 92 18 127/58 (81) 94 99.0 12/31/17 00:45 98.6 89 18 144/76 (98) 93 98.6 12/30/17 22:03 Room Air 12/30/17 21:00 92 12/30/17 20:43 88 119/65 12/30/17 20:04 98.1 88 15 119/65 (83) 91 98.1 12/30/17 18:05 99 115/73 12/30/17 16:00 97.9 106 19 119/65 (83) 93 97.9 12/30/17 12:20 64 16 130/72 97 Room Air 12/30/17 12:00 98.2 78 18 133/77 98 Room Air 98.2 12/30/17 11:45 64 16 130/72 97 Room Air 12/30/17 11:35 82 20 142/82 96 Room Air 12/30/17 11:30 64 17 125/75 99 Room Air 12/30/17 11:25 64 20 126/75 96 Room Air 12/30/17 11:20 89 18 131/71 99 Room Air 12/30/17 11:15 64 19 122/74 98 Room Air 12/30/17 11:12 208.4 95 17 100 12/30/17 11:08 98.0 64 17 110/79 100 98.0 Intake and Output 12/30/17 12/31/17 19:00 07:00 Intake Total 730 ml 240 ml Output Total 4400 ml 1600 ml Balance -3670 ml -1360 ml Intake Oral 480 ml 240 ml IV Total 250 ml Output Urine Total 4300 ml 1600 ml Estimated Blood Loss 100 ml Laboratory Tests 12/31/17 02:25: Urine Color Pale yellow, Urine Appearance Clear, Urine pH 6.5, Urine Specific [place] 1.010, Urine Protein 2+H, Urine Glucose (UA) 3+H, Urine Ketones Negative , Urine Blood 1+H, Urine Nitrite Negative, Urine Bilirubin Negative, Urine Urobilinogen Normal, Urine Leukocyte Esterase 1+H, Urine RBC 2-4H, Urine WBC 0-2 , Urine Squamous Epithelial Cells Few, Urine Bacteria None 12/31/17 06:15: White Blood Count 12.3H, Red Blood Count 3.27L, Hemoglobin 9.2L, Hematocrit 28.5L, Mean Corpuscular Volume 87, Mean Corpuscular Hemoglobin 28.3, Mean Corpuscular Hemoglobin Concent 32.4, Red Cell Distribution Width 12.5, Platelet Count 421, Mean Platelet Volume 6.4L, Neutrophils (%) (Auto) 68.9, Lymphocytes ( %) (Auto) 21.4, Monocytes (%) (Auto) 7.7, Eosinophils (%) (Auto) 1.4, Basophils (%) (Auto) 0.7, Sodium Level 140, Potassium Level 3.8, Chloride Level 102, Carbon Dioxide Level 32, Anion Gap 7, Blood Urea Nitrogen 5L, Creatinine 0.7, Estimat Glomerular Filtration Rate > 60, Glucose Level 130H, Calcium Level 8.7 Height (Feet): 5 Height (Inches): 5.00 Weight (Pounds): 191 General Appearance: no apparent distress Neck: normal alignment Cardiovascular: normal rate Respiratory/Chest: lungs clear Abdomen: normal bowel sounds Objective Current Medications Medications (Trade) Dose Ordered Sig/Eyad Route PRN Reason Start Time Stop Time Status Last Admin Dose Admin Acetaminophen (Tylenol) 650 mg Q4H PRN ORAL Mild Pain/Temp > 100.5 12/26/17 17:00 01/25/18 16:59 12/30/17 14:01 Amlodipine Besylate (Norvasc) 5 mg BID ORAL 12/26/17 18:00 01/24/18 08:59 12/30/17 18:05 Artificial Tears (Akwa-Tears) 1 drop THREE TIMES A DAY BOTH EYES 12/26/17 18:00 01/22/18 12:59 12/31/17 09:02 Atorvastatin Calcium (Lipitor) 10 mg BEDTIME ORAL 12/26/17 21:00 01/23/18 20:59 12/30/17 20:43 Ceftriaxone Sodium 2 gm/ Dextrose 55 ml @ 110 mls/hr Q24H IVPB 12/27/17 14:00 01/03/18 13:59 12/30/17 15:17 Clonidine HCl (Catapres Tab) 0.1 mg Q6H PRN ORAL [id number] and above 12/26/17 17:00 01/23/18 16:59 12/27/17 21:39 Dextrose (Dextrose 50%) 25 ml STAT PRN IV Hypoglycemia 12/26/17 17:00 01/22/18 16:59 12/31/17 06:11 Dextrose (Dextrose 50%) 50 ml STAT PRN IV Hypoglycemia 12/26/17 17:00 01/22/18 16:59 Famotidine (Pepcid) 20 mg BID ORAL 12/26/17 18:00 01/23/18 17:59 12/31/17 09:02 Fish Oil (Fish Oil) 1,000 mg BID ORAL 12/26/17 18:00 01/23/18 11:59 12/31/17 09:03 Fluconazole (Diflucan) 200 mg DAILY ORAL 12/27/17 09:00 01/02/18 08:59 12/31/17 09:03 Folic Acid (Folate) 5 mg DAILY ORAL 12/27/17 09:00 01/23/18 11:59 12/31/17 09:03 Heparin Sodium (Porcine) (Heparin 5000 units/ml) 5,000 units Q12HR SUBQ 12/26/17 21:00 01/23/18 20:59 12/31/17 09:07 Hydromorphone HCl (Dilaudid) 1 mg Q3H PRN IVP Moderate Pain (Pain Scale 4-6) 12/26/17 17:00 12/31/17 16:59 12/31/17 07:39 Insulin Aspart (NovoLOG) BEFORE MEALS AND HS SUBQ 12/26/17 21:00 01/23/18 06:29 12/30/17 21:36 Insulin Aspart (NovoLOG) 6 units TIAC SUBQ 12/30/17 06:30 01/23/18 06:29 Insulin Detemir (Levemir) 20 units BEDTIME SUBQ 12/30/17 21:00 01/22/18 22:59 12/30/17 21:35 Metoprolol Tartrate (Lopressor) 25 mg Q12HR ORAL 12/26/17 21:00 01/23/18 20:59 12/31/17 09:02 Metronidazole (Flagyl) 500 mg Q8HR ORAL 12/29/17 14:00 01/05/18 13:59 12/31/17 06:10 Nitroglycerin (Ntg) 0.4 mg Q5M PRN SL Prn Chest Pain 12/26/17 17:00 01/21/18 17:59 Ondansetron HCl (Zofran) 4 mg Q6H PRN IVP Nausea & Vomiting 12/26/17 17:00 01/21/18 16:59 Phosphorus (Phospha 250 Neutral) 250 mg THREE TIMES A DAY ORAL 12/26/17 18:00 01/25/18 08:59 12/31/17 09:02 Potassium Chloride (K-Dur) 40 meq BID ORAL 12/27/17 18:00 01/25/18 08:59 12/31/17 09:03 Vitamin A/Vitamin D (A & D Oint) 1 applic EVERY 12 HOURS TOPIC 12/26/17 21:00 01/22/18 20:59 12/31/17 09:02 Item Value Date Time Bedside Blood Glucose 62 mg/dl L 12/31/17 0611 Bedside Blood Glucose 157 mg/dl H 12/30/17 2136 Bedside Blood Glucose 259 mg/dl H 12/30/17 1750 Bedside Blood Glucose 85 mg/dl 12/30/17 1241 Bedside Blood Glucose 71 mg/dl 12/30/17 0630 Riky Olivas MD Dec 31, 2017 10:29
--- NOTE | 2017-12-31 10:57 | Nephrology Progress Note ---
Assessment/Plan Problem List: (1) Renal insufficiency (2) DKA (diabetic ketoacidoses) (3) Severe sepsis Assessment: buttock abcess (4) Anemia Assessment Diabetic acidosis without coma resolved Renal failure and electrolyte imbalance mainly resolved Diabetic Nephropathy and Proteinuria and HypoAlbuminemia Severe sepsis Abscess of buttock Anemia Plan Hydrate- K and Phos supplement Mag as needed Antibiotics Monitor renal parameters correct electrolytes avoid Nephrotoxics adjust BP meds Fish OIL Lipitor Folic Acid tele Subjective ROS Limited/Unobtainable: No Constitutional: Reports: malaise Objective Objective Last 24 Hour Vital Signs Date Time Temp Pulse Resp B/P (MAP) Pulse Ox O2 Delivery O2 Flow Rate FiO2 12/31/17 09:02 104 122/72 12/31/17 09:00 Room Air 12/31/17 09:00 104 122/72 12/31/17 07:28 98.2 104 18 122/72 (89) 95 98.2 12/31/17 04:18 99.0 92 18 127/58 (81) 94 99.0 12/31/17 00:45 98.6 89 18 144/76 (98) 93 98.6 12/30/17 22:03 Room Air 12/30/17 21:00 92 12/30/17 20:43 88 119/65 12/30/17 20:04 98.1 88 15 119/65 (83) 91 98.1 12/30/17 18:05 99 115/73 12/30/17 16:00 97.9 106 19 119/65 (83) 93 97.9 12/30/17 12:20 64 16 130/72 97 Room Air 12/30/17 12:00 98.2 78 18 133/77 98 Room Air 98.2 12/30/17 11:45 64 16 130/72 97 Room Air 12/30/17 11:35 82 20 142/82 96 Room Air 12/30/17 11:30 64 17 125/75 99 Room Air 12/30/17 11:25 64 20 126/75 96 Room Air 12/30/17 11:20 89 18 131/71 99 Room Air 12/30/17 11:15 64 19 122/74 98 Room Air 12/30/17 11:12 208.4 95 17 100 12/30/17 11:08 98.0 64 17 110/79 100 98.0 Intake and Output 12/30/17 12/31/17 19:00 07:00 Intake Total 730 ml 240 ml Output Total 4400 ml 1600 ml Balance -3670 ml -1360 ml Intake Oral 480 ml 240 ml IV Total 250 ml Output Urine Total 4300 ml 1600 ml Estimated Blood Loss 100 ml Laboratory Tests 12/31/17 02:25: Urine Color Pale yellow, Urine Appearance Clear, Urine pH 6.5, Urine Specific [place] 1.010, Urine Protein 2+H, Urine Glucose (UA) 3+H, Urine Ketones Negative , Urine Blood 1+H, Urine Nitrite Negative, Urine Bilirubin Negative, Urine Urobilinogen Normal, Urine Leukocyte Esterase 1+H, Urine RBC 2-4H, Urine WBC 0-2 , Urine Squamous Epithelial Cells Few, Urine Bacteria None 12/31/17 06:15: White Blood Count 12.3H, Red Blood Count 3.27L, Hemoglobin 9.2L, Hematocrit 28.5L, Mean Corpuscular Volume 87, Mean Corpuscular Hemoglobin 28.3, Mean Corpuscular Hemoglobin Concent 32.4, Red Cell Distribution Width 12.5, Platelet Count 421, Mean Platelet Volume 6.4L, Neutrophils (%) (Auto) 68.9, Lymphocytes ( %) (Auto) 21.4, Monocytes (%) (Auto) 7.7, Eosinophils (%) (Auto) 1.4, Basophils (%) (Auto) 0.7, Sodium Level 140, Potassium Level 3.8, Chloride Level 102, Carbon Dioxide Level 32, Anion Gap 7, Blood Urea Nitrogen 5L, Creatinine 0.7, Estimat Glomerular Filtration Rate > 60, Glucose Level 130H, Calcium Level 8.7 Height (Feet): 5 Height (Inches): 5.00 Weight (Pounds): 191 General Appearance: no apparent distress Objective no change Joni Cleaning MD Dec 31, 2017 10:57
--- NOTE | 2017-12-31 11:25 | 48 Hour Post Anesthesia Eval ---
Post Anesthesia Evaluation Procedure: I&D perirectal abscess Date of Evaluation: Dec 31, 2017 Time of Evaluation: 11:19 Blood Pressure Systolic: 124 0: 56 Pulse Rate: 72 Respiratory Rate: 20 Temperature (Fahrenheit): 97.8 O2 Sat by Pulse Oximetry: 98 Airway: patent Nausea: No Vomiting: No Pain Intensity: 2 Hydration Status: adequate Mental Status/LOC: patient returned to baseline Follow-up Care/Observations: n/a Post-Anesthesia Complications: none Follow-up care needed: N/A Abhilash Motley MD Dec 31, 2017 11:25
[2017-12-31 11:49] VITALS: BP 110/63
--- NOTE | 2017-12-31 12:41 | General Progress Note ---
Assessment/Plan Problem List: (1) Diabetes ICD Codes: E11.9 - Type 2 diabetes mellitus without complications SNOMED: 57299715 (2) Hyperglycemia ICD Codes: R73.9 - Hyperglycemia, unspecified SNOMED: 46449621 (3) Sepsis ICD Codes: A41.9 - Sepsis, unspecified organism SNOMED: 41055080 (4) Abscess of buttock ICD Codes: L02.31 - Cutaneous abscess of buttock SNOMED: 15743544 (5) DKA (diabetic ketoacidoses) ICD Codes: E13.10 - Other specified diabetes mellitus with ketoacidosis without coma SNOMED: 56917220, 346387350 Qualifiers: Qualified Codes: E13.11 - Other specified diabetes mellitus with ketoacidosis with coma (6) Renal insufficiency ICD Codes: N28.9 - Disorder of kidney and ureter, unspecified SNOMED: 339048293, 813278304 (7) Vagina bleeding ICD Codes: N93.9 - Abnormal uterine and vaginal bleeding, unspecified SNOMED: 797718016, 972060247 (8) Anemia ICD Codes: D64.9 - Anemia, unspecified SNOMED: 833459219 Status: progressing Assessment/Plan awaiting response from [facility] afebrile s/p dka s/p i&d of rectal abscess dr peña did wash out and debridement of rectal absces transfer to [facility] for continuation of wound care Subjective ROS Limited/Unobtainable: Yes Allergies: Coded Allergies: SULFA (SULFONAMIDE ANTIBIOTICS) (Verified Allergy, Unknown, 12/25/17) Objective Last 24 Hour Vital Signs Date Time Temp Pulse Resp B/P (MAP) Pulse Ox O2 Delivery O2 Flow Rate FiO2 12/31/17 11:49 98.1 89 20 110/63 (79) 92 98.1 12/31/17 11:25 208.0 72 20 98 12/31/17 09:02 104 122/72 12/31/17 09:00 Room Air 12/31/17 09:00 104 122/72 12/31/17 07:28 98.2 104 18 122/72 (89) 95 98.2 12/31/17 04:18 99.0 92 18 127/58 (81) 94 99.0 12/31/17 00:45 98.6 89 18 144/76 (98) 93 98.6 12/30/17 22:03 Room Air 12/30/17 21:00 92 12/30/17 20:43 88 119/65 12/30/17 20:04 98.1 88 15 119/65 (83) 91 98.1 12/30/17 18:05 99 115/73 12/30/17 16:00 97.9 106 19 119/65 (83) 93 97.9 Intake and Output 12/30/17 12/31/17 19:00 07:00 Intake Total 730 ml 240 ml Output Total 4400 ml 1600 ml Balance -3670 ml -1360 ml Intake Oral 480 ml 240 ml IV Total 250 ml Output Urine Total 4300 ml 1600 ml Estimated Blood Loss 100 ml Laboratory Tests 12/31/17 02:25: Urine Color Pale yellow, Urine Appearance Clear, Urine pH 6.5, Urine Specific [place] 1.010, Urine Protein 2+H, Urine Glucose (UA) 3+H, Urine Ketones Negative , Urine Blood 1+H, Urine Nitrite Negative, Urine Bilirubin Negative, Urine Urobilinogen Normal, Urine Leukocyte Esterase 1+H, Urine RBC 2-4H, Urine WBC 0-2 , Urine Squamous Epithelial Cells Few, Urine Bacteria None 12/31/17 06:15: White Blood Count 12.3H, Red Blood Count 3.27L, Hemoglobin 9.2L, Hematocrit 28.5L, Mean Corpuscular Volume 87, Mean Corpuscular Hemoglobin 28.3, Mean Corpuscular Hemoglobin Concent 32.4, Red Cell Distribution Width 12.5, Platelet Count 421, Mean Platelet Volume 6.4L, Neutrophils (%) (Auto) 68.9, Lymphocytes ( %) (Auto) 21.4, Monocytes (%) (Auto) 7.7, Eosinophils (%) (Auto) 1.4, Basophils (%) (Auto) 0.7, Sodium Level 140, Potassium Level 3.8, Chloride Level 102, Carbon Dioxide Level 32, Anion Gap 7, Blood Urea Nitrogen 5L, Creatinine 0.7, Estimat Glomerular Filtration Rate > 60, Glucose Level 130H, Calcium Level 8.7 Height (Feet): 5 Height (Inches): 5.00 Weight (Pounds): 191 EENT: PERRL/EOMI Respiratory/Chest: lungs clear Abdomen: soft Nissa Mckay MD Dec 31, 2017 12:41
--- NOTE | 2017-12-31 13:15 | General Surgery Progress Note ---
General Surgery-Progress Note Subjective Procedure Performed incision and drainage of right perirectal abscess with excisional debridement of infected necrotic tissue Symptoms: improved, tolerating diet, passing flatus Objective Last 24 Hour Vital Signs Date Time Temp Pulse Resp B/P (MAP) Pulse Ox O2 Delivery O2 Flow Rate FiO2 12/31/17 11:49 98.1 89 20 110/63 (79) 92 98.1 12/31/17 11:25 208.0 72 20 98 12/31/17 09:02 104 122/72 12/31/17 09:00 Room Air 12/31/17 09:00 104 122/72 12/31/17 07:28 98.2 104 18 122/72 (89) 95 98.2 12/31/17 04:18 99.0 92 18 127/58 (81) 94 99.0 12/31/17 00:45 98.6 89 18 144/76 (98) 93 98.6 12/30/17 22:03 Room Air 12/30/17 21:00 92 12/30/17 20:43 88 119/65 12/30/17 20:04 98.1 88 15 119/65 (83) 91 98.1 12/30/17 18:05 99 115/73 12/30/17 16:00 97.9 106 19 119/65 (83) 93 97.9 I&O Intake and Output 12/30/17 12/31/17 19:00 07:00 Intake Total 730 ml 240 ml Output Total 4400 ml 1600 ml Balance -3670 ml -1360 ml Intake Oral 480 ml 240 ml IV Total 250 ml Output Urine Total 4300 ml 1600 ml Estimated Blood Loss 100 ml Dressing: saturated Wound: clean Drains: none Respiratory: clear Abdomen: soft, flat, non-tender, present bowel sounds Extremities: no edema, no tenderness, no cyanosis Laboratory Tests Test 12/31/17 02:25 12/31/17 06:15 Urine Color Pale yellow Urine Appearance Clear Urine pH 6.5 (4.5-8.0) Urine Specific [place] 1.010 (1.005-1.035) Urine Protein 2+ (NEGATIVE) H Urine Glucose (UA) 3+ (NEGATIVE) H Urine Ketones Negative (NEGATIVE) Urine Blood 1+ (NEGATIVE) H Urine Nitrite Negative (NEGATIVE) Urine Bilirubin Negative (NEGATIVE) Urine Urobilinogen Normal MG/DL (0.0-1.0) Urine Leukocyte Esterase 1+ (NEGATIVE) H Urine RBC 2-4 /HPF (0 - 2) H Urine WBC 0-2 /HPF (0 - 2) Urine Squamous Epithelial Cells Few /LPF (NONE/OCC) Urine Bacteria None /HPF (NONE) White Blood Count 12.3 K/UL (4.8-10.8) H Red Blood Count 3.27 M/UL (4.20-5.40) L Hemoglobin 9.2 G/DL (12.0-16.0) L Hematocrit 28.5 % (37.0-47.0) L Mean Corpuscular Volume 87 FL (80-99) Mean Corpuscular Hemoglobin 28.3 PG (27.0-31.0) Mean Corpuscular Hemoglobin Concent 32.4 G/DL (32.0-36.0) Red Cell Distribution Width 12.5 % (11.6-14.8) Platelet Count 421 K/UL (150-450) Mean Platelet Volume 6.4 FL (6.5-10.1) L Neutrophils (%) (Auto) 68.9 % (45.0-75.0) Lymphocytes (%) (Auto) 21.4 % (20.0-45.0) Monocytes (%) (Auto) 7.7 % (1.0-10.0) Eosinophils (%) (Auto) 1.4 % (0.0-3.0) Basophils (%) (Auto) 0.7 % (0.0-2.0) Sodium Level 140 MMOL/L (136-145) Potassium Level 3.8 MMOL/L (3.5-5.1) Chloride Level 102 MMOL/L (98-107) Carbon Dioxide Level 32 MMOL/L (21-32) Anion Gap 7 mmol/L (5-15) Blood Urea Nitrogen 5 mg/dL (7-18) L Creatinine 0.7 MG/DL (0.55-1.30) Estimat Glomerular Filtration Rate > 60 mL/min (>60) Glucose Level 130 MG/DL (74-106) H Calcium Level 8.7 MG/DL (8.5-10.1) Assessment Post-op Diagnosis right buttock wound with extensive devitalized tissue down to ischial tuberosity Plan Problems: (1) Diabetic acidosis without coma (2) Hyperglycemia (3) Severe sepsis (4) Abscess of buttock Assessment & Plan: large right buttock abscess with gangrene at skin level. given condition urgent I&D warranted as possible etiology of sepsis. see procedure report. improving. leukocytosis improving. more alert and responsive. drainage still looks almost as if stool. cultures poly organism : WOUND CULTURE Preliminary Organism 1 GRAM NEGATIVE BACILLUS 1 GROWTH: 3+ Organism 2 KLEBSIELLA OXYTOCA GROWTH: 3+ Organism 3 GRAM NEGATIVE BACILLUS 3 GROWTH: 1+ Organism 4 SHAE ALBICANS GROWTH: 4+ WOUND CULTURE Final Organism 1 KLEBSIELLA PNEUMONIAE GROWTH: 4+ Organism 2 PROTEUS MIRABILIS GROWTH: 4+ Organism 3 STREP AGALACTIAE GROUP B GROWTH: 4+ Organism 4 SHEA ALBICANS GROWTH: 4+ s/p washout and debridement doing great. improving. -okay for diet -packing and dressings to buttock TID -okay to d/c from surgical standpoint follow up in 1 week with me wound care TID thank you will follow with recommendations (5) DKA (diabetic ketoacidoses) Baljeet Osorio Dec 31, 2017 13:15
--- NOTE | 2017-12-31 13:23 | GI Progress Note ---
Assessment/Plan Problems: (1) Anemia ICD Codes: D64.9 - Anemia, unspecified SNOMED: 097409281 (2) Abscess of buttock ICD Codes: L02.31 - Cutaneous abscess of buttock SNOMED: 39746818 (3) Severe sepsis ICD Codes: A41.9 - Sepsis, unspecified organism; R65.20 - Severe sepsis without septic shock SNOMED: 06924702 (4) Diabetes ICD Codes: E11.9 - Type 2 diabetes mellitus without complications SNOMED: 65539745 Status: stable Status Narrative Discussed with Dr. Eden. Assessment/Plan SUMMARY FINDINGS: 1. Fair prep. 2. Two colonic polyp removed, see above for details. 3. No evidence of any obvious Crohn's disease in this colonoscopy examination. RECOMMENDATIONS: okay for DC per GI standpoint symptomatic treatment advance diet Follow up biopsies and treat accordingly. The patient was seen and examined at bedside and all new and available data was reviewed in the patients chart. I agree with the above findings, impression and plan. (Patient seen earlier today. Signature stamp does not reflect patient encounter time.). - Garret Eden MD Subjective Gastrointestinal/Abdominal: Reports: no symptoms Objective Last 24 Hour Vital Signs Date Time Temp Pulse Resp B/P (MAP) Pulse Ox O2 Delivery O2 Flow Rate FiO2 12/31/17 11:49 98.1 89 20 110/63 (79) 92 98.1 12/31/17 11:25 208.0 72 20 98 12/31/17 09:02 104 122/72 12/31/17 09:00 Room Air 12/31/17 09:00 104 122/72 12/31/17 07:28 98.2 104 18 122/72 (89) 95 98.2 12/31/17 04:18 99.0 92 18 127/58 (81) 94 99.0 12/31/17 00:45 98.6 89 18 144/76 (98) 93 98.6 12/30/17 22:03 Room Air 12/30/17 21:00 92 12/30/17 20:43 88 119/65 12/30/17 20:04 98.1 88 15 119/65 (83) 91 98.1 12/30/17 18:05 99 115/73 12/30/17 16:00 97.9 106 19 119/65 (83) 93 97.9 Intake and Output 12/30/17 12/31/17 19:00 07:00 Intake Total 730 ml 240 ml Output Total 4400 ml 1600 ml Balance -3670 ml -1360 ml Intake Oral 480 ml 240 ml IV Total 250 ml Output Urine Total 4300 ml 1600 ml Estimated Blood Loss 100 ml Laboratory Tests Test 12/31/17 02:25 12/31/17 06:15 Urine Color Pale yellow Urine Appearance Clear Urine pH 6.5 (4.5-8.0) Urine Specific [place] 1.010 (1.005-1.035) Urine Protein 2+ (NEGATIVE) H Urine Glucose (UA) 3+ (NEGATIVE) H Urine Ketones Negative (NEGATIVE) Urine Blood 1+ (NEGATIVE) H Urine Nitrite Negative (NEGATIVE) Urine Bilirubin Negative (NEGATIVE) Urine Urobilinogen Normal MG/DL (0.0-1.0) Urine Leukocyte Esterase 1+ (NEGATIVE) H Urine RBC 2-4 /HPF (0 - 2) H Urine WBC 0-2 /HPF (0 - 2) Urine Squamous Epithelial Cells Few /LPF (NONE/OCC) Urine Bacteria None /HPF (NONE) White Blood Count 12.3 K/UL (4.8-10.8) H Red Blood Count 3.27 M/UL (4.20-5.40) L Hemoglobin 9.2 G/DL (12.0-16.0) L Hematocrit 28.5 % (37.0-47.0) L Mean Corpuscular Volume 87 FL (80-99) Mean Corpuscular Hemoglobin 28.3 PG (27.0-31.0) Mean Corpuscular Hemoglobin Concent 32.4 G/DL (32.0-36.0) Red Cell Distribution Width 12.5 % (11.6-14.8) Platelet Count 421 K/UL (150-450) Mean Platelet Volume 6.4 FL (6.5-10.1) L Neutrophils (%) (Auto) 68.9 % (45.0-75.0) Lymphocytes (%) (Auto) 21.4 % (20.0-45.0) Monocytes (%) (Auto) 7.7 % (1.0-10.0) Eosinophils (%) (Auto) 1.4 % (0.0-3.0) Basophils (%) (Auto) 0.7 % (0.0-2.0) Sodium Level 140 MMOL/L (136-145) Potassium Level 3.8 MMOL/L (3.5-5.1) Chloride Level 102 MMOL/L (98-107) Carbon Dioxide Level 32 MMOL/L (21-32) Anion Gap 7 mmol/L (5-15) Blood Urea Nitrogen 5 mg/dL (7-18) L Creatinine 0.7 MG/DL (0.55-1.30) Estimat Glomerular Filtration Rate > 60 mL/min (>60) Glucose Level 130 MG/DL (74-106) H Calcium Level 8.7 MG/DL (8.5-10.1) Height (Feet): 5 Height (Inches): 5.00 Weight (Pounds): 191 General Appearance: WD/WN, no apparent distress, alert Cardiovascular: normal rate Respiratory/Chest: normal breath sounds, no respiratory distress Abdominal Exam: normal bowel sounds, non tender, soft Extremities: normal range of motion, non-tender Yoko Simpson NP Dec 31, 2017 13:23
--- NOTE | 2017-12-31 14:17 | Infectious Diseases Prog Note ---
Assessment/Plan Assessment/Plan A; Sepsis improving R buttock abscess DKA Newly diagnosed DM Acute renal failure resolving Perianal fistula P; continue Fluconazole & Ceftriaxone & Flagyl will follow new wound culture Subjective ROS Limited/Unobtainable: No Cardiovascular: Reports: no symptoms Gastrointestinal/Abdominal: Reports: no symptoms Musculoskeletal: Reports: no symptoms Allergies: Coded Allergies: SULFA (SULFONAMIDE ANTIBIOTICS) (Verified Allergy, Unknown, 12/25/17) Objective Vital Signs Last 24 Hour Vital Signs Date Time Temp Pulse Resp B/P (MAP) Pulse Ox O2 Delivery O2 Flow Rate FiO2 12/31/17 11:49 98.1 89 20 110/63 (79) 92 98.1 12/31/17 11:25 208.0 72 20 98 12/31/17 09:02 104 122/72 12/31/17 09:00 Room Air 12/31/17 09:00 104 122/72 12/31/17 07:28 98.2 104 18 122/72 (89) 95 98.2 12/31/17 04:18 99.0 92 18 127/58 (81) 94 99.0 12/31/17 00:45 98.6 89 18 144/76 (98) 93 98.6 12/30/17 22:03 Room Air 12/30/17 21:00 92 12/30/17 20:43 88 119/65 12/30/17 20:04 98.1 88 15 119/65 (83) 91 98.1 12/30/17 18:05 99 115/73 12/30/17 16:00 97.9 106 19 119/65 (83) 93 97.9 Height (Feet): 5 Height (Inches): 5.00 Weight (Pounds): 191 General Appearance: no acute distress HEENT: mucous membranes moist Respiratory/Chest: lungs clear Cardiovascular: normal rate Abdomen: soft, non tender Extremities: no edema Skin: other - very deep right buttock wound Neurologic/Psychiatric: alert, oriented x 3, responsive Microbiology Date/Time Source Procedure Growth Status 12/30/17 10:56 Buttock Right Gram Stain - Final Resulted 12/30/17 10:56 Surgical Biopsy Culture - Preliminary Gram Negative Bacillus 1 Resulted 12/30/17 10:56 Buttock Right Gram Stain - Final Resulted 12/30/17 10:56 Buttock Right Aerobic Culture - Preliminary Resulted 12/30/17 10:56 Buttock Right Anaerobic Culture Pending Resulted Laboratory Tests Test 12/31/17 02:25 12/31/17 06:15 Urine Color Pale yellow Urine Appearance Clear Urine pH 6.5 (4.5-8.0) Urine Specific [place] 1.010 (1.005-1.035) Urine Protein 2+ (NEGATIVE) H Urine Glucose (UA) 3+ (NEGATIVE) H Urine Ketones Negative (NEGATIVE) Urine Blood 1+ (NEGATIVE) H Urine Nitrite Negative (NEGATIVE) Urine Bilirubin Negative (NEGATIVE) Urine Urobilinogen Normal MG/DL (0.0-1.0) Urine Leukocyte Esterase 1+ (NEGATIVE) H Urine RBC 2-4 /HPF (0 - 2) H Urine WBC 0-2 /HPF (0 - 2) Urine Squamous Epithelial Cells Few /LPF (NONE/OCC) Urine Bacteria None /HPF (NONE) White Blood Count 12.3 K/UL (4.8-10.8) H Red Blood Count 3.27 M/UL (4.20-5.40) L Hemoglobin 9.2 G/DL (12.0-16.0) L Hematocrit 28.5 % (37.0-47.0) L Mean Corpuscular Volume 87 FL (80-99) Mean Corpuscular Hemoglobin 28.3 PG (27.0-31.0) Mean Corpuscular Hemoglobin Concent 32.4 G/DL (32.0-36.0) Red Cell Distribution Width 12.5 % (11.6-14.8) Platelet Count 421 K/UL (150-450) Mean Platelet Volume 6.4 FL (6.5-10.1) L Neutrophils (%) (Auto) 68.9 % (45.0-75.0) Lymphocytes (%) (Auto) 21.4 % (20.0-45.0) Monocytes (%) (Auto) 7.7 % (1.0-10.0) Eosinophils (%) (Auto) 1.4 % (0.0-3.0) Basophils (%) (Auto) 0.7 % (0.0-2.0) Sodium Level 140 MMOL/L (136-145) Potassium Level 3.8 MMOL/L (3.5-5.1) Chloride Level 102 MMOL/L (98-107) Carbon Dioxide Level 32 MMOL/L (21-32) Anion Gap 7 mmol/L (5-15) Blood Urea Nitrogen 5 mg/dL (7-18) L Creatinine 0.7 MG/DL (0.55-1.30) Estimat Glomerular Filtration Rate > 60 mL/min (>60) Glucose Level 130 MG/DL (74-106) H Calcium Level 8.7 MG/DL (8.5-10.1) Current Medications Medications (Trade) Dose Ordered Sig/Eyad Route PRN Reason Start Time Stop Time Status Last Admin Dose Admin Acetaminophen (Tylenol) 650 mg Q4H PRN ORAL Mild Pain/Temp > 100.5 12/26/17 17:00 01/25/18 16:59 12/30/17 14:01 Amlodipine Besylate (Norvasc) 5 mg BID ORAL 12/26/17 18:00 01/24/18 08:59 12/30/17 18:05 Artificial Tears (Akwa-Tears) 1 drop THREE TIMES A DAY BOTH EYES 12/26/17 18:00 01/22/18 12:59 12/31/17 12:10 Atorvastatin Calcium (Lipitor) 10 mg BEDTIME ORAL 12/26/17 21:00 01/23/18 20:59 12/30/17 20:43 Ceftriaxone Sodium 2 gm/ Dextrose 55 ml @ 110 mls/hr Q24H IVPB 12/27/17 14:00 01/03/18 13:59 12/30/17 15:17 Clonidine HCl (Catapres Tab) 0.1 mg Q6H PRN ORAL [id number] and above 12/26/17 17:00 01/23/18 16:59 12/27/17 21:39 Dextrose (Dextrose 50%) 25 ml STAT PRN IV Hypoglycemia 12/26/17 17:00 01/22/18 16:59 12/31/17 06:11 Dextrose (Dextrose 50%) 50 ml STAT PRN IV Hypoglycemia 12/26/17 17:00 01/22/18 16:59 Famotidine (Pepcid) 20 mg BID ORAL 12/26/17 18:00 01/23/18 17:59 12/31/17 09:02 Fish Oil (Fish Oil) 1,000 mg BID ORAL 12/26/17 18:00 01/23/18 11:59 12/31/17 09:03 Fluconazole (Diflucan) 200 mg DAILY ORAL 12/27/17 09:00 01/02/18 08:59 12/31/17 09:03 Folic Acid (Folate) 5 mg DAILY ORAL 12/27/17 09:00 01/23/18 11:59 12/31/17 09:03 Heparin Sodium (Porcine) (Heparin 5000 units/ml) 5,000 units Q12HR SUBQ 12/26/17 21:00 01/23/18 20:59 12/31/17 09:07 Hydromorphone HCl (Dilaudid) 1 mg Q3H PRN IVP Moderate Pain (Pain Scale 4-6) 12/26/17 17:00 12/31/17 16:59 12/31/17 07:39 Insulin Aspart (NovoLOG) BEFORE MEALS AND HS SUBQ 12/26/17 21:00 01/23/18 06:29 12/31/17 12:13 Insulin Detemir (Levemir) 10 units BEDTIME SUBQ 12/31/17 21:00 01/22/18 22:59 Metoprolol Tartrate (Lopressor) 25 mg Q12HR ORAL 12/26/17 21:00 01/23/18 20:59 12/31/17 09:02 Metronidazole (Flagyl) 500 mg Q8HR ORAL 12/29/17 14:00 01/05/18 13:59 12/31/17 13:37 Nitroglycerin (Ntg) 0.4 mg Q5M PRN SL Prn Chest Pain 12/26/17 17:00 01/21/18 17:59 Ondansetron HCl (Zofran) 4 mg Q6H PRN IVP Nausea & Vomiting 12/26/17 17:00 01/21/18 16:59 Phosphorus (Phospha 250 Neutral) 250 mg THREE TIMES A DAY ORAL 12/26/17 18:00 01/25/18 08:59 12/31/17 12:10 Potassium Chloride (K-Dur) 40 meq BID ORAL 12/27/17 18:00 01/25/18 08:59 12/31/17 09:03 Vitamin A/Vitamin D (A & D Oint) 1 applic EVERY 12 HOURS TOPIC 12/26/17 21:00 01/22/18 20:59 12/31/17 09:02 Wade Peña MD Dec 31, 2017 14:17
[2017-12-31] MEDS: cefTRIAXone 2 GM in D5W 55 ML IVPB SCH (14:50)
--- NOTE | 2017-12-31 15:46 | Diagnostic Imaging Report ---
Indication: Shortness of breath Technique: XRAY Chest 1v Comparison: 12/23/2017 FINDINGS/IMPRESSION: Heart size and mediastinal contours are stable. There is no definite focal airspace consolidation, pleural effusion or pneumothorax. Surgical clips noted in the right upper quadrant. Prominent gastric air bubble noted. No acute osseous abnormality appreciated.
[2017-12-31 16:10] VITALS: BP 126/70
--- NOTE | 2017-12-31 17:48 | Consultation ---
History of Present Illness General Date patient seen: Dec 31, 2017 Chief Complaint: Generalized Weakness Reason for Consultation: right buttock abscess / sepsis Present Illness Allergies: Coded Allergies: SULFA (SULFONAMIDE ANTIBIOTICS) (Verified Allergy, Unknown, 12/25/17) Medication History Miscellaneous Medications Unable to Obtain Medications (Unable To Obtain Meds), (Reported) Patient History Healthcare decision maker Dorie Sifuentes Resuscitation status Full Code Advanced Directive on File No Physical Exam Last 24 Hour Vital Signs Date Time Temp Pulse Resp B/P (MAP) Pulse Ox O2 Delivery O2 Flow Rate FiO2 12/31/17 17:32 92 126/70 12/31/17 16:10 97.5 92 22 126/70 (88) 94 97.5 12/31/17 11:49 98.1 89 20 110/63 (79) 92 98.1 12/31/17 11:25 208.0 72 20 98 12/31/17 09:02 104 122/72 12/31/17 09:00 Room Air 12/31/17 09:00 104 122/72 12/31/17 07:28 98.2 104 18 122/72 (89) 95 98.2 12/31/17 04:18 99.0 92 18 127/58 (81) 94 99.0 12/31/17 00:45 98.6 89 18 144/76 (98) 93 98.6 12/30/17 22:03 Room Air 12/30/17 21:00 92 12/30/17 20:43 88 119/65 12/30/17 20:04 98.1 88 15 119/65 (83) 91 98.1 12/30/17 18:05 99 115/73 Intake and Output 12/30/17 12/31/17 19:00 07:00 Intake Total 730 ml 240 ml Output Total 4400 ml 1600 ml Balance -3670 ml -1360 ml Intake Oral 480 ml 240 ml IV Total 250 ml Output Urine Total 4300 ml 1600 ml Estimated Blood Loss 100 ml Laboratory Tests Test 12/31/17 02:25 12/31/17 06:15 Urine Color Pale yellow Urine Appearance Clear Urine pH 6.5 (4.5-8.0) Urine Specific [place] 1.010 (1.005-1.035) Urine Protein 2+ (NEGATIVE) H Urine Glucose (UA) 3+ (NEGATIVE) H Urine Ketones Negative (NEGATIVE) Urine Blood 1+ (NEGATIVE) H Urine Nitrite Negative (NEGATIVE) Urine Bilirubin Negative (NEGATIVE) Urine Urobilinogen Normal MG/DL (0.0-1.0) Urine Leukocyte Esterase 1+ (NEGATIVE) H Urine RBC 2-4 /HPF (0 - 2) H Urine WBC 0-2 /HPF (0 - 2) Urine Squamous Epithelial Cells Few /LPF (NONE/OCC) Urine Bacteria None /HPF (NONE) White Blood Count 12.3 K/UL (4.8-10.8) H Red Blood Count 3.27 M/UL (4.20-5.40) L Hemoglobin 9.2 G/DL (12.0-16.0) L Hematocrit 28.5 % (37.0-47.0) L Mean Corpuscular Volume 87 FL (80-99) Mean Corpuscular Hemoglobin 28.3 PG (27.0-31.0) Mean Corpuscular Hemoglobin Concent 32.4 G/DL (32.0-36.0) Red Cell Distribution Width 12.5 % (11.6-14.8) Platelet Count 421 K/UL (150-450) Mean Platelet Volume 6.4 FL (6.5-10.1) L Neutrophils (%) (Auto) 68.9 % (45.0-75.0) Lymphocytes (%) (Auto) 21.4 % (20.0-45.0) Monocytes (%) (Auto) 7.7 % (1.0-10.0) Eosinophils (%) (Auto) 1.4 % (0.0-3.0) Basophils (%) (Auto) 0.7 % (0.0-2.0) Sodium Level 140 MMOL/L (136-145) Potassium Level 3.8 MMOL/L (3.5-5.1) Chloride Level 102 MMOL/L (98-107) Carbon Dioxide Level 32 MMOL/L (21-32) Anion Gap 7 mmol/L (5-15) Blood Urea Nitrogen 5 mg/dL (7-18) L Creatinine 0.7 MG/DL (0.55-1.30) Estimat Glomerular Filtration Rate > 60 mL/min (>60) Glucose Level 130 MG/DL (74-106) H Calcium Level 8.7 MG/DL (8.5-10.1) Height (Feet): 5 Height (Inches): 5.00 Weight (Pounds): 191 Medications Current Medications Medications (Trade) Dose Ordered Sig/Eyad Route PRN Reason Start Time Stop Time Status Last Admin Dose Admin Acetaminophen (Tylenol) 650 mg Q4H PRN ORAL Mild Pain/Temp > 100.5 12/26/17 17:00 01/25/18 16:59 12/30/17 14:01 Amlodipine Besylate (Norvasc) 5 mg BID ORAL 12/26/17 18:00 01/24/18 08:59 12/31/17 17:32 Artificial Tears (Akwa-Tears) 1 drop THREE TIMES A DAY BOTH EYES 12/26/17 18:00 01/22/18 12:59 12/31/17 17:32 Atorvastatin Calcium (Lipitor) 10 mg BEDTIME ORAL 12/26/17 21:00 01/23/18 20:59 12/30/17 20:43 Ceftriaxone Sodium 2 gm/ Dextrose 55 ml @ 110 mls/hr Q24H IVPB 12/27/17 14:00 01/03/18 13:59 12/31/17 14:50 Clonidine HCl (Catapres Tab) 0.1 mg Q6H PRN ORAL [id number] and above 12/26/17 17:00 01/23/18 16:59 12/27/17 21:39 Dextrose (Dextrose 50%) 25 ml STAT PRN IV Hypoglycemia 12/26/17 17:00 01/22/18 16:59 12/31/17 06:11 Dextrose (Dextrose 50%) 50 ml STAT PRN IV Hypoglycemia 12/26/17 17:00 01/22/18 16:59 Famotidine (Pepcid) 20 mg BID ORAL 12/26/17 18:00 01/23/18 17:59 12/31/17 17:33 Fish Oil (Fish Oil) 1,000 mg BID ORAL 12/26/17 18:00 01/23/18 11:59 12/31/17 17:32 Fluconazole (Diflucan) 200 mg DAILY ORAL 12/27/17 09:00 01/02/18 08:59 12/31/17 09:03 Folic Acid (Folate) 5 mg DAILY ORAL 12/27/17 09:00 01/23/18 11:59 12/31/17 09:03 Heparin Sodium (Porcine) (Heparin 5000 units/ml) 5,000 units Q12HR SUBQ 12/26/17 21:00 01/23/18 20:59 12/31/17 09:07 Insulin Aspart (NovoLOG) BEFORE MEALS AND HS SUBQ 12/26/17 21:00 01/23/18 06:29 12/31/17 16:44 Insulin Detemir (Levemir) 10 units BEDTIME SUBQ 12/31/17 21:00 01/22/18 22:59 Metoprolol Tartrate (Lopressor) 25 mg Q12HR ORAL 12/26/17 21:00 01/23/18 20:59 12/31/17 09:02 Metronidazole (Flagyl) 500 mg Q8HR ORAL 12/29/17 14:00 01/05/18 13:59 12/31/17 13:37 Nitroglycerin (Ntg) 0.4 mg Q5M PRN SL Prn Chest Pain 12/26/17 17:00 01/21/18 17:59 Ondansetron HCl (Zofran) 4 mg Q6H PRN IVP Nausea & Vomiting 12/26/17 17:00 01/21/18 16:59 Phosphorus (Phospha 250 Neutral) 250 mg THREE TIMES A DAY ORAL 12/26/17 18:00 01/25/18 08:59 12/31/17 17:32 Potassium Chloride (K-Dur) 40 meq BID ORAL 12/27/17 18:00 01/25/18 08:59 12/31/17 17:33 Vitamin A/Vitamin D (A & D Oint) 1 applic EVERY 12 HOURS TOPIC 12/26/17 21:00 01/22/18 20:59 12/31/17 09:02 Assessment/Plan Assessment/Plan (1) Buttock pain (2) Buttock Abscess s/p I+D seen dictated. Stef Ogden Dec 31, 2017 17:48
[2017-12-31] MEDS ORDERED: Morphine IR 15mg tab ORAL PRN (18:00)
[2017-12-31 19:59] VITALS: BP 125/69
[2017-12-31] MEDS ORDERED: Levemir Flexpen SUBQ SCH (21:00)
[2018-01-01 04:00] VITALS: BP 119/66
[2018-01-01] MEDS: metroNIDAZOLE 500mg tab ORAL SCH (05:55)
[2018-01-01] MEDS: NovoLOG Insulin Flexpen SUBQ SCH ×4 (05:56→22:13)
--- NOTE | 2018-01-01 06:00 | Consultation ---
DATE OF CONSULTATION: 12/31/2017 PAIN MANAGEMENT CONSULTATION CONSULTING PHYSICIAN: Rajesh Jones M.D. REFERRING PHYSICIAN: Nissa Mckay M.D. PHYSICIAN CATTERY OPERATOR: Jacquie Auguste CHIEF COMPLAINT: Buttock pain. HISTORY OF PRESENT ILLNESS: This is a 57-year-old female who is being seen on the Medical/Surgical floor of [facility] for initial comprehensive pain management consultation. The patient was admitted under the care of Dr. Mckay, found to have diabetic ketoacidosis, altered mental status, complaining of buttock pain where she was found to have an abscess and slightly had some gangrenous, status post incision and drainage and necrotic skin removal by Dr. Osorio. She was started on Dilaudid 1 mg IV every 3 hours as needed for severe pain. The patient does not want to take such high doses of opioids. Discussed with the patient about Tylenol No. 3. She seems to understand and wants to discontinue the Dilaudid. The pain has been about 2 weeks. It is off and on pain. It is acute, rating the pain a 7/10, describing the pain as sharp pain, increased with movement and we were consulted so the patient will have adequate pain control while here in the hospital. PAST MEDICAL HISTORY: Diabetes mellitus. PAST SURGICAL HISTORY: Denies. ALLERGIES: Sulfa. MEDICATIONS: Here in the hospital, Dilaudid, Flagyl, K-Dur, insulin, ceftriaxone, fluconazole, folate, Lipitor, heparin, NovoLog, Lopressor, Pepcid, Tylenol, Catapres, nitroglycerin, and Zofran. SOCIAL HISTORY: Denies smoking, drinking alcohol, or IV drug abuse. REVIEW OF SYSTEMS: Denies rash, fever, chills, sweating, dizziness, drowsiness, blurred vision, sore throat, or change in weight. No shortness of breath or chest pain. No nausea, vomiting, diarrhea, or blood in the stool or urine. No bowel or bladder incontinence. She is complaining of buttock pain. PHYSICAL EXAMINATION: GENERAL: Awake, alert, and oriented. VITAL SIGNS: Blood pressure 126/70, heart rate is 92, oxygen saturation is 94%, respirations 16, and temperature is 97.5 degrees Fahrenheit. HEENT: PERRLA. NECK: Range of motion is full in all directions. No tenderness to paracervical muscles. No adenopathy. LUNGS: Decreased breath sounds bilaterally. HEART: S1 and S2, regular. ABDOMEN: Obese. BACK: Range of motion is decreased in flexion and extension. EXTREMITIES: Upper and lower extremity range of motion is full in all directions. No cyanosis. No clubbing. No edema. Sensory is intact. Reflexes are not obtainable. No adenopathy. ASSESSMENT AND PLAN: This is a 57-year-old female with buttock abscess, status post incision and drainage, buttock pain. The patient will be discontinued off the Dilaudid and started on Tylenol No. 3 one tablet every 4 hours as needed for severe pain. The patient was discussed with Dr. Jones and Dr. Jones concurred. We will follow the patient. Thank you very much for the courtesy of this consultation. Rajesh Jones M.D. RAVI Auguste DR: GENEVA JOB#: [id number] CC: [place]APIN[place]O
[2018-01-01 06:33] LABS: BASOPHILS % (AUTO) 0.7 % (0.0-2.0); EOSINOPHILS % (AUTO) 1.9 % (0.0-3.0); HEMATOCRIT 28.2 % (37.0-47.0); HEMOGLOBIN 9.1 G/DL (12.0-16.0); LYMPHOCYTES % (AUTO) 26.5 % (20.0-45.0); MEAN CORPUSCULAR VOLUME 88 FL (80-99); MONOCYTES % (AUTO) 6.4 % (1.0-10.0); NEUTROPHILS % (AUTO) 64.4 % (45.0-75.0); PLATELET COUNT 455 K/UL (150-450); RED BLOOD COUNT 3.21 M/UL (4.20-5.40); RED CELL DISTRIBUTION WIDTH 12.9 % (11.6-14.8); WHITE BLOOD COUNT 10.2 K/UL (4.8-10.8)
[2018-01-01 07:19] LABS: ANION GAP 7 mmol/L (5-15); BLOOD UREA NITROGEN 7 mg/dL (7-18); CALCIUM 8.5 MG/DL (8.5-10.1); CARBON DIOXIDE 29 MMOL/L (21-32); CHLORIDE 103 MMOL/L (98-107); CREATININE 0.8 MG/DL (0.55-1.30); POTASSIUM 4.4 MMOL/L (3.5-5.1); SODIUM 139 MMOL/L (136-145)
[2018-01-01 08:00] VITALS: BP 124/63
[2018-01-01] MEDS: Phospha 250 Neutral tab ORAL SCH ×3 (08:21→17:34)
[2018-01-01] MEDS: Artificial Tears 1.4% Op Soln BOTH EYES SCH ×3 (08:21→17:34)
[2018-01-01] MEDS: Metoprolol 25mg tab ORAL SCH ×2 (08:22→22:03)
[2018-01-01] MEDS: Fluconazole 100mg tab ORAL SCH (08:22)
[2018-01-01] MEDS: Vitamin A&D Oint 2oz Tube TOPIC SCH ×2 (08:23→21:00)
[2018-01-01] MEDS: Heparin 5000 units/ml inj SUBQ SCH ×2 (08:30→22:04)
--- NOTE | 2018-01-01 08:44 | General Progress Note ---
Assessment/Plan Problem List: (1) Diabetic acidosis without coma ICD Codes: E13.10 - Other specified diabetes mellitus with ketoacidosis without coma SNOMED: 91294629, 639413237 (2) Severe sepsis ICD Codes: A41.9 - Sepsis, unspecified organism; R65.20 - Severe sepsis without septic shock SNOMED: 85480177 (3) DKA (diabetic ketoacidoses) ICD Codes: E13.10 - Other specified diabetes mellitus with ketoacidosis without coma SNOMED: 71664297, 621280798 Qualifiers: Qualified Codes: E13.11 - Other specified diabetes mellitus with ketoacidosis with coma (4) Vagina bleeding ICD Codes: N93.9 - Abnormal uterine and vaginal bleeding, unspecified SNOMED: 277616240, 608240581 Assessment/Plan increase Levemir to 12 units qhs add Starlix 60 mg ac tid continue NISS Subjective Allergies: Coded Allergies: SULFA (SULFONAMIDE ANTIBIOTICS) (Verified Allergy, Unknown, 12/25/17) All Systems: reviewed and negative except above Subjective events noted Objective Last 24 Hour Vital Signs Date Time Temp Pulse Resp B/P (MAP) Pulse Ox O2 Delivery O2 Flow Rate FiO2 01/01/18 08:22 93 124/63 01/01/18 08:22 93 124/63 01/01/18 08:00 99.1 93 17 124/63 (83) 95 99.1 01/01/18 04:00 99.6 92 18 119/66 (83) 93 99.6 12/31/17 21:01 95 125/69 12/31/17 20:13 Room Air 12/31/17 19:59 99.1 95 18 125/69 (87) 93 99.1 12/31/17 17:32 92 126/70 12/31/17 16:10 97.5 92 22 126/70 (88) 94 97.5 12/31/17 11:49 98.1 89 20 110/63 (79) 92 98.1 12/31/17 11:25 208.0 72 20 98 12/31/17 09:02 104 122/72 12/31/17 09:00 Room Air 12/31/17 09:00 104 122/72 Intake and Output 12/31/17 01/01/18 19:00 07:00 Intake Total 55 ml 900 ml Output Total 3500 ml Balance 55 ml -2600 ml Intake Oral 900 ml IV Total 55 ml Output Urine Total 3500 ml Laboratory Tests 01/01/18 05:30: White Blood Count 10.2, Red Blood Count 3.21L, Hemoglobin 9.1L, Hematocrit 28.2L , Mean Corpuscular Volume 88, Mean Corpuscular Hemoglobin 28.4, Mean Corpuscular Hemoglobin Concent 32.4, Red Cell Distribution Width 12.9, Platelet Count 455H, Mean Platelet Volume 6.2L, Neutrophils (%) (Auto) 64.4, Lymphocytes (%) (Auto) 26.5, Monocytes (%) (Auto) 6.4, Eosinophils (%) (Auto) 1.9, Basophils (%) (Auto) 0.7, Sodium Level 139, Potassium Level 4.4, Chloride Level 103, Carbon Dioxide Level 29, Anion Gap 7, Blood Urea Nitrogen 7, Creatinine 0.8 , Estimat Glomerular Filtration Rate > 60, Glucose Level 220H, Calcium Level 8.5 Height (Feet): 5 Height (Inches): 5.00 Weight (Pounds): 188 General Appearance: no apparent distress Neck: normal alignment Cardiovascular: normal rate Respiratory/Chest: lungs clear Abdomen: normal bowel sounds Pelvis: normal external exam Objective Current Medications Medications (Trade) Dose Ordered Sig/Eyad Route PRN Reason Start Time Stop Time Status Last Admin Dose Admin Acetaminophen (Tylenol) 650 mg Q4H PRN ORAL Mild Pain/Temp > 100.5 12/26/17 17:00 01/25/18 16:59 12/30/17 14:01 Acetaminophen/ Codeine Phosphate (Tylenol #3) 1 tab Q4H PRN ORAL severe pain 12/31/17 17:53 01/07/18 17:52 Amlodipine Besylate (Norvasc) 5 mg BID ORAL 12/26/17 18:00 01/24/18 08:59 01/01/18 08:22 Artificial Tears (Akwa-Tears) 1 drop THREE TIMES A DAY BOTH EYES 12/26/17 18:00 01/22/18 12:59 01/01/18 08:21 Atorvastatin Calcium (Lipitor) 10 mg BEDTIME ORAL 12/26/17 21:00 01/23/18 20:59 12/31/17 21:00 Ceftriaxone Sodium 2 gm/ Dextrose 55 ml @ 110 mls/hr Q24H IVPB 12/27/17 14:00 01/03/18 13:59 12/31/17 14:50 Clonidine HCl (Catapres Tab) 0.1 mg Q6H PRN ORAL [id number] and above 12/26/17 17:00 01/23/18 16:59 12/27/17 21:39 Dextrose (Dextrose 50%) 25 ml STAT PRN IV Hypoglycemia 12/26/17 17:00 01/22/18 16:59 12/31/17 06:11 Dextrose (Dextrose 50%) 50 ml STAT PRN IV Hypoglycemia 12/26/17 17:00 01/22/18 16:59 Famotidine (Pepcid) 20 mg BID ORAL 12/26/17 18:00 01/23/18 17:59 01/01/18 08:22 Fish Oil (Fish Oil) 1,000 mg BID ORAL 12/26/17 18:00 01/23/18 11:59 01/01/18 08:22 Fluconazole (Diflucan) 200 mg DAILY ORAL 12/27/17 09:00 01/02/18 08:59 01/01/18 08:22 Folic Acid (Folate) 5 mg DAILY ORAL 12/27/17 09:00 01/23/18 11:59 01/01/18 08:21 Heparin Sodium (Porcine) (Heparin 5000 units/ml) 5,000 units Q12HR SUBQ 12/26/17 21:00 01/23/18 20:59 01/01/18 08:30 Insulin Aspart (NovoLOG) BEFORE MEALS AND HS SUBQ 12/26/17 21:00 01/23/18 06:29 01/01/18 05:56 Insulin Detemir (Levemir) 10 units BEDTIME SUBQ 12/31/17 21:00 01/22/18 22:59 12/31/17 21:06 Metoprolol Tartrate (Lopressor) 25 mg Q12HR ORAL 12/26/17 21:00 01/23/18 20:59 01/01/18 08:22 Metronidazole (Flagyl) 500 mg Q8HR ORAL 12/29/17 14:00 01/05/18 13:59 01/01/18 05:55 Nitroglycerin (Ntg) 0.4 mg Q5M PRN SL Prn Chest Pain 12/26/17 17:00 01/21/18 17:59 Ondansetron HCl (Zofran) 4 mg Q6H PRN IVP Nausea & Vomiting 12/26/17 17:00 01/21/18 16:59 Phosphorus (Phospha 250 Neutral) 250 mg THREE TIMES A DAY ORAL 12/26/17 18:00 01/25/18 08:59 01/01/18 08:21 Potassium Chloride (K-Dur) 40 meq BID ORAL 12/27/17 18:00 01/25/18 08:59 01/01/18 08:21 Vitamin A/Vitamin D (A & D Oint) 1 applic EVERY 12 HOURS TOPIC 12/26/17 21:00 01/22/18 20:59 01/01/18 08:23 Item Value Date Time Bedside Blood Glucose 229 mg/dl H 01/01/18 0629 Bedside Blood Glucose 235 mg/dl H 12/31/17 2110 Bedside Blood Glucose 267 mg/dl H 12/31/17 1644 Bedside Blood Glucose 239 mg/dl H 12/31/17 1213 Bedside Blood Glucose 62 mg/dl L 12/31/17 0611 Riky Olivas MD Jan 01, 2018 08:44
--- NOTE | 2018-01-01 09:22 | Nephrology Progress Note ---
Assessment/Plan Problem List: (1) Renal insufficiency (2) DKA (diabetic ketoacidoses) (3) Severe sepsis Assessment: buttock abcess incision and drainage of right perirectal abscess with excisional debridement of infected necrotic tissue (4) Anemia Assessment Diabetic acidosis without coma resolved Renal failure and electrolyte imbalance mainly resolved Diabetic Nephropathy and Proteinuria and HypoAlbuminemia Severe sepsis Abscess of buttock incision and drainage of right perirectal abscess with excisional debridement of infected necrotic tissue Anemia Plan Hydrate- K and Phos supplement Mag as needed Antibiotics Monitor renal parameters correct electrolytes avoid Nephrotoxics adjust BP meds Fish OIL Lipitor Folic Acid Subjective ROS Limited/Unobtainable: No Objective Objective Last 24 Hour Vital Signs Date Time Temp Pulse Resp B/P (MAP) Pulse Ox O2 Delivery O2 Flow Rate FiO2 01/01/18 08:57 Room Air 01/01/18 08:22 93 124/63 01/01/18 08:22 93 124/63 01/01/18 08:00 99.1 93 17 124/63 (83) 95 99.1 01/01/18 04:00 99.6 92 18 119/66 (83) 93 99.6 12/31/17 21:01 95 125/69 12/31/17 20:13 Room Air 12/31/17 19:59 99.1 95 18 125/69 (87) 93 99.1 12/31/17 17:32 92 126/70 12/31/17 16:10 97.5 92 22 126/70 (88) 94 97.5 12/31/17 11:49 98.1 89 20 110/63 (79) 92 98.1 12/31/17 11:25 208.0 72 20 98 Intake and Output 12/31/17 01/01/18 19:00 07:00 Intake Total 55 ml 900 ml Output Total 3500 ml Balance 55 ml -2600 ml Intake Oral 900 ml IV Total 55 ml Output Urine Total 3500 ml Laboratory Tests 01/01/18 05:30: White Blood Count 10.2, Red Blood Count 3.21L, Hemoglobin 9.1L, Hematocrit 28.2L , Mean Corpuscular Volume 88, Mean Corpuscular Hemoglobin 28.4, Mean Corpuscular Hemoglobin Concent 32.4, Red Cell Distribution Width 12.9, Platelet Count 455H, Mean Platelet Volume 6.2L, Neutrophils (%) (Auto) 64.4, Lymphocytes (%) (Auto) 26.5, Monocytes (%) (Auto) 6.4, Eosinophils (%) (Auto) 1.9, Basophils (%) (Auto) 0.7, Sodium Level 139, Potassium Level 4.4, Chloride Level 103, Carbon Dioxide Level 29, Anion Gap 7, Blood Urea Nitrogen 7, Creatinine 0.8 , Estimat Glomerular Filtration Rate > 60, Glucose Level 220H, Calcium Level 8.5 Height (Feet): 5 Height (Inches): 5.00 Weight (Pounds): 188 General Appearance: no apparent distress Cardiovascular: regular rhythm Respiratory/Chest: lungs clear Abdomen: soft Objective no change Joni Cleaning MD Jan 01, 2018 09:22
--- NOTE | 2018-01-01 09:31 | General Progress Note ---
Assessment/Plan Assessment/Plan (1) Buttock pain (2) Buttock Abscess s/p I+D Pt to be continued on Tylenol #3 as needed. D/w Dr. Jones and he concurred. Subjective Date patient seen: Jan 01, 2018 Time patient seen: 08:15 - am Allergies: Coded Allergies: SULFA (SULFONAMIDE ANTIBIOTICS) (Verified Allergy, Unknown, 12/25/17) Subjective REVIEW OF SYSTEMS: Denies rash, fever, chills, sweating, dizziness, drowsiness, blurred vision, sore throat, or change in weight. No shortness of breath or chest pain. No nausea, vomiting, diarrhea, or blood in the stool or urine. No bowel or bladder incontinence. She is complaining of buttock pain. SUBJECTIVE: Patient is in bed showing no signs of pain or distress. Has no request the Tylenol #3 as of yet. Objective Last 24 Hour Vital Signs Date Time Temp Pulse Resp B/P (MAP) Pulse Ox O2 Delivery O2 Flow Rate FiO2 01/01/18 08:57 Room Air 01/01/18 08:22 93 124/63 01/01/18 08:22 93 124/63 01/01/18 08:00 99.1 93 17 124/63 (83) 95 99.1 01/01/18 04:00 99.6 92 18 119/66 (83) 93 99.6 12/31/17 21:01 95 125/69 12/31/17 20:13 Room Air 12/31/17 19:59 99.1 95 18 125/69 (87) 93 99.1 12/31/17 17:32 92 126/70 12/31/17 16:10 97.5 92 22 126/70 (88) 94 97.5 12/31/17 11:49 98.1 89 20 110/63 (79) 92 98.1 12/31/17 11:25 208.0 72 20 98 Intake and Output 12/31/17 01/01/18 19:00 07:00 Intake Total 55 ml 900 ml Output Total 3500 ml Balance 55 ml -2600 ml Intake Oral 900 ml IV Total 55 ml Output Urine Total 3500 ml Laboratory Tests 01/01/18 05:30: White Blood Count 10.2, Red Blood Count 3.21L, Hemoglobin 9.1L, Hematocrit 28.2L , Mean Corpuscular Volume 88, Mean Corpuscular Hemoglobin 28.4, Mean Corpuscular Hemoglobin Concent 32.4, Red Cell Distribution Width 12.9, Platelet Count 455H, Mean Platelet Volume 6.2L, Neutrophils (%) (Auto) 64.4, Lymphocytes (%) (Auto) 26.5, Monocytes (%) (Auto) 6.4, Eosinophils (%) (Auto) 1.9, Basophils (%) (Auto) 0.7, Sodium Level 139, Potassium Level 4.4, Chloride Level 103, Carbon Dioxide Level 29, Anion Gap 7, Blood Urea Nitrogen 7, Creatinine 0.8 , Estimat Glomerular Filtration Rate > 60, Glucose Level 220H, Calcium Level 8.5 , Phosphorus Level [Pending], Magnesium Level [Pending], Total Bilirubin [ Pending], Direct Bilirubin [Pending], Aspartate Amino Transf (AST/SGOT) [Pending ], Alanine Aminotransferase (ALT/SGPT) [Pending], Alkaline Phosphatase [Pending] , Total Protein [Pending], Albumin [Pending], Triglycerides Level [Pending], Cholesterol Level [Pending], LDL Cholesterol [Pending], HDL Cholesterol [Pending ], Cholesterol/HDL Ratio [Pending] Height (Feet): 5 Height (Inches): 5.00 Weight (Pounds): 188 Objective GENERAL: Awake, alert, and oriented. LUNGS: Decreased breath sounds bilaterally. HEART: S1 and S2, regular. ABDOMEN: Obese. EXTREMITIES: No cyanosis. No clubbing. No edema. NEURO: No changes. Stef Ogden Jan 01, 2018 09:31
[2018-01-01 09:36] LABS: ALANINE AMINOTRANSFERASE 13 U/L (12-78); ALBUMIN 1.6 G/DL (3.4-5.0); ALKALINE PHOSPHATASE 159 U/L (46-116); ASPARTATE AMINO TRANSFERASE 15 U/L (15-37); BILIRUBIN,DIRECT < 0.1 MG/DL (0.0-0.3); BILIRUBIN,TOTAL 0.2 MG/DL (0.2-1.0); CHOLESTEROL 112 MG/DL (< 200); HDL CHOLESTEROL 34 MG/DL (40-60); PHOSPHORUS 2.8 MG/DL (2.5-4.9); TRIGLYCERIDES 147 MG/DL (30-150)
--- NOTE | 2018-01-01 10:32 | General Progress Note ---
Progress Note Progress Note Surgery: doing well. comfortable. leukocytosis resolved. no n/v/f/c. tolerating diet. pain from dressing changes exam stable labs improved okay to d/c from surgical standpoint TID dressing changes; wet to dry gauze f/u in 2 weeks for wound check Baljeet Osorio Jan 01, 2018 10:32
--- NOTE | 2018-01-01 11:11 | Pre-Procedure Note/Attestation ---
Pre-Procedure Note/Attestation Complete Prior to Procedure Planned Procedure: right Procedure Narrative: excisional debridement, wash out buttock wound Indications for Procedure Pre-Operative Diagnosis: right buttock abscess, sepsis Attestation I attest that I discussed the nature of the procedure; its benefits; risks and complications; and alternatives (and the risks and benefits of such alternatives ), prior to the procedure, with the patient (or the patient's legal union representative). I attest that, if there was a reasonable possibility of needing a blood transfusion, the patient (or the patient's legal union representative) was given the [facility] standardized written summary, pursuant to the [place] Blood Safety Act ([place] Health and Safety Code # 1645, as amended). I attest that I re-evaluated the patient just prior to the surgery and that there has been no change in the patient's H&P, except as documented below: Baljeet Osorio Jan 01, 2018 11:11
[2018-01-01 12:05] VITALS: BP 130/70
--- NOTE | 2018-01-01 12:12 | GI Progress Note ---
Assessment/Plan Problems: (1) Anemia ICD Codes: D64.9 - Anemia, unspecified SNOMED: 380750427 (2) Abscess of buttock ICD Codes: L02.31 - Cutaneous abscess of buttock SNOMED: 50816747 (3) Severe sepsis ICD Codes: A41.9 - Sepsis, unspecified organism; R65.20 - Severe sepsis without septic shock SNOMED: 19459884 (4) Diabetes ICD Codes: E11.9 - Type 2 diabetes mellitus without complications SNOMED: 42291857 Status: stable Status Narrative Discussed with Dr. Eden. Assessment/Plan SUMMARY FINDINGS: 1. Fair prep. 2. Two colonic polyp removed, see above for details. 3. No evidence of any obvious Crohn's disease in this colonoscopy examination. RECOMMENDATIONS: okay for DC per GI standpoint symptomatic treatment advance diet Follow up biopsies and treat accordingly. The patient was seen and examined at bedside and all new and available data was reviewed in the patients chart. I agree with the above findings, impression and plan. (Patient seen earlier today. Signature stamp does not reflect patient encounter time.). - Garret Eden MD Objective Last 24 Hour Vital Signs Date Time Temp Pulse Resp B/P (MAP) Pulse Ox O2 Delivery O2 Flow Rate FiO2 01/01/18 12:05 99.0 86 20 130/70 (90) 92 99.0 01/01/18 08:57 Room Air 01/01/18 08:22 93 124/63 01/01/18 08:22 93 124/63 01/01/18 08:00 99.1 93 17 124/63 (83) 95 99.1 01/01/18 04:00 99.6 92 18 119/66 (83) 93 99.6 12/31/17 21:01 95 125/69 12/31/17 20:13 Room Air 12/31/17 19:59 99.1 95 18 125/69 (87) 93 99.1 12/31/17 17:32 92 126/70 12/31/17 16:10 97.5 92 22 126/70 (88) 94 97.5 Intake and Output 12/31/17 01/01/18 19:00 07:00 Intake Total 55 ml 900 ml Output Total 3500 ml Balance 55 ml -2600 ml Intake Oral 900 ml IV Total 55 ml Output Urine Total 3500 ml Laboratory Tests Test 01/01/18 05:30 White Blood Count 10.2 K/UL (4.8-10.8) Red Blood Count 3.21 M/UL (4.20-5.40) L Hemoglobin 9.1 G/DL (12.0-16.0) L Hematocrit 28.2 % (37.0-47.0) L Mean Corpuscular Volume 88 FL (80-99) Mean Corpuscular Hemoglobin 28.4 PG (27.0-31.0) Mean Corpuscular Hemoglobin Concent 32.4 G/DL (32.0-36.0) Red Cell Distribution Width 12.9 % (11.6-14.8) Platelet Count 455 K/UL (150-450) H Mean Platelet Volume 6.2 FL (6.5-10.1) L Neutrophils (%) (Auto) 64.4 % (45.0-75.0) Lymphocytes (%) (Auto) 26.5 % (20.0-45.0) Monocytes (%) (Auto) 6.4 % (1.0-10.0) Eosinophils (%) (Auto) 1.9 % (0.0-3.0) Basophils (%) (Auto) 0.7 % (0.0-2.0) Sodium Level 139 MMOL/L (136-145) Potassium Level 4.4 MMOL/L (3.5-5.1) Chloride Level 103 MMOL/L (98-107) Carbon Dioxide Level 29 MMOL/L (21-32) Anion Gap 7 mmol/L (5-15) Blood Urea Nitrogen 7 mg/dL (7-18) Creatinine 0.8 MG/DL (0.55-1.30) Estimat Glomerular Filtration Rate > 60 mL/min (>60) Glucose Level 220 MG/DL (74-106) H Calcium Level 8.5 MG/DL (8.5-10.1) Phosphorus Level 2.8 MG/DL (2.5-4.9) Magnesium Level 1.6 MG/DL (1.8-2.4) L Total Bilirubin 0.2 MG/DL (0.2-1.0) Direct Bilirubin < 0.1 MG/DL (0.0-0.3) Aspartate Amino Transf (AST/SGOT) 15 U/L (15-37) Alanine Aminotransferase (ALT/SGPT) 13 U/L (12-78) Alkaline Phosphatase 159 U/L (46-116) H Total Protein 6.7 G/DL (6.4-8.2) Albumin 1.6 G/DL (3.4-5.0) L Triglycerides Level 147 MG/DL (30-150) Cholesterol Level 112 MG/DL (< 200) LDL Cholesterol 60 mg/dL (<100) HDL Cholesterol 34 MG/DL (40-60) L Cholesterol/HDL Ratio 3.3 (3.3-4.4) Height (Feet): 5 Height (Inches): 5.00 Weight (Pounds): 188 General Appearance: WD/WN, no apparent distress, alert Cardiovascular: normal rate Respiratory/Chest: normal breath sounds, no respiratory distress Abdominal Exam: normal bowel sounds, non tender, soft Extremities: normal range of motion, non-tender Yoko Simpson NP Jan 01, 2018 12:12
--- NOTE | 2018-01-01 12:34 | Infectious Diseases Prog Note ---
Assessment/Plan Assessment/Plan A; Sepsis improving R buttock abscess DKA Newly diagnosed DM Acute renal failure resolving Perianal fistula P; continue Fluconazole , change Ceftriaxone to oral Ciprofloxacin Discontinue Flagyl case was D/W surgeon Subjective ROS Limited/Unobtainable: No Constitutional: Reports: no symptoms Gastrointestinal/Abdominal: Reports: no symptoms Genitourinary: Reports: no symptoms Musculoskeletal: Reports: no symptoms Allergies: Coded Allergies: SULFA (SULFONAMIDE ANTIBIOTICS) (Verified Allergy, Unknown, 12/25/17) Objective Vital Signs Last 24 Hour Vital Signs Date Time Temp Pulse Resp B/P (MAP) Pulse Ox O2 Delivery O2 Flow Rate FiO2 01/01/18 12:05 99.0 86 20 130/70 (90) 92 99.0 01/01/18 08:57 Room Air 01/01/18 08:22 93 124/63 01/01/18 08:22 93 124/63 01/01/18 08:00 99.1 93 17 124/63 (83) 95 99.1 01/01/18 04:00 99.6 92 18 119/66 (83) 93 99.6 12/31/17 21:01 95 125/69 12/31/17 20:13 Room Air 12/31/17 19:59 99.1 95 18 125/69 (87) 93 99.1 12/31/17 17:32 92 126/70 12/31/17 16:10 97.5 92 22 126/70 (88) 94 97.5 Height (Feet): 5 Height (Inches): 5.00 Weight (Pounds): 188 General Appearance: no acute distress HEENT: mucous membranes moist Respiratory/Chest: lungs clear Cardiovascular: normal rate Abdomen: soft, non tender Extremities: no edema Skin: other - right buttock wound Neurologic/Psychiatric: alert, oriented x 3, responsive Microbiology Date/Time Source Procedure Growth Status 12/30/17 21:20 Indwelling Cath Urine Culture - Preliminary Resulted 12/30/17 10:56 Buttock Right Gram Stain - Final Complete 12/30/17 10:56 Surgical Biopsy Culture - Final Klebsiella Pneumoniae Nora Albicans Usual Skin Melissa Complete 12/30/17 10:56 Buttock Right Gram Stain - Final Resulted 12/30/17 10:56 Aerobic Culture - Preliminary Klebsiella Pneumoniae Nora Albicans Usual Skin Melissa Resulted 12/30/17 10:56 Buttock Right Anaerobic Culture - Preliminary Resulted Laboratory Tests Test 01/01/18 05:30 White Blood Count 10.2 K/UL (4.8-10.8) Red Blood Count 3.21 M/UL (4.20-5.40) L Hemoglobin 9.1 G/DL (12.0-16.0) L Hematocrit 28.2 % (37.0-47.0) L Mean Corpuscular Volume 88 FL (80-99) Mean Corpuscular Hemoglobin 28.4 PG (27.0-31.0) Mean Corpuscular Hemoglobin Concent 32.4 G/DL (32.0-36.0) Red Cell Distribution Width 12.9 % (11.6-14.8) Platelet Count 455 K/UL (150-450) H Mean Platelet Volume 6.2 FL (6.5-10.1) L Neutrophils (%) (Auto) 64.4 % (45.0-75.0) Lymphocytes (%) (Auto) 26.5 % (20.0-45.0) Monocytes (%) (Auto) 6.4 % (1.0-10.0) Eosinophils (%) (Auto) 1.9 % (0.0-3.0) Basophils (%) (Auto) 0.7 % (0.0-2.0) Sodium Level 139 MMOL/L (136-145) Potassium Level 4.4 MMOL/L (3.5-5.1) Chloride Level 103 MMOL/L (98-107) Carbon Dioxide Level 29 MMOL/L (21-32) Anion Gap 7 mmol/L (5-15) Blood Urea Nitrogen 7 mg/dL (7-18) Creatinine 0.8 MG/DL (0.55-1.30) Estimat Glomerular Filtration Rate > 60 mL/min (>60) Glucose Level 220 MG/DL (74-106) H Calcium Level 8.5 MG/DL (8.5-10.1) Phosphorus Level 2.8 MG/DL (2.5-4.9) Magnesium Level 1.6 MG/DL (1.8-2.4) L Total Bilirubin 0.2 MG/DL (0.2-1.0) Direct Bilirubin < 0.1 MG/DL (0.0-0.3) Aspartate Amino Transf (AST/SGOT) 15 U/L (15-37) Alanine Aminotransferase (ALT/SGPT) 13 U/L (12-78) Alkaline Phosphatase 159 U/L (46-116) H Total Protein 6.7 G/DL (6.4-8.2) Albumin 1.6 G/DL (3.4-5.0) L Triglycerides Level 147 MG/DL (30-150) Cholesterol Level 112 MG/DL (< 200) LDL Cholesterol 60 mg/dL (<100) HDL Cholesterol 34 MG/DL (40-60) L Cholesterol/HDL Ratio 3.3 (3.3-4.4) Current Medications Medications (Trade) Dose Ordered Sig/Eyad Route PRN Reason Start Time Stop Time Status Last Admin Dose Admin Acetaminophen (Tylenol) 650 mg Q4H PRN ORAL Mild Pain/Temp > 100.5 12/26/17 17:00 01/25/18 16:59 12/30/17 14:01 Acetaminophen/ Codeine Phosphate (Tylenol #3) 1 tab Q4H PRN ORAL severe pain 12/31/17 17:53 01/07/18 17:52 Amlodipine Besylate (Norvasc) 5 mg BID ORAL 12/26/17 18:00 01/24/18 08:59 01/01/18 08:22 Artificial Tears (Akwa-Tears) 1 drop THREE TIMES A DAY BOTH EYES 12/26/17 18:00 01/22/18 12:59 01/01/18 08:21 Atorvastatin Calcium (Lipitor) 10 mg BEDTIME ORAL 12/26/17 21:00 01/23/18 20:59 12/31/17 21:00 Ceftriaxone Sodium 2 gm/ Dextrose 55 ml @ 110 mls/hr Q24H IVPB 12/27/17 14:00 01/03/18 13:59 12/31/17 14:50 Clonidine HCl (Catapres Tab) 0.1 mg Q6H PRN ORAL [id number] and above 12/26/17 17:00 01/23/18 16:59 12/27/17 21:39 Dextrose (Dextrose 50%) 25 ml STAT PRN IV Hypoglycemia 12/26/17 17:00 01/22/18 16:59 12/31/17 06:11 Dextrose (Dextrose 50%) 50 ml STAT PRN IV Hypoglycemia 12/26/17 17:00 01/22/18 16:59 Famotidine (Pepcid) 20 mg BID ORAL 12/26/17 18:00 01/23/18 17:59 01/01/18 08:22 Fish Oil (Fish Oil) 1,000 mg BID ORAL 12/26/17 18:00 01/23/18 11:59 01/01/18 08:22 Fluconazole (Diflucan) 200 mg DAILY ORAL 12/27/17 09:00 01/08/18 08:59 01/01/18 08:22 Folic Acid (Folate) 5 mg DAILY ORAL 12/27/17 09:00 01/23/18 11:59 01/01/18 08:21 Heparin Sodium (Porcine) (Heparin 5000 units/ml) 5,000 units Q12HR SUBQ 12/26/17 21:00 01/23/18 20:59 01/01/18 08:30 Insulin Aspart (NovoLOG) BEFORE MEALS AND HS SUBQ 12/26/17 21:00 01/23/18 06:29 01/01/18 05:56 Insulin Detemir (Levemir) 12 units BEDTIME SUBQ 01/01/18 21:00 01/22/18 22:59 Metoprolol Tartrate (Lopressor) 25 mg Q12HR ORAL 12/26/17 21:00 01/23/18 20:59 01/01/18 08:22 Metronidazole (Flagyl) 500 mg Q8HR ORAL 12/29/17 14:00 01/05/18 13:59 01/01/18 05:55 Nateglinide (Starlix) 60 mg TIAC ORAL 01/01/18 11:30 01/31/18 11:29 Nitroglycerin (Ntg) 0.4 mg Q5M PRN SL Prn Chest Pain 12/26/17 17:00 01/21/18 17:59 Ondansetron HCl (Zofran) 4 mg Q6H PRN IVP Nausea & Vomiting 12/26/17 17:00 01/21/18 16:59 Phosphorus (Phospha 250 Neutral) 250 mg THREE TIMES A DAY ORAL 12/26/17 18:00 01/25/18 08:59 01/01/18 08:21 Potassium Chloride (K-Dur) 40 meq BID ORAL 12/27/17 18:00 01/25/18 08:59 01/01/18 08:21 Vitamin A/Vitamin D (A & D Oint) 1 applic EVERY 12 HOURS [facility] 12/26/17 21:00 01/22/18 20:59 01/01/18 08:23 Wade Peña MD Jan 01, 2018 12:34
[2018-01-01] MEDS: Nateglinide 60mg tab ORAL SCH ×2 (12:50→17:35)
--- NOTE | 2018-01-01 13:16 | General Progress Note ---
Assessment/Plan Problem List: (1) Diabetes ICD Codes: E11.9 - Type 2 diabetes mellitus without complications SNOMED: 09862519 (2) Hyperglycemia ICD Codes: R73.9 - Hyperglycemia, unspecified SNOMED: 66361052 (3) Sepsis ICD Codes: A41.9 - Sepsis, unspecified organism SNOMED: 42002643 (4) Abscess of buttock ICD Codes: L02.31 - Cutaneous abscess of buttock SNOMED: 80148445 (5) DKA (diabetic ketoacidoses) ICD Codes: E13.10 - Other specified diabetes mellitus with ketoacidosis without coma SNOMED: 99918194, 071617005 Qualifiers: Qualified Codes: E13.11 - Other specified diabetes mellitus with ketoacidosis with coma (6) Renal insufficiency ICD Codes: N28.9 - Disorder of kidney and ureter, unspecified SNOMED: 531002882, 804412731 (7) Vagina bleeding ICD Codes: N93.9 - Abnormal uterine and vaginal bleeding, unspecified SNOMED: 975090819, 013823050 (8) Anemia ICD Codes: D64.9 - Anemia, unspecified SNOMED: 082776042 Status: progressing Assessment/Plan awaiting response from [facility] afebrile s/p dka s/p i&d of rectal abscess dr peña did wash out and debridement of rectal absces if [facility] wont accept her then she needs to go to sn[facility] for wound care Subjective ROS Limited/Unobtainable: Yes Allergies: Coded Allergies: SULFA (SULFONAMIDE ANTIBIOTICS) (Verified Allergy, Unknown, 12/25/17) Objective Last 24 Hour Vital Signs Date Time Temp Pulse Resp B/P (MAP) Pulse Ox O2 Delivery O2 Flow Rate FiO2 01/01/18 12:05 99.0 86 20 130/70 (90) 92 99.0 01/01/18 08:57 Room Air 01/01/18 08:22 93 124/63 01/01/18 08:22 93 124/63 01/01/18 08:00 99.1 93 17 124/63 (83) 95 99.1 01/01/18 04:00 99.6 92 18 119/66 (83) 93 99.6 12/31/17 21:01 95 125/69 12/31/17 20:13 Room Air 12/31/17 19:59 99.1 95 18 125/69 (87) 93 99.1 12/31/17 17:32 92 126/70 12/31/17 16:10 97.5 92 22 126/70 (88) 94 97.5 Intake and Output 12/31/17 01/01/18 19:00 07:00 Intake Total 55 ml 900 ml Output Total 3500 ml Balance 55 ml -2600 ml Intake Oral 900 ml IV Total 55 ml Output Urine Total 3500 ml Laboratory Tests 01/01/18 05:30: White Blood Count 10.2, Red Blood Count 3.21L, Hemoglobin 9.1L, Hematocrit 28.2L , Mean Corpuscular Volume 88, Mean Corpuscular Hemoglobin 28.4, Mean Corpuscular Hemoglobin Concent 32.4, Red Cell Distribution Width 12.9, Platelet Count 455H, Mean Platelet Volume 6.2L, Neutrophils (%) (Auto) 64.4, Lymphocytes (%) (Auto) 26.5, Monocytes (%) (Auto) 6.4, Eosinophils (%) (Auto) 1.9, Basophils (%) (Auto) 0.7, Sodium Level 139, Potassium Level 4.4, Chloride Level 103, Carbon Dioxide Level 29, Anion Gap 7, Blood Urea Nitrogen 7, Creatinine 0.8 , Estimat Glomerular Filtration Rate > 60, Glucose Level 220H, Calcium Level 8.5 , Phosphorus Level 2.8, Magnesium Level 1.6L, Total Bilirubin 0.2, Direct Bilirubin < 0.1, Aspartate Amino Transf (AST/SGOT) 15, Alanine Aminotransferase (ALT/SGPT) 13, Alkaline Phosphatase 159H, Total Protein 6.7, Albumin 1.6L, Triglycerides Level 147, Cholesterol Level 112, LDL Cholesterol 60, HDL Cholesterol 34L, Cholesterol/HDL Ratio 3.3 Height (Feet): 5 Height (Inches): 5.00 Weight (Pounds): 188 Nissa Mckay MD Jan 01, 2018 13:16
[2018-01-01 16:00] VITALS: BP 141/70
[2018-01-01 20:00] VITALS: BP 126/72
[2018-01-01] MEDS ORDERED: Levemir Flexpen SUBQ SCH (21:00)
[2018-01-01] MEDS: Ciprofloxacin 500mg tab ORAL SCH (22:03)
--- NOTE | 2018-01-01 23:52 | Cardiology Progress Note ---
Assessment/Plan Assessment/Plan 1. Sinus tachycardia, continue metoprolol, keep hydrated. 2D echo reveals normal LV systolic function. 2. Diabetes mellitus, uncontrolled, noncompliant, continue statins, consider baby ASA daily. 3. Severe sepsis. Subjective Subjective No cardiac events. Objective Last 24 Hour Vital Signs Date Time Temp Pulse Resp B/P (MAP) Pulse Ox O2 Delivery O2 Flow Rate FiO2 01/01/18 22:03 96 141/70 01/01/18 20:00 98.4 80 19 126/72 (90) 97 98.4 01/01/18 17:35 96 141/70 01/01/18 16:00 97.7 96 19 141/70 (93) 95 97.7 01/01/18 12:05 99.0 86 20 130/70 (90) 92 99.0 01/01/18 08:57 Room Air 01/01/18 08:22 93 124/63 01/01/18 08:22 93 124/63 01/01/18 08:00 99.1 93 17 124/63 (83) 95 99.1 01/01/18 04:00 99.6 92 18 119/66 (83) 93 99.6 Neck: tender lateral Intake and Output 12/31/17 01/01/18 19:00 07:00 Intake Total 55 ml 900 ml Output Total 3500 ml Balance 55 ml -2600 ml Intake Oral 900 ml IV Total 55 ml Output Urine Total 3500 ml 2D Echo: LVEF 60%, Mild LVH, RVSP 12 mmHg Laboratory Tests Test 01/01/18 05:30 White Blood Count 10.2 K/UL (4.8-10.8) Red Blood Count 3.21 M/UL (4.20-5.40) L Hemoglobin 9.1 G/DL (12.0-16.0) L Hematocrit 28.2 % (37.0-47.0) L Mean Corpuscular Volume 88 FL (80-99) Mean Corpuscular Hemoglobin 28.4 PG (27.0-31.0) Mean Corpuscular Hemoglobin Concent 32.4 G/DL (32.0-36.0) Red Cell Distribution Width 12.9 % (11.6-14.8) Platelet Count 455 K/UL (150-450) H Mean Platelet Volume 6.2 FL (6.5-10.1) L Neutrophils (%) (Auto) 64.4 % (45.0-75.0) Lymphocytes (%) (Auto) 26.5 % (20.0-45.0) Monocytes (%) (Auto) 6.4 % (1.0-10.0) Eosinophils (%) (Auto) 1.9 % (0.0-3.0) Basophils (%) (Auto) 0.7 % (0.0-2.0) Sodium Level 139 MMOL/L (136-145) Potassium Level 4.4 MMOL/L (3.5-5.1) Chloride Level 103 MMOL/L (98-107) Carbon Dioxide Level 29 MMOL/L (21-32) Anion Gap 7 mmol/L (5-15) Blood Urea Nitrogen 7 mg/dL (7-18) Creatinine 0.8 MG/DL (0.55-1.30) Estimat Glomerular Filtration Rate > 60 mL/min (>60) Glucose Level 220 MG/DL (74-106) H Calcium Level 8.5 MG/DL (8.5-10.1) Phosphorus Level 2.8 MG/DL (2.5-4.9) Magnesium Level 1.6 MG/DL (1.8-2.4) L Total Bilirubin 0.2 MG/DL (0.2-1.0) Direct Bilirubin < 0.1 MG/DL (0.0-0.3) Aspartate Amino Transf (AST/SGOT) 15 U/L (15-37) Alanine Aminotransferase (ALT/SGPT) 13 U/L (12-78) Alkaline Phosphatase 159 U/L (46-116) H Total Protein 6.7 G/DL (6.4-8.2) Albumin 1.6 G/DL (3.4-5.0) L Triglycerides Level 147 MG/DL (30-150) Cholesterol Level 112 MG/DL (< 200) LDL Cholesterol 60 mg/dL (<100) HDL Cholesterol 34 MG/DL (40-60) L Cholesterol/HDL Ratio 3.3 (3.3-4.4) Microbiology Date/Time Source Procedure Growth Status 12/30/17 21:20 Indwelling Cath Urine Culture - Preliminary Resulted 12/30/17 10:56 Buttock Right Gram Stain - Final Complete 12/30/17 10:56 Surgical Biopsy Culture - Final Klebsiella Pneumoniae Nora Albicans Usual Skin Melissa Complete 12/30/17 10:56 Buttock Right Gram Stain - Final Resulted 12/30/17 10:56 Aerobic Culture - Preliminary Klebsiella Pneumoniae Nora Albicans Usual Skin Melissa Resulted 12/30/17 10:56 Buttock Right Anaerobic Culture - Preliminary Resulted Objective HEENT: Atraumatic and normocephalic. ENT, pupils are equal, round, and reactive to light and accommodation. Extraocular muscles intact. Dry mucosal membranes. NECK: JVP less than 5 cm. No carotid bruit. Carotid upstrokes 2+ bilaterally. CARDIOVASCULAR: Normal S1 and S2. Regular rhythm. Tachycardic. No murmurs, gallops, or rubs. PMI is at fourth intercostal space at the midclavicular line. LUNGS: Clear to auscultation bilaterally. ABDOMEN: Soft, nontender, and nondistended. No hepatosplenomegaly. Positive bowel sounds. EXTREMITIES: No evidence of edema, clubbing, or cyanosis. Javi Anthony MD Jan 01, 2018 23:52
[2018-01-02] VITALS: BP 127/78
[2018-01-02 04:00] VITALS: BP 128/70
[2018-01-02] MEDS: Nateglinide 60mg tab ORAL SCH ×3 (06:14→16:40)
[2018-01-02] MEDS: NovoLOG Insulin Flexpen SUBQ SCH ×4 (06:18→21:54)
--- NOTE | 2018-01-02 07:39 | General Progress Note ---
Assessment/Plan Problem List: (1) Diabetic acidosis without coma ICD Codes: E13.10 - Other specified diabetes mellitus with ketoacidosis without coma SNOMED: 93424967, 940384122 (2) Severe sepsis ICD Codes: A41.9 - Sepsis, unspecified organism; R65.20 - Severe sepsis without septic shock SNOMED: 74620264 (3) DKA (diabetic ketoacidoses) ICD Codes: E13.10 - Other specified diabetes mellitus with ketoacidosis without coma SNOMED: 78158627, 726069203 Qualifiers: Qualified Codes: E13.11 - Other specified diabetes mellitus with ketoacidosis with coma (4) Vagina bleeding ICD Codes: N93.9 - Abnormal uterine and vaginal bleeding, unspecified SNOMED: 790067727, 612496053 Assessment/Plan increase Levemir to 15 units qhs increase Starlix to 120 mg ac tid add Metformin 500 mg bid continue NISS Subjective Allergies: Coded Allergies: SULFA (SULFONAMIDE ANTIBIOTICS) (Verified Allergy, Unknown, 12/25/17) All Systems: reviewed and negative except above Subjective events noted she know changes her mind and wants to go to a facility instead of home Objective Last 24 Hour Vital Signs Date Time Temp Pulse Resp B/P (MAP) Pulse Ox O2 Delivery O2 Flow Rate FiO2 01/02/18 04:00 97.5 89 19 128/70 (89) 95 97.5 01/02/18 00:00 97.4 74 17 127/78 (94) 98 97.4 01/01/18 22:03 96 141/70 01/01/18 21:00 Room Air 01/01/18 20:00 98.4 80 19 126/72 (90) 97 98.4 01/01/18 17:35 96 141/70 01/01/18 16:00 97.7 96 19 141/70 (93) 95 97.7 01/01/18 12:05 99.0 86 20 130/70 (90) 92 99.0 01/01/18 08:57 Room Air 01/01/18 08:22 93 124/63 01/01/18 08:22 93 124/63 01/01/18 08:00 99.1 93 17 124/63 (83) 95 99.1 Intake and Output 01/01/18 01/02/18 19:00 07:00 Intake Total 700 ml 480 ml Output Total 1700 ml 1600 ml Balance -1000 ml -1120 ml Intake Oral 700 ml 480 ml Output Urine Total 1700 ml 1600 ml Height (Feet): 5 Height (Inches): 5.00 Weight (Pounds): 91 General Appearance: no apparent distress Neck: normal alignment Cardiovascular: normal rate Respiratory/Chest: lungs clear Abdomen: normal bowel sounds Pelvis: normal external exam Objective Current Medications Medications (Trade) Dose Ordered Sig/Eyad Route PRN Reason Start Time Stop Time Status Last Admin Dose Admin Acetaminophen (Tylenol) 650 mg Q4H PRN ORAL Mild Pain/Temp > 100.5 12/26/17 17:00 01/25/18 16:59 12/30/17 14:01 Acetaminophen/ Codeine Phosphate (Tylenol #3) 1 tab Q4H PRN ORAL severe pain 12/31/17 17:53 01/07/18 17:52 Amlodipine Besylate (Norvasc) 5 mg BID ORAL 12/26/17 18:00 01/24/18 08:59 01/01/18 17:35 Artificial Tears (Akwa-Tears) 1 drop THREE TIMES A DAY BOTH EYES 12/26/17 18:00 01/22/18 12:59 01/01/18 17:34 Atorvastatin Calcium (Lipitor) 10 mg BEDTIME ORAL 12/26/17 21:00 01/23/18 20:59 01/01/18 22:03 Ciprofloxacin (Cipro 500mg tab) 500 mg EVERY 12 HOURS ORAL 01/01/18 21:00 01/08/18 20:59 01/01/18 22:03 Clonidine HCl (Catapres Tab) 0.1 mg Q6H PRN ORAL [id number] and above 12/26/17 17:00 01/23/18 16:59 12/27/17 21:39 Dextrose (Dextrose 50%) 25 ml STAT PRN IV Hypoglycemia 12/26/17 17:00 01/22/18 16:59 12/31/17 06:11 Dextrose (Dextrose 50%) 50 ml STAT PRN IV Hypoglycemia 12/26/17 17:00 01/22/18 16:59 Famotidine (Pepcid) 20 mg BID ORAL 12/26/17 18:00 01/23/18 17:59 01/01/18 17:35 Fish Oil (Fish Oil) 1,000 mg BID ORAL 12/26/17 18:00 01/23/18 11:59 01/01/18 17:35 Fluconazole (Diflucan) 200 mg DAILY ORAL 12/27/17 09:00 01/08/18 08:59 01/01/18 08:22 Folic Acid (Folate) 5 mg DAILY ORAL 12/27/17 09:00 01/23/18 11:59 01/01/18 08:21 Heparin Sodium (Porcine) (Heparin 5000 units/ml) 5,000 units Q12HR SUBQ 12/26/17 21:00 01/23/18 20:59 01/01/18 22:04 Insulin Aspart (NovoLOG) BEFORE MEALS AND HS SUBQ 12/26/17 21:00 01/23/18 06:29 01/02/18 06:18 Insulin Detemir (Levemir) 12 units BEDTIME SUBQ 01/01/18 21:00 01/22/18 22:59 01/01/18 22:11 Metoprolol Tartrate (Lopressor) 25 mg Q12HR ORAL 12/26/17 21:00 01/23/18 20:59 01/01/18 22:03 Nateglinide (Starlix) 60 mg TIAC ORAL 01/01/18 11:30 01/31/18 11:29 01/02/18 06:14 Nitroglycerin (Ntg) 0.4 mg Q5M PRN SL Prn Chest Pain 12/26/17 17:00 01/21/18 17:59 Ondansetron HCl (Zofran) 4 mg Q6H PRN IVP Nausea & Vomiting 12/26/17 17:00 01/21/18 16:59 Phosphorus (Phospha 250 Neutral) 250 mg THREE TIMES A DAY ORAL 12/26/17 18:00 01/25/18 08:59 01/01/18 17:34 Potassium Chloride (K-Dur) 40 meq BID ORAL 12/27/17 18:00 01/25/18 08:59 01/01/18 17:34 Vitamin A/Vitamin D (A & D Oint) 1 applic EVERY 12 HOURS TOPIC 12/26/17 21:00 01/22/18 20:59 01/01/18 21:00 Item Value Date Time Bedside Blood Glucose 226 mg/dl H 01/02/18 0632 Bedside Blood Glucose 283 mg/dl H 01/01/18 2213 Bedside Blood Glucose 246 mg/dl H 01/01/18 1739 Bedside Blood Glucose 246 mg/dl H 01/01/18 1249 Riky Olivas MD Jan 02, 2018 07:39
[2018-01-02 08:20] VITALS: BP 110/65
[2018-01-02] MEDS: metFORMIN 500mg tab ORAL SCH ×2 (08:20→17:35)
[2018-01-02] MEDS: Ciprofloxacin 500mg tab ORAL SCH ×2 (08:20→21:50)
[2018-01-02] MEDS: Metoprolol 25mg tab ORAL SCH ×2 (08:21→21:50)
[2018-01-02] MEDS: Fluconazole 100mg tab ORAL SCH (08:22)
[2018-01-02] MEDS: Vitamin A&D Oint 2oz Tube TOPIC SCH ×2 (08:22→21:56)
[2018-01-02] MEDS: Phospha 250 Neutral tab ORAL SCH ×3 (08:22→17:35)
[2018-01-02] MEDS: Heparin 5000 units/ml inj SUBQ SCH ×2 (08:23→21:52)
[2018-01-02] MEDS: Artificial Tears 1.4% Op Soln BOTH EYES SCH ×3 (08:25→17:35)
--- NOTE | 2018-01-02 09:30 | Nephrology Progress Note ---
Assessment/Plan Problem List: (1) Renal insufficiency (2) DKA (diabetic ketoacidoses) (3) Severe sepsis Assessment: buttock abcess incision and drainage of right perirectal abscess with excisional debridement of infected necrotic tissue (4) Anemia Assessment Diabetic acidosis without coma resolved Renal failure and electrolyte imbalance mainly resolved Diabetic Nephropathy and Proteinuria and HypoAlbuminemia Severe sepsis Abscess of buttock incision and drainage of right perirectal abscess with excisional debridement of infected necrotic tissue Anemia Plan Hydrate- K and Phos supplement as needed Mag as needed Antibiotics Monitor renal parameters correct electrolytes avoid Nephrotoxics adjust BP meds Fish OIL DC Lipitor Folic Acid DC planning Subjective ROS Limited/Unobtainable: No Constitutional: Reports: malaise Objective Objective Last 24 Hour Vital Signs Date Time Temp Pulse Resp B/P (MAP) Pulse Ox O2 Delivery O2 Flow Rate FiO2 01/02/18 08:21 94 110/65 01/02/18 08:21 94 110/65 01/02/18 08:20 97.9 94 18 110/65 (80) 96 97.9 01/02/18 04:00 97.5 89 19 128/70 (89) 95 97.5 01/02/18 00:00 97.4 74 17 127/78 (94) 98 97.4 01/01/18 22:03 96 141/70 01/01/18 21:00 Room Air 01/01/18 20:00 98.4 80 19 126/72 (90) 97 98.4 01/01/18 17:35 96 141/70 01/01/18 16:00 97.7 96 19 141/70 (93) 95 97.7 01/01/18 12:05 99.0 86 20 130/70 (90) 92 99.0 Intake and Output 01/01/18 01/02/18 19:00 07:00 Intake Total 700 ml 480 ml Output Total 1700 ml 1600 ml Balance -1000 ml -1120 ml Intake Oral 700 ml 480 ml Output Urine Total 1700 ml 1600 ml Height (Feet): 5 Height (Inches): 5.00 Weight (Pounds): 91 General Appearance: no apparent distress Objective no change Joni Cleaning MD Jan 02, 2018 09:30
--- NOTE | 2018-01-02 10:42 | General Progress Note ---
Assessment/Plan Problem List: (1) Diabetic acidosis without coma ICD Codes: E13.10 - Other specified diabetes mellitus with ketoacidosis without coma SNOMED: 80055633, 479731901 (2) Renal insufficiency ICD Codes: N28.9 - Disorder of kidney and ureter, unspecified SNOMED: 230570164, 474724682 Status: stable, progressing Assessment/Plan ot pt diet abx bs control cbc bmp am Subjective Constitutional: Reports: weakness Allergies: Coded Allergies: SULFA (SULFONAMIDE ANTIBIOTICS) (Verified Allergy, Unknown, 12/25/17) All Systems: reviewed and negative except above Subjective calm in bed ate ok Objective Last 24 Hour Vital Signs Date Time Temp Pulse Resp B/P (MAP) Pulse Ox O2 Delivery O2 Flow Rate FiO2 01/02/18 08:21 94 110/65 01/02/18 08:21 94 110/65 01/02/18 08:20 97.9 94 18 110/65 (80) 96 97.9 01/02/18 04:00 97.5 89 19 128/70 (89) 95 97.5 01/02/18 00:00 97.4 74 17 127/78 (94) 98 97.4 01/01/18 22:03 96 141/70 01/01/18 21:00 Room Air 01/01/18 20:00 98.4 80 19 126/72 (90) 97 98.4 01/01/18 17:35 96 141/70 01/01/18 16:00 97.7 96 19 141/70 (93) 95 97.7 01/01/18 12:05 99.0 86 20 130/70 (90) 92 99.0 Intake and Output 01/01/18 01/02/18 19:00 07:00 Intake Total 700 ml 480 ml Output Total 1700 ml 1600 ml Balance -1000 ml -1120 ml Intake Oral 700 ml 480 ml Output Urine Total 1700 ml 1600 ml Height (Feet): 5 Height (Inches): 5.00 Weight (Pounds): 91 General Appearance: alert EENT: normal ENT inspection Neck: normal alignment Cardiovascular: normal peripheral pulses, normal rate, regular rhythm Respiratory/Chest: chest wall non-tender, lungs clear, normal breath sounds Abdomen: normal bowel sounds, non tender, soft Extremities: normal inspection Edema: no edema noted Arm (L), no edema noted Arm (R), no edema noted Leg (L), no edema noted Leg (R), no edema noted Pedal (L), no edema noted Pedal (R), no edema noted Generalized Neurologic: responsive, motor weakness Skin: normal pigmentation, warm/dry Bhupendra Harper DO Jan 02, 2018 10:42
[2018-01-02 11:39] VITALS: BP 136/74
--- NOTE | 2018-01-02 13:32 | General Progress Note ---
Progress Note Progress Note Surgery: looking much better today. very comfortable and pleasant. no complaints. afebrile, HD stable, labs okay exam benign. d/c planning. TID wound care f/u with me in 2 weeks for wound check Baljeet Osorio Jan 02, 2018 13:32
--- NOTE | 2018-01-02 16:01 | Infectious Diseases Prog Note ---
Assessment/Plan Problems: (1) Abscess of buttock Assessment & Plan: S/P I&D with culture grew Klebsiella pneumonia and nora spp, continue ciprofloxacin and fluconazol , continue local surgical wound care and dressing as per surgery (2) Sepsis Assessment & Plan: due to the above, continue antibiotics monitor culture (3) Perianal fistula Assessment & Plan: may need surgical resection , continue antibiotics . surgery is following (4) DKA (diabetic ketoacidoses) Assessment & Plan: due to poorly controlled DM, recommend tight glycemic control to keep blood glucose between 100-140 (5) Renal insufficiency Assessment & Plan: due to sepsis, continue hydration , avoid nephrotoxics , monitor renal function Subjective Constitutional: Reports: no symptoms HEENT: Reports: no symptoms Respiratory: Reports: no symptoms Breasts: Reports: no symptoms Cardiovascular: Reports: no symptoms Gastrointestinal/Abdominal: Reports: no symptoms Genitourinary: Reports: no symptoms Neurologic: Reports: no symptoms Psychiatric: Reports: no symptoms Skin: Reports: ulcer Endocrine: Reports: no symptoms Hematologic: Reports: no symptoms Musculoskeletal: Reports: pain Allergies: Coded Allergies: SULFA (SULFONAMIDE ANTIBIOTICS) (Verified Allergy, Unknown, 12/25/17) Objective Vital Signs Last 24 Hour Vital Signs Date Time Temp Pulse Resp B/P (MAP) Pulse Ox O2 Delivery O2 Flow Rate FiO2 01/02/18 11:39 98.8 89 18 136/74 (94) 94 98.8 01/02/18 08:21 94 110/65 01/02/18 08:21 94 110/65 01/02/18 08:20 97.9 94 18 110/65 (80) 96 97.9 01/02/18 04:00 97.5 89 19 128/70 (89) 95 97.5 01/02/18 00:00 97.4 74 17 127/78 (94) 98 97.4 01/01/18 22:03 96 141/70 01/01/18 21:00 Room Air 01/01/18 20:00 98.4 80 19 126/72 (90) 97 98.4 01/01/18 17:35 96 141/70 01/01/18 16:00 97.7 96 19 141/70 (93) 95 97.7 Height (Feet): 5 Height (Inches): 5.00 Weight (Pounds): 91 General Appearance: WD/WN, no acute distress HEENT: normocephalic, atraumatic, anicteric, mucous membranes moist, PERRL Respiratory/Chest: chest wall non-tender, lungs clear, normal breath sounds, no respiratory distress, no accessory muscle use Cardiovascular: normal peripheral pulses, normal rate, regular rhythm, no gallop/murmur, no JVD Abdomen: normal bowel sounds, soft, non tender, no organomegaly, non distended , no mass, no scars Extremities: no cyanosis, no clubbing Skin: no rash, no lesions, no ulcers Neurologic/Psychiatric: alert, oriented x 3, responsive Lymphatic: no neck adenopathy, no groin adenopathy Musculoskeletal: normal muscle bulk, no effusion Microbiology Date/Time Source Procedure Growth Status 12/30/17 21:20 Indwelling Cath Urine Culture - Final Nora Albicans Complete Current Medications Medications (Trade) Dose Ordered Sig/Eyad Route PRN Reason Start Time Stop Time Status Last Admin Dose Admin Acetaminophen (Tylenol) 650 mg Q4H PRN ORAL Mild Pain/Temp > 100.5 12/26/17 17:00 01/25/18 16:59 12/30/17 14:01 Acetaminophen/ Codeine Phosphate (Tylenol #3) 1 tab Q4H PRN ORAL severe pain 12/31/17 17:53 01/07/18 17:52 Amlodipine Besylate (Norvasc) 5 mg DAILY ORAL 01/03/18 09:00 01/24/18 08:59 Artificial Tears (Akwa-Tears) 1 drop THREE TIMES A DAY BOTH EYES 12/26/17 18:00 01/22/18 12:59 01/02/18 12:57 Ciprofloxacin (Cipro 500mg tab) 500 mg EVERY 12 HOURS ORAL 01/01/18 21:00 01/08/18 20:59 01/02/18 08:20 Clonidine HCl (Catapres Tab) 0.1 mg Q6H PRN ORAL [id number] and above 12/26/17 17:00 01/23/18 16:59 12/27/17 21:39 Dextrose (Dextrose 50%) 25 ml STAT PRN IV Hypoglycemia 12/26/17 17:00 01/22/18 16:59 12/31/17 06:11 Dextrose (Dextrose 50%) 50 ml STAT PRN IV Hypoglycemia 12/26/17 17:00 01/22/18 16:59 Famotidine (Pepcid) 20 mg BID ORAL 12/26/17 18:00 01/23/18 17:59 01/02/18 08:21 Fish Oil (Fish Oil) 1,000 mg BID ORAL 12/26/17 18:00 01/23/18 11:59 01/02/18 08:22 Fluconazole (Diflucan) 200 mg DAILY ORAL 12/27/17 09:00 01/08/18 08:59 01/02/18 08:22 Folic Acid (Folate) 2 mg DAILY ORAL 01/03/18 09:00 01/23/18 11:59 Heparin Sodium (Porcine) (Heparin 5000 units/ml) 5,000 units Q12HR SUBQ 12/26/17 21:00 01/23/18 20:59 01/02/18 08:23 Insulin Aspart (NovoLOG) BEFORE MEALS AND HS SUBQ 12/26/17 21:00 01/23/18 06:29 01/02/18 11:59 Insulin Detemir (Levemir) 15 units BEDTIME SUBQ 01/02/18 21:00 01/22/18 22:59 Metformin HCl (Glucophage) 500 mg BID ORAL 01/02/18 09:00 02/01/18 08:59 01/02/18 08:20 Metoprolol Tartrate (Lopressor) 25 mg Q12HR ORAL 12/26/17 21:00 01/23/18 20:59 01/02/18 08:21 Nateglinide (Starlix) 120 mg TIAC ORAL 01/02/18 11:30 01/31/18 11:29 01/02/18 11:51 Nitroglycerin (Ntg) 0.4 mg Q5M PRN SL Prn Chest Pain 12/26/17 17:00 01/21/18 17:59 Ondansetron HCl (Zofran) 4 mg Q6H PRN IVP Nausea & Vomiting 12/26/17 17:00 01/21/18 16:59 Phosphorus (Phospha 250 Neutral) 250 mg THREE TIMES A DAY ORAL 12/26/17 18:00 01/25/18 08:59 01/02/18 12:57 Potassium Chloride (K-Dur) 40 meq DAILY ORAL 01/03/18 09:00 01/25/18 08:59 Vitamin A/Vitamin D (A & D Oint) 1 applic EVERY 12 HOURS [facility] 12/26/17 21:00 01/22/18 20:59 01/02/18 08:22 Syl Lloyd M.D. Jan 02, 2018 16:01
[2018-01-02 16:06] VITALS: BP 117/67
[2018-01-02] MEDS: Tylenol #3 tab (300mg/30mg) ORAL PRN (16:48)
[2018-01-02 20:00] VITALS: BP 115/68
[2018-01-02] MEDS: Levemir Flexpen SUBQ SCH (22:11)
--- NOTE | 2018-01-02 23:24 | Cardiology Progress Note ---
Assessment/Plan Assessment/Plan 1. Sinus tachycardia, resolved, continue metoprolol, 2D echo reveals normal LV systolic function. 2. Diabetes mellitus, uncontrolled, noncompliant, continue statins, consider baby ASA daily. 3. Severe sepsis. 4. Right buttock abscess Subjective Subjective No cardiac events. Clinically the same. Objective Last 24 Hour Vital Signs Date Time Temp Pulse Resp B/P (MAP) Pulse Ox O2 Delivery O2 Flow Rate FiO2 01/02/18 21:50 87 115/68 01/02/18 20:00 98.4 87 18 115/68 (84) 90 98.4 01/02/18 16:06 97.9 85 18 117/67 (84) 94 97.9 01/02/18 11:39 98.8 89 18 136/74 (94) 94 98.8 01/02/18 08:21 94 110/65 01/02/18 08:21 94 110/65 01/02/18 08:20 97.9 94 18 110/65 (80) 96 97.9 01/02/18 04:00 97.5 89 19 128/70 (89) 95 97.5 01/02/18 00:00 97.4 74 17 127/78 (94) 98 97.4 Intake and Output 01/01/18 01/02/18 19:00 07:00 Intake Total 700 ml 480 ml Output Total 1700 ml 1600 ml Balance -1000 ml -1120 ml Intake Oral 700 ml 480 ml Output Urine Total 1700 ml 1600 ml 2D Echo: LVEF 60%, Mild LVH, RVSP 12 mmHg Objective HEENT: Atraumatic and normocephalic. ENT, pupils are equal, round, and reactive to light and accommodation. Extraocular muscles intact. Dry mucosal membranes. NECK: JVP less than 5 cm. No carotid bruit. Carotid upstrokes 2+ bilaterally. CARDIOVASCULAR: Normal S1 and S2. Regular rhythm. No murmurs, gallops, or rubs. PMI is at fourth intercostal space at the midclavicular line. LUNGS: Clear to auscultation bilaterally. ABDOMEN: Soft, nontender, and nondistended. No hepatosplenomegaly. Positive bowel sounds. EXTREMITIES: No evidence of edema, clubbing, or cyanosis. Javi Anthony MD Jan 02, 2018 23:24
[2018-01-03] VITALS: BP 114/66
[2018-01-03 04:00] VITALS: BP 109/67
[2018-01-03] MEDS: Nateglinide 60mg tab ORAL SCH ×3 (05:53→17:02)
[2018-01-03] MEDS: NovoLOG Insulin Flexpen SUBQ SCH ×4 (05:56→20:41)
[2018-01-03] MEDS: Tylenol #3 tab (300mg/30mg) ORAL PRN (05:59)
[2018-01-03 06:23] LABS: EOSINOPHILS % (AUTO) 2.1 % (0.0-3.0); HEMATOCRIT 28.7 % (37.0-47.0); HEMOGLOBIN 9.2 G/DL (12.0-16.0); LYMPHOCYTES % (AUTO) 26.1 % (20.0-45.0); MEAN CORPUSCULAR VOLUME 89 FL (80-99); MONOCYTES % (AUTO) 7.3 % (1.0-10.0); NEUTROPHILS % (AUTO) 63.6 % (45.0-75.0); PLATELET COUNT 514 K/UL (150-450); RED BLOOD COUNT 3.22 M/UL (4.20-5.40); RED CELL DISTRIBUTION WIDTH 13.6 % (11.6-14.8); WHITE BLOOD COUNT 11.2 K/UL (4.8-10.8)
[2018-01-03 06:42] LABS: ANION GAP 6 mmol/L (5-15); BLOOD UREA NITROGEN 6 mg/dL (7-18); CALCIUM 8.7 MG/DL (8.5-10.1); CARBON DIOXIDE 30 MMOL/L (21-32); CHLORIDE 103 MMOL/L (98-107); CREATININE 0.8 MG/DL (0.55-1.30); POTASSIUM 4.2 MMOL/L (3.5-5.1); SODIUM 139 MMOL/L (136-145)
--- NOTE | 2018-01-03 07:27 | General Progress Note ---
Assessment/Plan Problem List: (1) Diabetic acidosis without coma ICD Codes: E13.10 - Other specified diabetes mellitus with ketoacidosis without coma SNOMED: 85892723, 655910466 (2) Severe sepsis ICD Codes: A41.9 - Sepsis, unspecified organism; R65.20 - Severe sepsis without septic shock SNOMED: 94661758 (3) DKA (diabetic ketoacidoses) ICD Codes: E13.10 - Other specified diabetes mellitus with ketoacidosis without coma SNOMED: 94851056, 184728381 Qualifiers: Qualified Codes: E13.11 - Other specified diabetes mellitus with ketoacidosis with coma (4) Vagina bleeding ICD Codes: N93.9 - Abnormal uterine and vaginal bleeding, unspecified SNOMED: 550546258, 334999091 Assessment/Plan continue Levemir 15 units qhs continue Starlix 120 mg ac tid continue Metformin 500 mg bid continue NISS Subjective Allergies: Coded Allergies: SULFA (SULFONAMIDE ANTIBIOTICS) (Verified Allergy, Unknown, 12/25/17) All Systems: reviewed and negative except above Subjective events noted Objective Last 24 Hour Vital Signs Date Time Temp Pulse Resp B/P (MAP) Pulse Ox O2 Delivery O2 Flow Rate FiO2 01/03/18 04:00 96.9 78 18 109/67 (81) 96 96.9 01/03/18 00:00 98.2 87 20 114/66 (82) 90 98.2 01/02/18 21:50 87 115/68 01/02/18 20:00 98.4 87 18 115/68 (84) 90 98.4 01/02/18 16:06 97.9 85 18 117/67 (84) 94 97.9 01/02/18 11:39 98.8 89 18 136/74 (94) 94 98.8 01/02/18 08:21 94 110/65 01/02/18 08:21 94 110/65 01/02/18 08:20 97.9 94 18 110/65 (80) 96 97.9 Intake and Output 01/02/18 01/03/18 19:00 07:00 Intake Total 840 ml Output Total 1250 ml 600 ml Balance -410 ml -600 ml Intake Oral 840 ml Output Urine Total 1250 ml 600 ml # Bowel Movements 2 1 Laboratory Tests 01/03/18 05:30: White Blood Count 11.2H, Red Blood Count 3.22L, Hemoglobin 9.2L, Hematocrit 28.7L, Mean Corpuscular Volume 89, Mean Corpuscular Hemoglobin 28.6, Mean Corpuscular Hemoglobin Concent 32.1, Red Cell Distribution Width 13.6, Platelet Count 514H, Mean Platelet Volume 6.2L, Neutrophils (%) (Auto) 63.6, Lymphocytes (%) (Auto) 26.1, Monocytes (%) (Auto) 7.3, Eosinophils (%) (Auto) 2.1, Basophils (%) (Auto) 1.0, Sodium Level 139, Potassium Level 4.2, Chloride Level 103, Carbon Dioxide Level 30, Anion Gap 6, Blood Urea Nitrogen 6L, Creatinine 0.8, Estimat Glomerular Filtration Rate > 60, Glucose Level 198H, Calcium Level 8.7 Height (Feet): 5 Height (Inches): 5.00 Weight (Pounds): 192 General Appearance: no apparent distress Neck: normal alignment Cardiovascular: normal rate Respiratory/Chest: lungs clear Abdomen: normal bowel sounds Pelvis: normal external exam Edema: no edema noted Arm (L), no edema noted Arm (R), no edema noted Leg (L), no edema noted Leg (R), no edema noted Pedal (L), no edema noted Pedal (R), no edema noted Generalized Objective Current Medications Medications (Trade) Dose Ordered Sig/Eyad Route PRN Reason Start Time Stop Time Status Last Admin Dose Admin Acetaminophen (Tylenol) 650 mg Q4H PRN ORAL Mild Pain/Temp > 100.5 12/26/17 17:00 01/25/18 16:59 12/30/17 14:01 Acetaminophen/ Codeine Phosphate (Tylenol #3) 1 tab Q4H PRN ORAL severe pain 12/31/17 17:53 01/07/18 17:52 01/03/18 05:59 Amlodipine Besylate (Norvasc) 5 mg DAILY ORAL 01/03/18 09:00 01/24/18 08:59 Artificial Tears (Akwa-Tears) 1 drop THREE TIMES A DAY BOTH EYES 12/26/17 18:00 01/22/18 12:59 01/02/18 17:35 Ciprofloxacin (Cipro 500mg tab) 500 mg EVERY 12 HOURS ORAL 01/01/18 21:00 01/08/18 20:59 01/02/18 21:50 Clonidine HCl (Catapres Tab) 0.1 mg Q6H PRN ORAL [id number] and above 12/26/17 17:00 01/23/18 16:59 12/27/17 21:39 Dextrose (Dextrose 50%) 25 ml STAT PRN IV Hypoglycemia 12/26/17 17:00 01/22/18 16:59 12/31/17 06:11 Dextrose (Dextrose 50%) 50 ml STAT PRN IV Hypoglycemia 12/26/17 17:00 01/22/18 16:59 Famotidine (Pepcid) 20 mg BID ORAL 12/26/17 18:00 01/23/18 17:59 01/02/18 17:35 Fish Oil (Fish Oil) 1,000 mg BID ORAL 12/26/17 18:00 01/23/18 11:59 01/02/18 17:35 Fluconazole (Diflucan) 200 mg DAILY ORAL 12/27/17 09:00 01/08/18 08:59 01/02/18 08:22 Folic Acid (Folate) 2 mg DAILY ORAL 01/03/18 09:00 01/23/18 11:59 Heparin Sodium (Porcine) (Heparin 5000 units/ml) 5,000 units Q12HR SUBQ 12/26/17 21:00 01/23/18 20:59 01/02/18 21:52 Insulin Aspart (NovoLOG) BEFORE MEALS AND HS SUBQ 12/26/17 21:00 01/23/18 06:29 01/03/18 05:56 Insulin Detemir (Levemir) 15 units BEDTIME SUBQ 01/02/18 21:00 01/22/18 22:59 01/02/18 22:11 Metformin HCl (Glucophage) 500 mg BID ORAL 01/02/18 09:00 02/01/18 08:59 01/02/18 17:35 Metoprolol Tartrate (Lopressor) 25 mg Q12HR ORAL 12/26/17 21:00 01/23/18 20:59 01/02/18 21:50 Nateglinide (Starlix) 120 mg TIAC ORAL 01/02/18 11:30 01/31/18 11:29 01/03/18 05:53 Nitroglycerin (Ntg) 0.4 mg Q5M PRN SL Prn Chest Pain 12/26/17 17:00 01/21/18 17:59 Ondansetron HCl (Zofran) 4 mg Q6H PRN IVP Nausea & Vomiting 12/26/17 17:00 01/21/18 16:59 Phosphorus (Phospha 250 Neutral) 250 mg THREE TIMES A DAY ORAL 12/26/17 18:00 01/25/18 08:59 01/02/18 17:35 Potassium Chloride (K-Dur) 40 meq DAILY ORAL 01/03/18 09:00 01/25/18 08:59 Vitamin A/Vitamin D (A & D Oint) 1 applic EVERY 12 HOURS TOPIC 12/26/17 21:00 01/22/18 20:59 01/02/18 21:56 Item Value Date Time Bedside Blood Glucose 187 mg/dl H 01/03/18 0630 Bedside Blood Glucose 255 mg/dl H 01/02/18 2211 Bedside Blood Glucose 248 mg/dl H 01/02/18 1644 Bedside Blood Glucose 262 mg/dl H 01/02/18 1159 Bedside Blood Glucose 226 mg/dl H 01/02/18 0632 Riky Olivas MD Jan 03, 2018 07:27
[2018-01-03 08:08] VITALS: BP 117/70
[2018-01-03] MEDS: Artificial Tears 1.4% Op Soln BOTH EYES SCH ×3 (08:28→17:03)
[2018-01-03] MEDS: Ciprofloxacin 500mg tab ORAL SCH ×2 (08:29→20:37)
[2018-01-03] MEDS: Metoprolol 25mg tab ORAL SCH ×2 (08:29→20:37)
[2018-01-03] MEDS: metFORMIN 500mg tab ORAL SCH ×2 (08:29→17:02)
[2018-01-03] MEDS: Fluconazole 100mg tab ORAL SCH (08:29)
[2018-01-03] MEDS: Phospha 250 Neutral tab ORAL SCH ×3 (08:30→17:02)
[2018-01-03] MEDS: Heparin 5000 units/ml inj SUBQ SCH ×2 (08:37→20:38)
[2018-01-03] MEDS: Vitamin A&D Oint 2oz Tube TOPIC SCH ×2 (08:38→20:46)
--- NOTE | 2018-01-03 09:52 | General Progress Note ---
Assessment/Plan Problem List: (1) Diabetic acidosis without coma ICD Codes: E13.10 - Other specified diabetes mellitus with ketoacidosis without coma SNOMED: 58438591, 962644672 (2) Renal insufficiency ICD Codes: N28.9 - Disorder of kidney and ureter, unspecified SNOMED: 257964090, 309162154 Status: stable, progressing Assessment/Plan ot pt diet abx bs control cbc bmp am Subjective Constitutional: Reports: weakness Allergies: Coded Allergies: SULFA (SULFONAMIDE ANTIBIOTICS) (Verified Allergy, Unknown, 12/25/17) All Systems: reviewed and negative except above Subjective sleepy calm in bed Objective Last 24 Hour Vital Signs Date Time Temp Pulse Resp B/P (MAP) Pulse Ox O2 Delivery O2 Flow Rate FiO2 01/03/18 08:29 88 117/70 01/03/18 08:29 88 117/70 01/03/18 08:08 96.4 88 18 117/70 (86) 94 96.4 01/03/18 04:00 96.9 78 18 109/67 (81) 96 96.9 01/03/18 00:00 98.2 87 20 114/66 (82) 90 98.2 01/02/18 21:50 87 115/68 01/02/18 20:00 98.4 87 18 115/68 (84) 90 98.4 01/02/18 16:06 97.9 85 18 117/67 (84) 94 97.9 01/02/18 11:39 98.8 89 18 136/74 (94) 94 98.8 Intake and Output 01/02/18 01/03/18 19:00 07:00 Intake Total 840 ml Output Total 1250 ml 600 ml Balance -410 ml -600 ml Intake Oral 840 ml Output Urine Total 1250 ml 600 ml # Bowel Movements 2 1 Laboratory Tests 01/03/18 05:30: White Blood Count 11.2H, Red Blood Count 3.22L, Hemoglobin 9.2L, Hematocrit 28.7L, Mean Corpuscular Volume 89, Mean Corpuscular Hemoglobin 28.6, Mean Corpuscular Hemoglobin Concent 32.1, Red Cell Distribution Width 13.6, Platelet Count 514H, Mean Platelet Volume 6.2L, Neutrophils (%) (Auto) 63.6, Lymphocytes (%) (Auto) 26.1, Monocytes (%) (Auto) 7.3, Eosinophils (%) (Auto) 2.1, Basophils (%) (Auto) 1.0, Sodium Level 139, Potassium Level 4.2, Chloride Level 103, Carbon Dioxide Level 30, Anion Gap 6, Blood Urea Nitrogen 6L, Creatinine 0.8, Estimat Glomerular Filtration Rate > 60, Glucose Level 198H, Calcium Level 8.7 Height (Feet): 5 Height (Inches): 5.00 Weight (Pounds): 192 General Appearance: lethargic EENT: normal ENT inspection Neck: normal alignment Cardiovascular: normal peripheral pulses, normal rate, regular rhythm Respiratory/Chest: chest wall non-tender, lungs clear, normal breath sounds Abdomen: normal bowel sounds, non tender, soft Extremities: normal inspection Edema: no edema noted Arm (L), no edema noted Arm (R), no edema noted Leg (L), no edema noted Leg (R), no edema noted Pedal (L), no edema noted Pedal (R), no edema noted Generalized Neurologic: motor weakness Skin: normal pigmentation, warm/dry Bhupendra Harper DO Jan 03, 2018 09:52
--- NOTE | 2018-01-03 11:18 | General Progress Note ---
Assessment/Plan Assessment/Plan (1) Buttock pain (2) Buttock Abscess s/p I+D Pt to be continued on Tylenol #3 as needed. D/w Dr. Jones and he concurred. Subjective Date patient seen: Jan 03, 2018 Time patient seen: 09:30 - am Allergies: Coded Allergies: SULFA (SULFONAMIDE ANTIBIOTICS) (Verified Allergy, Unknown, 12/25/17) Subjective REVIEW OF SYSTEMS: Denies rash, fever, chills, sweating, dizziness, drowsiness, blurred vision, sore throat, or change in weight. No shortness of breath or chest pain. No nausea, vomiting, diarrhea, or blood in the stool or urine. No bowel or bladder incontinence. She is complaining of buttock pain. SUBJECTIVE: Patient reports no pain at this time she is comfortable with no new complaints. Objective Last 24 Hour Vital Signs Date Time Temp Pulse Resp B/P (MAP) Pulse Ox O2 Delivery O2 Flow Rate FiO2 01/03/18 08:29 88 117/70 01/03/18 08:29 88 117/70 01/03/18 08:08 96.4 88 18 117/70 (86) 94 96.4 01/03/18 04:00 96.9 78 18 109/67 (81) 96 96.9 01/03/18 00:00 98.2 87 20 114/66 (82) 90 98.2 01/02/18 21:50 87 115/68 01/02/18 20:00 98.4 87 18 115/68 (84) 90 98.4 01/02/18 16:06 97.9 85 18 117/67 (84) 94 97.9 01/02/18 11:39 98.8 89 18 136/74 (94) 94 98.8 Intake and Output 01/02/18 01/03/18 19:00 07:00 Intake Total 840 ml Output Total 1250 ml 600 ml Balance -410 ml -600 ml Intake Oral 840 ml Output Urine Total 1250 ml 600 ml # Bowel Movements 2 1 Laboratory Tests 01/03/18 05:30: White Blood Count 11.2H, Red Blood Count 3.22L, Hemoglobin 9.2L, Hematocrit 28.7L, Mean Corpuscular Volume 89, Mean Corpuscular Hemoglobin 28.6, Mean Corpuscular Hemoglobin Concent 32.1, Red Cell Distribution Width 13.6, Platelet Count 514H, Mean Platelet Volume 6.2L, Neutrophils (%) (Auto) 63.6, Lymphocytes (%) (Auto) 26.1, Monocytes (%) (Auto) 7.3, Eosinophils (%) (Auto) 2.1, Basophils (%) (Auto) 1.0, Sodium Level 139, Potassium Level 4.2, Chloride Level 103, Carbon Dioxide Level 30, Anion Gap 6, Blood Urea Nitrogen 6L, Creatinine 0.8, Estimat Glomerular Filtration Rate > 60, Glucose Level 198H, Calcium Level 8.7 Height (Feet): 5 Height (Inches): 5.00 Weight (Pounds): 192 Objective GENERAL: Awake, alert, and oriented. LUNGS: Decreased breath sounds bilaterally. HEART: S1 and S2, regular. ABDOMEN: Obese. EXTREMITIES: No cyanosis. No clubbing. No edema. NEURO: No changes. Stef Ogden Jan 03, 2018 11:18
[2018-01-03 12:02] VITALS: BP 121/70
--- NOTE | 2018-01-03 12:40 | Nephrology Progress Note ---
Assessment/Plan Problem List: (1) Renal insufficiency (2) DKA (diabetic ketoacidoses) (3) Severe sepsis Assessment: buttock abcess incision and drainage of right perirectal abscess with excisional debridement of infected necrotic tissue (4) Anemia Assessment Diabetic acidosis without coma resolved Renal failure and electrolyte imbalance mainly resolved Diabetic Nephropathy and Proteinuria and HypoAlbuminemia Severe sepsis Abscess of buttock incision and drainage of right perirectal abscess with excisional debridement of infected necrotic tissue Anemia Plan Hydrate- K and Phos supplement as needed Mag as needed Antibiotics Monitor renal parameters correct electrolytes avoid Nephrotoxics adjust BP meds Fish OIL DC Lipitor Folic Acid DC planning Subjective ROS Limited/Unobtainable: No Objective Objective Last 24 Hour Vital Signs Date Time Temp Pulse Resp B/P (MAP) Pulse Ox O2 Delivery O2 Flow Rate FiO2 01/03/18 12:02 96.3 85 18 121/70 (87) 90 96.3 01/03/18 08:29 88 117/70 01/03/18 08:29 88 117/70 01/03/18 08:08 96.4 88 18 117/70 (86) 94 96.4 01/03/18 04:00 96.9 78 18 109/67 (81) 96 96.9 01/03/18 00:00 98.2 87 20 114/66 (82) 90 98.2 01/02/18 21:50 87 115/68 01/02/18 20:00 98.4 87 18 115/68 (84) 90 98.4 01/02/18 16:06 97.9 85 18 117/67 (84) 94 97.9 Intake and Output 01/02/18 01/03/18 19:00 07:00 Intake Total 840 ml Output Total 1250 ml 600 ml Balance -410 ml -600 ml Intake Oral 840 ml Output Urine Total 1250 ml 600 ml # Bowel Movements 2 1 Laboratory Tests 01/03/18 05:30: White Blood Count 11.2H, Red Blood Count 3.22L, Hemoglobin 9.2L, Hematocrit 28.7L, Mean Corpuscular Volume 89, Mean Corpuscular Hemoglobin 28.6, Mean Corpuscular Hemoglobin Concent 32.1, Red Cell Distribution Width 13.6, Platelet Count 514H, Mean Platelet Volume 6.2L, Neutrophils (%) (Auto) 63.6, Lymphocytes (%) (Auto) 26.1, Monocytes (%) (Auto) 7.3, Eosinophils (%) (Auto) 2.1, Basophils (%) (Auto) 1.0, Sodium Level 139, Potassium Level 4.2, Chloride Level 103, Carbon Dioxide Level 30, Anion Gap 6, Blood Urea Nitrogen 6L, Creatinine 0.8, Estimat Glomerular Filtration Rate > 60, Glucose Level 198H, Calcium Level 8.7 Height (Feet): 5 Height (Inches): 5.00 Weight (Pounds): 192 General Appearance: no apparent distress Objective no change Joni Cleaning MD Jan 03, 2018 12:40
--- NOTE | 2018-01-03 12:54 | Infectious Diseases Prog Note ---
Assessment/Plan Assessment/Plan A; Sepsis improving R buttock abscess DKA Newly diagnosed DM Acute renal failure resolving Perianal fistula P; continue Fluconazole & oral Ciprofloxacin X 4 days waiting for placement Subjective ROS Limited/Unobtainable: No Constitutional: Reports: no symptoms Respiratory: Reports: no symptoms Genitourinary: Reports: no symptoms Musculoskeletal: Reports: no symptoms Allergies: Coded Allergies: SULFA (SULFONAMIDE ANTIBIOTICS) (Verified Allergy, Unknown, 12/25/17) Objective Vital Signs Last 24 Hour Vital Signs Date Time Temp Pulse Resp B/P (MAP) Pulse Ox O2 Delivery O2 Flow Rate FiO2 01/03/18 12:02 96.3 85 18 121/70 (87) 90 96.3 01/03/18 08:29 88 117/70 01/03/18 08:29 88 117/70 01/03/18 08:08 96.4 88 18 117/70 (86) 94 96.4 01/03/18 04:00 96.9 78 18 109/67 (81) 96 96.9 01/03/18 00:00 98.2 87 20 114/66 (82) 90 98.2 01/02/18 21:50 87 115/68 01/02/18 20:00 98.4 87 18 115/68 (84) 90 98.4 01/02/18 16:06 97.9 85 18 117/67 (84) 94 97.9 Height (Feet): 5 Height (Inches): 5.00 Weight (Pounds): 192 General Appearance: no acute distress HEENT: PERRL Respiratory/Chest: lungs clear Cardiovascular: normal rate Abdomen: soft, non tender Extremities: no edema Skin: other - right hip ulcer Neurologic/Psychiatric: no motor/sensory deficits Laboratory Tests Test 01/03/18 05:30 White Blood Count 11.2 K/UL (4.8-10.8) H Red Blood Count 3.22 M/UL (4.20-5.40) L Hemoglobin 9.2 G/DL (12.0-16.0) L Hematocrit 28.7 % (37.0-47.0) L Mean Corpuscular Volume 89 FL (80-99) Mean Corpuscular Hemoglobin 28.6 PG (27.0-31.0) Mean Corpuscular Hemoglobin Concent 32.1 G/DL (32.0-36.0) Red Cell Distribution Width 13.6 % (11.6-14.8) Platelet Count 514 K/UL (150-450) H Mean Platelet Volume 6.2 FL (6.5-10.1) L Neutrophils (%) (Auto) 63.6 % (45.0-75.0) Lymphocytes (%) (Auto) 26.1 % (20.0-45.0) Monocytes (%) (Auto) 7.3 % (1.0-10.0) Eosinophils (%) (Auto) 2.1 % (0.0-3.0) Basophils (%) (Auto) 1.0 % (0.0-2.0) Sodium Level 139 MMOL/L (136-145) Potassium Level 4.2 MMOL/L (3.5-5.1) Chloride Level 103 MMOL/L (98-107) Carbon Dioxide Level 30 MMOL/L (21-32) Anion Gap 6 mmol/L (5-15) Blood Urea Nitrogen 6 mg/dL (7-18) L Creatinine 0.8 MG/DL (0.55-1.30) Estimat Glomerular Filtration Rate > 60 mL/min (>60) Glucose Level 198 MG/DL (74-106) H Calcium Level 8.7 MG/DL (8.5-10.1) Current Medications Medications (Trade) Dose Ordered Sig/Eyad Route PRN Reason Start Time Stop Time Status Last Admin Dose Admin Acetaminophen (Tylenol) 650 mg Q4H PRN ORAL Mild Pain/Temp > 100.5 12/26/17 17:00 01/25/18 16:59 12/30/17 14:01 Acetaminophen/ Codeine Phosphate (Tylenol #3) 1 tab Q4H PRN ORAL severe pain 12/31/17 17:53 01/07/18 17:52 01/03/18 05:59 Amlodipine Besylate (Norvasc) 5 mg DAILY ORAL 01/03/18 09:00 01/24/18 08:59 01/03/18 08:29 Artificial Tears (Akwa-Tears) 1 drop THREE TIMES A DAY BOTH EYES 12/26/17 18:00 01/22/18 12:59 01/03/18 08:28 Ciprofloxacin (Cipro 500mg tab) 500 mg EVERY 12 HOURS ORAL 01/01/18 21:00 01/08/18 20:59 01/03/18 08:29 Clonidine HCl (Catapres Tab) 0.1 mg Q6H PRN ORAL [id number] and above 12/26/17 17:00 01/23/18 16:59 12/27/17 21:39 Dextrose (Dextrose 50%) 25 ml STAT PRN IV Hypoglycemia 12/26/17 17:00 01/22/18 16:59 12/31/17 06:11 Dextrose (Dextrose 50%) 50 ml STAT PRN IV Hypoglycemia 12/26/17 17:00 01/22/18 16:59 Famotidine (Pepcid) 20 mg BID ORAL 12/26/17 18:00 01/23/18 17:59 01/03/18 08:29 Fish Oil (Fish Oil) 1,000 mg BID ORAL 12/26/17 18:00 01/23/18 11:59 01/03/18 08:29 Fluconazole (Diflucan) 200 mg DAILY ORAL 12/27/17 09:00 01/08/18 08:59 01/03/18 08:29 Folic Acid (Folate) 2 mg DAILY ORAL 01/03/18 09:00 01/23/18 11:59 01/03/18 08:29 Heparin Sodium (Porcine) (Heparin 5000 units/ml) 5,000 units Q12HR SUBQ 12/26/17 21:00 01/23/18 20:59 01/03/18 08:37 Insulin Aspart (NovoLOG) BEFORE MEALS AND HS SUBQ 12/26/17 21:00 01/23/18 06:29 01/03/18 11:17 Insulin Detemir (Levemir) 15 units BEDTIME SUBQ 01/02/18 21:00 01/22/18 22:59 01/02/18 22:11 Metformin HCl (Glucophage) 500 mg BID ORAL 01/02/18 09:00 02/01/18 08:59 01/03/18 08:29 Metoprolol Tartrate (Lopressor) 25 mg Q12HR ORAL 12/26/17 21:00 01/23/18 20:59 01/03/18 08:29 Nateglinide (Starlix) 120 mg TIAC ORAL 01/02/18 11:30 01/31/18 11:29 01/03/18 11:15 Nitroglycerin (Ntg) 0.4 mg Q5M PRN SL Prn Chest Pain 12/26/17 17:00 01/21/18 17:59 Ondansetron HCl (Zofran) 4 mg Q6H PRN IVP Nausea & Vomiting 12/26/17 17:00 01/21/18 16:59 Phosphorus (Phospha 250 Neutral) 250 mg THREE TIMES A DAY ORAL 12/26/17 18:00 01/25/18 08:59 01/03/18 08:30 Potassium Chloride (K-Dur) 40 meq DAILY ORAL 01/03/18 09:00 01/25/18 08:59 01/03/18 08:30 Vitamin A/Vitamin D (A & D Oint) 1 applic EVERY 12 HOURS TOPIC 12/26/17 21:00 01/22/18 20:59 01/03/18 08:38 Wade Peña MD Jan 03, 2018 12:54
[2018-01-03 16:20] VITALS: BP 123/74
[2018-01-03 20:00] VITALS: BP 119/63
[2018-01-03] MEDS: Levemir Flexpen SUBQ SCH (20:40)
--- NOTE | 2018-01-03 23:11 | Cardiology Progress Note ---
Assessment/Plan Assessment/Plan 1. Sinus tachycardia, resolved, continue metoprolol, 2D echo reveals normal LV systolic function. 2. Diabetes mellitus, uncontrolled, noncompliant, continue statins, consider baby ASA daily. 3. Severe sepsis. 4. Right buttock abscess Subjective Subjective No cardiac events. Objective Last 24 Hour Vital Signs Date Time Temp Pulse Resp B/P (MAP) Pulse Ox O2 Delivery O2 Flow Rate FiO2 01/03/18 20:37 92 119/63 01/03/18 20:00 98.6 92 18 119/63 (81) 95 98.6 01/03/18 16:20 98.2 88 18 123/74 (90) 96 98.2 01/03/18 12:02 96.3 85 18 121/70 (87) 90 96.3 01/03/18 08:29 88 117/70 01/03/18 08:29 88 117/70 01/03/18 08:08 96.4 88 18 117/70 (86) 94 96.4 01/03/18 04:00 96.9 78 18 109/67 (81) 96 96.9 01/03/18 00:00 98.2 87 20 114/66 (82) 90 98.2 Intake and Output 01/02/18 01/03/18 19:00 07:00 Intake Total 840 ml Output Total 1250 ml 600 ml Balance -410 ml -600 ml Intake Oral 840 ml Output Urine Total 1250 ml 600 ml # Bowel Movements 2 1 2D Echo: LVEF 60%, Mild LVH, RVSP 12 mmHg Laboratory Tests Test 01/03/18 05:30 White Blood Count 11.2 K/UL (4.8-10.8) H Red Blood Count 3.22 M/UL (4.20-5.40) L Hemoglobin 9.2 G/DL (12.0-16.0) L Hematocrit 28.7 % (37.0-47.0) L Mean Corpuscular Volume 89 FL (80-99) Mean Corpuscular Hemoglobin 28.6 PG (27.0-31.0) Mean Corpuscular Hemoglobin Concent 32.1 G/DL (32.0-36.0) Red Cell Distribution Width 13.6 % (11.6-14.8) Platelet Count 514 K/UL (150-450) H Mean Platelet Volume 6.2 FL (6.5-10.1) L Neutrophils (%) (Auto) 63.6 % (45.0-75.0) Lymphocytes (%) (Auto) 26.1 % (20.0-45.0) Monocytes (%) (Auto) 7.3 % (1.0-10.0) Eosinophils (%) (Auto) 2.1 % (0.0-3.0) Basophils (%) (Auto) 1.0 % (0.0-2.0) Sodium Level 139 MMOL/L (136-145) Potassium Level 4.2 MMOL/L (3.5-5.1) Chloride Level 103 MMOL/L (98-107) Carbon Dioxide Level 30 MMOL/L (21-32) Anion Gap 6 mmol/L (5-15) Blood Urea Nitrogen 6 mg/dL (7-18) L Creatinine 0.8 MG/DL (0.55-1.30) Estimat Glomerular Filtration Rate > 60 mL/min (>60) Glucose Level 198 MG/DL (74-106) H Calcium Level 8.7 MG/DL (8.5-10.1) Objective HEENT: Atraumatic and normocephalic. ENT, pupils are equal, round, and reactive to light and accommodation. Extraocular muscles intact. NECK: JVP less than 5 cm. No carotid bruit. Carotid upstrokes 2+ bilaterally. CARDIOVASCULAR: Normal S1 and S2. Regular rhythm. No murmurs, gallops, or rubs. PMI is at fourth intercostal space at the midclavicular line. LUNGS: Clear to auscultation bilaterally. ABDOMEN: Soft, nontender, and nondistended. No hepatosplenomegaly. Positive bowel sounds. EXTREMITIES: No evidence of edema, clubbing, or cyanosis. Javi Anthony MD Jan 03, 2018 23:11
[2018-01-04] VITALS: BP 125/61
[2018-01-04 04:00] VITALS: BP 130/73
[2018-01-04] MEDS: Nateglinide 60mg tab ORAL SCH (06:13)
[2018-01-04] MEDS: NovoLOG Insulin Flexpen SUBQ SCH ×2 (06:15→12:18)
--- NOTE | 2018-01-04 06:38 | General Progress Note ---
Assessment/Plan Problem List: (1) Diabetic acidosis without coma ICD Codes: E13.10 - Other specified diabetes mellitus with ketoacidosis without coma SNOMED: 55237946, 989352025 (2) Severe sepsis ICD Codes: A41.9 - Sepsis, unspecified organism; R65.20 - Severe sepsis without septic shock SNOMED: 08868590 (3) DKA (diabetic ketoacidoses) ICD Codes: E13.10 - Other specified diabetes mellitus with ketoacidosis without coma SNOMED: 04559431, 260342464 Qualifiers: Qualified Codes: E13.11 - Other specified diabetes mellitus with ketoacidosis with coma (4) Vagina bleeding ICD Codes: N93.9 - Abnormal uterine and vaginal bleeding, unspecified SNOMED: 771974637, 576719972 Assessment/Plan continue Levemir 15 units qhs continue Starlix 120 mg ac tid continue Metformin 500 mg bid continue NISS Subjective Allergies: Coded Allergies: SULFA (SULFONAMIDE ANTIBIOTICS) (Verified Allergy, Unknown, 12/25/17) All Systems: reviewed and negative except above Subjective events noted Objective Last 24 Hour Vital Signs Date Time Temp Pulse Resp B/P (MAP) Pulse Ox O2 Delivery O2 Flow Rate FiO2 01/04/18 04:00 99.1 87 19 130/73 (92) 94 99.1 01/04/18 00:00 99.7 88 18 125/61 (82) 96 99.7 01/03/18 20:37 92 119/63 01/03/18 20:00 98.6 92 18 119/63 (81) 95 98.6 01/03/18 16:20 98.2 88 18 123/74 (90) 96 98.2 01/03/18 12:02 96.3 85 18 121/70 (87) 90 96.3 01/03/18 08:29 88 117/70 01/03/18 08:29 88 117/70 01/03/18 08:08 96.4 88 18 117/70 (86) 94 96.4 Intake and Output 01/03/18 01/04/18 19:00 07:00 Intake Total 960 ml Output Total 900 ml 800 ml Balance 60 ml -800 ml Intake Oral 960 ml Output Urine Total 900 ml 800 ml # Bowel Movements 2 1 Height (Feet): 5 Height (Inches): 5.00 Weight (Pounds): 192 General Appearance: no apparent distress Neck: normal alignment Cardiovascular: normal rate Respiratory/Chest: lungs clear Abdomen: normal bowel sounds Objective Current Medications Medications (Trade) Dose Ordered Sig/Eyad Route PRN Reason Start Time Stop Time Status Last Admin Dose Admin Acetaminophen (Tylenol) 650 mg Q4H PRN ORAL Mild Pain/Temp > 100.5 12/26/17 17:00 01/25/18 16:59 12/30/17 14:01 Acetaminophen/ Codeine Phosphate (Tylenol #3) 1 tab Q4H PRN ORAL severe pain 12/31/17 17:53 01/07/18 17:52 01/03/18 05:59 Amlodipine Besylate (Norvasc) 5 mg DAILY ORAL 01/03/18 09:00 01/24/18 08:59 01/03/18 08:29 Artificial Tears (Akwa-Tears) 1 drop THREE TIMES A DAY BOTH EYES 12/26/17 18:00 01/22/18 12:59 01/03/18 17:03 Ciprofloxacin (Cipro 500mg tab) 500 mg EVERY 12 HOURS ORAL 01/01/18 21:00 01/08/18 20:59 01/03/18 20:37 Clonidine HCl (Catapres Tab) 0.1 mg Q6H PRN ORAL [id number] and above 12/26/17 17:00 01/23/18 16:59 12/27/17 21:39 Dextrose (Dextrose 50%) 25 ml STAT PRN IV Hypoglycemia 12/26/17 17:00 01/22/18 16:59 12/31/17 06:11 Dextrose (Dextrose 50%) 50 ml STAT PRN IV Hypoglycemia 12/26/17 17:00 01/22/18 16:59 Famotidine (Pepcid) 20 mg BID ORAL 12/26/17 18:00 01/23/18 17:59 01/03/18 17:02 Fish Oil (Fish Oil) 1,000 mg BID ORAL 12/26/17 18:00 01/23/18 11:59 01/03/18 17:02 Fluconazole (Diflucan) 200 mg DAILY ORAL 12/27/17 09:00 01/08/18 08:59 01/03/18 08:29 Folic Acid (Folate) 2 mg DAILY ORAL 01/03/18 09:00 01/23/18 11:59 01/03/18 08:29 Heparin Sodium (Porcine) (Heparin 5000 units/ml) 5,000 units Q12HR SUBQ 12/26/17 21:00 01/23/18 20:59 01/03/18 20:38 Insulin Aspart (NovoLOG) BEFORE MEALS AND HS SUBQ 12/26/17 21:00 01/23/18 06:29 01/04/18 06:15 Insulin Detemir (Levemir) 15 units BEDTIME SUBQ 01/02/18 21:00 01/22/18 22:59 01/03/18 20:40 Metformin HCl (Glucophage) 500 mg BID ORAL 01/02/18 09:00 02/01/18 08:59 01/03/18 17:02 Metoprolol Tartrate (Lopressor) 25 mg Q12HR ORAL 12/26/17 21:00 01/23/18 20:59 01/03/18 20:37 Nateglinide (Starlix) 120 mg TIAC ORAL 01/02/18 11:30 01/31/18 11:29 01/04/18 06:13 Nitroglycerin (Ntg) 0.4 mg Q5M PRN SL Prn Chest Pain 12/26/17 17:00 01/21/18 17:59 Ondansetron HCl (Zofran) 4 mg Q6H PRN IVP Nausea & Vomiting 12/26/17 17:00 01/21/18 16:59 Phosphorus (Phospha 250 Neutral) 250 mg THREE TIMES A DAY ORAL 12/26/17 18:00 01/25/18 08:59 01/03/18 17:02 Potassium Chloride (K-Dur) 40 meq DAILY ORAL 01/03/18 09:00 01/25/18 08:59 01/03/18 08:30 Vitamin A/Vitamin D (A & D Oint) 1 applic EVERY 12 HOURS TOPIC 12/26/17 21:00 01/22/18 20:59 01/03/18 20:46 Item Value Date Time Bedside Blood Glucose 151 mg/dl H 01/04/18 0615 Bedside Blood Glucose 182 mg/dl H 01/03/18 2041 Bedside Blood Glucose 175 mg/dl H 01/03/18 1708 Bedside Blood Glucose 286 mg/dl H 01/03/18 1117 Bedside Blood Glucose 187 mg/dl H 01/03/18 0630 Riky Olivas MD Jan 04, 2018 06:38
--- NOTE | 2018-01-04 07:47 | General Progress Note ---
Assessment/Plan Assessment/Plan (1) Buttock pain (2) Buttock Abscess s/p I+D Pt to be continued on Tylenol #3 as needed. D/w Dr. Jones and he concurred. Subjective Date patient seen: Jan 04, 2018 Time patient seen: 07:00 - am Allergies: Coded Allergies: SULFA (SULFONAMIDE ANTIBIOTICS) (Verified Allergy, Unknown, 12/25/17) Subjective REVIEW OF SYSTEMS: Denies rash, fever, chills, sweating, dizziness, drowsiness, blurred vision, sore throat, or change in weight. No shortness of breath or chest pain. No nausea, vomiting, diarrhea, or blood in the stool or urine. No bowel or bladder incontinence. She is complaining of buttock pain. SUBJECTIVE: Patient is in bed showing no signs of pain or distress. Her pain has been tolerated using the Tylenol #3 as needed. No new complaints at this time. Objective Last 24 Hour Vital Signs Date Time Temp Pulse Resp B/P (MAP) Pulse Ox O2 Delivery O2 Flow Rate FiO2 01/04/18 04:00 99.1 87 19 130/73 (92) 94 99.1 01/04/18 00:00 99.7 88 18 125/61 (82) 96 99.7 01/03/18 20:37 92 119/63 01/03/18 20:00 98.6 92 18 119/63 (81) 95 98.6 01/03/18 16:20 98.2 88 18 123/74 (90) 96 98.2 01/03/18 12:02 96.3 85 18 121/70 (87) 90 96.3 01/03/18 08:29 88 117/70 01/03/18 08:29 88 117/70 01/03/18 08:08 96.4 88 18 117/70 (86) 94 96.4 Intake and Output 01/03/18 01/04/18 19:00 07:00 Intake Total 960 ml Output Total 900 ml 800 ml Balance 60 ml -800 ml Intake Oral 960 ml Output Urine Total 900 ml 800 ml # Bowel Movements 2 1 Height (Feet): 5 Height (Inches): 5.00 Weight (Pounds): 192 Objective GENERAL: Awake, alert, and oriented. LUNGS: Decreased breath sounds bilaterally. HEART: S1 and S2, regular. ABDOMEN: Obese. EXTREMITIES: No cyanosis. No clubbing. No edema. NEURO: No changes. Stef Ogden Jan 04, 2018 07:47
[2018-01-04 08:00] VITALS: BP 125/66
[2018-01-04 08:10] LABS: EOSINOPHILS % (AUTO) 2.1 % (0.0-3.0); HEMATOCRIT 29.1 % (37.0-47.0); HEMOGLOBIN 9.7 G/DL (12.0-16.0); LYMPHOCYTES % (AUTO) 27.2 % (20.0-45.0); MEAN CORPUSCULAR VOLUME 88 FL (80-99); MONOCYTES % (AUTO) 4.1 % (1.0-10.0); NEUTROPHILS % (AUTO) 65.6 % (45.0-75.0); PLATELET COUNT 548 K/UL (150-450); RED CELL DISTRIBUTION WIDTH 13.8 % (11.6-14.8); WHITE BLOOD COUNT 9.9 K/UL (4.8-10.8)
[2018-01-04] MEDS: Artificial Tears 1.4% Op Soln BOTH EYES SCH ×2 (08:15→12:13)
[2018-01-04] MEDS: Fluconazole 100mg tab ORAL SCH (08:15)
[2018-01-04] MEDS: Ciprofloxacin 500mg tab ORAL SCH (08:15)
[2018-01-04] MEDS: Metoprolol 25mg tab ORAL SCH (08:16)
[2018-01-04] MEDS: metFORMIN 500mg tab ORAL SCH (08:17)
[2018-01-04] MEDS: Phospha 250 Neutral tab ORAL SCH ×2 (08:17→12:13)
[2018-01-04] MEDS: Vitamin A&D Oint 2oz Tube TOPIC SCH (08:18)
[2018-01-04] MEDS: Heparin 5000 units/ml inj SUBQ SCH (08:20)
[2018-01-04 08:25] LABS: ANION GAP 8 mmol/L (5-15); BLOOD UREA NITROGEN 6 mg/dL (7-18); CALCIUM 9.1 MG/DL (8.5-10.1); CARBON DIOXIDE 30 MMOL/L (21-32); CHLORIDE 102 MMOL/L (98-107); CREATININE 0.7 MG/DL (0.55-1.30); POTASSIUM 3.8 MMOL/L (3.5-5.1); SODIUM 140 MMOL/L (136-145)
--- NOTE | 2018-01-04 08:30 | Nephrology Progress Note ---
Assessment/Plan Problem List: (1) Renal insufficiency (2) DKA (diabetic ketoacidoses) (3) Severe sepsis Assessment: buttock abcess incision and drainage of right perirectal abscess with excisional debridement of infected necrotic tissue (4) Anemia Assessment Diabetic acidosis without coma resolved Renal failure and electrolyte imbalance mainly resolved Diabetic Nephropathy and Proteinuria and HypoAlbuminemia Severe sepsis Abscess of buttock incision and drainage of right perirectal abscess with excisional debridement of infected necrotic tissue Anemia Plan Hydrate- K and Phos supplement as needed Mag as needed Antibiotics Monitor renal parameters correct electrolytes avoid Nephrotoxics adjust BP meds Fish OIL DC Lipitor Folic Acid DC planning Subjective ROS Limited/Unobtainable: No Objective Objective Last 24 Hour Vital Signs Date Time Temp Pulse Resp B/P (MAP) Pulse Ox O2 Delivery O2 Flow Rate FiO2 01/04/18 08:16 93 125/66 01/04/18 08:16 93 125/66 01/04/18 04:00 99.1 87 19 130/73 (92) 94 99.1 01/04/18 00:00 99.7 88 18 125/61 (82) 96 99.7 01/03/18 20:37 92 119/63 01/03/18 20:00 98.6 92 18 119/63 (81) 95 98.6 01/03/18 16:20 98.2 88 18 123/74 (90) 96 98.2 01/03/18 12:02 96.3 85 18 121/70 (87) 90 96.3 Intake and Output 01/03/18 01/04/18 19:00 07:00 Intake Total 960 ml Output Total 900 ml 800 ml Balance 60 ml -800 ml Intake Oral 960 ml Output Urine Total 900 ml 800 ml # Bowel Movements 2 1 Laboratory Tests 01/04/18 07:10: White Blood Count 9.9, Red Blood Count 3.30L, Hemoglobin 9.7L, Hematocrit 29.1L , Mean Corpuscular Volume 88, Mean Corpuscular Hemoglobin 29.4, Mean Corpuscular Hemoglobin Concent 33.3, Red Cell Distribution Width 13.8, Platelet Count 548H, Mean Platelet Volume 6.1L, Neutrophils (%) (Auto) 65.6, Lymphocytes (%) (Auto) 27.2, Monocytes (%) (Auto) 4.1, Eosinophils (%) (Auto) 2.1, Basophils (%) (Auto) 1.0, Sodium Level 140, Potassium Level 3.8, Chloride Level 102, Carbon Dioxide Level 30, Anion Gap 8, Blood Urea Nitrogen 6L, Creatinine 0.7, Estimat Glomerular Filtration Rate > 60, Glucose Level 140H, Calcium Level 9.1 Height (Feet): 5 Height (Inches): 5.00 Weight (Pounds): 192 General Appearance: no apparent distress Objective no change Joni Cleaning MD Jan 04, 2018 08:29
--- NOTE | 2018-01-04 10:46 | GI Progress Note ---
Assessment/Plan Problems: (1) Anemia ICD Codes: D64.9 - Anemia, unspecified SNOMED: 072641374 (2) Abscess of buttock ICD Codes: L02.31 - Cutaneous abscess of buttock SNOMED: 15374592 (3) Severe sepsis ICD Codes: A41.9 - Sepsis, unspecified organism; R65.20 - Severe sepsis without septic shock SNOMED: 05087151 (4) Diabetes ICD Codes: E11.9 - Type 2 diabetes mellitus without complications SNOMED: 16220065 Status: stable Status Narrative Discussed with Dr. Eden. Assessment/Plan SUMMARY FINDINGS: 1. Fair prep. 2. Two colonic polyp removed, see above for details. 3. No evidence of any obvious Crohn's disease in this colonoscopy examination. RECOMMENDATIONS: okay for DC per GI standpoint symptomatic treatment advance diet Follow up biopsies and treat accordingly. The patient was seen and examined at bedside and all new and available data was reviewed in the patients chart. I agree with the above findings, impression and plan. (Patient seen earlier today. Signature stamp does not reflect patient encounter time.). - Garret Eden MD Subjective Gastrointestinal/Abdominal: Reports: no symptoms Objective Last 24 Hour Vital Signs Date Time Temp Pulse Resp B/P (MAP) Pulse Ox O2 Delivery O2 Flow Rate FiO2 01/04/18 08:16 93 125/66 01/04/18 08:16 93 125/66 01/04/18 08:00 97.7 93 18 125/66 (85) 94 97.7 01/04/18 04:00 99.1 87 19 130/73 (92) 94 99.1 01/04/18 00:00 99.7 88 18 125/61 (82) 96 99.7 01/03/18 20:37 92 119/63 01/03/18 20:00 98.6 92 18 119/63 (81) 95 98.6 01/03/18 16:20 98.2 88 18 123/74 (90) 96 98.2 01/03/18 12:02 96.3 85 18 121/70 (87) 90 96.3 Intake and Output 01/03/18 01/04/18 19:00 07:00 Intake Total 960 ml Output Total 900 ml 800 ml Balance 60 ml -800 ml Intake Oral 960 ml Output Urine Total 900 ml 800 ml # Bowel Movements 2 1 Laboratory Tests Test 01/04/18 07:10 White Blood Count 9.9 K/UL (4.8-10.8) Red Blood Count 3.30 M/UL (4.20-5.40) L Hemoglobin 9.7 G/DL (12.0-16.0) L Hematocrit 29.1 % (37.0-47.0) L Mean Corpuscular Volume 88 FL (80-99) Mean Corpuscular Hemoglobin 29.4 PG (27.0-31.0) Mean Corpuscular Hemoglobin Concent 33.3 G/DL (32.0-36.0) Red Cell Distribution Width 13.8 % (11.6-14.8) Platelet Count 548 K/UL (150-450) H Mean Platelet Volume 6.1 FL (6.5-10.1) L Neutrophils (%) (Auto) 65.6 % (45.0-75.0) Lymphocytes (%) (Auto) 27.2 % (20.0-45.0) Monocytes (%) (Auto) 4.1 % (1.0-10.0) Eosinophils (%) (Auto) 2.1 % (0.0-3.0) Basophils (%) (Auto) 1.0 % (0.0-2.0) Sodium Level 140 MMOL/L (136-145) Potassium Level 3.8 MMOL/L (3.5-5.1) Chloride Level 102 MMOL/L (98-107) Carbon Dioxide Level 30 MMOL/L (21-32) Anion Gap 8 mmol/L (5-15) Blood Urea Nitrogen 6 mg/dL (7-18) L Creatinine 0.7 MG/DL (0.55-1.30) Estimat Glomerular Filtration Rate > 60 mL/min (>60) Glucose Level 140 MG/DL (74-106) H Calcium Level 9.1 MG/DL (8.5-10.1) Height (Feet): 5 Height (Inches): 5.00 Weight (Pounds): 192 General Appearance: WD/WN, no apparent distress, alert Cardiovascular: normal rate Respiratory/Chest: normal breath sounds, no respiratory distress Abdominal Exam: normal bowel sounds, non tender, soft Extremities: normal range of motion, non-tender Yoko Simpson [employer] Jan 04, 2018 10:46
[2018-01-04 12:30] VITALS: BP 131/74
--- NOTE | 2018-01-04 13:03 | Infectious Diseases Prog Note ---
Assessment/Plan Assessment/Plan A; Sepsis improving R buttock abscess DKA Newly diagnosed DM Acute renal failure resolving Perianal fistula P; continue Fluconazole & oral Ciprofloxacin X 3 days waiting for placement Subjective ROS Limited/Unobtainable: No Respiratory: Reports: no symptoms Cardiovascular: Reports: no symptoms Gastrointestinal/Abdominal: Reports: no symptoms Genitourinary: Reports: no symptoms Musculoskeletal: Reports: no symptoms Allergies: Coded Allergies: SULFA (SULFONAMIDE ANTIBIOTICS) (Verified Allergy, Unknown, 12/25/17) Objective Vital Signs Last 24 Hour Vital Signs Date Time Temp Pulse Resp B/P (MAP) Pulse Ox O2 Delivery O2 Flow Rate FiO2 01/04/18 12:30 98.4 85 18 131/74 (93) 92 98.4 01/04/18 08:16 93 125/66 01/04/18 08:16 93 125/66 01/04/18 08:00 97.7 93 18 125/66 (85) 94 97.7 01/04/18 04:00 99.1 87 19 130/73 (92) 94 99.1 01/04/18 00:00 99.7 88 18 125/61 (82) 96 99.7 01/03/18 20:37 92 119/63 01/03/18 20:00 98.6 92 18 119/63 (81) 95 98.6 01/03/18 16:20 98.2 88 18 123/74 (90) 96 98.2 Height (Feet): 5 Height (Inches): 5.00 Weight (Pounds): 192 General Appearance: no acute distress HEENT: mucous membranes moist Respiratory/Chest: lungs clear Cardiovascular: normal rate Abdomen: soft, non tender Extremities: no edema Skin: ulcers, other - R buttock Neurologic/Psychiatric: alert, oriented x 3, responsive Laboratory Tests Test 01/04/18 07:10 White Blood Count 9.9 K/UL (4.8-10.8) Red Blood Count 3.30 M/UL (4.20-5.40) L Hemoglobin 9.7 G/DL (12.0-16.0) L Hematocrit 29.1 % (37.0-47.0) L Mean Corpuscular Volume 88 FL (80-99) Mean Corpuscular Hemoglobin 29.4 PG (27.0-31.0) Mean Corpuscular Hemoglobin Concent 33.3 G/DL (32.0-36.0) Red Cell Distribution Width 13.8 % (11.6-14.8) Platelet Count 548 K/UL (150-450) H Mean Platelet Volume 6.1 FL (6.5-10.1) L Neutrophils (%) (Auto) 65.6 % (45.0-75.0) Lymphocytes (%) (Auto) 27.2 % (20.0-45.0) Monocytes (%) (Auto) 4.1 % (1.0-10.0) Eosinophils (%) (Auto) 2.1 % (0.0-3.0) Basophils (%) (Auto) 1.0 % (0.0-2.0) Sodium Level 140 MMOL/L (136-145) Potassium Level 3.8 MMOL/L (3.5-5.1) Chloride Level 102 MMOL/L (98-107) Carbon Dioxide Level 30 MMOL/L (21-32) Anion Gap 8 mmol/L (5-15) Blood Urea Nitrogen 6 mg/dL (7-18) L Creatinine 0.7 MG/DL (0.55-1.30) Estimat Glomerular Filtration Rate > 60 mL/min (>60) Glucose Level 140 MG/DL (74-106) H Calcium Level 9.1 MG/DL (8.5-10.1) Current Medications Medications (Trade) Dose Ordered Sig/Eyad Route PRN Reason Start Time Stop Time Status Last Admin Dose Admin Acetaminophen (Tylenol) 650 mg Q4H PRN ORAL Mild Pain/Temp > 100.5 12/26/17 17:00 01/25/18 16:59 12/30/17 14:01 Acetaminophen/ Codeine Phosphate (Tylenol #3) 1 tab Q4H PRN ORAL severe pain 12/31/17 17:53 01/07/18 17:52 01/03/18 05:59 Amlodipine Besylate (Norvasc) 5 mg DAILY ORAL 01/03/18 09:00 01/24/18 08:59 01/04/18 08:16 Artificial Tears (Akwa-Tears) 1 drop THREE TIMES A DAY BOTH EYES 12/26/17 18:00 01/22/18 12:59 01/04/18 12:13 Ciprofloxacin (Cipro 500mg tab) 500 mg EVERY 12 HOURS ORAL 01/01/18 21:00 01/08/18 20:59 01/04/18 08:15 Clonidine HCl (Catapres Tab) 0.1 mg Q6H PRN ORAL [id number] and above 12/26/17 17:00 01/23/18 16:59 12/27/17 21:39 Dextrose (Dextrose 50%) 25 ml STAT PRN IV Hypoglycemia 12/26/17 17:00 01/22/18 16:59 12/31/17 06:11 Dextrose (Dextrose 50%) 50 ml STAT PRN IV Hypoglycemia 12/26/17 17:00 01/22/18 16:59 Famotidine (Pepcid) 20 mg BID ORAL 12/26/17 18:00 01/23/18 17:59 01/04/18 08:17 Fish Oil (Fish Oil) 1,000 mg BID ORAL 12/26/17 18:00 01/23/18 11:59 01/04/18 08:15 Fluconazole (Diflucan) 200 mg DAILY ORAL 12/27/17 09:00 01/08/18 08:59 01/04/18 08:15 Folic Acid (Folate) 2 mg DAILY ORAL 01/03/18 09:00 01/23/18 11:59 01/04/18 08:17 Heparin Sodium (Porcine) (Heparin 5000 units/ml) 5,000 units Q12HR SUBQ 12/26/17 21:00 01/23/18 20:59 01/04/18 08:20 Insulin Aspart (NovoLOG) BEFORE MEALS AND HS SUBQ 12/26/17 21:00 01/23/18 06:29 01/04/18 12:18 Insulin Detemir (Levemir) 15 units BEDTIME SUBQ 01/02/18 21:00 01/22/18 22:59 01/03/18 20:40 Metformin HCl (Glucophage) 500 mg BID ORAL 01/02/18 09:00 02/01/18 08:59 01/04/18 08:17 Metoprolol Tartrate (Lopressor) 25 mg Q12HR ORAL 12/26/17 21:00 01/23/18 20:59 01/04/18 08:16 Nateglinide (Starlix) 120 mg TIAC ORAL 01/04/18 11:30 01/31/18 11:29 01/04/18 12:13 Nitroglycerin (Ntg) 0.4 mg Q5M PRN SL Prn Chest Pain 12/26/17 17:00 01/21/18 17:59 Ondansetron HCl (Zofran) 4 mg Q6H PRN IVP Nausea & Vomiting 12/26/17 17:00 01/21/18 16:59 Phosphorus (Phospha 250 Neutral) 250 mg THREE TIMES A DAY ORAL 12/26/17 18:00 01/25/18 08:59 01/04/18 12:13 Potassium Chloride (K-Dur) 40 meq DAILY ORAL 01/03/18 09:00 01/25/18 08:59 01/04/18 08:17 Vitamin A/Vitamin D (A & D Oint) 1 applic EVERY 12 HOURS TOPIC 12/26/17 21:00 01/22/18 20:59 01/04/18 08:18 Wade Peña MD Jan 04, 2018 13:03
--- NOTE | 2018-01-04 13:43 | General Progress Note ---
Assessment/Plan Problem List: (1) Diabetic acidosis without coma ICD Codes: E13.10 - Other specified diabetes mellitus with ketoacidosis without coma SNOMED: 61102285, [id number] (2) Renal insufficiency ICD Codes: N28.9 - Disorder of kidney and ureter, unspecified SNOMED: 346244822, [id number] Status: stable, progressing Assessment/Plan ot pt diet abx bs control cbc bmp am dc plan w hh Subjective Constitutional: Reports: weakness Allergies: Coded Allergies: SULFA (SULFONAMIDE ANTIBIOTICS) (Verified Allergy, Unknown, 12/25/17) All Systems: reviewed and negative except above Subjective sleepy calm in bed wants to go home Objective Last 24 Hour Vital Signs Date Time Temp Pulse Resp B/P (MAP) Pulse Ox O2 Delivery O2 Flow Rate FiO2 01/04/18 12:30 98.4 85 18 131/74 (93) 92 98.4 01/04/18 08:16 93 125/66 01/04/18 08:16 93 125/66 01/04/18 08:00 97.7 93 18 125/66 (85) 94 97.7 01/04/18 04:00 99.1 87 19 130/73 (92) 94 99.1 01/04/18 00:00 99.7 88 18 125/61 (82) 96 99.7 01/03/18 20:37 92 119/63 01/03/18 20:00 98.6 92 18 119/63 (81) 95 98.6 01/03/18 16:20 98.2 88 18 123/74 (90) 96 98.2 Intake and Output 01/03/18 01/04/18 19:00 07:00 Intake Total 960 ml Output Total 900 ml 800 ml Balance 60 ml -800 ml Intake Oral 960 ml Output Urine Total 900 ml 800 ml # Bowel Movements 2 1 Laboratory Tests 01/04/18 07:10: White Blood Count 9.9, Red Blood Count 3.30L, Hemoglobin 9.7L, Hematocrit 29.1L , Mean Corpuscular Volume 88, Mean Corpuscular Hemoglobin 29.4, Mean Corpuscular Hemoglobin Concent 33.3, Red Cell Distribution Width 13.8, Platelet Count 548H, Mean Platelet Volume 6.1L, Neutrophils (%) (Auto) 65.6, Lymphocytes (%) (Auto) 27.2, Monocytes (%) (Auto) 4.1, Eosinophils (%) (Auto) 2.1, Basophils (%) (Auto) 1.0, Sodium Level 140, Potassium Level 3.8, Chloride Level 102, Carbon Dioxide Level 30, Anion Gap 8, Blood Urea Nitrogen 6L, Creatinine 0.7, Estimat Glomerular Filtration Rate > 60, Glucose Level 140H, Calcium Level 9.1 Height (Feet): 5 Height (Inches): 5.00 Weight (Pounds): 192 General Appearance: lethargic EENT: normal ENT inspection Neck: normal alignment Cardiovascular: normal peripheral pulses, normal rate, regular rhythm Respiratory/Chest: chest wall non-tender, lungs clear, normal breath sounds Extremities: normal inspection Edema: no edema noted Arm (L), no edema noted Arm (R), no edema noted Leg (L), no edema noted Leg (R), no edema noted Pedal (L), no edema noted Pedal (R), no edema noted Generalized Neurologic: motor weakness Skin: normal pigmentation, warm/dry Bhupendra Harper DO Jan 04, 2018 13:43
[2018-01-04] MEDS ORDERED: ACETAMINOPHEN325 M1 ORAL (13:54)
[2018-01-04] MEDS ORDERED: AMLODIPINE BESYL5 MG ORAL (14:01)
[2018-01-04] MEDS ORDERED: ACETAMINOPHEN-1 EAC1 ORAL (14:01)
[2018-01-04] MEDS ORDERED: AKWA TEARS15 ML BOTH EYES (14:02)
[2018-01-04] MEDS ORDERED: CIPRO500 MG/51 PO (14:06)
[2018-01-04] MEDS ORDERED: CIPRO500 MG PO (14:07)
[2018-01-04] MEDS ORDERED: CATAPRES0.1 MG ORAL (14:08)
[2018-01-04] MEDS ORDERED: FISH OIL CAP1000 MG ORAL (14:09)
[2018-01-04] MEDS ORDERED: FLUCONAZOLE100 MG ORAL (14:09)
[2018-01-04] MEDS ORDERED: FAMOTIDINE20 MG ORAL (14:09)
[2018-01-04] MEDS ORDERED: HEPARIN SO5000 UNIT2 SUBQ (14:10)
[2018-01-04] MEDS ORDERED: FOLIC ACID1 MG ORAL (14:10)
[2018-01-04] MEDS ORDERED: NOVOLOG100 UNITS1 (14:12)
[2018-01-04] MEDS ORDERED: NOVOLOG100 UNIT/3 SUBQ (14:12)
[2018-01-04] MEDS ORDERED: LEVEMIR FL100 UNIT/1 SUBQ (14:13)
[2018-01-04] MEDS ORDERED: GLUCOPHAGE500 MG ORAL (14:15)
[2018-01-04] MEDS ORDERED: METOPROLOL TART25 MG ORAL (14:15)
[2018-01-04] MEDS ORDERED: STARLIX60 MG ORAL (14:17)
[2018-01-04] MEDS ORDERED: NITROSTAT0.4 M1 SL (14:18)
[2018-01-04] MEDS ORDERED: PHOSPHA 250 NE250 M1 PO (14:19)
[2018-01-04] MEDS ORDERED: POTASSIUM CHLO20 ME1 ORAL (14:20)
[2018-01-04 15:51] VITALS: BP 123/69
--- NOTE | 2018-01-05 10:57 | Discharge Summary ---
Discharge Summary Discharge Summary _ DATE OF ADMISSION: 12/22/2017 DATE OF DISCHARGE: 01/04/2018 REASON FOR ADMISSION: 57 years old female with history of diabetes, presented to emergency department for evaluation. Patient was found and the long-term facility in the bathroom and appeared to be lethargic. Accu-Chek at the facility was clinically high. Paramedics were called. Patient was unable to provide history at that time. No reported chest pain or shortness of breath, No reported fevers or chills. Upon evaluation glucose 1064. Bicarbonate less than 5. Anion gap elevated. ABG with evidence of severe metabolic acidosis. Laboratory workup revealed renal failure with BUN 97, creatinine 2.9. WBC 33. Hemoglobin 10.9, hematocrit 34.3. CT of the head revealed no acute intracranial pathology. Physical examination revealed fairly large abscess on the right buttock. Patient started on the IV hydration Insulin bolus was given followed by insulin drip. Patient started on empiric antibiotics. Patient admitted with diagnosis of DKA, right buttock abscess, renal failure, leukocytosis, probable sepsis CONSULTANTS: record keeper Dr. Anthony pulmonary Dr. Nance ID specialist Dr. Robin GI specialist forger helper Dr. Cleaning general surgery Dr. Osorio YOUNG ADULT LIBRARIAN Dr. Zhao maintenance supervisor electrical pain specialist Dr. Jones HOSPITAL COURSE: Patient admitted Patient undergone incision and drainage of perirectal abscess by general surgeon at the bedside. Patient started on empiric antibiotic and aggressive IV hydration. Blood culture were negative. Antibiotic regimen was optimized as per ID specialist recommendations, based on culture and sensitivity. Due to extensive devitalized tissue down to ischial tuberosity , patient required incision and drainage of buttock abscess with extensive debridement and the washout at operating room, which was done 12/30/17. Wound care provided as per surgeon recommendations. Pathology was consistent with abscess. Pain management was addressed. Pain specialist closely followed. Pain was controlled. Aluminum Fabrication Supervisor followed for acute renal failure and electrolyte imbalances. Patient initially was on IV hydration. Renal parameters and electrolytes were closely monitored. Electrolytes corrected as needed. Nephrotoxins were avoided. Prior to discharge renal failure resolved, likely was due to severe sepsis and DKA. Electrolytes stable. Anemia workup revealed stable iron, and evidence of folate deficiency. Patient subsequently started on folic acid supplementation. Hemoglobin and hematocrit were closely monitored with goal to keep hemoglobin above 7. Patient undergone 1 unit of blood cell transfusion during this admission. Marketing Budget Analyst closely followed. Patient initially was on insulin drip . When anion gap closed, insulin drip was discontinued , and patient started on long acting Levemir, short-acting pre-meal insulin and sliding scale of insulin as needed. Hemoglobin A1c - 15.3 clearly not at goal. Patient was educated on compliance with medication regimen and importance of diabetic diet. Patient noted to have a vaginal bleeding. YOUNG ADULT LIBRARIAN consult was requested. Abdominal /transvaginal ultrasound revealed uterine fundal calcifications, likely representing old degenerated fibroids. Nonvisualized ovaries. Grossly negative for adnexal mass Normal endometrial thickness YOUNG ADULT LIBRARIAN specialist recommended to follow-up with the office for endometrial biopsy . No acute surgical intervention was necessary at this time. Pelvic MRI revealed complex area of reticular increased T2 signal measuring 15 x 9.5 x 8.7 cm, in the right perineum as detailed above, consistent with complex perianal fistula, given stated clinical history. No discrete drainable abscess collection. No evidence of deep pelvic involvement Uterine fibroid noted, also described on recent pelvic ultrasound report Disaster Recovery Analyst closely followed for initial sinus tachycardia , which resolved with intravenous hydration. Echocardiogram revealed preserved ejection fraction, no further cardiac issues. Filterer closely followed. Supplemental oxygen provided as needed to keep pulse oximetry above 92% . Pulmonary toilet provided. DVT prophylaxis provided. Venous Duplex bilateral lower extremities was negative. Supportive care provided. Patient clinically improved and was stable for discharge to long-term facility for continuation of care FINAL DIAGNOSES: Severe sepsis Right buttock abscess Perianal fistula s/p incision and drainage of right perirectal abscess. Acute renal failure- resolved Diabetic ketoacidosis Diabetes mellitus out of control Electrolyte imbalance Diabetic nephropathy with proteinuria and hypoalbuminemia Anemia folate deficiency status post colonoscopy and flexible sigmoidoscopy postmenopausal bleeding DISCHARGE MEDICATIONS: See Medication Reconciliation list. DISCHARGE INSTRUCTIONS: Patient was discharged to the long-term facility. Follow up with medical doctor at the facility. I have been assigned to dictate discharge summary for this account. I was not involved in the patient's management. Maryse Neal NP Jan 05, 2018 10:57
== END 2018-01-04 16:00 | DRG 853 ==
LOC: EDBD 15:30 → EMR 16:22 → EDBEDREQ 16:25 → EDBEDREQSVC 16:57 → EDBEDREQ 16:57 → ICU 17:07 → EDBEDREQ 12-23 05:57 → 2E 12-24 15:00 → 4W 12-26 16:51
PROC: 0H98XZZ Drainage of Buttock Skin, External Approach (ICD-10-PCS; principal; 2017-12-22)
PROC: 0DJD8ZZ Inspection of Lower Intestinal Tract, Via Natural or Artificial Opening Endoscopic (ICD-10-PCS; 2017-12-25)
PROC: 0DBN8ZX Excision of Sigmoid Colon, Via Natural or Artificial Opening Endoscopic, Diagnostic (ICD-10-PCS; 2017-12-28)
PROC: 0KBN0ZZ Excision of Right Hip Muscle, Open Approach (ICD-10-PCS; 2017-12-30)
PROC: 0D9P0ZZ Drainage of Rectum, Open Approach (ICD-10-PCS; 2017-12-30)
DX: A41.9 Sepsis, unspecified organism (principal); E11.10 Type 2 diabetes mellitus with ketoacidosis without coma; E11.52 Type 2 diabetes mellitus with diabetic peripheral angiopathy with gangrene; I96 Gangrene, not elsewhere classified; K61.1 Rectal abscess; L02.31 Cutaneous abscess of buttock; R65.20 Severe sepsis without septic shock; E11.65 Type 2 diabetes mellitus with hyperglycemia; E11.21 Type 2 diabetes mellitus with diabetic nephropathy; B37.3 Candidiasis of vulva and vagina; E86.1 Hypovolemia; E88.09 Other disorders of plasma-protein metabolism, not elsewhere classified; K64.8 Other hemorrhoids; D52.9 Folate deficiency anemia, unspecified; N95.0 Postmenopausal bleeding
CPT/HCPCS: 36415; 36600; 70450; 71045; 72197; 76830; 76856; 80048; 80053; 80061; 80076; 80202; 80307; 81003; 82009; 82550; 82553; 82607; 82728; 82746; 82803; 82962; 82977; 83036; 83540; 83550; 83605; 83735; 83880; 84100; 84443; 84484; 84550; 85007; 85025; 85610; 85730; 86140; 86850; 86900; 86901; 86920; 87040; 87070; 87075; 87081; 87086; 87181; 87205; 93005; 93306; 93970; 94003; 94150; A9585; C9399; J1815; J2250; J2405; J8499; S5561